=== PATIENT | female | born 1960 | race Caucasian/White ===

== ENCOUNTER 2017-11-22 17:49 | Inpatient (IN) ==
[~2017-11-22 17:49] MED LIST: *HR* Norepinephrine 4 MG/4 ML VIAL IVC ONE
--- NOTE | 2017-11-22 18:05 | Emergency Department Note ---
Disposition Clinical Impression: Acute respiratory failure Disposition: Still a Patient Condition: Critical Referrals: Ted Parada DO [Primary Care Provider] - Forms: ED Satisfaction Letter General Adult HPI - General Chief complaint: ED Shortness of Breath/Dyspnea Stated complaint: unreponsive/resp failure Time Seen by Provider: 11/22/17 17:53 Source: EMS Mode of arrival: EMS Limitations: altered mental status Nursing Notes Reviewed: Yes Vital Signs Reviewed: Yes - History of Present Illness HPI Narrative: Patient presenting as read story failure, intubated on scene. Apparently has a history of COPD and called the squad earlier today but refused transport. Has been seen at [facility] previously for her sepsis and COPD. Unclear of any surrounding circumstances as EMS states when they arrived, she was unresponsive and she was intubated. - Related Data Home Medications Medication Instructions Recorded Confirmed Citalopram [CeleXA] 20 mg PO DAILY 08/15/17 08/15/17 Cyanocobalamin (Vitamin B-12) 1,000 mcg PO DAILY 08/15/17 08/15/17 [Vitamin B12] Cyclobenzaprine [Flexeril] 10 mg PO TID PRN 08/15/17 08/15/17 Furosemide [Lasix] 40 mg PO DAILY 08/15/17 08/15/17 Gabapentin [Neurontin] 300 mg PO HS 08/15/17 08/15/17 Insulin Degludec [Tresiba 90 unit SQ BID 08/15/17 08/15/17 Flextouch U-200] Insulin LISPRO [Humalog Kwikpen 0 unit SQ TIDWM 08/15/17 08/15/17 U-100] Levothyroxine [Synthroid] 25 mcg PO 0630 08/15/17 08/15/17 Lisinopril [Zestril] 10 mg PO DAILY 08/15/17 08/15/17 Metoprolol XL (24 HR) Succ [Toprol 25 mg PO DAILY 08/15/17 08/15/17 XL] Tramadol HCl [Ultram] 50 mg PO Q6H PRN 08/15/17 08/15/17 Allergies Allergy/AdvReac Type Severity Reaction Status Date / Time carisoprodol [From Soma] Allergy Hives Verified 08/15/17 13:23 cephalexin [From Keflex] Allergy Hives Verified 08/15/17 13:23 Sulfa (Sulfonamide Allergy Hives Verified 08/15/17 13:23 Antibiotics) Limitations: ROS unobtainable due to patients medical condition Past Medical History - Past Medical History Attestation: Yes The following information was validated with the patient. Source: patient Medical history: Reports: atrial fibrillation, diabetes, hypertension Psychiatric history: Reports: depression - Social History Smoking Status: Never smoker Smokeless Tobacco Status: No Alcohol use: Reports: none Drug use: Reports: none Physical Exam - General Limitations: altered mental status General appearance: obtunded, obese, other (Intubated) - Head Head exam: atraumatic, normocephalic - Eye Eye exam: Present: other (Right pupil is 3 mm and minimally reactive, left iridotomy) - ENT ENT exam: other (Visualization of the cords showed pink frothy sputum. ET tube in correct position. After suctioning) - Chest Chest inspection: Present: normal inspection, symmetric chest wall rise - Respiratory Respiratory exam: Present: other (Course breath sounds and Rales bilaterally). Absent: normal lung sounds bilaterally - Cardiovascular Cardiovascular exam: Present: regular rate - Abdominal Exam Abdominal exam: Present: soft, other (Morbidly obese with a foul-smelling pannus ) - Female External Exam: Present: other (Foul-smelling, no obvious discharge) - Extremities Exam Extremities exam: Absent: normal capillary refill (Refill is 5 seconds) - Neurological Exam Neurological exam: Absent: alert, oriented X3 - Skin Skin exam: Present: warm, dry, intact, normal color Course Course Narrative: Patient presenting an acute respiratory failure, intubated. Called for respiratory distress. Her urine was taken and cloudy, so patient could be septic as well. The spectrum antibiotics were ordered. ET tube position was confirmed with video laryngoscopy. Upon arrival. Initial breath sounds were decreased on the left and we suspected a right mainstem intubation, so we retracted the ET tube 2 cm. After getting a stat chest x-ray. Patient was still right mainstem, so we retracted 3 cm and a repeat chest x-ray showed it in good position. An emergent right IJ CVC was placed, please see my procedure note for further details due to hypotension. Norepinephrine was started peripherally during the procedure and will be converted to the central line once chest x-ray is obtained. Patient will certainly need an ICU bed here and we are currently working on obtaining a bed. Otherwise, the patient has been seen at [facility] previously and will need to be transferred there. - Reevaluation(s) Reevaluation #1: Patient will be signed out to the oncoming nighttime team. Dr. Del Rio and Izzy Vital Signs Temperature 98.0 F 11/22/17 17:58 Pulse Rate 86 11/22/17 17:58 Respiratory Rate 16 11/22/17 17:58 Blood Pressure 76/42 11/22/17 17:58 O2 Sat by Pulse Oximetry 85 11/22/17 17:58 Temperature 98.0 F 11/22/17 17:58 Pulse Rate 90 11/22/17 18:14 Respiratory Rate 16 11/22/17 18:24 Blood Pressure 66/44 11/22/17 18:14 O2 Sat by Pulse Oximetry 90 11/22/17 18:24 Oxygen Delivery Oxygen Delivery Ventilator Procedures - Central Line Placement Right IJ Central Line Inserted*: Yes Central Line Insertion: emergent Procedural Pause: verify patient name and date of , timeout performed per policy, theron and assess the site, assemble equipment and verify supplies, perform hand hygiene Patient Placed on Monitor/Pulse Ox: Yes During the Procedure: clinician is wearing sterile gloves, cap, mask,& gown during insertion, sterile field and sterile technique are maintained, patient's face is covered with drape or mask and wearing a cap, everyone in room is wearing a mask Central Line Prep: Chlorhexidine scrub (x2) Prep the Procedure Site: apply chloraprep to the skin using a back and forth scrubbing motion, apply chloraprep for 30 seconds (upper body), 1-2 min ( femoral sites), allow prep to dry, drape the patient with a full body drape Ultrasound Used for Placement: Yes Central Line Lumen Inserted: triple Post Procedure: sutured in place, good blood return, all ports aspirated, flushed, capped, sterile dressing applied, guide wire removed and visualized Post Procedure X-Ray: tip of catheter in good position, no pneumothorax seen Patient Tolerated Procedure: well, no complications Complications: none Name of Clinician Inserting Central Line: Demetri Oswald D.O. Clinician Assisting/Completing Checklist: Dr. Hung Date: 11/22/17 Time: 18:46 Medical Decision Making - Lab Data Result diagrams: 11/22/17 17:55 11/22/17 17:55 Lab Results 11/22/17 11/22/17 11/22/17 Range/Units 17:55 17:55 17:55 WBC 43.9 H* (4.3-11.1) K/mcL RBC 4.29 (3.82-4.97) M/mcL Hgb 10.2 L (11.5-15.4) g/dL Hct 36.0 (35.3-44.9) % MCV 83.9 (83.0-100.0) fL MCH 23.8 L (28.0-33.3) pg MCHC 28.3 L (31.6-35.5) g/dL RDW 21.4 H (11.5-14.5) % Plt Count 325 (140-400) K/mcL MPV 10.9 (9.4-12.4) fL PT 14.9 H (9.4-12.1) Seconds INR 1.4 APTT 33.0 (26.0-36.0) Seconds Sodium 136 (136-145) mEq/L Potassium 5.0 (3.5-5.1) mEq/L Chloride 96 L (98-107) mEq/L Carbon Dioxide 30 H (23-29) mEq/L BUN 72 H (6-20) mg/dL Creatinine 3.14 H (0.60-1.20) mg/dL Est GFR ( Amer) 19 L (> 60) Est GFR (Non-Af Amer) 15 L (> 60) BUN/Creatinine Ratio 23 (6-26) Glucose 95 (70-105) mg/dL Calculated Osmolality 303 H (280-300) Lactic Acid (0.5-2.2) mmol/L Calcium 8.9 (8.6-10.3) mg/dL Phosphorus 8.1 H (2.7-4.5) mg/dL Magnesium 2.1 (1.6-2.6) mg/dL Total Bilirubin 1.1 H (0.3-1.0) mg/dL Direct Bilirubin 0.6 H (0.0-0.2) mg/dL Indirect Bilirubin 0.5 (0.0-1.2) mg/dL AST 10 L (13-39) Units/L ALT 5 L (7-52) Units/L Alkaline Phosphatase 235 H (34-104) Units/L Troponin I 0.13 H* (< 0.04) ng/mL Serum Total Protein 7.8 (6.4-8.9) g/dL Albumin 2.8 L (3.5-5.7) g/dL Globulin 5.0 H (2.4-3.5) g/dL Albumin/Globulin Ratio 0.6 L (1.1-2.2) 11/22/17 Range/Units 17:55 WBC (4.3-11.1) K/mcL RBC (3.82-4.97) M/mcL Hgb (11.5-15.4) g/dL Hct (35.3-44.9) % MCV (83.0-100.0) fL MCH (28.0-33.3) pg MCHC (31.6-35.5) g/dL RDW (11.5-14.5) % Plt Count (140-400) K/mcL MPV (9.4-12.4) fL PT (9.4-12.1) Seconds INR APTT (26.0-36.0) Seconds Sodium (136-145) mEq/L Potassium (3.5-5.1) mEq/L Chloride (98-107) mEq/L Carbon Dioxide (23-29) mEq/L BUN (6-20) mg/dL Creatinine (0.60-1.20) mg/dL Est GFR ( Amer) (> 60) Est GFR (Non-Af Amer) (> 60) BUN/Creatinine Ratio (6-26) Glucose (70-105) mg/dL Calculated Osmolality (280-300) Lactic Acid 2.6 H (0.5-2.2) mmol/L Calcium (8.6-10.3) mg/dL Phosphorus (2.7-4.5) mg/dL Magnesium (1.6-2.6) mg/dL Total Bilirubin (0.3-1.0) mg/dL Direct Bilirubin (0.0-0.2) mg/dL Indirect Bilirubin (0.0-1.2) mg/dL AST (13-39) Units/L ALT (7-52) Units/L Alkaline Phosphatase (34-104) Units/L Troponin I (< 0.04) ng/mL Serum Total Protein (6.4-8.9) g/dL Albumin (3.5-5.7) g/dL Globulin (2.4-3.5) g/dL Albumin/Globulin Ratio (1.1-2.2) Critical Care Time Critical Care Time: Yes Total Critical Care Time: 45 Attestation: I personally spent ___45___ minutes devoted to the care of this critically ill patient. This time excludes the time for billable procedures.
[2017-11-22 18:13] LABS: Hemoglobin 10.2 g/dL (11.5-15.4); Mean Corpuscular HGB Conc 28.3 g/dL (31.6-35.5); Mean Corpuscular Hemoglobin 23.8 pg (28.0-33.3); Mean Corpuscular Volume 83.9 fL (83.0-100.0); Mean Platelet Volume 10.9 fL (9.4-12.4); Platelet Count 325 K/mcL (140-400); Red Blood Count 4.29 M/mcL (3.82-4.97); Red Cell Distribution Width 21.4 % (11.5-14.5)
[2017-11-22 18:19] LABS: INR 1.4; Prothrombin Time 14.9 Seconds (9.4-12.1)
--- NOTE | 2017-11-22 18:21 | Emergency Department Note ---
Disposition Clinical Impression: Acute respiratory failure Disposition: Still a Patient Condition: Critical Referrals: Ted Parada DO [Primary Care Provider] - Forms: ED Satisfaction Letter General Adult HPI - General Chief complaint: ED Shortness of Breath/Dyspnea Stated complaint: unreponsive/resp failure Time Seen by Provider: 11/22/17 17:53 Source: EMS Mode of arrival: EMS Limitations: altered mental status Nursing Notes Reviewed: Yes Vital Signs Reviewed: Yes - History of Present Illness Pain Scale: 0 - Related Data Home Medications Medication Instructions Recorded Confirmed Citalopram [CeleXA] 20 mg PO DAILY 08/15/17 08/15/17 Cyanocobalamin (Vitamin B-12) 1,000 mcg PO DAILY 08/15/17 08/15/17 [Vitamin B12] Cyclobenzaprine [Flexeril] 10 mg PO TID PRN 08/15/17 08/15/17 Furosemide [Lasix] 40 mg PO DAILY 08/15/17 08/15/17 Gabapentin [Neurontin] 300 mg PO HS 08/15/17 08/15/17 Insulin Degludec [Tresiba 90 unit SQ BID 08/15/17 08/15/17 Flextouch U-200] Insulin LISPRO [Humalog Kwikpen 0 unit SQ TIDWM 08/15/17 08/15/17 U-100] Levothyroxine [Synthroid] 25 mcg PO 0630 08/15/17 08/15/17 Lisinopril [Zestril] 10 mg PO DAILY 08/15/17 08/15/17 Metoprolol XL (24 HR) Succ [Toprol 25 mg PO DAILY 08/15/17 08/15/17 XL] Tramadol HCl [Ultram] 50 mg PO Q6H PRN 08/15/17 08/15/17 Allergies Allergy/AdvReac Type Severity Reaction Status Date / Time carisoprodol [From Soma] Allergy Hives Verified 08/15/17 13:23 cephalexin [From Keflex] Allergy Hives Verified 08/15/17 13:23 Sulfa (Sulfonamide Allergy Hives Verified 08/15/17 13:23 Antibiotics) Past Medical History - Past Medical History Medical history: Reports: atrial fibrillation, diabetes, hypertension Psychiatric history: Reports: depression - Social History Smoking Status: Never smoker Smokeless Tobacco Status: No Alcohol use: Reports: none Drug use: Reports: none Physical Exam - General Limitations: altered mental status General appearance: alert, in no apparent distress Course Vital Signs Temperature 98.0 F 11/22/17 17:58 Pulse Rate 86 11/22/17 17:58 Respiratory Rate 16 11/22/17 17:58 Blood Pressure 76/42 11/22/17 17:58 O2 Sat by Pulse Oximetry 85 11/22/17 17:58 Temperature 98.0 F 11/22/17 17:58 Pulse Rate 88 11/22/17 18:57 Respiratory Rate 16 11/22/17 18:57 Blood Pressure 78/39 11/22/17 18:57 O2 Sat by Pulse Oximetry 87 11/22/17 18:57 Oxygen Delivery Oxygen Delivery Ventilator Medical Decision Making - MDM Narrative Medical decision making narrative: This documentation is done with the assistance of Dragon dictation. Despite efforts made to ensure accuracy, there may be inaccuracies in glass presser or spelling and typographical errors. Patient was seen by EMS early in the day with respiratory distress sats in the 80 she refused let them transport her she has had a history of CHF and possibly pneumonia in the past. They came again tonight she was altered with mental status and her sats were in the low 80s. They went ahead and intubated her and transported her here initially her blood pressure was normal and now she is hypotensive. Were in place a central line labs antibiotics and she will need admission. At the time we do not have any critical care beds she will probably need transfer. Looking at her old records she had pneumonia and CHF in the past and possibly COPD and was transferred to [facility] at that time. Chest X-Ray 11/22/17 18:07 IMPRESSION: 1. Endotracheal tube with the last image demonstrating the tip projecting approximately 1.7 cm above the min. 2. Patchy opacities throughout the lungs bilaterally. 3. There may be bilateral pleural effusions. D/ / Cuba Sawyer MD / Cuba Sawyer MD Interpreting Provider: Cuba Sawyer MD 1842 hrs. patient was hypotensive with a systolic in the 70s central line was placed under ultrasound guidance and sterile conditions by Dr. Oswald under my supervision. Patient's white count is back a 42,000 when she was here last time it was in the high 30,000. We will go and order peripheral smear last time she was transferred to [facility]. We may have to do today is a does appear we have ICU beds ICU team said they will check the sutures and when they can move out. Chest x-ray is done and waiting on labs we will start her on antibiotics and admit versus transfer. Due to her urinalysis we will go and start her on antibiotics for UTI sepsis. I will sign her out to the evening ER physician Dr. Del Rio for further management and disposition. Patient's critical care time x-ray separately billable procedures was 35 minutes. - Lab Data Result diagrams: 11/22/17 17:55 11/22/17 17:55 Lab Results 11/22/17 11/22/17 11/22/17 Range/Units 17:55 17:55 17:55 WBC 43.9 H* (4.3-11.1) K/mcL RBC 4.29 (3.82-4.97) M/mcL Hgb 10.2 L (11.5-15.4) g/dL Hct 36.0 (35.3-44.9) % MCV 83.9 (83.0-100.0) fL MCH 23.8 L (28.0-33.3) pg MCHC 28.3 L (31.6-35.5) g/dL RDW 21.4 H (11.5-14.5) % Plt Count 325 (140-400) K/mcL MPV 10.9 (9.4-12.4) fL PT 14.9 H (9.4-12.1) Seconds INR 1.4 APTT 33.0 (26.0-36.0) Seconds Sodium 136 (136-145) mEq/L Potassium 5.0 (3.5-5.1) mEq/L Chloride 96 L (98-107) mEq/L Carbon Dioxide 30 H (23-29) mEq/L BUN 72 H (6-20) mg/dL Creatinine 3.14 H (0.60-1.20) mg/dL Est GFR ( Amer) 19 L (> 60) Est GFR (Non-Af Amer) 15 L (> 60) BUN/Creatinine Ratio 23 (6-26) Glucose 95 (70-105) mg/dL Calculated Osmolality 303 H (280-300) Lactic Acid (0.5-2.2) mmol/L Calcium 8.9 (8.6-10.3) mg/dL Phosphorus 8.1 H (2.7-4.5) mg/dL Magnesium 2.1 (1.6-2.6) mg/dL Total Bilirubin 1.1 H (0.3-1.0) mg/dL Direct Bilirubin 0.6 H (0.0-0.2) mg/dL Indirect Bilirubin 0.5 (0.0-1.2) mg/dL AST 10 L (13-39) Units/L ALT 5 L (7-52) Units/L Alkaline Phosphatase 235 H (34-104) Units/L Troponin I 0.13 H* (< 0.04) ng/mL Serum Total Protein 7.8 (6.4-8.9) g/dL Albumin 2.8 L (3.5-5.7) g/dL Globulin 5.0 H (2.4-3.5) g/dL Albumin/Globulin Ratio 0.6 L (1.1-2.2) Ur Specimen Adequacy Urine Color (Yellow) Urine Clarity (Clear) Urine pH (5.0-8.0) pH Units Ur Specific [place] (1.010-1.025) Urine Protein (Neg-Trace) mg/dL Urine Glucose (UA) (Normal) mg/dL Urine Ketones (Negative) mg/dL Urine Blood (Negative) Urine Nitrite (Negative) Urine Bilirubin (Negative) Urine Urobilinogen (Normal) mg/dL Ur Leukocyte Esterase (Negative) Urine Microscopic WBC (0-3) per hpf Ur Squamous Epith Cells (None-Few) per lpf Ur Renal Epithelial Cell (None-Few) per hpf Urine Bacteria (None-Few) per hpf Urine Starch Ur Culture Indicated? (NO) 11/22/17 11/22/17 Range/Units 17:55 18:30 WBC (4.3-11.1) K/mcL RBC (3.82-4.97) M/mcL Hgb (11.5-15.4) g/dL Hct (35.3-44.9) % MCV (83.0-100.0) fL MCH (28.0-33.3) pg MCHC (31.6-35.5) g/dL RDW (11.5-14.5) % Plt Count (140-400) K/mcL MPV (9.4-12.4) fL PT (9.4-12.1) Seconds INR APTT (26.0-36.0) Seconds Sodium (136-145) mEq/L Potassium (3.5-5.1) mEq/L Chloride (98-107) mEq/L Carbon Dioxide (23-29) mEq/L BUN (6-20) mg/dL Creatinine (0.60-1.20) mg/dL Est GFR ( Amer) (> 60) Est GFR (Non-Af Amer) (> 60) BUN/Creatinine Ratio (6-26) Glucose (70-105) mg/dL Calculated Osmolality (280-300) Lactic Acid 2.6 H (0.5-2.2) mmol/L Calcium (8.6-10.3) mg/dL Phosphorus (2.7-4.5) mg/dL Magnesium (1.6-2.6) mg/dL Total Bilirubin (0.3-1.0) mg/dL Direct Bilirubin (0.0-0.2) mg/dL Indirect Bilirubin (0.0-1.2) mg/dL AST (13-39) Units/L ALT (7-52) Units/L Alkaline Phosphatase (34-104) Units/L Troponin I (< 0.04) ng/mL Serum Total Protein (6.4-8.9) g/dL Albumin (3.5-5.7) g/dL Globulin (2.4-3.5) g/dL Albumin/Globulin Ratio (1.1-2.2) Ur Specimen Adequacy See below A Urine Color Dark Yellow (Yellow) Urine Clarity Turbid A (Clear) Urine pH 5.0 (5.0-8.0) pH Units Ur Specific [place] 1.026 H (1.010-1.025) Urine Protein 100 H (Neg-Trace) mg/dL Urine Glucose (UA) Normal (Normal) mg/dL Urine Ketones Trace H (Negative) mg/dL Urine Blood Small H (Negative) Urine Nitrite Negative (Negative) Urine Bilirubin Small H (Negative) Urine Urobilinogen Normal (Normal) mg/dL Ur Leukocyte Esterase Large H (Negative) Urine Microscopic WBC Present (0-3) per hpf Ur Squamous Epith Cells Present (None-Few) per lpf Ur Renal Epithelial Cell Present (None-Few) per hpf Urine Bacteria Present (None-Few) per hpf Urine Starch Present Ur Culture Indicated? YES A (NO) Critical Care Time Critical Care Time: Yes Total Critical Care Time: 35 Attestation: Excluding any separately billable procedures Attestation Statement - Attestation Attestation: I examined this patient and my medical decision-making was reviewed with the Resident Physician. I agree with the documented findings, disposition and treatment plan as described except to the extent set forth below. Patient seen on arrival with EMS and Dr. Oswald, I agree with his evaluation and management plan, supervised the care the patient's stay.
[2017-11-22] MEDS ORDERED: 0.9 % Sodium Chloride 1,000 ML ONE (18:27)
[2017-11-22] MEDS: Norepinephrine 4 MG in D5% in Water 250 ML IVC SCH (18:28)
[2017-11-22 18:36] LABS: Albumin 2.8 g/dL (3.5-5.7); Albumin/Globulin Ratio 0.6 (1.1-2.2); Bilirubin,Direct 0.6 mg/dL (0.0-0.2); Bilirubin,Indirect 0.5 mg/dL (0.0-1.2); Bilirubin,Total 1.1 mg/dL (0.3-1.0); Calcium 8.9 mg/dL (8.6-10.3); Magnesium 2.1 mg/dL (1.6-2.6); Phosphorous 8.1 mg/dL (2.7-4.5); Total Protein 7.8 g/dL (6.4-8.9)
[2017-11-22 18:39] LABS: Troponin I 0.13 ng/mL (< 0.04)
[2017-11-22 18:47] LABS: Bilirubin,Urine Small (Negative); Blood,Urine Small (Negative); Clarity,Urine Turbid (Clear); Color,Urine Dark Yellow (Yellow); Glucose,Urine (UA) Normal (Normal); Ketones,Urine Trace mg/dL (Negative); Leukocyte Esterase,Urine Large (Negative); Nitrite,Urine Negative (Negative); Protein,Urine 100 mg/dL (Neg-Trace); Specific Gravity,Urine 1.026 (1.010-1.025); Urobilinogen,Urine Normal (Normal)
[2017-11-22 18:50] LABS: Bacteria,Urine Present per hpf (None-Few); Renal Epithelial Cells,Urine Present per hpf (None-Few); Squamous Epithelial Cell,Urine Present per lpf (None-Few); WBC,Urine Present per hpf (0-3)
[2017-11-22] MEDS ORDERED: 0.9 % Sodium Chloride 1,000 ML IVC ONE ×3 (18:50→22:56)
[2017-11-22] MEDS ORDERED: cefTRIAXone 1,000 MG in Water for inj. (sterile) 20 ML 10 ML IVP ONE (18:53)
[2017-11-22] MEDS ORDERED: Levofloxacin 750 MG/150 ML 750 MG/150 ML BAG IVPB ONE (18:53)
[2017-11-22 19:11] LABS: Lymphocytes # 1.3 K/mcL (0.6-4.6); Monocytes # 0.9 K/mcL (0.0-1.3); Neutrophils # 41.3 K/mcL (1.6-8.9)
[2017-11-22 19:12] LABS: Anisocytosis 2+ (Not Present); Hypochromasia Present (Not Present); Platelet Estimate Normal (Normal)
[2017-11-22] MEDS ORDERED: *HR* Midazolam HCl 2 MG/2 ML VIAL ONE ×2 (19:12→19:25)
[2017-11-22] MEDS ORDERED: *HR* Midazolam HCl 2 MG/2 ML VIAL IVP ONE ×3 (19:22→19:31)
[2017-11-22] MEDS ORDERED: Dexmedetomidine HCl 400 MCG/100 ML MLS IVC SCH (19:30)
[2017-11-22] MEDS ORDERED: methylPREDNISolone 125 MG/2 ML VIAL IVP ONE (19:31)
[2017-11-22] MEDS ORDERED: Ipratropium/Albuterol Neb 3 ML IH ONE (19:31)
[2017-11-22 19:54] LABS: ABG Base Excess 3 mEq/L (-2 to 3); ABG HCO3 31 mEq/L (21-27); ABG Oxygen Saturation 92 % (95-98); ABG PCO2 67 mmHg (35-45); ABG PH 7.28 pH Units (7.32-7.45); ABG PO2 76 mmHg (85-104); ABG TCO2 33 mEq/L (20-26); Blood Gas Modality VC; Blood Gas PEEP 7 cm H2O; Blood Gas Respiration Rate 16; Blood Gas VT 500 cc
[2017-11-22] MEDS ORDERED: Naloxone 0.4 MG/ML INJ IVP PRN (20:04)
[2017-11-22] MEDS: FentaNYL (PF) 1,000 MCG in 0.9 % Sodium Chloride 80 ML IVC SCH (20:05)
[2017-11-22] MEDS: Dexmedetomidine HCl 200 MCG/50 ML MLS IVC SCH (20:09)
[2017-11-22] MEDS ORDERED: *HR* Dextrose 50 % in Water (Syg) 50 ML SYRINGE IVP PRN (20:12)
[2017-11-22] MEDS ORDERED: D5% in Water 1,000 ML IVC PRN (20:12)
[2017-11-22] MEDS ORDERED: Dextrose Gel 15 GM/37.5 ML TUBE PO PRN ×2 (20:12)
--- NOTE | 2017-11-22 20:27 | Internal Med History&Physical ---
Addendum entered and electronically signed by Ted Bowling DO 11/22/17 21:58: Assessment and plan: Elevated troponin Initial troponin 0.13. EKG without ischemic changes. Suspect demand ischemia secondary to hypoxia as well as concomitant renal insufficiency. Continue serial troponin labs every 6 hours. Consider heparinization if continued up trend of levels. Original Note: <Ted Bowling - Last Filed: 11/22/17 21:29> Date of Encounter: 11/22/17 Time of Encounter: 20:27 Assessment and Plan (1) HCAP (healthcare-associated pneumonia) Current visit: Yes Status: Acute Presented to the emergency department on 11/22/17 with acute on chronic respiratory failure requiring intubation. Chest x-ray concerning for bilateral infiltrates. Admission in August 2017 for influenza and pneumonia requiring and NIPPV Just discharged 2 weeks ago from an extended care facility. Patient meets criteria for healthcare associated pneumonia. Continue broad-spectrum antibiotic coverage with vancomycin, cefepime and Levaquin. Legionella, strep and viral panel ordered and pending. Blood cultures obtained. De-escalate antibiotics as guided by culture sensitivities. (2) Septic shock Current visit: Yes Status: Acute Patient presented with 2 SIRS criteria (leukocytosis, heart rate) with pulmonary etiology. Chest x-ray with bilateral infiltrates. Hypotensive despite IV fluid resuscitation necessitating vasopressor support. Broad-spectrum antibiotics of vancomycin, cefepime and Levaquin. Initial lactic acid of 2.6, continued to trend and hydrate. Continue Levophed with goal map greater than 60. (3) Acute and chronic respiratory failure Current visit: Yes Status: Acute Intubated for acute on chronic hypercapnic respiratory failure with hypoxia. Multifactorial in the setting of suspected pneumonia as well as likely underlying obesity hypoventilation and chronic retention. ABG 7.28/67/76/31 demonstrates a primary respiratory acidosis with incomplete metabolic compensation. Continue mechanical ventilation. Repeat chest x-ray in a.m. Broad-spectrum antibiotic coverage for pneumonia with vancomycin, cefepime and Levaquin. Qualifiers: Respiratory failure complication: hypoxia and hypercapnia Qualified Code(s) : J96.21 - Acute and chronic respiratory failure with hypoxia; J96.22 - Acute and chronic respiratory failure with hypercapnia; J96.22 - Acute and chronic respiratory failure with hypercapnia; J96.22 - Acute and chronic respiratory failure with hypercapnia (4) Diabetes Current visit: Yes Status: Chronic Sliding-scale insulin coverage. Qualifiers: Diabetes mellitus type: type 2 Diabetes mellitus fci insulin use: unspecified fci insulin use status Diabetes mellitus complication status : with unspecified complications Qualified Code(s): E11.8 - Type 2 diabetes mellitus with unspecified complications (5) Hypertension Current visit: Yes Status: Chronic Hold antihypertensives in the setting of septic shock. Qualifiers: Hypertension type: essential hypertension Qualified Code(s): I10 - Essential (primary) hypertension (6) Anemia Current visit: Yes Status: Acute Hemoglobin 10.2, previously 9.5 at last visit. No obvious source of bleeding. Continue to trend daily. Qualifiers: Anemia type: unspecified type Qualified Code(s): D64.9 - Anemia, unspecified (7) Atrial fibrillation Current visit: Yes Status: Chronic Rate controlled at this time. Not on anticoagulants. Hold beta ana in the setting of septic shock. Qualifiers: Atrial fibrillation type: unspecified Qualified Code(s): I48.91 - Unspecified atrial fibrillation (8) Leukocytosis Current visit: Yes Status: Acute WBC 43.9, previously 39.8 at last visit. Bandemia present. In the setting of septic shock. Continue to trend daily. Qualifiers: Leukocytosis type: bandemia Qualified Code(s): D72.825 - Bandemia (9) Renal insufficiency Current visit: Yes Status: Acute Serum creatinine 3.14. Continue to trend daily. Avoid nephrotoxic agents. Renally dose vancomycin. (10) Morbid obesity Current visit: Yes Status: Chronic (11) DVT prophylaxis Current visit: Yes Status: Acute Heparin 5000 units every 12 hours Internal Medicine - H&P: HPI Chief complaint: Altered mental status, acute respiratory failure Admitted From: Emergency Dept Plans for Post Hospital Care: Transfer Nursing Home Facility History of present illness: Ms. Romero is a 57 year old female with a past medical history of diabetes, hypertension, hyperlipidemia, atrial fibrillation reportedly not on anticoagulation, congestive heart failure who presented to the emergency department on 11/22/17 via EMS due to altered mental status and respiratory failure. Report is obtained from documentation as well as the patient's son as she is intubated and sedated. He reports that she was in her usual state of health until this afternoon. She woke up today and she was fine conversing at her baseline. He reports that his father was home with her and around 3 PM he was unable to wake her up. He states when he got home she remained difficult to awake. He does go on to report that around 10 AM this morning she was hypoxic at home despite her usual 3 L nasal cannula and EMS arrived but the patient refused to be transferred. EMS was again called and the patient was brought in for evaluation. Patient was intubated by EMS prior to arrival. Patient seen and examined at bedside in the emergency department with the patient's son present. He goes on to report that in August she was admitted to [facility] with influenza and pneumonia. She had a prolonged stay with transferred to a rehabilitation center which she was just released from 2 weeks ago. He states that she has had a cough since . Otherwise she has been at her baseline requiring usual oxygen supplementation of 3 L nasal cannula continuous. She has no prior history requiring intubation. She was on BiPAP during her last hospitalization in August. Workup in the emergency department included a head CT without acute abnormality. EKG demonstrates sinus rhythm with isolated ST elevation in lead 3 without contiguous findings. Initial troponin of 0.13 in the setting of acute renal insufficiency. She is noted to have a leukocytosis of 43.9 with one prior comparison of 40. Lactic acid of 2.6. The patient was given 2 L of IV fluids as well as Rocephin and Levaquin initially. Her chest x-ray demonstrates bilateral opacifications. Her antibiotic regimen was escalated to vancomycin after shift change. She is admitted to the intensive care unit under the hospitalist service for further ventilatory management and sepsis resuscitation. Past Med Surg Social Fam HX - Past Medical History Source: obtained from family Medical history: atrial fibrillation, diabetes, hypertension Psychiatric history: depression - Social History Smoking Status: Never smoker Smokeless Tobacco Status: No Alcohol use: none Drug use: none Internal Medicine - H&P: Meds Citalopram [CeleXA] 20 mg PO DAILY 08/15/17 [History] Cyanocobalamin (Vitamin B-12) [Vitamin B12] 1,000 mcg PO DAILY 08/15/17 [History ] Cyclobenzaprine [Flexeril] 10 mg PO TID PRN 08/15/17 [History] Furosemide [Lasix] 40 mg PO DAILY 08/15/17 [History] Gabapentin [Neurontin] 300 mg PO HS 08/15/17 [History] Insulin Degludec [Tresiba Flextouch U-200] 90 unit SQ BID 08/15/17 [History] Insulin LISPRO [Humalog Kwikpen U-100] 0 unit SQ TIDWM 08/15/17 [History] Lisinopril [Zestril] 10 mg PO DAILY 08/15/17 [History] Metoprolol XL (24 HR) Succ [Toprol XL] 25 mg PO DAILY 08/15/17 [History] Tramadol HCl [Ultram] 50 mg PO Q6H PRN 08/15/17 [History] Ascorbic Acid [Vitamin C] 500 mg PO BID 11/22/17 [History] Docusate Sodium [Dok] 100 mg PO DAILY 11/22/17 [History] Ferrous Sulfate [Iron] 325 mg PO BID 11/22/17 [History] Levothyroxine [Synthroid] 50 mcg PO 0630 11/22/17 [History] Nystatin POWDER [Nystop] 1 appl TP BID 11/22/17 [History] Potassium Chloride [K-Tab ER] 20 meq PO DAILY 11/22/17 [History] 3 Allergy/AdvReac Type Severity Reaction Status Date / Time carisoprodol [From Soma] Allergy Hives Verified 08/15/17 13:23 cephalexin [From Keflex] Allergy Hives Verified 08/15/17 13:23 Sulfa (Sulfonamide Allergy Hives Verified 08/15/17 13:23 Antibiotics) ROS unobtainable: due to endotracheal tube All Systems PM: A 10-system review of systems was performed and is negative for pertinent findings except as documented above in the HPI. - Constitutional Vitals: Temp Pulse Resp BP Pulse Ox 98.0 F 87 15 136/61 100 11/22/17 17:58 11/22/17 19:42 11/22/17 19:42 11/22/17 19:42 11/22/17 19:42 Exam: Intubated and sedated. - Head Head exam: Present: atraumatic, normal inspection, normocephalic - Eye Eye exam: Present: normal appearance - Neck Neck exam general surgery: Present: normal inspection - Respiratory Additional comments: Mechanically ventilated. Coarse breath sounds bilaterally with bibasilar diminished breath sounds. - Cardiovascular Cardiovascular exam: Present: bradycardia, +S1, +S2 - GI/Abdominal GI/Abdominal exam: Present: soft, no peritoneal signs Additional comments: Discoloration of the lower abdomen with excoriations. - Extremities Exam Extremities exam: Present: pedal edema. Absent: cyanotic - Neurological Exam Additional comments: Intubated and sedated. - Skin Skin exam: Present: dry Internal Med - H&P Results - Labs CBC & Chem 7: 11/22/17 17:55 11/22/17 17:55 Labs: Short CBC 11/22/17 Range/Units 17:55 WBC 43.9 H* (4.3-11.1) K/mcL Hgb 10.2 L (11.5-15.4) g/dL Hct 36.0 (35.3-44.9) % Plt Count 325 (140-400) K/mcL Neutrophils # 41.3 H (1.6-8.9) K/mcL BMP 11/22/17 17:55 Sodium 136 Potassium 5.0 Chloride 96 L Carbon Dioxide 30 H BUN 72 H Creatinine 3.14 H Glucose 95 Calcium 8.9 Cardiac Enzymes 11/22/17 Range/Units 17:55 Troponin I 0.13 H* (< 0.04) ng/mL Liver Function 11/22/17 Range/Units 17:55 Total Bilirubin 1.1 H (0.3-1.0) mg/dL Direct Bilirubin 0.6 H (0.0-0.2) mg/dL AST 10 L (13-39) Units/L ALT 5 L (7-52) Units/L Alkaline Phosphatase 235 H (34-104) Units/L Albumin 2.8 L (3.5-5.7) g/dL Urine 11/22/17 Range/Units 18:30 Urine Color Dark Yellow (Yellow) Urine Clarity Turbid A (Clear) Urine pH 5.0 (5.0-8.0) pH Units Ur Specific [place] 1.026 H (1.010-1.025) Urine Protein 100 H (Neg-Trace) mg/dL Urine Glucose (UA) Normal (Normal) mg/dL - ABG Interpretation ABG results: 11/22/17 19:51 ABG pH 7.28 L ABG pCO2 67 H ABG pO2 76 L ABG HCO3 31 H ABG Total CO2 33 H ABG O2 Saturation 92 L ABG Base Excess 3 - Impressions ITS Impressions Chest X-Ray 11/22/17 18:04 IMPRESSION: 1. Endotracheal tube with the last image demonstrating the tip projecting approximately 1.7 cm above the min. 2. Patchy opacities throughout the lungs bilaterally. 3. There may be bilateral pleural effusions. D/ / Cuba Sawyer MD / Cuba Sawyer MD Interpreting Provider: Cuba Sawyer MD Chest X-Ray 11/22/17 18:07 IMPRESSION: 1. Endotracheal tube with the last image demonstrating the tip projecting approximately 1.7 cm above the min. 2. Patchy opacities throughout the lungs bilaterally. 3. There may be bilateral pleural effusions. D/ / Cuba Sawyer MD / Cuba Sawyer MD Interpreting Provider: Cuba Sawyer MD Chest X-Ray 11/22/17 19:14 IMPRESSION: Right IJ central venous catheter tip projects at the superior cavoatrial junction. No significant change in bilateral interstitial and airspace opacities, worse on the right than the left. D/ / 11/22/2017 19:26:13 Danny Pope MD / vinny Interpreting Provider: Danny Pope MD <Marcela Burk - Last Filed: 11/22/17 23:03> Date of Encounter: 11/22/17 Internal Medicine - H&P: HPI History of present illness: Ms. Romero is a 57 year old female All Systems PM: A 10-system review of systems was performed and is negative for pertinent findings except as documented above in the HPI. - Constitutional Vitals: Temp Pulse Resp BP Pulse Ox 98.1 F 75 19 123/37 100 11/22/17 22:00 11/22/17 22:00 11/22/17 22:00 11/22/17 22:00 11/22/17 22:00 Internal Med - H&P Results - Labs CBC & Chem 7: 11/22/17 17:55 11/22/17 17:55 - Attending Attestation I have seen and examined this patient independently. I have discussed with resident physician Dr Bowling regarding the management plan. Agree with the documentation. Pt present with nonresponsive. Pt has cough, hypoxia, and respiratory distress since this morning. Pt meets sepsis and septic shock criteria, infection source is most likely from HCAP considering CXR changes and respiratory failure and ABG change shows respiratory acidosis with CO2 retention. Pt also has Acute on chronic renal failure. Pt has mild elevated troponin, which is most likely demand ischemia due to severe sepsis and ARF. Will trend 3 sets of troponin. Will cont abx and IVF. Pt was intubated in ER already and will cont mechanical ventilation. Pt is on levophed for hypotension. Will consult neonatologist. Pt is in critical condition, prognosis is guarded. Critical care time 40 min including history, physical, data review, and medical decision making.
[2017-11-22 20:50] LABS: Toxic Granulation Present (Not Present)
--- NOTE | 2017-11-22 21:01 | Emergency Department Note ---
Disposition Clinical Impression: Acute respiratory failure Disposition: Still a Patient Condition: Critical General Adult HPI - General Chief complaint: ED Shortness of Breath/Dyspnea Stated complaint: unreponsive/resp failure Time Seen by Provider: 11/22/17 17:53 Source: EMS Mode of arrival: EMS Limitations: altered mental status Nursing Notes Reviewed: Yes Vital Signs Reviewed: Yes - History of Present Illness Pain Scale: 0 - Related Data Home Medications Medication Instructions Recorded Confirmed Citalopram [CeleXA] 20 mg PO DAILY 08/15/17 11/22/17 Cyanocobalamin (Vitamin B-12) 1,000 mcg PO DAILY 08/15/17 11/22/17 [Vitamin B12] Cyclobenzaprine [Flexeril] 10 mg PO TID PRN 08/15/17 11/22/17 Furosemide [Lasix] 40 mg PO DAILY 08/15/17 11/22/17 Gabapentin [Neurontin] 300 mg PO HS 08/15/17 11/22/17 Insulin Degludec [Tresiba 90 unit SQ BID 08/15/17 11/22/17 Flextouch U-200] Insulin LISPRO [Humalog Kwikpen 0 unit SQ TIDWM 08/15/17 11/22/17 U-100] Lisinopril [Zestril] 10 mg PO DAILY 08/15/17 11/22/17 Metoprolol XL (24 HR) Succ [Toprol 25 mg PO DAILY 08/15/17 11/22/17 XL] Tramadol HCl [Ultram] 50 mg PO Q6H PRN 08/15/17 11/22/17 Ascorbic Acid [Vitamin C] 500 mg PO BID 11/22/17 11/22/17 Docusate Sodium [Dok] 100 mg PO DAILY 11/22/17 11/22/17 Ferrous Sulfate [Iron] 325 mg PO BID 11/22/17 11/22/17 Levothyroxine [Synthroid] 50 mcg PO 0630 11/22/17 11/22/17 Nystatin POWDER [Nystop] 1 appl TP BID 11/22/17 11/22/17 Potassium Chloride [K-Tab ER] 20 meq PO DAILY 11/22/17 11/22/17 Allergies Allergy/AdvReac Type Severity Reaction Status Date / Time carisoprodol [From Soma] Allergy Hives Verified 08/15/17 13:23 cephalexin [From Keflex] Allergy Hives Verified 08/15/17 13:23 Sulfa (Sulfonamide Allergy Hives Verified 08/15/17 13:23 Antibiotics) Past Medical History - Past Medical History Medical history: Reports: atrial fibrillation, diabetes, hypertension Psychiatric history: Reports: depression - Social History Smoking Status: Never smoker Smokeless Tobacco Status: No Alcohol use: Reports: none Drug use: Reports: none Physical Exam - General Limitations: altered mental status General appearance: alert, in no apparent distress Course Vital Signs Temperature 98.0 F 11/22/17 17:58 Pulse Rate 86 11/22/17 17:58 Respiratory Rate 16 11/22/17 17:58 Blood Pressure 76/42 11/22/17 17:58 O2 Sat by Pulse Oximetry 85 11/22/17 17:58 Temperature 98.2 F 11/23/17 04:40 Pulse Rate 58 11/23/17 05:00 Respiratory Rate 16 11/23/17 05:08 Blood Pressure 105/42 11/23/17 05:08 O2 Sat by Pulse Oximetry 94 11/23/17 05:08 Oxygen Delivery Oxygen Delivery Ventilator Medical Decision Making - Lab Data Result diagrams: 11/23/17 03:30 11/23/17 03:09 Lab Results 11/22/17 11/22/17 11/22/17 Range/Units 17:55 17:55 17:55 WBC 43.9 H* (4.3-11.1) K/mcL RBC 4.29 (3.82-4.97) M/mcL Hgb 10.2 L (11.5-15.4) g/dL Hct 36.0 (35.3-44.9) % MCV 83.9 (83.0-100.0) fL MCH 23.8 L (28.0-33.3) pg MCHC 28.3 L (31.6-35.5) g/dL RDW 21.4 H (11.5-14.5) % Plt Count 325 (140-400) K/mcL MPV 10.9 (9.4-12.4) fL Seg Neutrophils % 77.0 % Band Neutrophils % 17.0 H (0-4) % Lymphocytes % 3.0 % Monocytes % 2.0 % Myelocytes % 1.0 H (0) % Neutrophils # 41.3 H (1.6-8.9) K/mcL Lymphocytes # 1.3 (0.6-4.6) K/mcL Monocytes # 0.9 (0.0-1.3) K/mcL Toxic Granulation Present A (Not Present) Platelet Estimate Normal (Normal) Hypochromasia Present A (Not Present) Anisocytosis 2+ A (Not Present) Smear Path Review PT 14.9 H (9.4-12.1) Seconds INR 1.4 APTT 33.0 (26.0-36.0) Seconds Sample Site ABG pH (7.32-7.45) pH Units ABG pCO2 (35-45) mmHg ABG pO2 (85-104) mmHg ABG HCO3 (21-27) mEq/L ABG Total CO2 (20-26) mEq/L ABG O2 Saturation (95-98) % ABG Base Excess (-2 to 3) mEq/L Respiration Rate O2 Delivery Device Blood Gas Modality Inspired O2 (1-15=lpm [id number]=%) Tidal Volume cc PEEP cm H2O Sodium 136 (136-145) mEq/L Potassium 5.0 (3.5-5.1) mEq/L Chloride 96 L (98-107) mEq/L Carbon Dioxide 30 H (23-29) mEq/L BUN 72 H (6-20) mg/dL Creatinine 3.14 H (0.60-1.20) mg/dL Est GFR ( Amer) 19 L (> 60) Est GFR (Non-Af Amer) 15 L (> 60) BUN/Creatinine Ratio 23 (6-26) Glucose 95 (70-105) mg/dL POC Glucose (70-99) mg/dL Calculated Osmolality 303 H (280-300) Lactic Acid (0.5-2.2) mmol/L Calcium 8.9 (8.6-10.3) mg/dL Phosphorus 8.1 H (2.7-4.5) mg/dL Magnesium 2.1 (1.6-2.6) mg/dL Total Bilirubin 1.1 H (0.3-1.0) mg/dL Direct Bilirubin 0.6 H (0.0-0.2) mg/dL Indirect Bilirubin 0.5 (0.0-1.2) mg/dL AST 10 L (13-39) Units/L ALT 5 L (7-52) Units/L Alkaline Phosphatase 235 H (34-104) Units/L Troponin I 0.13 H* (< 0.04) ng/mL B-Natriuretic Peptide (Less than 100) pg/mL Serum Total Protein 7.8 (6.4-8.9) g/dL Albumin 2.8 L (3.5-5.7) g/dL Globulin 5.0 H (2.4-3.5) g/dL Albumin/Globulin Ratio 0.6 L (1.1-2.2) Ur Specimen Adequacy Urine Color (Yellow) Urine Clarity (Clear) Urine pH (5.0-8.0) pH Units Ur Specific [place] (1.010-1.025) Urine Protein (Neg-Trace) mg/dL Urine Glucose (UA) (Normal) mg/dL Urine Ketones (Negative) mg/dL Urine Blood (Negative) Urine Nitrite (Negative) Urine Bilirubin (Negative) Urine Urobilinogen (Normal) mg/dL Ur Leukocyte Esterase (Negative) Urine Microscopic WBC (0-3) per hpf Ur Squamous Epith Cells (None-Few) per lpf Ur Renal Epithelial Cell (None-Few) per hpf Urine Bacteria (None-Few) per hpf Urine Starch Ur Culture Indicated? (NO) 11/22/17 11/22/17 11/22/17 Range/Units 17:55 17:55 18:05 WBC (4.3-11.1) K/mcL RBC (3.82-4.97) M/mcL Hgb (11.5-15.4) g/dL Hct (35.3-44.9) % MCV (83.0-100.0) fL MCH (28.0-33.3) pg MCHC (31.6-35.5) g/dL RDW (11.5-14.5) % Plt Count (140-400) K/mcL MPV (9.4-12.4) fL Seg Neutrophils % % Band Neutrophils % (0-4) % Lymphocytes % % Monocytes % % Myelocytes % (0) % Neutrophils # (1.6-8.9) K/mcL Lymphocytes # (0.6-4.6) K/mcL Monocytes # (0.0-1.3) K/mcL Toxic Granulation (Not Present) Platelet Estimate (Normal) Hypochromasia (Not Present) Anisocytosis (Not Present) Smear Path Review PT (9.4-12.1) Seconds INR APTT (26.0-36.0) Seconds Sample Site ABG pH (7.32-7.45) pH Units ABG pCO2 (35-45) mmHg ABG pO2 (85-104) mmHg ABG HCO3 (21-27) mEq/L ABG Total CO2 (20-26) mEq/L ABG O2 Saturation (95-98) % ABG Base Excess (-2 to 3) mEq/L Respiration Rate O2 Delivery Device Blood Gas Modality Inspired O2 (1-15=lpm [id number]=%) Tidal Volume cc PEEP cm H2O Sodium (136-145) mEq/L Potassium (3.5-5.1) mEq/L Chloride (98-107) mEq/L Carbon Dioxide (23-29) mEq/L BUN (6-20) mg/dL Creatinine (0.60-1.20) mg/dL Est GFR ( Amer) (> 60) Est GFR (Non-Af Amer) (> 60) BUN/Creatinine Ratio (6-26) Glucose (70-105) mg/dL POC Glucose 112 H (70-99) mg/dL Calculated Osmolality (280-300) Lactic Acid 2.6 H (0.5-2.2) mmol/L Calcium (8.6-10.3) mg/dL Phosphorus (2.7-4.5) mg/dL Magnesium (1.6-2.6) mg/dL Total Bilirubin (0.3-1.0) mg/dL Direct Bilirubin (0.0-0.2) mg/dL Indirect Bilirubin (0.0-1.2) mg/dL AST (13-39) Units/L ALT (7-52) Units/L Alkaline Phosphatase (34-104) Units/L Troponin I (< 0.04) ng/mL B-Natriuretic Peptide 379 H (Less than 100) pg/mL Serum Total Protein (6.4-8.9) g/dL Albumin (3.5-5.7) g/dL Globulin (2.4-3.5) g/dL Albumin/Globulin Ratio (1.1-2.2) Ur Specimen Adequacy Urine Color (Yellow) Urine Clarity (Clear) Urine pH (5.0-8.0) pH Units Ur Specific [place] (1.010-1.025) Urine Protein (Neg-Trace) mg/dL Urine Glucose (UA) (Normal) mg/dL Urine Ketones (Negative) mg/dL Urine Blood (Negative) Urine Nitrite (Negative) Urine Bilirubin (Negative) Urine Urobilinogen (Normal) mg/dL Ur Leukocyte Esterase (Negative) Urine Microscopic WBC (0-3) per hpf Ur Squamous Epith Cells (None-Few) per lpf Ur Renal Epithelial Cell (None-Few) per hpf Urine Bacteria (None-Few) per hpf Urine Starch Ur Culture Indicated? (NO) 11/22/17 11/22/17 11/22/17 Range/Units 18:30 18:57 19:51 WBC (4.3-11.1) K/mcL RBC (3.82-4.97) M/mcL Hgb (11.5-15.4) g/dL Hct (35.3-44.9) % MCV (83.0-100.0) fL MCH (28.0-33.3) pg MCHC (31.6-35.5) g/dL RDW (11.5-14.5) % Plt Count (140-400) K/mcL MPV (9.4-12.4) fL Seg Neutrophils % % Band Neutrophils % (0-4) % Lymphocytes % % Monocytes % % Myelocytes % (0) % Neutrophils # (1.6-8.9) K/mcL Lymphocytes # (0.6-4.6) K/mcL Monocytes # (0.0-1.3) K/mcL Toxic Granulation (Not Present) Platelet Estimate (Normal) Hypochromasia (Not Present) Anisocytosis (Not Present) Smear Path Review See Below PT (9.4-12.1) Seconds INR APTT (26.0-36.0) Seconds Sample Site R Radial ABG pH 7.28 L (7.32-7.45) pH Units ABG pCO2 67 H (35-45) mmHg ABG pO2 76 L (85-104) mmHg ABG HCO3 31 H (21-27) mEq/L ABG Total CO2 33 H (20-26) mEq/L ABG O2 Saturation 92 L (95-98) % ABG Base Excess 3 (-2 to 3) mEq/L Respiration Rate 16 O2 Delivery Device Adult Vent Blood Gas Modality VC Inspired O2 100.0 (1-15=lpm [id number]=%) Tidal Volume 500 cc PEEP 7 cm H2O Sodium (136-145) mEq/L Potassium (3.5-5.1) mEq/L Chloride (98-107) mEq/L Carbon Dioxide (23-29) mEq/L BUN (6-20) mg/dL Creatinine (0.60-1.20) mg/dL Est GFR ( Amer) (> 60) Est GFR (Non-Af Amer) (> 60) BUN/Creatinine Ratio (6-26) Glucose (70-105) mg/dL POC Glucose (70-99) mg/dL Calculated Osmolality (280-300) Lactic Acid (0.5-2.2) mmol/L Calcium (8.6-10.3) mg/dL Phosphorus (2.7-4.5) mg/dL Magnesium (1.6-2.6) mg/dL Total Bilirubin (0.3-1.0) mg/dL Direct Bilirubin (0.0-0.2) mg/dL Indirect Bilirubin (0.0-1.2) mg/dL AST (13-39) Units/L ALT (7-52) Units/L Alkaline Phosphatase (34-104) Units/L Troponin I (< 0.04) ng/mL B-Natriuretic Peptide (Less than 100) pg/mL Serum Total Protein (6.4-8.9) g/dL Albumin (3.5-5.7) g/dL Globulin (2.4-3.5) g/dL Albumin/Globulin Ratio (1.1-2.2) Ur Specimen Adequacy See below A Urine Color Dark Yellow (Yellow) Urine Clarity Turbid A (Clear) Urine pH 5.0 (5.0-8.0) pH Units Ur Specific [place] 1.026 H (1.010-1.025) Urine Protein 100 H (Neg-Trace) mg/dL Urine Glucose (UA) Normal (Normal) mg/dL Urine Ketones Trace H (Negative) mg/dL Urine Blood Small H (Negative) Urine Nitrite Negative (Negative) Urine Bilirubin Small H (Negative) Urine Urobilinogen Normal (Normal) mg/dL Ur Leukocyte Esterase Large H (Negative) Urine Microscopic WBC Present (0-3) per hpf Ur Squamous Epith Cells Present (None-Few) per lpf Ur Renal Epithelial Cell Present (None-Few) per hpf Urine Bacteria Present (None-Few) per hpf Urine Starch Present Ur Culture Indicated? YES A (NO) Attestation Statement - Attestation Attestation: I examined this patient and my medical decision-making was reviewed with the Resident Physician. I agree with the documented findings, disposition and treatment plan as described except to the extent set forth below. Findings consistent with respiratory failure requiring prehospital intubation. This patient was signed out to me. Broad-spectrum antibiotics and pancultures were initiated. Chest x-ray is concerning for pneumonia. Plan to admit for the intensive care unit for further management. Patient remains critical at time of admission. Central line was placed prior to my arrival. Patient is on norepinephrine maintaining mean arterial blood pressure above 65. I spent greater than 35 minutes of critical care time resuscitating this acutely ill patient suffering from a stray failure requiring intubation. This was excluding billable procedures.
[2017-11-22] MEDS ORDERED: Potassium Chloride 40 MEQ/200 ML BAG IVPB PRN (22:05)
[2017-11-22] MEDS ORDERED: Lacri-Lube 3.5 GM TUBE BOTH EYES PRN (22:05)
[2017-11-22] MEDS ORDERED: Vancomycin 500 MG in 0.9 % Sodium Chloride Mini Bag 100 ML IVPB ONE (23:00)
[2017-11-22] MEDS: Lacri-Lube 3.5 GM TUBE BOTH EYES SCH (23:01)
[2017-11-22 23:37] LABS: Adenovirus Not Detected (Not Detect); Bordetella Pertussis Not Detected (Not Detect); Chlamydophila pneumoniae Not Detected (Not Detect); Coronavirus 229E Not Detected (Not Detect); Coronavirus HKU1 Not Detected (Not Detect); Coronavirus NL63 Not Detected (Not Detect); Coronavirus OC43 Not Detected (Not Detect); Human Metapneumovirus Not Detected (Not Detect); Human Rhinovirus/Enterovirus Not Detected (Not Detect); Influenza A Subtype 2009 H1 Not Detected (Not Detect); Influenza A Untypeable Not Detected (Not Detect); Influenza B Not Detected (Not Detect); Mycoplasma pneumoniae Not Detected (Not Detect); Parainfluenza Virus 1 Not Detected (Not Detect); Parainfluenza Virus 2 Not Detected (Not Detect); Parainfluenza Virus 3 Not Detected (Not Detect); Parainfluenza Virus 4 Not Detected (Not Detect); Respiratory Syncytial Virus Not Detected (Not Detect)
[2017-11-22] MEDS: 0.9 % Sodium Chloride 1,000 ML IVC SCH (23:52)
[2017-11-22] MEDS: Insulin LISPRO 300 UNITS/3 ML VIAL SQ SCH (23:58)
[2017-11-23] MEDS ORDERED: Cefepime HCl 2,000 MG in Water for inj. (sterile) 20 ML 20 ML IVP SCH
--- NOTE | 2017-11-23 01:50 | Pulmonology History & Physical ---
Date of Encounter: 11/23/17 Assessment and Plan (1) HCAP (healthcare-associated pneumonia) Current visit: Yes Status: Acute Intubated on 11/21/17 secondary to acute on chronic respiratory failure with hypercapnia and hypoxia Chest x-ray with findings of bilateral infiltrates. Recently discharged 2 weeks prior from an extended care facility after admission in August 2017 for influenza and pneumonia. Criteria for healthcare associated pneumonia. Blood cultures obtained in the emergency department. Respiratory panel negative. MRSA surveillance negative. Legionella and strep pneumo urine antigens pending. Continue empiric antibiotics vancomycin, cefepime and Levaquin. (2) Septic shock Current visit: Yes Status: Acute Patient meets sepsis criteria with leukocytosis and heart rate of 90 on presentation with pneumonia Chest x-ray with evidence of bilateral infiltrates. Despite IV fluids, required vasopressor support in the emergency department. Lactic acid 2.6 upon arrival. Improved to 1.3. Continue vancomycin, cefepime and Levaquin. Continue vasopressor support with goal MAP>60. (3) Acute and chronic respiratory failure Current visit: Yes Status: Acute Intubated 11/21/17 for acute on chronic respiratory failure with hypercapnia and hypoxia. Multifactorial with pneumonia as well as obesity hypoventilation and chronic CO2 retention. Initial ABG with respiratory acidosis with incomplete metabolic compensation. Remains on mechanical ventilation. Continue broad-spectrum antibiotics. Qualifiers: Respiratory failure complication: hypoxia and hypercapnia Qualified Code(s) : J96.21 - Acute and chronic respiratory failure with hypoxia; J96.22 - Acute and chronic respiratory failure with hypercapnia; J96.22 - Acute and chronic respiratory failure with hypercapnia; J96.22 - Acute and chronic respiratory failure with hypercapnia (4) Elevated troponin Current visit: Yes Status: Acute Initial troponin 0.13, up to 0.22 on repeat EKG w/o ischemic findings Suspect multifactorial in setting of septic shock, OLIVA, hypoxia Continue Q6H check (5) Diabetes Current visit: Yes Status: Chronic Sliding-scale insulin coverage. Qualifiers: Diabetes mellitus type: type 2 Diabetes mellitus retirement insulin use: unspecified terminal superintendent insulin use status Diabetes mellitus complication status : with unspecified complications Qualified Code(s): E11.8 - Type 2 diabetes mellitus with unspecified complications (6) Hypertension Current visit: Yes Status: Chronic Hold antihypertensives in the setting of septic shock. Qualifiers: Hypertension type: essential hypertension Qualified Code(s): I10 - Essential (primary) hypertension (7) Anemia Current visit: Yes Status: Chronic Hemoglobin 10.2, previously 9.5 at last visit. No obvious source of bleeding. Daily CBCs Qualifiers: Anemia type: unspecified type Qualified Code(s): D64.9 - Anemia, unspecified (8) Atrial fibrillation Current visit: Yes Status: Chronic Rate controlled at this time. Not on anticoagulants. Hold beta ana in the setting of septic shock. Qualifiers: Atrial fibrillation type: unspecified Qualified Code(s): I48.91 - Unspecified atrial fibrillation (9) Leukocytosis Current visit: Yes Status: Acute Improving WBC 39.6, previously 43.9 Bandemia present. In the setting of septic shock. Daily CBCs Qualifiers: Leukocytosis type: bandemia Qualified Code(s): D72.825 - Bandemia (10) Renal insufficiency Current visit: Yes Status: Acute Serum creatinine 3.14. Daily BMP Avoid nephrotoxic agents. Renally dose vancomycin. (11) Morbid obesity Current visit: Yes Status: Chronic (12) DVT prophylaxis Current visit: Yes Status: Acute Heparin 5000 units every 12 hours History of Present Illness Chief complaint: Unresponsive, acute respiratory failure HPI: Ms. Romero is a 57 year old female ith a past medical history of hypertension, hyperlipidemia, diabetes, atrial fibrillation not on anticoagulation, chronic respiratory failure with 3 L nasal cannula continuous who presented to the emergency department on 11/21/17 via EMS due to unresponsiveness and respiratory failure. History is obtained from documentation and family as the patient is intubated and sedated. Per reports she was admitted to [facility], [place] in August of this year secondary to influenza and concomitant pneumonia. She was then discharged to an extended care facility where she was released 2 weeks ago and went home. Family states since she has had a cough at home. They report this morning around 10 AM she was noted to be hypoxic on her usual oxygen. EMS was called however she refused transport. Around 3 in the afternoon her attempted to wake her up and was unsuccessful. She continued to remain difficult to arouse so EMS was called again. Upon arrival the patient was apneic and unresponsive necessitating intubation EMS prior to arrival. In the emergency department the patient was noted to have a heart rate of 90 as well as hypotension. Her workup included a head CT without acute findings. Chest x-ray demonstrated bilateral infiltrates. Found to have a leukocytosis of 43.9 with a bandemia of 17. Anemia of 10.2 which appears chronic from her prior comparison. She was found to have renal insufficiency with a creatinine of 3.14. Initial troponin of 0.13 without ischemic features on her EKG. Initial lactic acid of 2.6. Urinalysis with large leukocyte esterase as well as bacteriuria. Interventions in the emergency department included 2 L of IV fluids with refractory shock. Levophed was initiated at that time. She received an initial dose of Rocephin and Levaquin. Vancomycin was added prior to the patient coming to the unit. She also received a dose of 125 mg Solu-Medrol. Blood cultures were obtained. I reviewed the prior documentation for the patient's hospitalization in August. It appears that she was positive for influenza a as well as strep pneumo. She was placed on Levaquin during that stay. She also had an echo with a reported ejection fraction of 60-65%. Documented that she was previously on anticoagulation however stopped due to epistaxis. Required BiPAP during that hospitalization. Past Med Surg Social Fam HX - Past Medical History Source: obtained from family Medical history: atrial fibrillation, diabetes, hypertension Psychiatric history: depression - Social History Smoking Status: Never smoker Smokeless Tobacco Status: No Alcohol use: none Drug use: none Medications and Allergies Citalopram [CeleXA] 20 mg PO DAILY 08/15/17 [History] Cyanocobalamin (Vitamin B-12) [Vitamin B12] 1,000 mcg PO DAILY 08/15/17 [History ] Cyclobenzaprine [Flexeril] 10 mg PO TID PRN 08/15/17 [History] Furosemide [Lasix] 40 mg PO DAILY 08/15/17 [History] Gabapentin [Neurontin] 300 mg PO HS 08/15/17 [History] Insulin Degludec [Tresiba Flextouch U-200] 90 unit SQ BID 08/15/17 [History] Insulin LISPRO [Humalog Kwikpen U-100] 0 unit SQ TIDWM 08/15/17 [History] Lisinopril [Zestril] 10 mg PO DAILY 08/15/17 [History] Metoprolol XL (24 HR) Succ [Toprol XL] 25 mg PO DAILY 08/15/17 [History] Tramadol HCl [Ultram] 50 mg PO Q6H PRN 08/15/17 [History] Ascorbic Acid [Vitamin C] 500 mg PO BID 11/22/17 [History] Docusate Sodium [Dok] 100 mg PO DAILY 11/22/17 [History] Ferrous Sulfate [Iron] 325 mg PO BID 11/22/17 [History] Levothyroxine [Synthroid] 50 mcg PO 0630 11/22/17 [History] Nystatin POWDER [Nystop] 1 appl TP BID 11/22/17 [History] Potassium Chloride [K-Tab ER] 20 meq PO DAILY 11/22/17 [History] 3 Allergy/AdvReac Type Severity Reaction Status Date / Time carisoprodol [From Soma] Allergy Hives Verified 08/15/17 13:23 cephalexin [From Keflex] Allergy Hives Verified 08/15/17 13:23 Sulfa (Sulfonamide Allergy Hives Verified 08/15/17 13:23 Antibiotics) ROS unobtainable: due to endotracheal tube All Systems: The remainder of the systems were reviewed and are negative Physical Examination Vital Signs: Vital Signs, Last 4 Hours Temp Pulse Resp BP Pulse Ox 11/23/17 01:06 16 94/69 95 11/23/17 01:00 61 16 94/69 96 11/23/17 00:00 67 16 126/49 100 11/22/17 23:19 16 133/56 100 11/22/17 23:00 70 16 128/49 100 11/22/17 22:00 98.1 F 75 19 123/37 100 General appearance: other (Intubated and sedated) Eyes: nonicteric ENT: other (ET tube in place) Effort: other (Mechanically ventilated) Inspection: normal Auscultation: bilateral: diminished breath sounds, rhonchi Cardiovascular: regular rate and rhythm Gastrointestinal: soft, non-distended, other (Excoriations of the lower abdomen as well as hyperpigmented areas.) Extremities: no cyanosis, no edema (1+ bilateral lower extremity edema) Musculoskeletal: no deformities other (Intubated and sedated) Results - Laboratory Findings CBC and BMP: 11/23/17 03:30 11/23/17 03:09 ABG ABG pH 7.28 pH Units (7.32-7.45) L 11/22/17 19:51 ABG pCO2 67 mmHg (35-45) H 11/22/17 19:51 ABG pO2 76 mmHg (85-104) L 11/22/17 19:51 ABG O2 Saturation 92 % (95-98) L 11/22/17 19:51 PT/INR, D-dimer PT 14.9 Seconds (9.4-12.1) H 11/22/17 17:55 Abnormal lab findings: Abnormal lab results WBC 43.9 K/mcL (4.3-11.1) H* 11/22/17 17:55 Hgb 10.2 g/dL (11.5-15.4) L 11/22/17 17:55 MCH 23.8 pg (28.0-33.3) L 11/22/17 17:55 MCHC 28.3 g/dL (31.6-35.5) L 11/22/17 17:55 RDW 21.4 % (11.5-14.5) H 11/22/17 17:55 Band Neutrophils % 17.0 % (0-4) H 11/22/17 17:55 Myelocytes % 1.0 % (0) H 11/22/17 17:55 Neutrophils # 41.3 K/mcL (1.6-8.9) H 11/22/17 17:55 Toxic Granulation Present (Not Present) A 11/22/17 17:55 Hypochromasia Present (Not Present) A 11/22/17 17:55 Anisocytosis 2+ (Not Present) A 11/22/17 17:55 PT 14.9 Seconds (9.4-12.1) H 11/22/17 17:55 ABG pH 7.28 pH Units (7.32-7.45) L 11/22/17 19:51 ABG pCO2 67 mmHg (35-45) H 11/22/17 19:51 ABG pO2 76 mmHg (85-104) L 11/22/17 19:51 ABG HCO3 31 mEq/L (21-27) H 11/22/17 19:51 ABG Total CO2 33 mEq/L (20-26) H 11/22/17 19:51 ABG O2 Saturation 92 % (95-98) L 11/22/17 19:51 Chloride 96 mEq/L (98-107) L 11/22/17 17:55 Carbon Dioxide 30 mEq/L (23-29) H 11/22/17 17:55 BUN 72 mg/dL (6-20) H 11/22/17 17:55 Creatinine 3.14 mg/dL (0.60-1.20) H 11/22/17 17:55 Est GFR ( Amer) 19 (> 60) L 11/22/17 17:55 Est GFR (Non-Af Amer) 15 (> 60) L 11/22/17 17:55 POC Glucose 139 mg/dL (70-99) H 11/22/17 23:54 Calculated Osmolality 303 (280-300) H 11/22/17 17:55 Phosphorus 8.1 mg/dL (2.7-4.5) H 11/22/17 17:55 Total Bilirubin 1.1 mg/dL (0.3-1.0) H 11/22/17 17:55 Direct Bilirubin 0.6 mg/dL (0.0-0.2) H 11/22/17 17:55 AST 10 Units/L (13-39) L 11/22/17 17:55 ALT 5 Units/L (7-52) L 11/22/17 17:55 Alkaline Phosphatase 235 Units/L (34-104) H 11/22/17 17:55 Troponin I 0.22 ng/mL (< 0.04) H* 11/23/17 00:00 B-Natriuretic Peptide 379 pg/mL (Less than 100) H 11/22/17 17:55 Albumin 2.8 g/dL (3.5-5.7) L 11/22/17 17:55 Globulin 5.0 g/dL (2.4-3.5) H 11/22/17 17:55 Albumin/Globulin Ratio 0.6 (1.1-2.2) L 11/22/17 17:55 Ur Specimen Adequacy See below A 11/22/17 18:30 Urine Clarity Turbid (Clear) A 11/22/17 18:30 Ur Specific [place] 1.026 (1.010-1.025) H 11/22/17 18:30 Urine Protein 100 mg/dL (Neg-Trace) H 11/22/17 18:30 Urine Ketones Trace mg/dL (Negative) H 11/22/17 18:30 Urine Blood Small (Negative) H 11/22/17 18:30 Urine Bilirubin Small (Negative) H 11/22/17 18:30 Ur Leukocyte Esterase Large (Negative) H 11/22/17 18:30 Ur Culture Indicated? YES (NO) A 11/22/17 18:30
[2017-11-23] MEDS: Lacri-Lube 3.5 GM TUBE BOTH EYES SCH ×5 (03:08→20:34)
[2017-11-23 03:43] LABS: Basophils % 0.2 %; Lymphocytes % 1.6 %; Mean Platelet Volume 10.8 fL (9.4-12.4); Segmented Neutrophils % 92.5 %
[2017-11-23 03:46] LABS: Basophils # 0.1 K/mcL (0.0-0.2); Hematocrit 32.9 % (35.3-44.9); Hemoglobin 9.5 g/dL (11.5-15.4); Immature Granulocytes % 4.7 % (0-4); Immature Platelets 3.9 % (1.1-6.1); Lymphocytes # 0.6 K/mcL (0.6-4.6); Mean Corpuscular HGB Conc 28.9 g/dL (31.6-35.5); Mean Corpuscular Hemoglobin 24.1 pg (28.0-33.3); Mean Corpuscular Volume 83.3 fL (83.0-100.0); Monocytes # 0.4 K/mcL (0.0-1.3); Platelet Count 259 K/mcL (140-400); Red Blood Count 3.95 M/mcL (3.82-4.97); Red Cell Distribution Width 20.9 % (11.5-14.5)
[2017-11-23 03:52] LABS: INR 1.4; Prothrombin Time 15.4 Seconds (9.4-12.1)
[2017-11-23 03:55] LABS: Neutrophils # 36.6 K/mcL (1.6-8.9)
[2017-11-23 04:13] LABS: Anisocytosis 2+ (Not Present); Hypochromasia Present (Not Present)
[2017-11-23 04:14] LABS: Platelet Estimate Normal (Normal)
[2017-11-23 04:18] LABS: ABG Base Excess 0 mEq/L (-2 to 3); ABG HCO3 27 mEq/L (21-27); ABG Oxygen Saturation 94 % (95-98); ABG PCO2 55 mmHg (35-45); ABG PH 7.31 pH Units (7.32-7.45); ABG PO2 80 mmHg (85-104); ABG TCO2 29 mEq/L (20-26); Blood Gas Modality VC; Blood Gas PEEP 7 cm H2O; Blood Gas Respiration Rate 16; Blood Gas VT 500 cc
[2017-11-23 04:49] LABS: Calcium 8.1 mg/dL (8.6-10.3); Phosphorous 6.6 mg/dL (2.7-4.5)
[2017-11-23] MEDS: Insulin LISPRO 300 UNITS/3 ML VIAL SQ SCH ×3 (05:18→18:20)
[2017-11-23] MEDS: *HR* Heparin 5,000 UNIT/ML VIAL SQ SCH ×3 (05:18→20:33)
[2017-11-23] MEDS ORDERED: Famotidine 20 MG/2 ML VIAL IVP SCH (06:00)
[2017-11-23] MEDS ORDERED: Vancomycin (wt based) 1,000 MG VIAL IVPB SCH (06:00)
--- NOTE | 2017-11-23 06:08 | Pulmonology Consult Note ---
<Ted Bowling - Last Filed: 11/23/17 07:17> Date of Encounter: 11/23/17 Time of Encounter: 06:06 Assessment and Plan (1) HCAP (healthcare-associated pneumonia) Current Visit: Yes Status: Acute Intubated on 11/21/17 secondary to acute on chronic respiratory failure with hypercapnia and hypoxia Chest x-ray with findings of bilateral infiltrates. Recently discharged 2 weeks prior from an extended care facility after admission in August 2017 for influenza and pneumonia. Criteria for healthcare associated pneumonia. Blood cultures obtained in the emergency department. Respiratory panel negative. MRSA surveillance negative. Legionella and strep pneumo urine antigens pending. Continue empiric antibiotics vancomycin, cefepime and Levaquin. (2) Septic shock Current Visit: Yes Status: Acute Patient meets sepsis criteria with leukocytosis and heart rate of 90 on presentation with pneumonia Chest x-ray with evidence of bilateral infiltrates. Despite IV fluids, required vasopressor support in the emergency department. Lactic acid 2.6 upon arrival. Improved to 1.3. Continue vancomycin, cefepime and Levaquin. Continue vasopressor support with goal MAP>60. (3) Acute and chronic respiratory failure Current Visit: Yes Status: Acute Intubated 11/21/17 for acute on chronic respiratory failure with hypercapnia and hypoxia. ARDS with A-a gradient >400. Goal Tv 6cc/kg with permissive hypercapnia Multifactorial with pneumonia as well as obesity hypoventilation and chronic CO2 retention. Initial ABG with respiratory acidosis with incomplete metabolic compensation. Remains on mechanical ventilation. Continue broad-spectrum antibiotics. Qualifiers: Respiratory failure complication: hypoxia and hypercapnia Qualified Code(s) : J96.21 - Acute and chronic respiratory failure with hypoxia; J96.22 - Acute and chronic respiratory failure with hypercapnia; J96.22 - Acute and chronic respiratory failure with hypercapnia; J96.22 - Acute and chronic respiratory failure with hypercapnia (4) Elevated troponin Current Visit: Yes Status: Acute Initial troponin 0.13, .22, .43 Obtain echo EKG w/o ischemic findings Suspect multifactorial in setting of septic shock, OLIVA, hypoxia Continue Q6H check (5) Diabetes Current Visit: Yes Status: Chronic Sliding-scale insulin coverage. Qualifiers: Diabetes mellitus type: type 2 Diabetes mellitus jail insulin use: unspecified ocean transportation intermediary insulin use status Diabetes mellitus complication status : with unspecified complications Qualified Code(s): E11.8 - Type 2 diabetes mellitus with unspecified complications (6) Hypertension Current Visit: Yes Status: Chronic Hold antihypertensives in the setting of shock. Qualifiers: Hypertension type: essential hypertension Qualified Code(s): I10 - Essential (primary) hypertension (7) Anemia Current Visit: Yes Status: Chronic Hemoglobin 9.5 (10.2) No obvious source of bleeding. Daily CBCs Qualifiers: Anemia type: unspecified type Qualified Code(s): D64.9 - Anemia, unspecified (8) Atrial fibrillation Current Visit: Yes Status: Chronic Rate controlled at this time. Not on anticoagulation as an outpatient with reported history of epistaxis. Hold beta ana in the setting of septic shock. Qualifiers: Atrial fibrillation type: unspecified Qualified Code(s): I48.91 - Unspecified atrial fibrillation (9) Leukocytosis Current Visit: Yes Status: Acute Improving WBC 39.6, previously 43.9 Bandemia present. In the setting of septic shock. Daily CBCs Qualifiers: Leukocytosis type: bandemia Qualified Code(s): D72.825 - Bandemia (10) Renal insufficiency Current Visit: Yes Status: Acute Improving, Serum creatinine 2.89 (3.14) Daily BMP Avoid nephrotoxic agents. Renally dose vancomycin. (11) Morbid obesity Current Visit: Yes Status: Chronic (12) DVT prophylaxis Current Visit: Yes Status: Acute Heparin 5000 units subcutaneous every 12 hours. History of Present Illness Consult date: 11/22/17 Requesting physician: Marcela Burk Reason for consult: other (Respiratory failure, ventilatory management) Chief complaint: Healthcare associated pneumonia, respiratory failure History of present illness: Ms. Romero is a 57 year old female ith a past medical history of hypertension, hyperlipidemia, diabetes, atrial fibrillation not on anticoagulation, chronic respiratory failure with 3 L nasal cannula continuous who presented to the emergency department on 11/21/17 via EMS due to unresponsiveness and respiratory failure. History is obtained from documentation and family as the patient is intubated and sedated. Per reports she was admitted to [facility] in August of this year secondary to influenza and concomitant pneumonia. She was then discharged to an extended care facility where she was released 2 weeks ago and went home. Family states since she has had a cough at home. They report this morning around 10 AM she was noted to be hypoxic on her usual oxygen. EMS was called however she refused transport. Around 3 in the afternoon her attempted to wake her up and was unsuccessful. She continued to remain difficult to arouse so EMS was called again. Upon arrival the patient was apneic and unresponsive necessitating intubation EMS prior to arrival. In the emergency department the patient was noted to have a heart rate of 90 as well as hypotension. Her workup included a head CT without acute findings. Chest x-ray demonstrated bilateral infiltrates. Found to have a leukocytosis of 43.9 with a bandemia of 17. Anemia of 10.2 which appears chronic from her prior comparison. She was found to have renal insufficiency with a creatinine of 3.14. Initial troponin of 0.13 without ischemic features on her EKG. Initial lactic acid of 2.6. Urinalysis with large leukocyte esterase as well as bacteriuria. Interventions in the emergency department included 2 L of IV fluids with refractory shock. Levophed was initiated at that time. She received an initial dose of Rocephin and Levaquin. Vancomycin was added prior to the patient coming to the unit. She also received a dose of 125 mg Solu-Medrol. Blood cultures were obtained. I reviewed the prior documentation for the patient's hospitalization in August. It appears that she was positive for influenza a as well as strep pneumo. She was placed on Levaquin during that stay. She also had an echo with a reported ejection fraction of 60-65%. Documented that she was previously on anticoagulation however stopped due to epistaxis. Required BiPAP during that hospitalization. Past Med Surg Social Fam HX - Past Medical History Source: obtained from family Medical history: atrial fibrillation, diabetes, hypertension Psychiatric history: depression - Social History Smoking Status: Never smoker Smokeless Tobacco Status: No Alcohol use: none Drug use: none Medications and Allergies Citalopram [CeleXA] 20 mg PO DAILY 08/15/17 [History] Cyanocobalamin (Vitamin B-12) [Vitamin B12] 1,000 mcg PO DAILY 08/15/17 [History ] Cyclobenzaprine [Flexeril] 10 mg PO TID PRN 08/15/17 [History] Furosemide [Lasix] 40 mg PO DAILY 08/15/17 [History] Gabapentin [Neurontin] 300 mg PO HS 08/15/17 [History] Insulin Degludec [Tresiba Flextouch U-200] 90 unit SQ BID 08/15/17 [History] Insulin LISPRO [Humalog Kwikpen U-100] 0 unit SQ TIDWM 08/15/17 [History] Lisinopril [Zestril] 10 mg PO DAILY 08/15/17 [History] Metoprolol XL (24 HR) Succ [Toprol XL] 25 mg PO DAILY 08/15/17 [History] Tramadol HCl [Ultram] 50 mg PO Q6H PRN 08/15/17 [History] Ascorbic Acid [Vitamin C] 500 mg PO BID 11/22/17 [History] Docusate Sodium [Dok] 100 mg PO DAILY 11/22/17 [History] Ferrous Sulfate [Iron] 325 mg PO BID 11/22/17 [History] Levothyroxine [Synthroid] 50 mcg PO 0630 11/22/17 [History] Nystatin POWDER [Nystop] 1 appl TP BID 11/22/17 [History] Potassium Chloride [K-Tab ER] 20 meq PO DAILY 11/22/17 [History] 3 Allergy/AdvReac Type Severity Reaction Status Date / Time carisoprodol [From Soma] Allergy Hives Verified 08/15/17 13:23 cephalexin [From Keflex] Allergy Hives Verified 08/15/17 13:23 Sulfa (Sulfonamide Allergy Hives Verified 08/15/17 13:23 Antibiotics) ROS unobtainable: due to endotracheal tube All Systems: The remainder of the systems were reviewed and are negative Physical Examination Vital Signs: Vital Signs, Last 4 Hours Temp Pulse Resp BP Pulse Ox 11/23/17 05:08 16 105/42 94 11/23/17 05:00 58 16 105/42 96 11/23/17 04:40 98.2 F 11/23/17 04:00 60 16 108/47 94 11/23/17 03:20 17 106/63 97 11/23/17 03:00 61 17 109/48 96 General appearance: other (Intubated and sedated) Eyes: nonicteric ENT: other (ET tube in place) Neck: supple Effort: other (Mechanically ventilated) Auscultation: bilateral: diminished breath sounds, rhonchi Cardiovascular: regular rate and rhythm Gastrointestinal: soft, non-distended, other (Hyperpigmented lower abdomen as well as excoriated areas.) Integumentary: normal Extremities: no cyanosis Musculoskeletal: no deformities other (Intubated and sedated) Ventilator Settings Ventilator Settings: Ventilator Settings, Last 8 Hours Ventilator Mode VC+ Ventilator Mode VC+ Ventilator Mode VC+ Ventilator Mode VC+ Ventilator Mode VC+ Ventilator Mode VC+ Ventilator Mode VC+ Ventilator Mode VC+ Ventilator Mode VC+ Ventilator Mode VC+ Ventilator Mode VC+ Ventilator Mode VC+ Ventilator Mode VC+ Ventilator Tidal Volume 500 Setting Ventilator Tidal Volume 500 Setting Ventilator Tidal Volume 500 Setting Ventilator Tidal Volume 500 Setting Ventilator Tidal Volume 500 Setting Ventilator Tidal Volume 500 Setting Ventilator Tidal Volume 500 Setting Ventilator Tidal Volume 500 Setting Ventilator Tidal Volume 500 Setting Ventilator Tidal Volume 500 Setting Ventilator Tidal Volume 500 Setting Ventilator Tidal Volume 500 Setting Ventilator Tidal Volume 500 Setting Ventilator Respiratory Rate 16 Setting Ventilator Respiratory Rate 16 Setting Ventilator Respiratory Rate 16 Setting Ventilator Respiratory Rate 16 Setting Ventilator Respiratory Rate 16 Setting Ventilator Respiratory Rate 16 Setting Ventilator Respiratory Rate 16 Setting Ventilator Respiratory Rate 16 Setting Ventilator Respiratory Rate 16 Setting Ventilator Respiratory Rate 16 Setting Ventilator Respiratory Rate 16 Setting Ventilator Respiratory Rate 16 Setting Ventilator Respiratory Rate 16 Setting Actual Respiratory Rate 16 Actual Respiratory Rate 16 Actual Respiratory Rate 16 Actual Respiratory Rate 17 Actual Respiratory Rate 17 Actual Respiratory Rate 16 Actual Respiratory Rate 16 Actual Respiratory Rate 16 Actual Respiratory Rate 16 Actual Respiratory Rate 16 Actual Respiratory Rate 16 Actual Respiratory Rate 16 Positive End Expiratory 7 Pressure Positive End Expiratory 7 Pressure Positive End Expiratory 7 Pressure Positive End Expiratory 7 Pressure Positive End Expiratory 7 Pressure Positive End Expiratory 7 Pressure Positive End Expiratory 7 Pressure Positive End Expiratory 7 Pressure Positive End Expiratory 7 Pressure Positive End Expiratory 7 Pressure Positive End Expiratory 7 Pressure Positive End Expiratory 7 Pressure Positive End Expiratory 7 Pressure Peak Inspiratory Airway 29 Pressure Peak Inspiratory Airway 31 Pressure Peak Inspiratory Airway 28 Pressure Peak Inspiratory Airway 26 Pressure Peak Inspiratory Airway 27 Pressure Peak Inspiratory Airway 27 Pressure Peak Inspiratory Airway 29 Pressure Peak Inspiratory Airway 29 Pressure Peak Inspiratory Airway 28 Pressure Peak Inspiratory Airway 28 Pressure Peak Inspiratory Airway 32 Pressure Peak Inspiratory Airway 30 Pressure Results - Laboratory Findings CBC and BMP: 11/23/17 03:30 11/23/17 03:09 ABG ABG pH 7.31 pH Units (7.32-7.45) L 11/23/17 04:15 ABG pCO2 55 mmHg (35-45) H 11/23/17 04:15 ABG pO2 80 mmHg (85-104) L 11/23/17 04:15 ABG O2 Saturation 94 % (95-98) L 11/23/17 04:15 PT/INR, D-dimer PT 15.4 Seconds (9.4-12.1) H 11/23/17 03:45 Abnormal lab findings: Abnormal lab results WBC 39.6 K/mcL (4.3-11.1) H* 11/23/17 03:30 Hgb 9.5 g/dL (11.5-15.4) L 11/23/17 03:30 Hct 32.9 % (35.3-44.9) L 11/23/17 03:30 MCH 24.1 pg (28.0-33.3) L 11/23/17 03:30 MCHC 28.9 g/dL (31.6-35.5) L 11/23/17 03:30 RDW 20.9 % (11.5-14.5) H 11/23/17 03:30 Immature Gran % 4.7 % (0-4) H 11/23/17 03:30 Band Neutrophils % 17.0 % (0-4) H 11/22/17 17:55 Myelocytes % 1.0 % (0) H 11/22/17 17:55 Neutrophils # 36.6 K/mcL (1.6-8.9) H 11/23/17 03:30 Toxic Granulation Present (Not Present) A 11/22/17 17:55 Hypochromasia Present (Not Present) A 11/23/17 03:30 Anisocytosis 2+ (Not Present) A 11/23/17 03:30 PT 15.4 Seconds (9.4-12.1) H 11/23/17 03:45 ABG pH 7.31 pH Units (7.32-7.45) L 11/23/17 04:15 ABG pCO2 55 mmHg (35-45) H 11/23/17 04:15 ABG pO2 80 mmHg (85-104) L 11/23/17 04:15 ABG Total CO2 29 mEq/L (20-26) H 11/23/17 04:15 ABG O2 Saturation 94 % (95-98) L 11/23/17 04:15 BUN 72 mg/dL (6-20) H 11/23/17 03:09 Creatinine 2.89 mg/dL (0.60-1.20) H 11/23/17 03:09 Est GFR ( Amer) 21 (> 60) L 11/23/17 03:09 Est GFR (Non-Af Amer) 17 (> 60) L 11/23/17 03:09 Glucose 149 mg/dL (70-105) H 11/23/17 03:09 POC Glucose 139 mg/dL (70-99) H 11/22/17 23:54 Calculated Osmolality 306 (280-300) H 11/23/17 03:09 Calcium 8.1 mg/dL (8.6-10.3) L 11/23/17 03:09 Phosphorus 6.6 mg/dL (2.7-4.5) H 11/23/17 03:09 Total Bilirubin 1.1 mg/dL (0.3-1.0) H 11/22/17 17:55 Direct Bilirubin 0.6 mg/dL (0.0-0.2) H 11/22/17 17:55 AST 10 Units/L (13-39) L 11/22/17 17:55 ALT 5 Units/L (7-52) L 11/22/17 17:55 Alkaline Phosphatase 235 Units/L (34-104) H 11/22/17 17:55 Troponin I 0.22 ng/mL (< 0.04) H* 11/23/17 00:00 B-Natriuretic Peptide 379 pg/mL (Less than 100) H 11/22/17 17:55 Albumin 2.8 g/dL (3.5-5.7) L 11/22/17 17:55 Globulin 5.0 g/dL (2.4-3.5) H 11/22/17 17:55 Albumin/Globulin Ratio 0.6 (1.1-2.2) L 11/22/17 17:55 Ur Specimen Adequacy See below A 11/22/17 18:30 Urine Clarity Turbid (Clear) A 11/22/17 18:30 Ur Specific [place] 1.026 (1.010-1.025) H 11/22/17 18:30 Urine Protein 100 mg/dL (Neg-Trace) H 11/22/17 18:30 Urine Ketones Trace mg/dL (Negative) H 11/22/17 18:30 Urine Blood Small (Negative) H 11/22/17 18:30 Urine Bilirubin Small (Negative) H 11/22/17 18:30 Ur Leukocyte Esterase Large (Negative) H 11/22/17 18:30 Ur Culture Indicated? YES (NO) A 11/22/17 18:30 - Microbiology Findings Microbiology Findings: Microbiology, Last 48 Hours 11/22/17 22:25 Legionella Antigen - Final Urine,Catheterized Streptococcus pneumoniae Antigen (M - Final - Clinical Findings Intake & Output: Intake & Output 11/22/17 11/22/17 11/23/17 15:59 23:59 07:59 Intake Total 1530 / 2552.9 176 / 176 Output Total 210 / 210 Balance 1530 / 2552.9 -34 / -34 Weight 175.6 kg Consult Discharge Plan - Plan Referrals: Ted Parada, [Primary Care Provider] - <Marianela Chappell M - Last Filed: 11/23/17 08:28> Date of Encounter: 11/23/17 All Systems: The remainder of the systems were reviewed and are negative Physical Examination Vital Signs: Vital Signs, Last 4 Hours Temp Pulse Resp BP Pulse Ox 11/23/17 08:17 98.1 F 11/23/17 08:00 98.1 F 64 20 125/56 93 11/23/17 07:40 21 112/53 93 11/23/17 07:00 98.1 F 64 20 125/56 93 11/23/17 06:00 57 16 120/50 95 11/23/17 05:08 16 105/42 94 11/23/17 05:00 58 16 105/42 96 11/23/17 04:40 98.2 F Ventilator Settings Ventilator Settings: Ventilator Settings, Last 8 Hours Ventilator Mode VC+ Ventilator Mode VC+ Ventilator Mode VC+ Ventilator Mode VC+ Ventilator Mode VC+ Ventilator Mode VC+ Ventilator Mode VC+ Ventilator Mode VC+ Ventilator Mode VC+ Ventilator Mode VC+ Ventilator Mode VC+ Ventilator Mode VC+ Ventilator Mode VC+ Ventilator Mode VC+ Ventilator Mode VC+ Ventilator Tidal Volume 400 Setting Ventilator Tidal Volume 400 Setting Ventilator Tidal Volume 400 Setting Ventilator Tidal Volume 400 Setting Ventilator Tidal Volume 500 Setting Ventilator Tidal Volume 500 Setting Ventilator Tidal Volume 500 Setting Ventilator Tidal Volume 500 Setting Ventilator Tidal Volume 500 Setting Ventilator Tidal Volume 500 Setting Ventilator Tidal Volume 500 Setting Ventilator Tidal Volume 500 Setting Ventilator Tidal Volume 500 Setting Ventilator Tidal Volume 500 Setting Ventilator Tidal Volume 500 Setting Ventilator Respiratory Rate 20 Setting Ventilator Respiratory Rate 20 Setting Ventilator Respiratory Rate 20 Setting Ventilator Respiratory Rate 20 Setting Ventilator Respiratory Rate 16 Setting Ventilator Respiratory Rate 16 Setting Ventilator Respiratory Rate 16 Setting Ventilator Respiratory Rate 16 Setting Ventilator Respiratory Rate 16 Setting Ventilator Respiratory Rate 16 Setting Ventilator Respiratory Rate 16 Setting Ventilator Respiratory Rate 16 Setting Ventilator Respiratory Rate 16 Setting Ventilator Respiratory Rate 16 Setting Ventilator Respiratory Rate 16 Setting Actual Respiratory Rate 20 Actual Respiratory Rate 20 Actual Respiratory Rate 20 Actual Respiratory Rate 16 Actual Respiratory Rate 16 Actual Respiratory Rate 16 Actual Respiratory Rate 16 Actual Respiratory Rate 17 Actual Respiratory Rate 17 Actual Respiratory Rate 16 Actual Respiratory Rate 16 Actual Respiratory Rate 16 Actual Respiratory Rate 16 Positive End Expiratory 10 Pressure Positive End Expiratory 10 Pressure Positive End Expiratory 10 Pressure Positive End Expiratory 10 Pressure Positive End Expiratory 7 Pressure Positive End Expiratory 7 Pressure Positive End Expiratory 7 Pressure Positive End Expiratory 7 Pressure Positive End Expiratory 7 Pressure Positive End Expiratory 7 Pressure Positive End Expiratory 7 Pressure Positive End Expiratory 7 Pressure Positive End Expiratory 7 Pressure Positive End Expiratory 7 Pressure Positive End Expiratory 7 Pressure Peak Inspiratory Airway 27 Pressure Peak Inspiratory Airway 27 Pressure Peak Inspiratory Airway 26 Pressure Peak Inspiratory Airway 23 Pressure Peak Inspiratory Airway 29 Pressure Peak Inspiratory Airway 31 Pressure Peak Inspiratory Airway 28 Pressure Peak Inspiratory Airway 26 Pressure Peak Inspiratory Airway 27 Pressure Peak Inspiratory Airway 27 Pressure Peak Inspiratory Airway 29 Pressure Peak Inspiratory Airway 29 Pressure Peak Inspiratory Airway 28 Pressure Results - Laboratory Findings CBC and BMP: 11/23/17 03:30 11/23/17 03:09 ABG ABG pH 7.30 pH Units (7.32-7.45) L 11/23/17 08:19 ABG pCO2 57 mmHg (35-45) H 11/23/17 08:19 ABG pO2 66 mmHg (85-104) L 11/23/17 08:19 ABG O2 Saturation 90 % (95-98) L 11/23/17 08:19 PT/INR, D-dimer PT 15.4 Seconds (9.4-12.1) H 11/23/17 03:45 Abnormal lab findings: Abnormal lab results WBC 39.6 K/mcL (4.3-11.1) H* 11/23/17 03:30 Hgb 9.5 g/dL (11.5-15.4) L 11/23/17 03:30 Hct 32.9 % (35.3-44.9) L 11/23/17 03:30 MCH 24.1 pg (28.0-33.3) L 11/23/17 03:30 MCHC 28.9 g/dL (31.6-35.5) L 11/23/17 03:30 RDW 20.9 % (11.5-14.5) H 11/23/17 03:30 Immature Gran % 4.7 % (0-4) H 11/23/17 03:30 Band Neutrophils % 17.0 % (0-4) H 11/22/17 17:55 Myelocytes % 1.0 % (0) H 11/22/17 17:55 Neutrophils # 36.6 K/mcL (1.6-8.9) H 11/23/17 03:30 Toxic Granulation Present (Not Present) A 11/22/17 17:55 Hypochromasia Present (Not Present) A 11/23/17 03:30 Anisocytosis 2+ (Not Present) A 11/23/17 03:30 PT 15.4 Seconds (9.4-12.1) H 11/23/17 03:45 ABG pH 7.30 pH Units (7.32-7.45) L 11/23/17 08:19 ABG pCO2 57 mmHg (35-45) H 11/23/17 08:19 ABG pO2 66 mmHg (85-104) L 11/23/17 08:19 ABG HCO3 28 mEq/L (21-27) H 11/23/17 08:19 ABG Total CO2 30 mEq/L (20-26) H 11/23/17 08:19 ABG O2 Saturation 90 % (95-98) L 11/23/17 08:19 BUN 72 mg/dL (6-20) H 11/23/17 03:09 Creatinine 2.89 mg/dL (0.60-1.20) H 11/23/17 03:09 Est GFR ( Amer) 21 (> 60) L 11/23/17 03:09 Est GFR (Non-Af Amer) 17 (> 60) L 11/23/17 03:09 Glucose 149 mg/dL (70-105) H 11/23/17 03:09 POC Glucose 139 mg/dL (70-99) H 11/22/17 23:54 Calculated Osmolality 306 (280-300) H 11/23/17 03:09 Calcium 8.1 mg/dL (8.6-10.3) L 11/23/17 03:09 Phosphorus 6.6 mg/dL (2.7-4.5) H 11/23/17 03:09 Total Bilirubin 1.1 mg/dL (0.3-1.0) H 11/22/17 17:55 Direct Bilirubin 0.6 mg/dL (0.0-0.2) H 11/22/17 17:55 AST 10 Units/L (13-39) L 11/22/17 17:55 ALT 5 Units/L (7-52) L 11/22/17 17:55 Alkaline Phosphatase 235 Units/L (34-104) H 11/22/17 17:55 Troponin I 0.43 ng/mL (< 0.04) H* 11/23/17 05:58 B-Natriuretic Peptide 379 pg/mL (Less than 100) H 11/22/17 17:55 Albumin 2.8 g/dL (3.5-5.7) L 11/22/17 17:55 Globulin 5.0 g/dL (2.4-3.5) H 11/22/17 17:55 Albumin/Globulin Ratio 0.6 (1.1-2.2) L 11/22/17 17:55 Ur Specimen Adequacy See below A 11/22/17 18:30 Urine Clarity Turbid (Clear) A 11/22/17 18:30 Ur Specific [place] 1.026 (1.010-1.025) H 11/22/17 18:30 Urine Protein 100 mg/dL (Neg-Trace) H 11/22/17 18:30 Urine Ketones Trace mg/dL (Negative) H 11/22/17 18:30 Urine Blood Small (Negative) H 11/22/17 18:30 Urine Bilirubin Small (Negative) H 11/22/17 18:30 Ur Leukocyte Esterase Large (Negative) H 11/22/17 18:30 Ur Culture Indicated? YES (NO) A 11/22/17 18:30 - Microbiology Findings Microbiology Findings: Microbiology, Last 48 Hours 11/22/17 22:25 Legionella Antigen - Final Urine,Catheterized Streptococcus pneumoniae Antigen (M - Final - Clinical Findings Intake & Output: Intake & Output 11/22/17 11/23/17 11/23/17 23:59 07:59 15:59 Intake Total 1530 / 2552.9 176 / 176 1065 / 1065 Output Total 210 / 210 100 / 100 Balance 1530 / 2552.9 -34 / -34 965 / 965 Weight 175.6 kg - Attending Attestation I examined this patient and my medical decision-making was reviewed with the Resident Physician. I agree with the documented findings, disposition and treatment plan as described except to the extent set forth below. Patient seen and examined. Labs, radiology, chart personally reviewed. Agree with resident's history and physical, assessment, plan with following comments: [employer]: Patient follows commands, Pulmonary: Patient has evidence of severe ARDS and she meets criteria and changed tidal volume to the low tidal volume for lung protective strategy and increased PEEP with lowering FiO2 and follow-up ABG. Keep plateau pressure less than 30. limit fluid as long as blood pressure tolerates it Cardiovascular: stable GI: Nutrition per dietary and GI prophylaxis per routine Heme: DVT prophylaxis per routine ID: Continue antibiotics and plan to de-escalation Renal; urine out put and renal funtion reviewed Endorcine: blood glucose is monitored Lines: all lines checked and no evidence of infections Skin: skin care to prevent pressure ulcers per nursing routine care I spent 40 min of Critical Care time with this patient. It involved decision making of high complexity to assess, manipulate, and support vital organ system failure and/or to prevent further life threatening deterioration of the patient' s condition. The time involved in the performance of separately reportable procedures was not counted toward critical care time.
[2017-11-23] MEDS: 0.9 % Sodium Chloride 1,000 ML IVC SCH (08:16)
[2017-11-23] MEDS: FentaNYL (PF) 1,000 MCG in 0.9 % Sodium Chloride 80 ML IVC SCH ×2 (08:17→19:30)
[2017-11-23] MEDS ORDERED: Aminoglycoside Consult 1 EACH MC ONE (08:18)
[2017-11-23] MEDS: Chlorhexidine Rinse 15 ML MOUTHWASH MM SCH ×2 (08:19→20:33)
[2017-11-23 08:22] LABS: ABG Base Excess 1 mEq/L (-2 to 3); ABG HCO3 28 mEq/L (21-27); ABG Oxygen Saturation 90 % (95-98); ABG PCO2 57 mmHg (35-45); ABG PO2 66 mmHg (85-104); ABG TCO2 30 mEq/L (20-26); Blood Gas Modality VC; Blood Gas PEEP 10 cm H2O; Blood Gas Respiration Rate 20; Blood Gas VT 400 cc
[2017-11-23] MEDS: Cefepime HCl 1,000 MG in Water for inj. (sterile) 10 ML IVP SCH (12:21)
[2017-11-23] MEDS ORDERED: Perflutren Lipid Microsphere 1.3 ML in 0.9 % Sodium Chloride 8.7 ML IVP ONE (13:19)
--- NOTE | 2017-11-23 13:21 | Palliative - Consult Note ---
Date of Encounter: 11/24/17 Time of Encounter: 13:00 - Assessment and Plan (1) Debility Current Visit: Yes Status: Acute Assessment and plan: Will eventually need PT/OT. She had been at [facility] recently, and is willing to return there if needed. Indicated she had good experience and care there. Monitor. Agreeable for OG to start nutrition. (2) Dyspnea Current Visit: Yes Status: Acute Assessment and plan: Continues with vent support - FIO2 60% with PEEP 10 currently. Antibiotic therapy/bronchodilators continue for treatment of infiltrates. Monitor Qualifiers: Dyspnea type: unspecified Qualified Code(s): R06.00 - Dyspnea, unspecified (3) Counseling regarding advanced care planning and goals of care Current Visit: Yes Status: Acute Assessment and plan: Patient is awake, alert, and can communicate well by writing while on vent. Son is at the bedside. She does not have any advanced directives in place. When asked who she would want to make medical decisions for her, she wrote "my and son". Discussed pt current condition and her goals of care. Patient could not remember what happened, why she was here, and asked how long had she been here. After discussion, pt does desire to continue present level of care, however, does not want resuscitation for cardiac arrest. Code status changed to DNRCC-Arrest. She is agreeable with short term intubation at this time. She is asking if she will need ECF, and wrote that she would want to go to [facility] if needed. She currently has [facility]. Her is also a pt in the hospital, and he did visit room during this time. UPdated Alberto on clinical status, and he is in agreement with patient wishes. Will continue to follow closely. (4) Acute respiratory failure Current Visit: Yes Status: Acute Qualifiers: Respiratory failure complication: unspecified whether with hypoxia or hypercapnia Qualified Code(s): J96.00 - Acute respiratory failure, unspecified whether with hypoxia or hypercapnia (5) Pneumonia Current Visit: Yes Status: Acute Qualifiers: Pneumonia type: due to unspecified organism Laterality: bilateral Lung location: unspecified part of lung Qualified Code(s): J18.9 - Pneumonia, unspecified organism (6) HCAP (healthcare-associated pneumonia) Current Visit: Yes Status: Acute Palliative-CN HPI - Data of Consult Consult date: 11/23/17 Requesting Physician: Iam Christie MD Primary Care Provider: Ted Paarda - Consult Narrative History of present illness: Ms. Romero is a 57 year old female who was admitted with decreased responsiveness. Patient is currently intubated and son at bedside providing information. States she was discharged from [facility] about 1 1/2 weeks ago and returned home with [facility]. She developed a cough last Wednesday, home health nurse said her lungs were clear, and thought she had sinus drainage. She progressively became more short of breath, and son states her pulse ox was down to 70, and her called the squad. EMS arrived and oxygenation was improved, and she refused to come to hospital. Later than afternoon, pt was unable to arouse her, and squad called again. She was brought to ER and was intubated, being treated for bilateral infiltrates. Remains on vent with IV antibiotic therapy/bronchodilators. Cultures pending. WBC has improved today, but still significantly elevated at 39.6. Renal function slightly improved from admission as well. Upon my visit, she is awake/alert, and son is at bedside. She is able to communicate some by writing. Her has also been admitted to the hospital for a respiratory illness. Son, Alberto is their only child. Denies pain, does indicate that ET tube is uncomfortable. Denies anxiousness. CC: Iam Christie MD Past Med Surg Social Fam HX - Past Medical History Medical history: atrial fibrillation, diabetes, hypertension Psychiatric history: depression - Social History Smoking Status: Never smoker Smokeless Tobacco Status: No Alcohol use: none Drug use: none Medications and Allergies Citalopram [CeleXA] 20 mg PO DAILY 08/15/17 [History] Cyanocobalamin (Vitamin B-12) [Vitamin B12] 1,000 mcg PO DAILY 08/15/17 [History ] Cyclobenzaprine [Flexeril] 10 mg PO TID PRN 08/15/17 [History] Furosemide [Lasix] 40 mg PO DAILY 08/15/17 [History] Gabapentin [Neurontin] 300 mg PO HS 08/15/17 [History] Insulin Degludec [Tresiba Flextouch U-200] 90 unit SQ BID 08/15/17 [History] Insulin LISPRO [Humalog Kwikpen U-100] 0 unit SQ TIDWM 08/15/17 [History] Lisinopril [Zestril] 10 mg PO DAILY 08/15/17 [History] Metoprolol XL (24 HR) Succ [Toprol XL] 25 mg PO DAILY 08/15/17 [History] Tramadol HCl [Ultram] 50 mg PO Q6H PRN 08/15/17 [History] Ascorbic Acid [Vitamin C] 500 mg PO BID 11/22/17 [History] Docusate Sodium [Dok] 100 mg PO DAILY 11/22/17 [History] Ferrous Sulfate [Iron] 325 mg PO BID 11/22/17 [History] Levothyroxine [Synthroid] 50 mcg PO 0630 11/22/17 [History] Nystatin POWDER [Nystop] 1 appl TP BID 11/22/17 [History] Potassium Chloride [K-Tab ER] 20 meq PO DAILY 11/22/17 [History] 3 Allergy/AdvReac Type Severity Reaction Status Date / Time carisoprodol [From Soma] Allergy Hives Verified 08/15/17 13:23 cephalexin [From Keflex] Allergy Hives Verified 08/15/17 13:23 Sulfa (Sulfonamide Allergy Hives Verified 08/15/17 13:23 Antibiotics) ROS unobtainable: due to endotracheal tube Palliative Care-Exam - Constitutional Vitals: Temp Pulse Resp BP Pulse Ox 97.1 F L 68 22 124/54 96 11/23/17 12:30 11/23/17 12:00 11/23/17 13:04 11/23/17 13:04 11/23/17 13:04 General appearance: Present: no acute distress, obese - Head Head Exam: Present: normal inspection, normocephalic - Eye Eye exam: Present: normal appearance, PERRL - Respiratory Additional comments: Breath sounds course throughout anterior chest. - Cardiovascular Cardiovascular exam: Present: +S1, +S2 - GI/Abdominal Exam GI/Abdominal exam: Present: normal bowel sounds, soft - Extremities Exam Extremities exam: Present: normal capillary refill, normal inspection - Neurological Exam Neurological exam: Present: alert Additional comments: Can answer questions appropriately by writing. Follows commands - Skin Skin exam: Present: dry, warm Internal Medicine - CN: Reslt - Labs CBC & Chem 7: 11/24/17 04:00 11/24/17 04:00 Labs: Short CBC 11/23/17 Range/Units 03:30 WBC 39.6 H* (4.3-11.1) K/mcL Hgb 9.5 L (11.5-15.4) g/dL Hct 32.9 L (35.3-44.9) % Plt Count 259 (140-400) K/mcL Neutrophils # 36.6 H (1.6-8.9) K/mcL BMP 11/23/17 03:09 Sodium 136 Potassium 5.0 Chloride 100 Carbon Dioxide 25 BUN 72 H Creatinine 2.89 H Glucose 149 H Calcium 8.1 L Cardiac Enzymes 11/23/17 11/23/17 Range/Units 00:00 05:58 Troponin I 0.22 H* 0.43 H* (< 0.04) ng/mL - ABG Interpretation ABG results: ABG ABG pH 7.30 pH Units (7.32-7.45) L 11/23/17 08:19 ABG pCO2 57 mmHg (35-45) H 11/23/17 08:19 ABG pO2 66 mmHg (85-104) L 11/23/17 08:19 ABG O2 Saturation 90 % (95-98) L 11/23/17 08:19 PT/INR, D-dimer PT 15.4 Seconds (9.4-12.1) H 11/23/17 03:45 - Impressions Impressions Chest X-Ray 11/23/17 04:00 IMPRESSION: Suboptimally visualized min however the endotracheal tube is in stable position compared the prior exam. Appropriate right IJ central venous catheter positioning. No pneumothorax. No substantial change in bilateral airspace opacities allowing for differences in patient positioning and inspiratory effort. D/ / Gideon Martínez / Gideon Martínez Interpreting Provider: Gideon Martínez Consult Discharge Plan - Plan Referrals: Ted Parada DO [Primary Care Provider] - Palliative Quality Palliative Quality: Screen for Code Status: Yes, Screen for Goals of Care: Yes, Screen for Pain: Yes, If Pain Regimen Started, Initiate Bowel Regimen: NA, Screen for Nausea/Vomitting: Yes Code Status: 11/23/17 12:29 DNR [Resuscitation Status: Active] [RES] Routine Comment: Resuscitation Status: DNR-Comfort Care-Arrest
[2017-11-23] MEDS ORDERED: Levofloxacin 750 MG/150 ML 750 MG/150 ML BAG IVPB SCH (18:00)
[2017-11-23] MEDS: Dexmedetomidine HCl 200 MCG/50 ML MLS IVC SCH (20:40)
[2017-11-23] MEDS: Norepinephrine 4 MG in D5% in Water 250 ML IVC SCH (20:40)
[2017-11-24] MEDS: Insulin LISPRO 300 UNITS/3 ML VIAL SQ SCH ×6 (00:17→23:37)
[2017-11-24] MEDS: Lacri-Lube 3.5 GM TUBE BOTH EYES SCH ×7 (00:18→23:37)
[2017-11-24] MEDS: Cefepime HCl 1,000 MG in Water for inj. (sterile) 20 ML 10 ML IVP SCH ×3 (00:21→23:32)
[2017-11-24] MEDS: Dexmedetomidine HCl 200 MCG/50 ML MLS IVC SCH ×4 (03:14→03:17)
[2017-11-24 04:49] LABS: Basophils % 0.1 %; Hematocrit 32.5 % (35.3-44.9); Hemoglobin 9.6 g/dL (11.5-15.4); Immature Granulocytes % 0.7 % (0-4); Lymphocytes # 0.6 K/mcL (0.6-4.6); Lymphocytes % 2.5 %; Mean Corpuscular HGB Conc 29.5 g/dL (31.6-35.5); Mean Corpuscular Hemoglobin 24.1 pg (28.0-33.3); Mean Corpuscular Volume 81.7 fL (83.0-100.0); Mean Platelet Volume 10.9 fL (9.4-12.4); Monocytes # 0.6 K/mcL (0.0-1.3); Monocytes % 2.5 %; Neutrophils # 23.6 K/mcL (1.6-8.9); Platelet Count 280 K/mcL (140-400); Red Blood Count 3.98 M/mcL (3.82-4.97); Segmented Neutrophils % 94.2 %
[2017-11-24] MEDS: FentaNYL (PF) 1,000 MCG in 0.9 % Sodium Chloride 80 ML IVC SCH ×3 (04:57→23:39)
[2017-11-24 05:07] LABS: Platelet Estimate Normal (Normal)
[2017-11-24 05:10] LABS: Calcium 8.2 mg/dL (8.6-10.3); Potassium 4.8 mEq/L (3.5-5.1)
[2017-11-24 05:10] LABS: ABG Base Excess 0 mEq/L (-2 to 3); ABG HCO3 27 mEq/L (21-27); ABG Oxygen Saturation 98 % (95-98); ABG PCO2 54 mmHg (35-45); ABG PH 7.31 pH Units (7.32-7.45); ABG PO2 115 mmHg (85-104); ABG TCO2 29 mEq/L (20-26); Blood Gas Modality VC; Blood Gas PEEP 10 cm H2O; Blood Gas Respiration Rate 20; Blood Gas VT 400 cc
[2017-11-24] MEDS: *HR* Heparin 5,000 UNIT/ML VIAL SQ SCH ×3 (05:30→20:09)
[2017-11-24] MEDS: Famotidine 20 MG/2 ML VIAL IVP SCH (07:53)
[2017-11-24] MEDS: Chlorhexidine Rinse 15 ML MOUTHWASH MM SCH ×2 (07:53→20:12)
[2017-11-24] MEDS ORDERED: D5% in Water 1,000 ML IVC PRN ×3 (08:06→11:09)
[2017-11-24] MEDS ORDERED: *HR* Dextrose 50 % in Water (Syg) 50 ML SYRINGE IVP PRN ×3 (08:06→11:09)
[2017-11-24] MEDS ORDERED: Dextrose Gel 15 GM/37.5 ML TUBE PO PRN ×5 (08:06→11:09)
[2017-11-24 09:13] LABS: Troponin I 0.36 ng/mL (< 0.04)
--- NOTE | 2017-11-24 10:48 | Pulmonology Progress Note ---
Date of Encounter: 11/24/17 Objective PUL Vital signs: Last Vital Signs Temp 96.8 F L 11/24/17 08:00 Pulse 116 11/24/17 10:00 Resp 28 11/24/17 10:00 BP 120/71 11/24/17 10:00 Pulse Ox 97 11/24/17 10:00 Ventilator Settings Ventilator Settings: Ventilator Settings, Last 8 Hours Ventilator Mode VC+ Ventilator Mode VC+ Ventilator Mode VC+ Ventilator Mode VC+ Ventilator Mode VC+ Ventilator Mode VC+ Ventilator Mode VC+ Ventilator Mode VC+ Ventilator Mode VC+ Ventilator Mode VC+ Ventilator Mode VC+ Ventilator Mode VC+ Ventilator Tidal Volume 400 Setting Ventilator Tidal Volume 400 Setting Ventilator Tidal Volume 400 Setting Ventilator Tidal Volume 400 Setting Ventilator Tidal Volume 400 Setting Ventilator Tidal Volume 400 Setting Ventilator Tidal Volume 400 Setting Ventilator Tidal Volume 400 Setting Ventilator Tidal Volume 400 Setting Ventilator Tidal Volume 400 Setting Ventilator Tidal Volume 400 Setting Ventilator Tidal Volume 400 Setting Ventilator Respiratory Rate 20 Setting Ventilator Respiratory Rate 20 Setting Ventilator Respiratory Rate 20 Setting Ventilator Respiratory Rate 20 Setting Ventilator Respiratory Rate 20 Setting Ventilator Respiratory Rate 20 Setting Ventilator Respiratory Rate 20 Setting Ventilator Respiratory Rate 20 Setting Ventilator Respiratory Rate 20 Setting Ventilator Respiratory Rate 20 Setting Ventilator Respiratory Rate 20 Setting Ventilator Respiratory Rate 20 Setting Actual Respiratory Rate 28 Actual Respiratory Rate 29 Actual Respiratory Rate 25 Actual Respiratory Rate 25 Actual Respiratory Rate 23 Actual Respiratory Rate 26 Actual Respiratory Rate 22 Positive End Expiratory 8 Pressure Positive End Expiratory 8 Pressure Positive End Expiratory 8 Pressure Positive End Expiratory 8 Pressure Positive End Expiratory 8 Pressure Positive End Expiratory 10 Pressure Positive End Expiratory 10 Pressure Positive End Expiratory 10 Pressure Positive End Expiratory 10 Pressure Positive End Expiratory 10 Pressure Positive End Expiratory 10 Pressure Positive End Expiratory 10 Pressure Peak Inspiratory Airway 15 Pressure Peak Inspiratory Airway 15 Pressure Peak Inspiratory Airway 15 Pressure Peak Inspiratory Airway 28 Pressure Peak Inspiratory Airway 15 Pressure Peak Inspiratory Airway 24 Pressure Peak Inspiratory Airway 30 Pressure Results - Laboratory Findings CBC and BMP: 11/24/17 04:00 11/24/17 04:00 ABG ABG pH 7.31 pH Units (7.32-7.45) L 11/24/17 05:07 ABG pCO2 54 mmHg (35-45) H 11/24/17 05:07 ABG pO2 115 mmHg (85-104) H 11/24/17 05:07 ABG O2 Saturation 98 % (95-98) 11/24/17 05:07 PT/INR, D-dimer PT 15.4 Seconds (9.4-12.1) H 11/23/17 03:45 Abnormal lab findings: Abnormal lab results WBC 25.1 K/mcL (4.3-11.1) H 11/24/17 04:00 Hgb 9.6 g/dL (11.5-15.4) L 11/24/17 04:00 Hct 32.5 % (35.3-44.9) L 11/24/17 04:00 MCV 81.7 fL (83.0-100.0) L 11/24/17 04:00 MCH 24.1 pg (28.0-33.3) L 11/24/17 04:00 MCHC 29.5 g/dL (31.6-35.5) L 11/24/17 04:00 RDW 21.0 % (11.5-14.5) H 11/24/17 04:00 Band Neutrophils % 17.0 % (0-4) H 11/22/17 17:55 Myelocytes % 1.0 % (0) H 11/22/17 17:55 Neutrophils # 23.6 K/mcL (1.6-8.9) H 11/24/17 04:00 Toxic Granulation Present (Not Present) A 11/22/17 17:55 Hypochromasia Present (Not Present) A 11/23/17 03:30 Anisocytosis 2+ (Not Present) A 11/23/17 03:30 PT 15.4 Seconds (9.4-12.1) H 11/23/17 03:45 ABG pH 7.31 pH Units (7.32-7.45) L 11/24/17 05:07 ABG pCO2 54 mmHg (35-45) H 11/24/17 05:07 ABG pO2 115 mmHg (85-104) H 11/24/17 05:07 ABG Total CO2 29 mEq/L (20-26) H 11/24/17 05:07 BUN 94 mg/dL (6-20) H 11/24/17 04:00 Creatinine 2.76 mg/dL (0.60-1.20) H 11/24/17 04:00 Est GFR ( Amer) 22 (> 60) L 11/24/17 04:00 Est GFR (Non-Af Amer) 18 (> 60) L 11/24/17 04:00 BUN/Creatinine Ratio 34 (6-26) H 11/24/17 04:00 Glucose 229 mg/dL (70-105) H 11/24/17 04:00 POC Glucose 266 mg/dL (70-99) H 11/24/17 08:12 Calculated Osmolality 318 (280-300) H 11/24/17 04:00 Calcium 8.2 mg/dL (8.6-10.3) L 11/24/17 04:00 Phosphorus 6.6 mg/dL (2.7-4.5) H 11/23/17 03:09 Total Bilirubin 1.1 mg/dL (0.3-1.0) H 11/22/17 17:55 Direct Bilirubin 0.6 mg/dL (0.0-0.2) H 11/22/17 17:55 AST 10 Units/L (13-39) L 11/22/17 17:55 ALT 5 Units/L (7-52) L 11/22/17 17:55 Alkaline Phosphatase 235 Units/L (34-104) H 11/22/17 17:55 Troponin I 0.36 ng/mL (< 0.04) H* 11/24/17 04:00 B-Natriuretic Peptide 379 pg/mL (Less than 100) H 11/22/17 17:55 Albumin 2.8 g/dL (3.5-5.7) L 11/22/17 17:55 Globulin 5.0 g/dL (2.4-3.5) H 11/22/17 17:55 Albumin/Globulin Ratio 0.6 (1.1-2.2) L 11/22/17 17:55 Ur Specimen Adequacy See below A 11/22/17 18:30 Urine Clarity Turbid (Clear) A 11/22/17 18:30 Ur Specific [place] 1.026 (1.010-1.025) H 11/22/17 18:30 Urine Protein 100 mg/dL (Neg-Trace) H 11/22/17 18:30 Urine Ketones Trace mg/dL (Negative) H 11/22/17 18:30 Urine Blood Small (Negative) H 11/22/17 18:30 Urine Bilirubin Small (Negative) H 11/22/17 18:30 Ur Leukocyte Esterase Large (Negative) H 11/22/17 18:30 Ur Culture Indicated? YES (NO) A 11/22/17 18:30 - Microbiology Findings Microbiology Findings: Microbiology, Last 48 Hours 11/22/17 22:25 Legionella Antigen - Final Urine,Catheterized Streptococcus pneumoniae Antigen (M - Final - Clinical Findings Intake & Output: Intake & Output 11/23/17 11/24/17 11/24/17 23:59 07:59 15:59 Intake Total 437 / 437 210 / 210 379 / 379 Output Total 275 / 275 575 / 575 Balance 162 / 162 -365 / -365 379 / 379 Weight 175.8 kg Consult Discharge Plan - Plan Referrals: Ted Parada DO [Primary Care Provider] -
--- NOTE | 2017-11-24 11:06 | Pulmonology Progress Note ---
<Emeka Elizalde - Last Filed: 11/24/17 16:00> Date of Encounter: 11/24/17 Time of Encounter: 11:04 Assessment and Plan (1) HCAP (healthcare-associated pneumonia) Current Visit: Yes Status: Acute Intubated on 11/21/17 secondary to acute on chronic respiratory failure with hypercapnia and hypoxia CXR performed on 11/22/16 demonstrated the following: - Endotracheal tube w/ the last image demonstrating the tip projecting approx. 1.7 cm above the min - Patchy opacities throughout the lungs b/l - There may be b/l pleural effusions Recently discharged 2 weeks prior from an ECF after admission in August 2017 for influenza and PNA. Criteria for HCAP. - Blood CX are negative x2 - Respiratory panel negative - MRSA surveillance negative Plan: - Levaquin and vancomycin will be discontinued today; continue cefepime - Duo nebs 3 mL inhaled every 4 scheduled - Currently on Precedex, Fentanyl (2) Septic shock Current Visit: Yes Status: Acute Patient met sepsis criteria on admission with leukocytosis and heart rate of 90 on presentation with PNA - CXR with evidence of bilateral infiltrates. - Despite IV fluids, required vasopressor support in the ED - Continue vasopressor support with goal MAP>60 - Patients white count has decreased to 25.1 from 39.6 - Patient is tachycardic this morning at 116 bpm Plan: - Continue cefepime - Continue to monitor patients vital signs and clinical status (3) Acute and chronic respiratory failure Current Visit: Yes Status: Acute - Intubated 11/21/17 for acute on chronic respiratory failure with hypercapnia and hypoxia. - ARDS with A-a gradient >400. Goal Tv 6cc/kg with permissive hypercapnia - Multifactorial with pneumonia as well as obesity hypoventilation and chronic CO2 retention. - Initial ABG with respiratory acidosis with incomplete metabolic compensation. - Remains on mechanical ventilation; inspired O2 60, tidal volume 400, PEEP of 10 Qualifiers: Respiratory failure complication: hypoxia and hypercapnia Qualified Code(s) : J96.21 - Acute and chronic respiratory failure with hypoxia; J96.22 - Acute and chronic respiratory failure with hypercapnia; J96.22 - Acute and chronic respiratory failure with hypercapnia; J96.22 - Acute and chronic respiratory failure with hypercapnia (4) Elevated troponin Current Visit: Yes Status: Acute - Initial troponin 0.13, .22, .43 - Suspect multifactorial in setting of septic shock, OLIVA, hypoxia - EKG w/o ischemic findings (5) Diabetes Current Visit: Yes Status: Chronic - Sliding-scale insulin coverage Qualifiers: Diabetes mellitus type: type 2 Diabetes mellitus longterm insulin use: unspecified longterm insulin use status Diabetes mellitus complication status : with unspecified complications Qualified Code(s): E11.8 - Type 2 diabetes mellitus with unspecified complications (6) Anemia Current Visit: Yes Status: Chronic - Hemoglobin is stable at this time at 9.6 - No obvious source of bleeding - Daily CBCs Qualifiers: Anemia type: unspecified type Qualified Code(s): D64.9 - Anemia, unspecified (7) Atrial fibrillation Current Visit: Yes Status: Chronic - Patient was tachycardic this morning at 116 bpm - Not on anticoagulation as an outpatient with reported history of epistaxis. - Hold beta ana in the setting of septic shock. Qualifiers: Atrial fibrillation type: unspecified Qualified Code(s): I48.91 - Unspecified atrial fibrillation (8) Leukocytosis Current Visit: Yes Status: Acute - Improving; initial white count was 43.9. Has since decreased to 25.1. - Daily CBCs Qualifiers: Leukocytosis type: bandemia Qualified Code(s): D72.825 - Bandemia (9) Renal insufficiency Current Visit: Yes Status: Acute - Improving, Serum creatinine 2.76 (2.89) - Daily BMP - Avoid nephrotoxic agents (10) DVT prophylaxis Current Visit: Yes Status: Acute - Heparin 5000 units subcutaneous every 8 hours Subjective Principal diagnosis: Healthcare associated pneumonia Interval history: Patient was seen and examined at bedside this morning. Patient is currently intubated and sedated. White count continues to improve. Antibiotics de- escalated today; vancomycin and Zosyn will be discontinued. We will continue the course of cefepime. Patient is tolerating feeds well at this time. We will modify insulin too high a dose corrective schedule. Objective PUL Vital signs: Last Vital Signs Temp 96.8 F L 11/24/17 08:00 Pulse 116 11/24/17 10:00 Resp 28 11/24/17 10:00 BP 120/71 11/24/17 10:00 Pulse Ox 97 11/24/17 10:00 General appearance: no acute distress, asleep Neck: supple Effort: normal Auscultation: bilateral: diminished breath sounds, rales Cardiovascular: regular rate and rhythm Gastrointestinal: normoactive bowel sounds, non-distended Integumentary: normal Extremities: no cyanosis Musculoskeletal: no deformities, ROM normal Ventilator Settings Ventilator Settings: Ventilator Settings, Last 8 Hours Ventilator Mode VC+ Ventilator Mode VC+ Ventilator Mode VC+ Ventilator Mode VC+ Ventilator Mode VC+ Ventilator Mode VC+ Ventilator Mode VC+ Ventilator Mode VC+ Ventilator Mode VC+ Ventilator Mode VC+ Ventilator Mode VC+ Ventilator Tidal Volume 400 Setting Ventilator Tidal Volume 400 Setting Ventilator Tidal Volume 400 Setting Ventilator Tidal Volume 400 Setting Ventilator Tidal Volume 400 Setting Ventilator Tidal Volume 400 Setting Ventilator Tidal Volume 400 Setting Ventilator Tidal Volume 400 Setting Ventilator Tidal Volume 400 Setting Ventilator Tidal Volume 400 Setting Ventilator Tidal Volume 400 Setting Ventilator Respiratory Rate 20 Setting Ventilator Respiratory Rate 20 Setting Ventilator Respiratory Rate 20 Setting Ventilator Respiratory Rate 20 Setting Ventilator Respiratory Rate 20 Setting Ventilator Respiratory Rate 20 Setting Ventilator Respiratory Rate 20 Setting Ventilator Respiratory Rate 20 Setting Ventilator Respiratory Rate 20 Setting Ventilator Respiratory Rate 20 Setting Ventilator Respiratory Rate 20 Setting Actual Respiratory Rate 28 Actual Respiratory Rate 29 Actual Respiratory Rate 25 Actual Respiratory Rate 25 Actual Respiratory Rate 23 Actual Respiratory Rate 26 Actual Respiratory Rate 22 Positive End Expiratory 8 Pressure Positive End Expiratory 8 Pressure Positive End Expiratory 8 Pressure Positive End Expiratory 8 Pressure Positive End Expiratory 8 Pressure Positive End Expiratory 10 Pressure Positive End Expiratory 10 Pressure Positive End Expiratory 10 Pressure Positive End Expiratory 10 Pressure Positive End Expiratory 10 Pressure Positive End Expiratory 10 Pressure Peak Inspiratory Airway 15 Pressure Peak Inspiratory Airway 15 Pressure Peak Inspiratory Airway 15 Pressure Peak Inspiratory Airway 28 Pressure Peak Inspiratory Airway 15 Pressure Peak Inspiratory Airway 24 Pressure Peak Inspiratory Airway 30 Pressure Results - Laboratory Findings CBC and BMP: 11/24/17 04:00 11/24/17 04:00 ABG ABG pH 7.31 pH Units (7.32-7.45) L 11/24/17 05:07 ABG pCO2 54 mmHg (35-45) H 11/24/17 05:07 ABG pO2 115 mmHg (85-104) H 11/24/17 05:07 ABG O2 Saturation 98 % (95-98) 11/24/17 05:07 PT/INR, D-dimer PT 15.4 Seconds (9.4-12.1) H 11/23/17 03:45 Abnormal lab findings: Abnormal lab results WBC 25.1 K/mcL (4.3-11.1) H 11/24/17 04:00 Hgb 9.6 g/dL (11.5-15.4) L 11/24/17 04:00 Hct 32.5 % (35.3-44.9) L 11/24/17 04:00 MCV 81.7 fL (83.0-100.0) L 11/24/17 04:00 MCH 24.1 pg (28.0-33.3) L 11/24/17 04:00 MCHC 29.5 g/dL (31.6-35.5) L 11/24/17 04:00 RDW 21.0 % (11.5-14.5) H 11/24/17 04:00 Band Neutrophils % 17.0 % (0-4) H 11/22/17 17:55 Myelocytes % 1.0 % (0) H 11/22/17 17:55 Neutrophils # 23.6 K/mcL (1.6-8.9) H 11/24/17 04:00 Toxic Granulation Present (Not Present) A 11/22/17 17:55 Hypochromasia Present (Not Present) A 11/23/17 03:30 Anisocytosis 2+ (Not Present) A 11/23/17 03:30 PT 15.4 Seconds (9.4-12.1) H 11/23/17 03:45 ABG pH 7.31 pH Units (7.32-7.45) L 11/24/17 05:07 ABG pCO2 54 mmHg (35-45) H 11/24/17 05:07 ABG pO2 115 mmHg (85-104) H 11/24/17 05:07 ABG Total CO2 29 mEq/L (20-26) H 11/24/17 05:07 BUN 94 mg/dL (6-20) H 11/24/17 04:00 Creatinine 2.76 mg/dL (0.60-1.20) H 11/24/17 04:00 Est GFR ( Amer) 22 (> 60) L 11/24/17 04:00 Est GFR (Non-Af Amer) 18 (> 60) L 11/24/17 04:00 BUN/Creatinine Ratio 34 (6-26) H 11/24/17 04:00 Glucose 229 mg/dL (70-105) H 11/24/17 04:00 POC Glucose 266 mg/dL (70-99) H 11/24/17 08:12 Calculated Osmolality 318 (280-300) H 11/24/17 04:00 Calcium 8.2 mg/dL (8.6-10.3) L 11/24/17 04:00 Phosphorus 6.6 mg/dL (2.7-4.5) H 11/23/17 03:09 Total Bilirubin 1.1 mg/dL (0.3-1.0) H 11/22/17 17:55 Direct Bilirubin 0.6 mg/dL (0.0-0.2) H 11/22/17 17:55 AST 10 Units/L (13-39) L 11/22/17 17:55 ALT 5 Units/L (7-52) L 11/22/17 17:55 Alkaline Phosphatase 235 Units/L (34-104) H 11/22/17 17:55 Troponin I 0.36 ng/mL (< 0.04) H* 11/24/17 04:00 B-Natriuretic Peptide 379 pg/mL (Less than 100) H 11/22/17 17:55 Albumin 2.8 g/dL (3.5-5.7) L 11/22/17 17:55 Globulin 5.0 g/dL (2.4-3.5) H 11/22/17 17:55 Albumin/Globulin Ratio 0.6 (1.1-2.2) L 11/22/17 17:55 Ur Specimen Adequacy See below A 11/22/17 18:30 Urine Clarity Turbid (Clear) A 11/22/17 18:30 Ur Specific [place] 1.026 (1.010-1.025) H 11/22/17 18:30 Urine Protein 100 mg/dL (Neg-Trace) H 11/22/17 18:30 Urine Ketones Trace mg/dL (Negative) H 11/22/17 18:30 Urine Blood Small (Negative) H 11/22/17 18:30 Urine Bilirubin Small (Negative) H 11/22/17 18:30 Ur Leukocyte Esterase Large (Negative) H 11/22/17 18:30 Ur Culture Indicated? YES (NO) A 11/22/17 18:30 - Microbiology Findings Microbiology Findings: Microbiology, Last 48 Hours 11/22/17 22:25 Legionella Antigen - Final Urine,Catheterized Streptococcus pneumoniae Antigen (M - Final - Clinical Findings Intake & Output: Intake & Output 11/23/17 11/24/17 11/24/17 23:59 07:59 15:59 Intake Total 437 / 437 210 / 210 379 / 379 Output Total 275 / 275 575 / 575 Balance 162 / 162 -365 / -365 379 / 379 Weight 175.8 kg Consult Discharge Plan - Plan Referrals: Ted Parada, [Primary Care Provider] - <Marianela Chappell - Last Filed: 11/25/17 07:57> Date of Encounter: 11/25/17 Objective PUL Vital signs: Last Vital Signs Temp 96.4 F L 11/25/17 04:05 Pulse 70 11/25/17 06:00 Resp 17 11/25/17 07:42 BP 105/50 11/25/17 07:42 Pulse Ox 99 11/25/17 07:42 Ventilator Settings Ventilator Settings: Ventilator Settings, Last 8 Hours Ventilator Mode A/C Ventilator Mode VC+ Ventilator Mode VC+ Ventilator Mode VC+ Ventilator Mode VC+ Ventilator Mode VC+ Ventilator Mode VC+ Ventilator Mode VC+ Ventilator Mode VC+ Ventilator Mode VC+ Ventilator Mode VC+ Ventilator Mode VC+ Ventilator Mode VC+ Ventilator Tidal Volume 400 Setting Ventilator Tidal Volume 400 Setting Ventilator Tidal Volume 400 Setting Ventilator Tidal Volume 400 Setting Ventilator Tidal Volume 400 Setting Ventilator Tidal Volume 400 Setting Ventilator Tidal Volume 400 Setting Ventilator Tidal Volume 400 Setting Ventilator Tidal Volume 400 Setting Ventilator Tidal Volume 400 Setting Ventilator Tidal Volume 400 Setting Ventilator Tidal Volume 400 Setting Ventilator Respiratory Rate 20 Setting Ventilator Respiratory Rate 20 Setting Ventilator Respiratory Rate 20 Setting Ventilator Respiratory Rate 20 Setting Ventilator Respiratory Rate 20 Setting Ventilator Respiratory Rate 20 Setting Ventilator Respiratory Rate 20 Setting Ventilator Respiratory Rate 20 Setting Ventilator Respiratory Rate 20 Setting Ventilator Respiratory Rate 20 Setting Ventilator Respiratory Rate 20 Setting Ventilator Respiratory Rate 20 Setting Actual Respiratory Rate 17 Actual Respiratory Rate 23 Actual Respiratory Rate 22 Actual Respiratory Rate 21 Actual Respiratory Rate 20 Actual Respiratory Rate 20 Actual Respiratory Rate 20 Actual Respiratory Rate 22 Actual Respiratory Rate 22 Actual Respiratory Rate 23 Actual Respiratory Rate 22 Actual Respiratory Rate 22 Positive End Expiratory 5 Pressure Positive End Expiratory 8 Pressure Positive End Expiratory 8 Pressure Positive End Expiratory 8 Pressure Positive End Expiratory 8 Pressure Positive End Expiratory 8 Pressure Positive End Expiratory 8 Pressure Positive End Expiratory 8 Pressure Positive End Expiratory 8 Pressure Positive End Expiratory 8 Pressure Positive End Expiratory 8 Pressure Positive End Expiratory 8 Pressure Positive End Expiratory 8 Pressure Peak Inspiratory Airway 11 Pressure Peak Inspiratory Airway 30 Pressure Peak Inspiratory Airway 27 Pressure Peak Inspiratory Airway 28 Pressure Peak Inspiratory Airway 28 Pressure Peak Inspiratory Airway 24 Pressure Peak Inspiratory Airway 27 Pressure Peak Inspiratory Airway 27 Pressure Peak Inspiratory Airway 27 Pressure Peak Inspiratory Airway 26 Pressure Peak Inspiratory Airway 26 Pressure Peak Inspiratory Airway 26 Pressure Results - Laboratory Findings CBC and BMP: 11/25/17 03:40 11/25/17 03:40 ABG ABG pH 7.30 pH Units (7.32-7.45) L 11/25/17 04:39 ABG pCO2 58 mmHg (35-45) H 11/25/17 04:39 ABG pO2 94 mmHg (85-104) 11/25/17 04:39 ABG O2 Saturation 96 % (95-98) 11/25/17 04:39 PT/INR, D-dimer PT 15.4 Seconds (9.4-12.1) H 11/23/17 03:45 Abnormal lab findings: Abnormal lab results WBC 22.2 K/mcL (4.3-11.1) H 11/25/17 03:40 RBC 3.70 M/mcL (3.82-4.97) L 11/25/17 03:40 Hgb 8.9 g/dL (11.5-15.4) L 11/25/17 03:40 Hct 30.4 % (35.3-44.9) L 11/25/17 03:40 MCV 82.2 fL (83.0-100.0) L 11/25/17 03:40 MCH 24.1 pg (28.0-33.3) L 11/25/17 03:40 MCHC 29.3 g/dL (31.6-35.5) L 11/25/17 03:40 RDW 21.0 % (11.5-14.5) H 11/25/17 03:40 Band Neutrophils % 17.0 % (0-4) H 11/22/17 17:55 Myelocytes % 1.0 % (0) H 11/22/17 17:55 Neutrophils # 20.2 K/mcL (1.6-8.9) H 11/25/17 03:40 Toxic Granulation Present (Not Present) A 11/22/17 17:55 Hypochromasia Present (Not Present) A 11/23/17 03:30 Anisocytosis 2+ (Not Present) A 11/23/17 03:30 PT 15.4 Seconds (9.4-12.1) H 11/23/17 03:45 ABG pH 7.30 pH Units (7.32-7.45) L 11/25/17 04:39 ABG pCO2 58 mmHg (35-45) H 11/25/17 04:39 ABG HCO3 28 mEq/L (21-27) H 11/25/17 04:39 ABG Total CO2 30 mEq/L (20-26) H 11/25/17 04:39 BUN 109 mg/dL (6-20) H 11/25/17 03:40 Creatinine 2.84 mg/dL (0.60-1.20) H 11/25/17 03:40 Est GFR ( Amer) 21 (> 60) L 11/25/17 03:40 Est GFR (Non-Af Amer) 17 (> 60) L 11/25/17 03:40 BUN/Creatinine Ratio 38 (6-26) H 11/25/17 03:40 Glucose 324 mg/dL (70-105) H 11/25/17 03:40 POC Glucose 299 mg/dL (70-99) H 11/25/17 04:06 Calculated Osmolality 329 (280-300) H 11/25/17 03:40 Calcium 8.2 mg/dL (8.6-10.3) L 11/25/17 03:40 Phosphorus 6.6 mg/dL (2.7-4.5) H 11/23/17 03:09 Total Bilirubin 1.1 mg/dL (0.3-1.0) H 11/22/17 17:55 Direct Bilirubin 0.6 mg/dL (0.0-0.2) H 11/22/17 17:55 AST 10 Units/L (13-39) L 11/22/17 17:55 ALT 5 Units/L (7-52) L 11/22/17 17:55 Alkaline Phosphatase 235 Units/L (34-104) H 11/22/17 17:55 Troponin I 0.36 ng/mL (< 0.04) H* 11/24/17 04:00 B-Natriuretic Peptide 379 pg/mL (Less than 100) H 11/22/17 17:55 Albumin 2.8 g/dL (3.5-5.7) L 11/22/17 17:55 Globulin 5.0 g/dL (2.4-3.5) H 11/22/17 17:55 Albumin/Globulin Ratio 0.6 (1.1-2.2) L 11/22/17 17:55 Ur Specimen Adequacy See below A 11/22/17 18:30 Urine Clarity Turbid (Clear) A 11/22/17 18:30 Ur Specific [place] 1.026 (1.010-1.025) H 11/22/17 18:30 Urine Protein 100 mg/dL (Neg-Trace) H 11/22/17 18:30 Urine Ketones Trace mg/dL (Negative) H 11/22/17 18:30 Urine Blood Small (Negative) H 11/22/17 18:30 Urine Bilirubin Small (Negative) H 11/22/17 18:30 Ur Leukocyte Esterase Large (Negative) H 11/22/17 18:30 Ur Culture Indicated? YES (NO) A 11/22/17 18:30 - Clinical Findings Intake & Output: Intake & Output 11/24/17 11/24/17 11/25/17 15:59 23:59 07:59 Intake Total 689 / 689 421 / 421 160 / 160 Output Total 300 / 300 625 / 625 245 / 245 Balance 389 / 389 -204 / -204 -85 / -85 - Attending Attestation This documentation was done on 11/25/2077, however the case was seen and examined on 11/24/2017 and plan of care was discussed with resident and nurses in 11/24/2017 I examined this patient and my medical decision-making was reviewed with the Resident Physician. I agree with the documented findings, disposition and treatment plan as described except to the extent set forth below. Patient seen and examined. Labs, radiology, chart personally reviewed. Agree with resident's history and physical, assessment, plan with following comments: MANAGER HIV: Patient follows commands, Pulmonary: Acceptable oxygenation and ventilation, however patient has significant secretion and continue pulmonary toilet. I expect if she continue to improve hopefully can be extubated in next 1-2 days. Cardiovascular: stable GI: Nutrition per dietary and GI prophylaxis per routine Heme: DVT prophylaxis per routine ID: Continue antibiotics and plan to de-escalation Renal; urine out put and renal funtion reviewed Endorcine: blood glucose is monitored Lines: all lines checked and no evidence of infections Skin: skin care to prevent pressure ulcers per nursing routine care
--- NOTE | 2017-11-24 11:13 | Palliative Progress Note ---
Date of Encounter: 11/24/17 Time of Encounter: 11:10 - Assessment and plan (1) Debility Current Visit: Yes Status: Acute (2) Dyspnea Current Visit: Yes Status: Acute Assessment and plan: Remains on vent - FIO2 has been decreased to 40% from 60% yesterday, PEEP down to 8 from 10. MOnitor Continues with IV atb/bronchodilators Qualifiers: Dyspnea type: unspecified Qualified Code(s): R06.00 - Dyspnea, unspecified (3) Counseling regarding advanced care planning and goals of care Current Visit: Yes Status: Acute Assessment and plan: remains a pt here in hospital. I did visit him and updated on pt condition. She remains DNRCCA. Discussed briefly re-intubation if she does poorly after extubation - thinks that she would not want re-intubated, but states he will be going down to visit her and will discuss. Cont to follow (4) Acute respiratory failure Current Visit: Yes Status: Acute Qualifiers: Respiratory failure complication: unspecified whether with hypoxia or hypercapnia Qualified Code(s): J96.00 - Acute respiratory failure, unspecified whether with hypoxia or hypercapnia (5) Pneumonia Current Visit: Yes Status: Acute Qualifiers: Pneumonia type: due to unspecified organism Laterality: bilateral Lung location: unspecified part of lung Qualified Code(s): J18.9 - Pneumonia, unspecified organism (6) HCAP (healthcare-associated pneumonia) Current Visit: Yes Status: Acute - Time Spent With Patient Total time spent is greater than 50% in coordination of care (as documented) at patient's floor/unit and/or counseling patient: - Subjective Interval history: Patient remains awake and alert. STable. Per primary nurse - atrial fib with rate increase this am when they were turning pt, however, decreased on own after pain medication given. WBC continues to trend down. She denies any pain or discomfort. Follows commands. Tolerating tube feeds well. - Constitutional Vitals: Abnormal lab results WBC 25.1 K/mcL (4.3-11.1) H 11/24/17 04:00 Hgb 9.6 g/dL (11.5-15.4) L 11/24/17 04:00 Hct 32.5 % (35.3-44.9) L 11/24/17 04:00 MCV 81.7 fL (83.0-100.0) L 11/24/17 04:00 MCH 24.1 pg (28.0-33.3) L 11/24/17 04:00 MCHC 29.5 g/dL (31.6-35.5) L 11/24/17 04:00 RDW 21.0 % (11.5-14.5) H 11/24/17 04:00 Band Neutrophils % 17.0 % (0-4) H 11/22/17 17:55 Myelocytes % 1.0 % (0) H 11/22/17 17:55 Neutrophils # 23.6 K/mcL (1.6-8.9) H 11/24/17 04:00 Toxic Granulation Present (Not Present) A 11/22/17 17:55 Hypochromasia Present (Not Present) A 11/23/17 03:30 Anisocytosis 2+ (Not Present) A 11/23/17 03:30 PT 15.4 Seconds (9.4-12.1) H 11/23/17 03:45 ABG pH 7.31 pH Units (7.32-7.45) L 11/24/17 05:07 ABG pCO2 54 mmHg (35-45) H 11/24/17 05:07 ABG pO2 115 mmHg (85-104) H 11/24/17 05:07 ABG Total CO2 29 mEq/L (20-26) H 11/24/17 05:07 BUN 94 mg/dL (6-20) H 11/24/17 04:00 Creatinine 2.76 mg/dL (0.60-1.20) H 11/24/17 04:00 Est GFR ( Amer) 22 (> 60) L 11/24/17 04:00 Est GFR (Non-Af Amer) 18 (> 60) L 11/24/17 04:00 BUN/Creatinine Ratio 34 (6-26) H 11/24/17 04:00 Glucose 229 mg/dL (70-105) H 11/24/17 04:00 POC Glucose 266 mg/dL (70-99) H 11/24/17 08:12 Calculated Osmolality 318 (280-300) H 11/24/17 04:00 Calcium 8.2 mg/dL (8.6-10.3) L 11/24/17 04:00 Phosphorus 6.6 mg/dL (2.7-4.5) H 11/23/17 03:09 Total Bilirubin 1.1 mg/dL (0.3-1.0) H 11/22/17 17:55 Direct Bilirubin 0.6 mg/dL (0.0-0.2) H 11/22/17 17:55 AST 10 Units/L (13-39) L 11/22/17 17:55 ALT 5 Units/L (7-52) L 11/22/17 17:55 Alkaline Phosphatase 235 Units/L (34-104) H 11/22/17 17:55 Troponin I 0.36 ng/mL (< 0.04) H* 11/24/17 04:00 B-Natriuretic Peptide 379 pg/mL (Less than 100) H 11/22/17 17:55 Albumin 2.8 g/dL (3.5-5.7) L 11/22/17 17:55 Globulin 5.0 g/dL (2.4-3.5) H 11/22/17 17:55 Albumin/Globulin Ratio 0.6 (1.1-2.2) L 11/22/17 17:55 Ur Specimen Adequacy See below A 11/22/17 18:30 Urine Clarity Turbid (Clear) A 11/22/17 18:30 Ur Specific [place] 1.026 (1.010-1.025) H 11/22/17 18:30 Urine Protein 100 mg/dL (Neg-Trace) H 11/22/17 18:30 Urine Ketones Trace mg/dL (Negative) H 11/22/17 18:30 Urine Blood Small (Negative) H 11/22/17 18:30 Urine Bilirubin Small (Negative) H 11/22/17 18:30 Ur Leukocyte Esterase Large (Negative) H 11/22/17 18:30 Ur Culture Indicated? YES (NO) A 11/22/17 18:30 General appearance: Present: no acute distress - Respiratory Respiratory exam: Present: CTAB Additional comments: Breath sounds coarse throughout - Cardiovascular Cardiovascular exam: Present: +S1, +S2 - GI/Abdominal GI/Abdominal exam: Present: normal bowel sounds, soft - Extremities Exam Extremities exam: Present: normal capillary refill, normal inspection - Neurological Exam Neurological exam: Present: alert, oriented X3, strengths equal and symetr throughout - Skin Skin exam: Present: dry, pallor, warm Palliative Quality Palliative Quality: Screen for Code Status: Yes, Screen for Goals of Care: Yes, Screen for Pain: Yes, If Pain Regimen Started, Initiate Bowel Regimen: NA, Screen for Nausea/Vomitting: Yes Code Status: 11/23/17 12:29 DNR [Resuscitation Status: Active] [RES] Routine Comment: Resuscitation Status: DNR-Comfort Care-Arrest - Labs CBC & Chem 7: 11/24/17 04:00 11/24/17 04:00 Labs: Laboratory Results - last 24 hr 11/23/17 11/23/17 11/24/17 12:10 18:19 00:17 WBC RBC Hgb Hct MCV MCH MCHC RDW Plt Count MPV Immature Gran % Seg Neutrophils % Lymphocytes % Monocytes % Eosinophils % Basophils % Neutrophils # Lymphocytes # Monocytes # Eosinophils # Basophils # Platelet Estimate Sample Site ABG pH ABG pCO2 ABG pO2 ABG HCO3 ABG Total CO2 ABG O2 Saturation ABG Base Excess Ubaldo Test Respiration Rate O2 Delivery Device Blood Gas Modality Inspired O2 Tidal Volume PEEP Sodium Potassium Chloride Carbon Dioxide BUN Creatinine Est GFR ( Amer) Est GFR (Non-Af Amer) BUN/Creatinine Ratio Glucose POC Glucose 180 H 168 H 188 H Calculated Osmolality Calcium Troponin I 11/24/17 11/24/17 11/24/17 04:00 04:00 05:07 WBC 25.1 H RBC 3.98 Hgb 9.6 L Hct 32.5 L MCV 81.7 L MCH 24.1 L MCHC 29.5 L RDW 21.0 H Plt Count 280 MPV 10.9 Immature Gran % 0.7 Seg Neutrophils % 94.2 Lymphocytes % 2.5 Monocytes % 2.5 Eosinophils % 0.0 Basophils % 0.1 Neutrophils # 23.6 H Lymphocytes # 0.6 Monocytes # 0.6 Eosinophils # 0.0 Basophils # 0.0 Platelet Estimate Normal Sample Site R Radial ABG pH 7.31 L ABG pCO2 54 H ABG pO2 115 H ABG HCO3 27 ABG Total CO2 29 H ABG O2 Saturation 98 ABG Base Excess 0 Ubaldo Test N/A Respiration Rate 20 O2 Delivery Device Adult Vent Blood Gas Modality VC Inspired O2 60.0 Tidal Volume 400 PEEP 10 Sodium 136 Potassium 4.8 Chloride 101 Carbon Dioxide 25 BUN 94 H Creatinine 2.76 H Est GFR ( Amer) 22 L Est GFR (Non-Af Amer) 18 L BUN/Creatinine Ratio 34 H Glucose 229 H POC Glucose Calculated Osmolality 318 H Calcium 8.2 L Troponin I 0.36 H* 11/24/17 11/24/17 05:32 08:12 WBC RBC Hgb Hct MCV MCH MCHC RDW Plt Count MPV Immature Gran % Seg Neutrophils % Lymphocytes % Monocytes % Eosinophils % Basophils % Neutrophils # Lymphocytes # Monocytes # Eosinophils # Basophils # Platelet Estimate Sample Site ABG pH ABG pCO2 ABG pO2 ABG HCO3 ABG Total CO2 ABG O2 Saturation ABG Base Excess Ubaldo Test Respiration Rate O2 Delivery Device Blood Gas Modality Inspired O2 Tidal Volume PEEP Sodium Potassium Chloride Carbon Dioxide BUN Creatinine Est GFR ( Amer) Est GFR (Non-Af Amer) BUN/Creatinine Ratio Glucose POC Glucose 228 H 266 H Calculated Osmolality Calcium Troponin I - Impressions Impressions KUB X-Ray 11/23/17 15:16 IMPRESSION: Tip and side port of the enteric tube in the gastric body. D/ / Elias Zurita MD / Elias Zurita MD Interpreting Provider: Elias Zurita MD Chest X-Ray 11/24/17 05:00 IMPRESSION: Mildly improved bilateral airspace disease. Appropriate life support device positioning. D/ / Gideon Martínez / Gideon Martínez Interpreting Provider: Gideon Martínez - ABG Interpretation ABG results: ABG ABG pH 7.31 pH Units (7.32-7.45) L 11/24/17 05:07 ABG pCO2 54 mmHg (35-45) H 11/24/17 05:07 ABG pO2 115 mmHg (85-104) H 11/24/17 05:07 ABG O2 Saturation 98 % (95-98) 11/24/17 05:07 PT/INR, D-dimer PT 15.4 Seconds (9.4-12.1) H 11/23/17 03:45 Consult Discharge Plan - Plan Referrals: Ted Parada DO [Primary Care Provider] -
[2017-11-24] MEDS ORDERED: Insulin LISPRO 300 UNITS/3 ML VIAL SQ SCH ×2 (11:30→12:00)
[2017-11-24] MEDS: Ipratropium/Albuterol Neb 3 ML IH SCH ×4 (11:56→23:52)
[2017-11-24] MEDS ORDERED: Levofloxacin 750 MG/150 ML 750 MG/150 ML BAG IVPB SCH (18:00)
[2017-11-25] MEDS: Norepinephrine 4 MG in D5% in Water 250 ML IVC SCH (03:17)
[2017-11-25] MEDS: Dexmedetomidine HCl 200 MCG/50 ML MLS IVC SCH ×3 (03:18→05:01)
[2017-11-25 03:50] LABS: Basophils % 0.1 %; Hematocrit 30.4 % (35.3-44.9); Hemoglobin 8.9 g/dL (11.5-15.4); Immature Granulocytes % 0.9 % (0-4); Lymphocytes # 0.8 K/mcL (0.6-4.6); Lymphocytes % 3.7 %; Mean Corpuscular HGB Conc 29.3 g/dL (31.6-35.5); Mean Corpuscular Hemoglobin 24.1 pg (28.0-33.3); Mean Corpuscular Volume 82.2 fL (83.0-100.0); Mean Platelet Volume 10.7 fL (9.4-12.4); Monocytes % 4.4 %; Neutrophils # 20.2 K/mcL (1.6-8.9); Platelet Count 279 K/mcL (140-400); Segmented Neutrophils % 90.9 %
[2017-11-25] MEDS: Ipratropium/Albuterol Neb 3 ML IH SCH ×6 (04:00→23:41)
[2017-11-25 04:13] LABS: Calcium 8.2 mg/dL (8.6-10.3); Potassium 4.8 mEq/L (3.5-5.1)
[2017-11-25] MEDS: Insulin LISPRO 300 UNITS/3 ML VIAL SQ SCH ×5 (04:45→20:32)
[2017-11-25] MEDS: Lacri-Lube 3.5 GM TUBE BOTH EYES SCH ×3 (04:45→11:53)
[2017-11-25 04:46] LABS: ABG Base Excess 1 mEq/L (-2 to 3); ABG HCO3 28 mEq/L (21-27); ABG Oxygen Saturation 96 % (95-98); ABG PCO2 58 mmHg (35-45); ABG PO2 94 mmHg (85-104); ABG TCO2 30 mEq/L (20-26); Blood Gas Modality ASSIST CONTROL; Blood Gas PEEP 8 cm H2O; Blood Gas Respiration Rate 20; Blood Gas VT 400 cc
[2017-11-25] MEDS: *HR* Heparin 5,000 UNIT/ML VIAL SQ SCH ×3 (06:03→20:32)
[2017-11-25] MEDS: Chlorhexidine Rinse 15 ML MOUTHWASH MM SCH (08:17)
[2017-11-25] MEDS: Famotidine 20 MG/2 ML VIAL IVP SCH (08:17)
--- NOTE | 2017-11-25 09:40 | Pulmonology Progress Note ---
<Marianela Chappell M - Last Filed: 11/25/17 16:16> Date of Encounter: 11/25/17 Objective PUL Vital signs: Last Vital Signs Temp 97.6 F 11/25/17 08:00 Pulse 80 11/25/17 11:00 Resp 16 11/25/17 11:00 BP 101/50 11/25/17 11:00 Pulse Ox 97 11/25/17 11:00 Ventilator Settings Ventilator Settings: Ventilator Settings, Last 8 Hours Ventilator Mode CPAP Ventilator Mode CPAP Ventilator Mode CPAP Ventilator Mode CPAP Ventilator Mode CPAP Ventilator Mode A/C Ventilator Mode CPAP Ventilator Mode VC+ Ventilator Mode VC+ Ventilator Mode VC+ Ventilator Mode VC+ Ventilator Mode VC+ Ventilator Mode VC+ Ventilator Tidal Volume 400 Setting Ventilator Tidal Volume 400 Setting Ventilator Tidal Volume 400 Setting Ventilator Tidal Volume 400 Setting Ventilator Tidal Volume 400 Setting Ventilator Tidal Volume 400 Setting Ventilator Respiratory Rate 20 Setting Ventilator Respiratory Rate 20 Setting Ventilator Respiratory Rate 20 Setting Ventilator Respiratory Rate 20 Setting Ventilator Respiratory Rate 20 Setting Ventilator Respiratory Rate 20 Setting Actual Respiratory Rate 16 Actual Respiratory Rate 14 Actual Respiratory Rate 18 Actual Respiratory Rate 18 Actual Respiratory Rate 15 Actual Respiratory Rate 17 Actual Respiratory Rate 18 Actual Respiratory Rate 23 Actual Respiratory Rate 22 Actual Respiratory Rate 21 Actual Respiratory Rate 20 Actual Respiratory Rate 20 Positive End Expiratory 5 Pressure Positive End Expiratory 5 Pressure Positive End Expiratory 5 Pressure Positive End Expiratory 5 Pressure Positive End Expiratory 5 Pressure Positive End Expiratory 5 Pressure Positive End Expiratory 5 Pressure Positive End Expiratory 8 Pressure Positive End Expiratory 8 Pressure Positive End Expiratory 8 Pressure Positive End Expiratory 8 Pressure Positive End Expiratory 8 Pressure Positive End Expiratory 8 Pressure Peak Inspiratory Airway 10 Pressure Peak Inspiratory Airway 12 Pressure Peak Inspiratory Airway 11 Pressure Peak Inspiratory Airway 11 Pressure Peak Inspiratory Airway 12 Pressure Peak Inspiratory Airway 11 Pressure Peak Inspiratory Airway 12 Pressure Peak Inspiratory Airway 30 Pressure Peak Inspiratory Airway 27 Pressure Peak Inspiratory Airway 28 Pressure Peak Inspiratory Airway 28 Pressure Peak Inspiratory Airway 24 Pressure Results - Laboratory Findings CBC and BMP: 11/25/17 03:40 11/25/17 03:40 ABG ABG pH 7.30 pH Units (7.32-7.45) L 11/25/17 04:39 ABG pCO2 58 mmHg (35-45) H 11/25/17 04:39 ABG pO2 94 mmHg (85-104) 11/25/17 04:39 ABG O2 Saturation 96 % (95-98) 11/25/17 04:39 PT/INR, D-dimer PT 15.4 Seconds (9.4-12.1) H 11/23/17 03:45 Abnormal lab findings: Abnormal lab results WBC 22.2 K/mcL (4.3-11.1) H 11/25/17 03:40 RBC 3.70 M/mcL (3.82-4.97) L 11/25/17 03:40 Hgb 8.9 g/dL (11.5-15.4) L 11/25/17 03:40 Hct 30.4 % (35.3-44.9) L 11/25/17 03:40 MCV 82.2 fL (83.0-100.0) L 11/25/17 03:40 MCH 24.1 pg (28.0-33.3) L 11/25/17 03:40 MCHC 29.3 g/dL (31.6-35.5) L 11/25/17 03:40 RDW 21.0 % (11.5-14.5) H 11/25/17 03:40 Band Neutrophils % 17.0 % (0-4) H 11/22/17 17:55 Myelocytes % 1.0 % (0) H 11/22/17 17:55 Neutrophils # 20.2 K/mcL (1.6-8.9) H 11/25/17 03:40 Toxic Granulation Present (Not Present) A 11/22/17 17:55 Hypochromasia Present (Not Present) A 11/23/17 03:30 Anisocytosis 2+ (Not Present) A 11/23/17 03:30 PT 15.4 Seconds (9.4-12.1) H 11/23/17 03:45 ABG pH 7.30 pH Units (7.32-7.45) L 11/25/17 04:39 ABG pCO2 58 mmHg (35-45) H 11/25/17 04:39 ABG HCO3 28 mEq/L (21-27) H 11/25/17 04:39 ABG Total CO2 30 mEq/L (20-26) H 11/25/17 04:39 BUN 109 mg/dL (6-20) H 11/25/17 03:40 Creatinine 2.84 mg/dL (0.60-1.20) H 11/25/17 03:40 Est GFR ( Amer) 21 (> 60) L 11/25/17 03:40 Est GFR (Non-Af Amer) 17 (> 60) L 11/25/17 03:40 BUN/Creatinine Ratio 38 (6-26) H 11/25/17 03:40 Glucose 324 mg/dL (70-105) H 11/25/17 03:40 POC Glucose 302 mg/dL (70-99) H 11/25/17 07:56 Calculated Osmolality 329 (280-300) H 11/25/17 03:40 Calcium 8.2 mg/dL (8.6-10.3) L 11/25/17 03:40 Phosphorus 6.6 mg/dL (2.7-4.5) H 11/23/17 03:09 Total Bilirubin 1.1 mg/dL (0.3-1.0) H 11/22/17 17:55 Direct Bilirubin 0.6 mg/dL (0.0-0.2) H 11/22/17 17:55 AST 10 Units/L (13-39) L 11/22/17 17:55 ALT 5 Units/L (7-52) L 11/22/17 17:55 Alkaline Phosphatase 235 Units/L (34-104) H 11/22/17 17:55 Troponin I 0.36 ng/mL (< 0.04) H* 11/24/17 04:00 B-Natriuretic Peptide 379 pg/mL (Less than 100) H 11/22/17 17:55 Albumin 2.8 g/dL (3.5-5.7) L 11/22/17 17:55 Globulin 5.0 g/dL (2.4-3.5) H 11/22/17 17:55 Albumin/Globulin Ratio 0.6 (1.1-2.2) L 11/22/17 17:55 Ur Specimen Adequacy See below A 11/22/17 18:30 Urine Clarity Turbid (Clear) A 11/22/17 18:30 Ur Specific [place] 1.026 (1.010-1.025) H 11/22/17 18:30 Urine Protein 100 mg/dL (Neg-Trace) H 11/22/17 18:30 Urine Ketones Trace mg/dL (Negative) H 11/22/17 18:30 Urine Blood Small (Negative) H 11/22/17 18:30 Urine Bilirubin Small (Negative) H 11/22/17 18:30 Ur Leukocyte Esterase Large (Negative) H 11/22/17 18:30 Ur Culture Indicated? YES (NO) A 11/22/17 18:30 - Clinical Findings Intake & Output: Intake & Output 11/24/17 11/25/17 11/25/17 23:59 07:59 15:59 Intake Total 421 / 421 843 / 843 Output Total 625 / 625 320 / 320 Balance -204 / -204 523 / 523 Consult Discharge Plan - Plan Referrals: Ted Parada DO [Primary Care Provider] - - Attending Attestation I examined this patient and my medical decision-making was reviewed with the Resident Physician. I agree with the documented findings, disposition and treatment plan as described except to the extent set forth below. Patient seen and examined. Labs, radiology, chart personally reviewed. Agree with resident's history and physical, assessment, plan with following comments: PEACH GROWER: Patient follows commands, Pulmonary: Acceptable oxygenation and ventilation and the problem she still having secretion, however she has good cough and tolerating spontaneous breathing trial plan to extubate. Palliative care follow-up and reintubation is acceptable if she needs it. Patient was in the hospital before and this is HCAP and organism is not specified. Cardiovascular: stable GI: Nutrition per dietary and GI prophylaxis per routine Heme: DVT prophylaxis per routine ID: Continue antibiotics and plan to de-escalation Renal; urine out put and renal funtion reviewed Endorcine: blood glucose is monitored Lines: all lines checked and no evidence of infections Skin: skin care to prevent pressure ulcers per nursing routine care <Emeka Elizalde - Last Filed: 11/25/17 18:44> Date of Encounter: 11/25/17 Time of Encounter: 09:33 Assessment and Plan (1) HCAP (healthcare-associated pneumonia) Current Visit: Yes Status: Acute Intubated on 11/21/17 secondary to acute on chronic respiratory failure with hypercapnia and hypoxia CXR performed on 11/22/16 demonstrated the following: - Endotracheal tube w/ the last image demonstrating the tip projecting approx. 1.7 cm above the min - Patchy opacities throughout the lungs b/l - There may be b/l pleural effusions Recently discharged 2 weeks prior from an ECF after admission in August 2017 for influenza and PNA. Criteria for HCAP. - Blood CX are negative x2 - Respiratory panel negative - MRSA surveillance negative Plan: - Levaquin and vancomycin will be discontinued today; continue cefepime - Duo nebs 3 mL inhaled every 4 scheduled - Currently on Precedex, Fentanyl (2) Septic shock Current Visit: Yes Status: Acute Patient met sepsis criteria on admission with leukocytosis and heart rate of 90 on presentation with PNA - CXR with evidence of bilateral infiltrates. - Despite IV fluids, required vasopressor support in the ED - Continue vasopressor support with goal MAP>60 - Patients white count has decreased to 25.1 from 39.6 - Patient is tachycardic this morning at 116 bpm Plan:c - Continue cefepime - Continue to monitor patients vital signs and clinical status (3) Acute and chronic respiratory failure Current Visit: Yes Status: Acute - Intubated 11/21/17 for acute on chronic respiratory failure with hypercapnia and hypoxia. - ARDS with A-a gradient >400. Goal Tv 6cc/kg with permissive hypercapnia - Multifactorial with pneumonia as well as obesity hypoventilation and chronic CO2 retention. - Initial ABG with respiratory acidosis with incomplete metabolic compensation. - Remains on mechanical ventilation; inspired O2 50, tidal volume 400, PEEP of 8 ABGs: - 7.28/67/76/31/33/92 - 7.30/57/66/28// - 7.31/54/115/// - 7.30/58/94// Qualifiers: Respiratory failure complication: hypoxia and hypercapnia Qualified Code(s) : J96.21 - Acute and chronic respiratory failure with hypoxia; J96.22 - Acute and chronic respiratory failure with hypercapnia; J96.22 - Acute and chronic respiratory failure with hypercapnia; J96.22 - Acute and chronic respiratory failure with hypercapnia (4) Diabetes Current Visit: Yes Status: Chronic - Sliding-scale insulin coverage Qualifiers: Diabetes mellitus type: type 2 Diabetes mellitus 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 - Hold beta ana in the setting of septic shock. Qualifiers: Atrial fibrillation type: unspecified Qualified Code(s): I48.91 - Unspecified atrial fibrillation (7) Leukocytosis Current Visit: Yes Status: Acute - Improving; initial white count was 43.9. Has since decreased to 22.2. - Daily CBCs Qualifiers: Leukocytosis type: bandemia Qualified Code(s): D72.825 - Bandemia (8) Renal insufficiency Current Visit: Yes Status: Acute - Daily BMP - Avoid nephrotoxic agents (9) DVT prophylaxis Current Visit: Yes Status: Acute - Heparin 5000 units subcutaneous every 8 hours Subjective Principal diagnosis: Healthcare associated pneumonia Interval history: Patient was seen and examined at bedside this morning. Patient is currently intubated and sedated. Objective PUL Vital signs: Last Vital Signs Temp 97.6 F 11/25/17 08:00 Pulse 79 11/25/17 09:00 Resp 18 11/25/17 09:09 BP 100/47 11/25/17 09:09 Pulse Ox 95 11/25/17 09:09 General appearance: no acute distress Eyes: nonicteric ENT: oropharynx moist Neck: supple Effort: normal Auscultation: bilateral: clear Percussion: bilateral: not dull Tactile fremitus: bilateral: normal Cardiovascular: regular rate and rhythm Gastrointestinal: normoactive bowel sounds, non-distended Integumentary: normal Extremities: no cyanosis, no edema, no clubbing Musculoskeletal: no deformities, ROM normal normal mental status, non-focal exam mood appropriate, affect normal Ventilator Settings Ventilator Settings: Ventilator Settings, Last 8 Hours Ventilator Mode CPAP Ventilator Mode CPAP Ventilator Mode CPAP Ventilator Mode A/C Ventilator Mode CPAP Ventilator Mode VC+ Ventilator Mode VC+ Ventilator Mode VC+ Ventilator Mode VC+ Ventilator Mode VC+ Ventilator Mode VC+ Ventilator Mode VC+ Ventilator Mode VC+ Ventilator Tidal Volume 400 Setting Ventilator Tidal Volume 400 Setting Ventilator Tidal Volume 400 Setting Ventilator Tidal Volume 400 Setting Ventilator Tidal Volume 400 Setting Ventilator Tidal Volume 400 Setting Ventilator Tidal Volume 400 Setting Ventilator Tidal Volume 400 Setting Ventilator Respiratory Rate 20 Setting Ventilator Respiratory Rate 20 Setting Ventilator Respiratory Rate 20 Setting Ventilator Respiratory Rate 20 Setting Ventilator Respiratory Rate 20 Setting Ventilator Respiratory Rate 20 Setting Ventilator Respiratory Rate 20 Setting Ventilator Respiratory Rate 20 Setting Actual Respiratory Rate 18 Actual Respiratory Rate 18 Actual Respiratory Rate 15 Actual Respiratory Rate 17 Actual Respiratory Rate 18 Actual Respiratory Rate 23 Actual Respiratory Rate 22 Actual Respiratory Rate 21 Actual Respiratory Rate 20 Actual Respiratory Rate 20 Actual Respiratory Rate 20 Actual Respiratory Rate 22 Positive End Expiratory 5 Pressure Positive End Expiratory 5 Pressure Positive End Expiratory 5 Pressure Positive End Expiratory 5 Pressure Positive End Expiratory 5 Pressure Positive End Expiratory 8 Pressure Positive End Expiratory 8 Pressure Positive End Expiratory 8 Pressure Positive End Expiratory 8 Pressure Positive End Expiratory 8 Pressure Positive End Expiratory 8 Pressure Positive End Expiratory 8 Pressure Positive End Expiratory 8 Pressure Peak Inspiratory Airway 11 Pressure Peak Inspiratory Airway 11 Pressure Peak Inspiratory Airway 12 Pressure Peak Inspiratory Airway 11 Pressure Peak Inspiratory Airway 12 Pressure Peak Inspiratory Airway 30 Pressure Peak Inspiratory Airway 27 Pressure Peak Inspiratory Airway 28 Pressure Peak Inspiratory Airway 28 Pressure Peak Inspiratory Airway 24 Pressure Peak Inspiratory Airway 27 Pressure Peak Inspiratory Airway 27 Pressure Results - Laboratory Findings CBC and BMP: 11/25/17 03:40 11/25/17 03:40 ABG ABG pH 7.30 pH Units (7.32-7.45) L 11/25/17 04:39 ABG pCO2 58 mmHg (35-45) H 11/25/17 04:39 ABG pO2 94 mmHg (85-104) 11/25/17 04:39 ABG O2 Saturation 96 % (95-98) 11/25/17 04:39 PT/INR, D-dimer PT 15.4 Seconds (9.4-12.1) H 11/23/17 03:45 Abnormal lab findings: Abnormal lab results WBC 22.2 K/mcL (4.3-11.1) H 11/25/17 03:40 RBC 3.70 M/mcL (3.82-4.97) L 11/25/17 03:40 Hgb 8.9 g/dL (11.5-15.4) L 11/25/17 03:40 Hct 30.4 % (35.3-44.9) L 11/25/17 03:40 MCV 82.2 fL (83.0-100.0) L 11/25/17 03:40 MCH 24.1 pg (28.0-33.3) L 11/25/17 03:40 MCHC 29.3 g/dL (31.6-35.5) L 11/25/17 03:40 RDW 21.0 % (11.5-14.5) H 11/25/17 03:40 Band Neutrophils % 17.0 % (0-4) H 11/22/17 17:55 Myelocytes % 1.0 % (0) H 11/22/17 17:55 Neutrophils # 20.2 K/mcL (1.6-8.9) H 11/25/17 03:40 Toxic Granulation Present (Not Present) A 11/22/17 17:55 Hypochromasia Present (Not Present) A 11/23/17 03:30 Anisocytosis 2+ (Not Present) A 11/23/17 03:30 PT 15.4 Seconds (9.4-12.1) H 11/23/17 03:45 ABG pH 7.30 pH Units (7.32-7.45) L 11/25/17 04:39 ABG pCO2 58 mmHg (35-45) H 11/25/17 04:39 ABG HCO3 28 mEq/L (21-27) H 11/25/17 04:39 ABG Total CO2 30 mEq/L (20-26) H 11/25/17 04:39 BUN 109 mg/dL (6-20) H 11/25/17 03:40 Creatinine 2.84 mg/dL (0.60-1.20) H 11/25/17 03:40 Est GFR ( Amer) 21 (> 60) L 11/25/17 03:40 Est GFR (Non-Af Amer) 17 (> 60) L 11/25/17 03:40 BUN/Creatinine Ratio 38 (6-26) H 11/25/17 03:40 Glucose 324 mg/dL (70-105) H 11/25/17 03:40 POC Glucose 302 mg/dL (70-99) H 11/25/17 07:56 Calculated Osmolality 329 (280-300) H 11/25/17 03:40 Calcium 8.2 mg/dL (8.6-10.3) L 11/25/17 03:40 Phosphorus 6.6 mg/dL (2.7-4.5) H 11/23/17 03:09 Total Bilirubin 1.1 mg/dL (0.3-1.0) H 11/22/17 17:55 Direct Bilirubin 0.6 mg/dL (0.0-0.2) H 11/22/17 17:55 AST 10 Units/L (13-39) L 11/22/17 17:55 ALT 5 Units/L (7-52) L 11/22/17 17:55 Alkaline Phosphatase 235 Units/L (34-104) H 11/22/17 17:55 Troponin I 0.36 ng/mL (< 0.04) H* 11/24/17 04:00 B-Natriuretic Peptide 379 pg/mL (Less than 100) H 11/22/17 17:55 Albumin 2.8 g/dL (3.5-5.7) L 11/22/17 17:55 Globulin 5.0 g/dL (2.4-3.5) H 11/22/17 17:55 Albumin/Globulin Ratio 0.6 (1.1-2.2) L 11/22/17 17:55 Ur Specimen Adequacy See below A 11/22/17 18:30 Urine Clarity Turbid (Clear) A 11/22/17 18:30 Ur Specific [place] 1.026 (1.010-1.025) H 11/22/17 18:30 Urine Protein 100 mg/dL (Neg-Trace) H 11/22/17 18:30 Urine Ketones Trace mg/dL (Negative) H 11/22/17 18:30 Urine Blood Small (Negative) H 11/22/17 18:30 Urine Bilirubin Small (Negative) H 11/22/17 18:30 Ur Leukocyte Esterase Large (Negative) H 11/22/17 18:30 Ur Culture Indicated? YES (NO) A 11/22/17 18:30 - Clinical Findings Intake & Output: Intake & Output 11/24/17 11/25/17 11/25/17 23:59 07:59 15:59 Intake Total 421 / 421 843 / 843 Output Total 625 / 625 320 / 320 Balance -204 / -204 523 / 523
[2017-11-25] MEDS ORDERED: *HR* LORazepam 2 MG/ML VIAL IVP PRN (09:56)
[2017-11-25] MEDS ORDERED: Insulin DETEMIR 100 UNIT/ML X5UNITS SQ SCH (11:00)
[2017-11-25] MEDS ORDERED: Insulin DETEMIR 100 UNIT/ML per UNIT SQ SCH (11:00)
[2017-11-25] MEDS: Insulin DETEMIR 100 UNIT/ML X5UNITS SQ SCH ×2 (11:01→20:32)
--- NOTE | 2017-11-25 11:31 | Palliative Progress Note ---
Date of Encounter: 11/25/17 Time of Encounter: 10:35 - Assessment and plan (1) Debility Current Visit: Yes Status: Acute Assessment and plan: Will need PT/OT eval soon. Patient's desiring placement at [facility] when pt ready to leave. (2) Dyspnea Current Visit: Yes Status: Acute Qualifiers: Dyspnea type: unspecified Qualified Code(s): R06.00 - Dyspnea, unspecified (3) Counseling regarding advanced care planning and goals of care Current Visit: Yes Status: Acute Assessment and plan: Patient most likely will be extubated today. Discussed with her at length regarding reintubation, and she DOES want reintubated if necessary for respiratory distress. However, she does not want [facility] life support. Primary nurse Gurvinder, Dr. Elizalde, and Dr. Chappell informed. I visited her here in the hospital and updated him on her condition, and her decision to desire re-intubation if necessary. He acknowledged understanding. Will continue to follow. Most likely will need placement at rehab, and desires placement at [facility]. (4) Acute respiratory failure Current Visit: Yes Status: Acute Qualifiers: Respiratory failure complication: unspecified whether with hypoxia or hypercapnia Qualified Code(s): J96.00 - Acute respiratory failure, unspecified whether with hypoxia or hypercapnia (5) Pneumonia Current Visit: Yes Status: Acute Qualifiers: Pneumonia type: due to unspecified organism Laterality: bilateral Lung location: unspecified part of lung Qualified Code(s): J18.9 - Pneumonia, unspecified organism (6) HCAP (healthcare-associated pneumonia) Current Visit: Yes Status: Acute - Time Spent With Patient Total time spent is greater than 50% in coordination of care (as documented) at patient's floor/unit and/or counseling patient: 25 - 35 minutes - Subjective Interval history: Patient remains awake and alert, tolerating CPAP trial well and most likely be extubated today. Vitals stable. WBC continues to trend downward. She communicates well on vent. Denies any pain or discomfort. Still with copious thick mcclendon secretions. No family at bedside. - Constitutional Vitals: Abnormal lab results WBC 22.2 K/mcL (4.3-11.1) H 11/25/17 03:40 RBC 3.70 M/mcL (3.82-4.97) L 11/25/17 03:40 Hgb 8.9 g/dL (11.5-15.4) L 11/25/17 03:40 Hct 30.4 % (35.3-44.9) L 11/25/17 03:40 MCV 82.2 fL (83.0-100.0) L 11/25/17 03:40 MCH 24.1 pg (28.0-33.3) L 11/25/17 03:40 MCHC 29.3 g/dL (31.6-35.5) L 11/25/17 03:40 RDW 21.0 % (11.5-14.5) H 11/25/17 03:40 Band Neutrophils % 17.0 % (0-4) H 11/22/17 17:55 Myelocytes % 1.0 % (0) H 11/22/17 17:55 Neutrophils # 20.2 K/mcL (1.6-8.9) H 11/25/17 03:40 Toxic Granulation Present (Not Present) A 11/22/17 17:55 Hypochromasia Present (Not Present) A 11/23/17 03:30 Anisocytosis 2+ (Not Present) A 11/23/17 03:30 PT 15.4 Seconds (9.4-12.1) H 11/23/17 03:45 ABG pH 7.30 pH Units (7.32-7.45) L 11/25/17 04:39 ABG pCO2 58 mmHg (35-45) H 11/25/17 04:39 ABG HCO3 28 mEq/L (21-27) H 11/25/17 04:39 ABG Total CO2 30 mEq/L (20-26) H 11/25/17 04:39 BUN 109 mg/dL (6-20) H 11/25/17 03:40 Creatinine 2.84 mg/dL (0.60-1.20) H 11/25/17 03:40 Est GFR ( Amer) 21 (> 60) L 11/25/17 03:40 Est GFR (Non-Af Amer) 17 (> 60) L 11/25/17 03:40 BUN/Creatinine Ratio 38 (6-26) H 11/25/17 03:40 Glucose 324 mg/dL (70-105) H 11/25/17 03:40 POC Glucose 302 mg/dL (70-99) H 11/25/17 07:56 Calculated Osmolality 329 (280-300) H 11/25/17 03:40 Calcium 8.2 mg/dL (8.6-10.3) L 11/25/17 03:40 Phosphorus 6.6 mg/dL (2.7-4.5) H 11/23/17 03:09 Total Bilirubin 1.1 mg/dL (0.3-1.0) H 11/22/17 17:55 Direct Bilirubin 0.6 mg/dL (0.0-0.2) H 11/22/17 17:55 AST 10 Units/L (13-39) L 11/22/17 17:55 ALT 5 Units/L (7-52) L 11/22/17 17:55 Alkaline Phosphatase 235 Units/L (34-104) H 11/22/17 17:55 Troponin I 0.36 ng/mL (< 0.04) H* 11/24/17 04:00 B-Natriuretic Peptide 379 pg/mL (Less than 100) H 11/22/17 17:55 Albumin 2.8 g/dL (3.5-5.7) L 11/22/17 17:55 Globulin 5.0 g/dL (2.4-3.5) H 11/22/17 17:55 Albumin/Globulin Ratio 0.6 (1.1-2.2) L 11/22/17 17:55 Ur Specimen Adequacy See below A 11/22/17 18:30 Urine Clarity Turbid (Clear) A 11/22/17 18:30 Ur Specific [place] 1.026 (1.010-1.025) H 11/22/17 18:30 Urine Protein 100 mg/dL (Neg-Trace) H 11/22/17 18:30 Urine Ketones Trace mg/dL (Negative) H 11/22/17 18:30 Urine Blood Small (Negative) H 11/22/17 18:30 Urine Bilirubin Small (Negative) H 11/22/17 18:30 Ur Leukocyte Esterase Large (Negative) H 11/22/17 18:30 Ur Culture Indicated? YES (NO) A 11/22/17 18:30 General appearance: Present: no acute distress - Respiratory Additional comments: Breath sounds course - remains on vent, tolerating CPAP. Thick mcclendon secretions noted - pt being suctioned by primary nurse at my visit. - Cardiovascular Cardiovascular exam: Present: +S1, +S2 - GI/Abdominal GI/Abdominal exam: Present: distended, soft - Extremities Exam Extremities exam: Present: normal capillary refill, normal inspection - Neurological Exam Neurological exam: Present: alert, strengths equal and symetr throughout Additional comments: Awake and alert - follows commands. Communicates by nodding head - and can write on clipboard - Skin Skin exam: Present: dry, warm Palliative Quality Palliative Quality: Screen for Code Status: Yes, Screen for Goals of Care: Yes, Screen for Pain: Yes, If Pain Regimen Started, Initiate Bowel Regimen: NA, Screen for Nausea/Vomitting: Yes Code Status: 11/23/17 12:29 DNR [Resuscitation Status: Active] [RES] Routine Comment: Resuscitation Status: DNR-Comfort Care-Arrest - Labs CBC & Chem 7: 11/25/17 03:40 11/25/17 03:40 Labs: Laboratory Results - last 24 hr 11/24/17 11/24/17 11/24/17 11:41 16:40 19:05 WBC RBC Hgb Hct MCV MCH MCHC RDW Plt Count MPV Immature Gran % Seg Neutrophils % Lymphocytes % Monocytes % Eosinophils % Basophils % Neutrophils # Lymphocytes # Monocytes # Eosinophils # Basophils # Sample Site ABG pH ABG pCO2 ABG pO2 ABG HCO3 ABG Total CO2 ABG O2 Saturation ABG Base Excess Ubaldo Test Respiration Rate O2 Delivery Device Blood Gas Modality Inspired O2 Tidal Volume PEEP Sodium Potassium Chloride Carbon Dioxide BUN Creatinine Est GFR ( Amer) Est GFR (Non-Af Amer) BUN/Creatinine Ratio Glucose POC Glucose 263 H 253 H 272 H Calculated Osmolality Calcium 11/24/17 11/25/17 11/25/17 23:35 03:40 03:40 WBC 22.2 H RBC 3.70 L Hgb 8.9 L Hct 30.4 L MCV 82.2 L MCH 24.1 L MCHC 29.3 L RDW 21.0 H Plt Count 279 MPV 10.7 Immature Gran % 0.9 Seg Neutrophils % 90.9 Lymphocytes % 3.7 Monocytes % 4.4 Eosinophils % 0.0 Basophils % 0.1 Neutrophils # 20.2 H Lymphocytes # 0.8 Monocytes # 1.0 Eosinophils # 0.0 Basophils # 0.0 Sample Site ABG pH ABG pCO2 ABG pO2 ABG HCO3 ABG Total CO2 ABG O2 Saturation ABG Base Excess Ubaldo Test Respiration Rate O2 Delivery Device Blood Gas Modality Inspired O2 Tidal Volume PEEP Sodium 136 Potassium 4.8 Chloride 101 Carbon Dioxide 27 BUN 109 H Creatinine 2.84 H Est GFR ( Amer) 21 L Est GFR (Non-Af Amer) 17 L BUN/Creatinine Ratio 38 H Glucose 324 H POC Glucose 273 H Calculated Osmolality 329 H Calcium 8.2 L 11/25/17 11/25/17 11/25/17 04:06 04:39 07:56 WBC RBC Hgb Hct MCV MCH MCHC RDW Plt Count MPV Immature Gran % Seg Neutrophils % Lymphocytes % Monocytes % Eosinophils % Basophils % Neutrophils # Lymphocytes # Monocytes # Eosinophils # Basophils # Sample Site R Radial ABG pH 7.30 L ABG pCO2 58 H ABG pO2 94 ABG HCO3 28 H ABG Total CO2 30 H ABG O2 Saturation 96 ABG Base Excess 1 Ubaldo Test Positive Respiration Rate 20 O2 Delivery Device Adult Vent Blood Gas Modality ASSIST CONTROL Inspired O2 50.0 Tidal Volume 400 PEEP 8 Sodium Potassium Chloride Carbon Dioxide BUN Creatinine Est GFR ( Amer) Est GFR (Non-Af Amer) BUN/Creatinine Ratio Glucose POC Glucose 299 H 302 H Calculated Osmolality Calcium - Impressions Impressions Echocardiogram 11/23/17 07:18 Impressions: LVEF 55%. Normal LV chamber size, wall thickness and function. Indeterminate diastolic function. Grossly, right ventricle is dilated. Functional was not well visualized. No evidence of pulmonary hypertension identified. RVSP not well obtaine due to poor TR jet. No significant valvular dysfunction. Left Ventricular Wall Motion: Rest Echo Findings All wall segments showed normal motion. Findings: Study Quality * Technically sub-optimal due to body habitus. ECG Findings * Normal sinus rhythm. Left Ventricle * LVEF 55%. * Normal LV chamber size, wall thickness and function. * Indeterminate diastolic function. Right Ventricle * Grossly, right ventricle is dilated. Functional was not well visualized. Left Atrium * Severely dilated left atrium. Right Atrium * Moderately dilated right atrium. Aortic Valve * Aortic valve not well visualized. * No aortic regurgitation. * No aortic stenosis. Mitral Valve * Mild mitral annular calcification * No mitral stenosis. * No mitral regurgitation. Tricuspid Valve * Normal tricuspid valve structure and function. * Trace tricuspid regurgitation. * No evidence of pulmonary hypertension identified. RVSP not well obtaine due to poor TR jet. Pulmonic Valve * Normal pulmonic valve structure and function. * No pulmonic regurgitation. Aorta * Normally sized aortic root. Pericardium * The pericardium appears normal. * Appearance is consistent with a {type} mitral valve replacement. Function appears {function{. IVC * Normal IVC dimensions and inspiratory collapse. Pulmonary Artery * Normal visualized portions of the main pulmonary artery. - ABG Interpretation ABG results: ABG ABG pH 7.30 pH Units (7.32-7.45) L 11/25/17 04:39 ABG pCO2 58 mmHg (35-45) H 11/25/17 04:39 ABG pO2 94 mmHg (85-104) 11/25/17 04:39 ABG O2 Saturation 96 % (95-98) 11/25/17 04:39 PT/INR, D-dimer PT 15.4 Seconds (9.4-12.1) H 11/23/17 03:45 Consult Discharge Plan - Plan Referrals: Ted Parada DO [Primary Care Provider] -
[2017-11-25] MEDS: Cefepime HCl 1,000 MG in Water for inj. (sterile) 20 ML 10 ML IVP SCH (11:52)
[2017-11-26] MEDS: Cefepime HCl 1,000 MG in Water for inj. (sterile) 20 ML 10 ML IVP SCH ×2 (00:19→14:00)
[2017-11-26] MEDS: Insulin LISPRO 300 UNITS/3 ML VIAL SQ SCH ×6 (00:21→20:22)
--- NOTE | 2017-11-26 03:34 | Pulmonology Progress Note ---
<Sesar Hamlin - Last Filed: 11/26/17 03:29> Date of Encounter: 11/26/17 Time of Encounter: 03:34 Assessment and Plan (1) HCAP (healthcare-associated pneumonia) Current Visit: Yes Status: Acute CXR performed on 11/22/16 demonstrated the following: - Patchy opacities throughout the lungs b/l - There may be b/l pleural effusions Recently discharged 2 weeks prior from an ECF after admission in August 2017 for influenza and PNA. Criteria for HCAP. - Blood CX are negative x2 - Respiratory panel negative - MRSA surveillance negative Plan: -s/p extubation without complication -Cefepime day 5 -Duonebs PRN for wheezing (2) Acute and chronic respiratory failure Current Visit: Yes Status: Acute Acute on chronic respiratory failure, s/p extubation Initial presentation with ARDS, required mechanical ventilation Likely secondary to chronic respiratory failure with new Hospital acquired pneumonia Has continued to oxygenate appropriately on 6L NC ABG 11/25 -7.30/58/// prior to extubation Plan: Continue treatment for HCAP Duonebs q4h scheduled Qualifiers: Respiratory failure complication: hypoxia and hypercapnia Qualified Code(s) : J96.21 - Acute and chronic respiratory failure with hypoxia; J96.22 - Acute and chronic respiratory failure with hypercapnia; J96.22 - Acute and chronic respiratory failure with hypercapnia; J96.22 - Acute and chronic respiratory failure with hypercapnia (3) Septic shock Current Visit: Yes Status: Acute Patient met sepsis criteria on admission with leukocytosis and heart rate of 90 on presentation with PNA - CXR with evidence of bilateral infiltrates. - Despite IV fluids, required vasopressor support in the ED - Continues to present with leukocytosis, improved WBC 22.2 - Patient remains afebrile Plan: - Continue cefepime day 5 - Continue to monitor patients vital signs and clinical status - No pressors required at this time (4) Atrial fibrillation Current Visit: Yes Status: Chronic - Rate controlled at this time - Not on anticoagulation as an outpatient with reported history of epistaxis. - Hold beta ana in the setting of septic shock. Qualifiers: Atrial fibrillation type: unspecified Qualified Code(s): I48.91 - Unspecified atrial fibrillation (5) Renal insufficiency Current Visit: Yes Status: Acute Renal function appears to be at baseline We will monitor with daily BMPs Avoid nephrotoxic agents (6) Diabetes Current Visit: Yes Status: Chronic Continue ACHS + SSI Qualifiers: Diabetes mellitus type: type 2 Diabetes mellitus prison insulin use: unspecified prison insulin use status Diabetes mellitus complication status : with unspecified complications Qualified Code(s): E11.8 - Type 2 diabetes mellitus with unspecified complications (7) DVT prophylaxis Current Visit: Yes Status: Acute Subjective Principal diagnosis: Healthcare associated pneumonia Objective PUL Vital signs: Last Vital Signs Temp 96.8 F L 11/26/17 00:27 Pulse 78 11/26/17 00:27 Resp 14 11/26/17 00:27 BP 133/51 11/26/17 00:27 Pulse Ox 94 11/26/17 00:27 General appearance: no acute distress, asleep (But awakens easily to voice), appears uncomfortable Eyes: nonicteric ENT: oropharynx moist Neck: supple, no lymphadenopathy, no JVD, other (Right IJ CVC in place) Effort: normal Auscultation: bilateral: rhonchi (Worse than left) Cardiovascular: irregular rhythm Gastrointestinal: soft, non-tender, non-distended Integumentary: normal, erythema (Present on the lower extremities consistent with chronic stasis) Extremities: no cyanosis, pink and warm, edema (Trace edema b/l), other ( Appearance of chronic venous stasis) Musculoskeletal: no deformities normal mental status (Patient is somnolent but responds appropriately), non- focal exam other (Flat affect) Results - Laboratory Findings CBC and BMP: 11/25/17 03:40 11/25/17 03:40 ABG ABG pH 7.30 pH Units (7.32-7.45) L 11/25/17 04:39 ABG pCO2 58 mmHg (35-45) H 11/25/17 04:39 ABG pO2 94 mmHg (85-104) 11/25/17 04:39 ABG O2 Saturation 96 % (95-98) 11/25/17 04:39 PT/INR, D-dimer PT 15.4 Seconds (9.4-12.1) H 11/23/17 03:45 Abnormal lab findings: Abnormal lab results WBC 22.2 K/mcL (4.3-11.1) H 11/25/17 03:40 RBC 3.70 M/mcL (3.82-4.97) L 11/25/17 03:40 Hgb 8.9 g/dL (11.5-15.4) L 11/25/17 03:40 Hct 30.4 % (35.3-44.9) L 11/25/17 03:40 MCV 82.2 fL (83.0-100.0) L 11/25/17 03:40 MCH 24.1 pg (28.0-33.3) L 11/25/17 03:40 MCHC 29.3 g/dL (31.6-35.5) L 11/25/17 03:40 RDW 21.0 % (11.5-14.5) H 11/25/17 03:40 Band Neutrophils % 17.0 % (0-4) H 11/22/17 17:55 Myelocytes % 1.0 % (0) H 11/22/17 17:55 Neutrophils # 20.2 K/mcL (1.6-8.9) H 11/25/17 03:40 Toxic Granulation Present (Not Present) A 11/22/17 17:55 Hypochromasia Present (Not Present) A 11/23/17 03:30 Anisocytosis 2+ (Not Present) A 11/23/17 03:30 PT 15.4 Seconds (9.4-12.1) H 11/23/17 03:45 ABG pH 7.30 pH Units (7.32-7.45) L 11/25/17 04:39 ABG pCO2 58 mmHg (35-45) H 11/25/17 04:39 ABG HCO3 28 mEq/L (21-27) H 11/25/17 04:39 ABG Total CO2 30 mEq/L (20-26) H 11/25/17 04:39 BUN 109 mg/dL (6-20) H 11/25/17 03:40 Creatinine 2.84 mg/dL (0.60-1.20) H 11/25/17 03:40 Est GFR ( Amer) 21 (> 60) L 11/25/17 03:40 Est GFR (Non-Af Amer) 17 (> 60) L 11/25/17 03:40 BUN/Creatinine Ratio 38 (6-26) H 11/25/17 03:40 Glucose 324 mg/dL (70-105) H 11/25/17 03:40 POC Glucose 109 mg/dL (70-99) H 11/26/17 00:21 Calculated Osmolality 329 (280-300) H 11/25/17 03:40 Calcium 8.2 mg/dL (8.6-10.3) L 11/25/17 03:40 Phosphorus 6.6 mg/dL (2.7-4.5) H 11/23/17 03:09 Total Bilirubin 1.1 mg/dL (0.3-1.0) H 11/22/17 17:55 Direct Bilirubin 0.6 mg/dL (0.0-0.2) H 11/22/17 17:55 AST 10 Units/L (13-39) L 11/22/17 17:55 ALT 5 Units/L (7-52) L 11/22/17 17:55 Alkaline Phosphatase 235 Units/L (34-104) H 11/22/17 17:55 Troponin I 0.36 ng/mL (< 0.04) H* 11/24/17 04:00 B-Natriuretic Peptide 379 pg/mL (Less than 100) H 11/22/17 17:55 Albumin 2.8 g/dL (3.5-5.7) L 11/22/17 17:55 Globulin 5.0 g/dL (2.4-3.5) H 11/22/17 17:55 Albumin/Globulin Ratio 0.6 (1.1-2.2) L 11/22/17 17:55 Ur Specimen Adequacy See below A 11/22/17 18:30 Urine Clarity Turbid (Clear) A 11/22/17 18:30 Ur Specific [place] 1.026 (1.010-1.025) H 11/22/17 18:30 Urine Protein 100 mg/dL (Neg-Trace) H 11/22/17 18:30 Urine Ketones Trace mg/dL (Negative) H 11/22/17 18:30 Urine Blood Small (Negative) H 11/22/17 18:30 Urine Bilirubin Small (Negative) H 11/22/17 18:30 Ur Leukocyte Esterase Large (Negative) H 11/22/17 18:30 Ur Culture Indicated? YES (NO) A 11/22/17 18:30 - Clinical Findings Intake & Output: Intake & Output 11/25/17 11/25/1711/26/18 15:59 23:59 07:59 Intake Total 0 / 0 Output Total 75 / 75 325 / 325 150 / 150 Balance -65 / -65 -325 / -325 -150 / -150 Consult Discharge Plan - Plan Referrals: Ted Parada DO [Primary Care Provider] - <Marianela Chappell - Last Filed: 11/26/17 08:24> Date of Encounter: 11/26/17 Objective PUL Vital signs: Last Vital Signs Temp 96.5 F L 11/26/17 07:43 Pulse 80 11/26/17 06:03 Resp 28 11/26/17 06:03 BP 129/52 11/26/17 06:03 Pulse Ox 95 11/26/17 06:03 Results - Laboratory Findings CBC and BMP: 11/26/17 04:00 11/26/17 04:00 ABG ABG pH 7.30 pH Units (7.32-7.45) L 11/25/17 04:39 ABG pCO2 58 mmHg (35-45) H 11/25/17 04:39 ABG pO2 94 mmHg (85-104) 11/25/17 04:39 ABG O2 Saturation 96 % (95-98) 11/25/17 04:39 PT/INR, D-dimer PT 15.4 Seconds (9.4-12.1) H 11/23/17 03:45 Abnormal lab findings: Abnormal lab results WBC 20.6 K/mcL (4.3-11.1) H 11/26/17 04:00 Hgb 9.1 g/dL (11.5-15.4) L 11/26/17 04:00 Hct 31.7 % (35.3-44.9) L 11/26/17 04:00 MCV 82.6 fL (83.0-100.0) L 11/26/17 04:00 MCH 23.7 pg (28.0-33.3) L 11/26/17 04:00 MCHC 28.7 g/dL (31.6-35.5) L 11/26/17 04:00 RDW 21.3 % (11.5-14.5) H 11/26/17 04:00 Band Neutrophils % 17.0 % (0-4) H 11/22/17 17:55 Myelocytes % 1.0 % (0) H 11/22/17 17:55 Neutrophils # 17.1 K/mcL (1.6-8.9) H 11/26/17 04:00 Monocytes # 1.5 K/mcL (0.0-1.3) H 11/26/17 04:00 Reactive Lymphocytes Present (Not Present) A 11/26/17 04:00 Toxic Granulation Present (Not Present) A 11/26/17 04:00 Hypochromasia Present (Not Present) A 11/26/17 04:00 Anisocytosis 1+ (Not Present) A 11/26/17 04:00 Microcytosis Present (Not Present) A 11/26/17 04:00 PT 15.4 Seconds (9.4-12.1) H 11/23/17 03:45 ABG pH 7.30 pH Units (7.32-7.45) L 11/25/17 04:39 ABG pCO2 58 mmHg (35-45) H 11/25/17 04:39 ABG HCO3 28 mEq/L (21-27) H 11/25/17 04:39 ABG Total CO2 30 mEq/L (20-26) H 11/25/17 04:39 BUN 124 mg/dL (6-20) H 11/26/17 04:00 Creatinine 2.90 mg/dL (0.60-1.20) H 11/26/17 04:00 Est GFR ( Amer) 20 (> 60) L 11/26/17 04:00 Est GFR (Non-Af Amer) 17 (> 60) L 11/26/17 04:00 BUN/Creatinine Ratio 43 (6-26) H 11/26/17 04:00 Glucose 107 mg/dL (70-105) H 11/26/17 04:00 Calculated Osmolality 332 (280-300) H 11/26/17 04:00 Phosphorus 6.6 mg/dL (2.7-4.5) H 11/23/17 03:09 Total Bilirubin 1.1 mg/dL (0.3-1.0) H 11/22/17 17:55 Direct Bilirubin 0.6 mg/dL (0.0-0.2) H 11/22/17 17:55 AST 10 Units/L (13-39) L 11/22/17 17:55 ALT 5 Units/L (7-52) L 11/22/17 17:55 Alkaline Phosphatase 235 Units/L (34-104) H 11/22/17 17:55 Troponin I 0.36 ng/mL (< 0.04) H* 11/24/17 04:00 B-Natriuretic Peptide 379 pg/mL (Less than 100) H 11/22/17 17:55 Albumin 2.8 g/dL (3.5-5.7) L 11/22/17 17:55 Globulin 5.0 g/dL (2.4-3.5) H 11/22/17 17:55 Albumin/Globulin Ratio 0.6 (1.1-2.2) L 11/22/17 17:55 Ur Specimen Adequacy See below A 11/22/17 18:30 Urine Clarity Turbid (Clear) A 11/22/17 18:30 Ur Specific [place] 1.026 (1.010-1.025) H 11/22/17 18:30 Urine Protein 100 mg/dL (Neg-Trace) H 11/22/17 18:30 Urine Ketones Trace mg/dL (Negative) H 11/22/17 18:30 Urine Blood Small (Negative) H 11/22/17 18:30 Urine Bilirubin Small (Negative) H 11/22/17 18:30 Ur Leukocyte Esterase Large (Negative) H 11/22/17 18:30 Ur Culture Indicated? YES (NO) A 11/22/17 18:30 - Clinical Findings Intake & Output: Intake & Output 11/25/17 11/26/17 11/26/17 23:59 07:59 15:59 Intake Total 0 / 0 10 / 10 Output Total 325 / 325 500 / 500 Balance -325 / -325 -490 / -490 - Attending Attestation I examined this patient and my medical decision-making was reviewed with the Resident Physician. I agree with the documented findings, disposition and treatment plan as described except to the extent set forth below. Patient seen and examined. Labs, radiology, chart personally reviewed. 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 Continue pulmonary toilet and add Mucomyst to the bronchodilators and continue antibiotics. Will keep patient in ICU for next 24 hours. Cardiovascular: stable GI: Nutrition per dietary and GI prophylaxis per routine Heme: DVT prophylaxis per routine ID: Continue antibiotics and plan to de-escalation Renal; urine out put and renal funtion reviewed Endorcine: blood glucose is monitored Lines: all lines checked and no evidence of infections Skin: skin care to prevent pressure ulcers per nursing routine care
[2017-11-26] MEDS: Ipratropium/Albuterol Neb 3 ML IH SCH ×4 (03:37→21:43)
[2017-11-26 04:25] LABS: Mean Corpuscular Hemoglobin 23.7 pg (28.0-33.3)
[2017-11-26 04:27] LABS: Basophils % 0.2 %; Eosinophils # 0.2 K/mcL (0.0-0.6); Eosinophils % 1.1 %; Hematocrit 31.7 % (35.3-44.9); Hemoglobin 9.1 g/dL (11.5-15.4); Lymphocytes % 7.5 %; Mean Corpuscular HGB Conc 28.7 g/dL (31.6-35.5); Mean Corpuscular Volume 82.6 fL (83.0-100.0); Mean Platelet Volume 10.9 fL (9.4-12.4); Monocytes # 1.5 K/mcL (0.0-1.3); Monocytes % 7.4 %; Neutrophils # 17.1 K/mcL (1.6-8.9); Platelet Count 311 K/mcL (140-400); Red Blood Count 3.84 M/mcL (3.82-4.97); Red Cell Distribution Width 21.3 % (11.5-14.5); Segmented Neutrophils % 82.8 %
[2017-11-26 04:31] LABS: Lymphocytes # 1.6 K/mcL (0.6-4.6)
[2017-11-26 04:42] LABS: Anisocytosis 1+ (Not Present); Hypochromasia Present (Not Present); Microcytosis Present (Not Present); Platelet Estimate Normal (Normal); Reactive Lymphocytes Present (Not Present); Toxic Granulation Present (Not Present)
[2017-11-26 04:46] LABS: Calcium 8.7 mg/dL (8.6-10.3); Potassium 4.5 mEq/L (3.5-5.1)
[2017-11-26] MEDS: *HR* Heparin 5,000 UNIT/ML VIAL SQ SCH ×3 (06:06→22:25)
[2017-11-26 09:04] LABS: ABG Base Excess 2 mEq/L (-2 to 3); ABG HCO3 29 mEq/L (21-27); ABG Oxygen Saturation 94 % (95-98); ABG PCO2 59 mmHg (35-45); ABG PO2 81 mmHg (85-104); ABG TCO2 31 mEq/L (20-26)
[2017-11-26] MEDS: Famotidine 20 MG/2 ML VIAL IVP SCH (09:46)
[2017-11-26] MEDS: Insulin DETEMIR 100 UNIT/ML X5UNITS SQ SCH (09:46)
[2017-11-26] MEDS: Acetylcysteine 10% 2 ML INHSOL IH SCH ×3 (10:01→21:44)
--- NOTE | 2017-11-26 16:53 | Electrocardiograph Report ---
[place] [id number] Test Date: 2017-11-22 Pat Name: Jeannie Romero Department: 103 Room: 11 Gender: F Acting Instructor: : 1960 Requested By: Demario Hung Order Number: [id number] Reading MD: Miriam Culp Measurements Intervals [place] Rate: 92 P: 55 OK: 139 QRS: 26 QRSD: 106 T: 69 QT: 363 QTc: 413 Interpretive Statements SINUS RHYTHM LOW QRS VOLTAGE IN PRECORDIAL LEADS [QRS DEFLECTION < 1.0 mV IN CHEST LEADS] INCOMPLETE RIGHT BUNDLE BRANCH BLOCK [90+ ms QRS DURATION, TERMINAL R IN V1/V2, 40+ ms S IN I/aVL/V4/V5/V6] Electronically Signed On 11-26-2017 16:51:24 EDT by Miriam Culp
[2017-11-27] MEDS: Cefepime HCl 1,000 MG in Water for inj. (sterile) 20 ML 10 ML IVP SCH ×2 (00:19→11:01)
[2017-11-27] MEDS: Insulin LISPRO 300 UNITS/3 ML VIAL SQ SCH ×6 (00:20→19:37)
[2017-11-27] MEDS: Acetylcysteine 10% 2 ML INHSOL IH SCH ×4 (03:19→22:52)
[2017-11-27] MEDS: Ipratropium/Albuterol Neb 3 ML IH SCH ×4 (03:19→22:52)
--- NOTE | 2017-11-27 04:01 | Pulmonology Progress Note ---
<Sesar Hamlin - Last Filed: 11/27/17 03:59> Date of Encounter: 11/27/17 Time of Encounter: 03:59 Assessment and Plan (1) HCAP (healthcare-associated pneumonia) Current Visit: Yes Status: Acute CXR performed on 11/22/16 demonstrated the following: - Patchy opacities throughout the lungs b/l - There may be b/l pleural effusions Recently discharged 2 weeks prior from an ECF after admission in August 2017 for influenza and PNA. Criteria for HCAP. - Blood CX are negative x2 - Respiratory panel negative - MRSA surveillance negative Plan: -s/p extubation without complication -Cefepime day 6 -Duonebs PRN for wheezing -Added mucomyst (2) Acute and chronic respiratory failure Current Visit: Yes Status: Acute Acute on chronic respiratory failure, s/p extubation Initial presentation with ARDS, required mechanical ventilation Likely secondary to chronic respiratory failure with new Hospital acquired pneumonia Has continued to oxygenate appropriately on 6L NC ABG 11/25 -7.30/58// prior to extubation Plan: Continue treatment for HCAP Duonebs q4h scheduled Added mucomyst as above Qualifiers: Respiratory failure complication: hypoxia and hypercapnia Qualified Code(s) : J96.21 - Acute and chronic respiratory failure with hypoxia; J96.22 - Acute and chronic respiratory failure with hypercapnia; J96.22 - Acute and chronic respiratory failure with hypercapnia; J96.22 - Acute and chronic respiratory failure with hypercapnia (3) Septic shock Current Visit: Yes Status: Acute Patient met sepsis criteria on admission with leukocytosis and heart rate of 90 on presentation with PNA - CXR with evidence of bilateral infiltrates. - Despite IV fluids, required vasopressor support in the ED - Continues to present with leukocytosis, improved WBC 22.2 - Patient remains afebrile Plan: - Continue cefepime day 6 - Continue to monitor patients vital signs and clinical status - No pressors required at this time (4) Atrial fibrillation Current Visit: Yes Status: Chronic - Rate controlled at this time - Not on anticoagulation as an outpatient with reported history of epistaxis. - Hold beta ana in the setting of septic shock. Qualifiers: Atrial fibrillation type: unspecified Qualified Code(s): I48.91 - Unspecified atrial fibrillation (5) Renal insufficiency Current Visit: Yes Status: Acute Renal function appears to be at baseline We will monitor with daily BMPs Avoid nephrotoxic agents (6) Diabetes Current Visit: Yes Status: Chronic Continue ACHS + SSI Qualifiers: Diabetes mellitus type: type 2 Diabetes mellitus oil heaterman insulin use: unspecified oil heaterman insulin use status Diabetes mellitus complication status : with unspecified complications Qualified Code(s): E11.8 - Type 2 diabetes mellitus with unspecified complications (7) DVT prophylaxis Current Visit: Yes Status: Acute Subjective Principal diagnosis: Healthcare associated pneumonia Objective PUL Vital signs: Last Vital Signs Temp 97.8 F 11/27/17 00:47 Pulse 77 11/27/17 02:00 Resp 24 11/27/17 03:19 BP 126/54 11/27/17 03:19 Pulse Ox 93 11/27/17 03:19 General appearance: no acute distress, asleep (But awakens easily to voice), appears uncomfortable Eyes: nonicteric ENT: oropharynx moist Neck: supple, no lymphadenopathy, no JVD, other (Right IJ CVC in place) Effort: normal Auscultation: bilateral: clear to auscultation Cardiovascular: irregular rhythm Gastrointestinal: soft, non-tender, non-distended Integumentary: normal, erythema (Present on the lower extremities consistent with chronic stasis) Extremities: no cyanosis, pink and warm, edema (Trace edema b/l), other ( Appearance of chronic venous stasis) Musculoskeletal: no deformities normal mental status (Patient is somnolent but responds appropriately), non- focal exam other (Flat affect) Results - Laboratory Findings CBC and BMP: 11/26/17 04:00 11/26/17 04:00 ABG ABG pH 7.30 pH Units (7.32-7.45) L 11/26/17 08:59 ABG pCO2 59 mmHg (35-45) H 11/26/17 08:59 ABG pO2 81 mmHg (85-104) L 11/26/17 08:59 ABG O2 Saturation 94 % (95-98) L 11/26/17 08:59 PT/INR, D-dimer PT 15.4 Seconds (9.4-12.1) H 11/23/17 03:45 Abnormal lab findings: Abnormal lab results WBC 20.6 K/mcL (4.3-11.1) H 11/26/17 04:00 Hgb 9.1 g/dL (11.5-15.4) L 11/26/17 04:00 Hct 31.7 % (35.3-44.9) L 11/26/17 04:00 MCV 82.6 fL (83.0-100.0) L 11/26/17 04:00 MCH 23.7 pg (28.0-33.3) L 11/26/17 04:00 MCHC 28.7 g/dL (31.6-35.5) L 11/26/17 04:00 RDW 21.3 % (11.5-14.5) H 11/26/17 04:00 Band Neutrophils % 17.0 % (0-4) H 11/22/17 17:55 Myelocytes % 1.0 % (0) H 11/22/17 17:55 Neutrophils # 17.1 K/mcL (1.6-8.9) H 11/26/17 04:00 Monocytes # 1.5 K/mcL (0.0-1.3) H 11/26/17 04:00 Reactive Lymphocytes Present (Not Present) A 11/26/17 04:00 Toxic Granulation Present (Not Present) A 11/26/17 04:00 Hypochromasia Present (Not Present) A 11/26/17 04:00 Anisocytosis 1+ (Not Present) A 11/26/17 04:00 Microcytosis Present (Not Present) A 11/26/17 04:00 PT 15.4 Seconds (9.4-12.1) H 11/23/17 03:45 ABG pH 7.30 pH Units (7.32-7.45) L 11/26/17 08:59 ABG pCO2 59 mmHg (35-45) H 11/26/17 08:59 ABG pO2 81 mmHg (85-104) L 11/26/17 08:59 ABG HCO3 29 mEq/L (21-27) H 11/26/17 08:59 ABG Total CO2 31 mEq/L (20-26) H 11/26/17 08:59 ABG O2 Saturation 94 % (95-98) L 11/26/17 08:59 BUN 124 mg/dL (6-20) H 11/26/17 04:00 Creatinine 2.90 mg/dL (0.60-1.20) H 11/26/17 04:00 Est GFR ( Amer) 20 (> 60) L 11/26/17 04:00 Est GFR (Non-Af Amer) 17 (> 60) L 11/26/17 04:00 BUN/Creatinine Ratio 43 (6-26) H 11/26/17 04:00 Glucose 107 mg/dL (70-105) H 11/26/17 04:00 POC Glucose 141 mg/dL (70-99) H 11/27/17 00:10 Calculated Osmolality 332 (280-300) H 11/26/17 04:00 Phosphorus 6.6 mg/dL (2.7-4.5) H 11/23/17 03:09 Total Bilirubin 1.1 mg/dL (0.3-1.0) H 11/22/17 17:55 Direct Bilirubin 0.6 mg/dL (0.0-0.2) H 11/22/17 17:55 AST 10 Units/L (13-39) L 11/22/17 17:55 ALT 5 Units/L (7-52) L 11/22/17 17:55 Alkaline Phosphatase 235 Units/L (34-104) H 11/22/17 17:55 Troponin I 0.36 ng/mL (< 0.04) H* 11/24/17 04:00 B-Natriuretic Peptide 379 pg/mL (Less than 100) H 11/22/17 17:55 Albumin 2.8 g/dL (3.5-5.7) L 11/22/17 17:55 Globulin 5.0 g/dL (2.4-3.5) H 11/22/17 17:55 Albumin/Globulin Ratio 0.6 (1.1-2.2) L 11/22/17 17:55 Ur Specimen Adequacy See below A 11/22/17 18:30 Urine Clarity Turbid (Clear) A 11/22/17 18:30 Ur Specific [place] 1.026 (1.010-1.025) H 11/22/17 18:30 Urine Protein 100 mg/dL (Neg-Trace) H 11/22/17 18:30 Urine Ketones Trace mg/dL (Negative) H 11/22/17 18:30 Urine Blood Small (Negative) H 11/22/17 18:30 Urine Bilirubin Small (Negative) H 11/22/17 18:30 Ur Leukocyte Esterase Large (Negative) H 11/22/17 18:30 Ur Culture Indicated? YES (NO) A 11/22/17 18:30 - Clinical Findings Intake & Output: Intake & Output 11/26/17 11/26/17 11/27/17 15:59 23:59 07:59 Intake Total 10 10 Output Total 375 / 375 1550 / 1550 850 / 850 Balance -365 / -365 -1550 / -1550 -850 / -850 Consult Discharge Plan - Plan Referrals: Ted Parada, [Primary Care Provider] - <Marianela Chappell - Last Filed: 11/27/17 08:38> Date of Encounter: 11/27/17 Objective PUL Vital signs: Last Vital Signs Temp 97.9 F 11/27/17 07:35 Pulse 82 11/27/17 08:00 Resp 18 11/27/17 08:00 BP 158/66 11/27/17 08:00 Pulse Ox 97 11/27/17 08:00 Results - Laboratory Findings CBC and BMP: 11/27/17 03:45 11/27/17 03:45 ABG ABG pH 7.30 pH Units (7.32-7.45) L 11/26/17 08:59 ABG pCO2 59 mmHg (35-45) H 11/26/17 08:59 ABG pO2 81 mmHg (85-104) L 11/26/17 08:59 ABG O2 Saturation 94 % (95-98) L 11/26/17 08:59 PT/INR, D-dimer PT 15.4 Seconds (9.4-12.1) H 11/23/17 03:45 Abnormal lab findings: Abnormal lab results WBC 12.3 K/mcL (4.3-11.1) H 11/27/17 03:45 RBC 3.73 M/mcL (3.82-4.97) L 11/27/17 03:45 Hgb 8.9 g/dL (11.5-15.4) L 11/27/17 03:45 Hct 30.4 % (35.3-44.9) L 11/27/17 03:45 MCV 81.5 fL (83.0-100.0) L 11/27/17 03:45 MCH 23.9 pg (28.0-33.3) L 11/27/17 03:45 MCHC 29.3 g/dL (31.6-35.5) L 11/27/17 03:45 RDW 21.0 % (11.5-14.5) H 11/27/17 03:45 Band Neutrophils % 17.0 % (0-4) H 11/22/17 17:55 Myelocytes % 1.0 % (0) H 11/22/17 17:55 Neutrophils # 9.1 K/mcL (1.6-8.9) H 11/27/17 03:45 Reactive Lymphocytes Present (Not Present) A 11/26/17 04:00 Toxic Granulation Present (Not Present) A 11/26/17 04:00 Hypochromasia Present (Not Present) A 11/26/17 04:00 Anisocytosis 1+ (Not Present) A 11/26/17 04:00 Microcytosis Present (Not Present) A 11/26/17 04:00 PT 15.4 Seconds (9.4-12.1) H 11/23/17 03:45 ABG pH 7.30 pH Units (7.32-7.45) L 11/26/17 08:59 ABG pCO2 59 mmHg (35-45) H 11/26/17 08:59 ABG pO2 81 mmHg (85-104) L 11/26/17 08:59 ABG HCO3 29 mEq/L (21-27) H 11/26/17 08:59 ABG Total CO2 31 mEq/L (20-26) H 11/26/17 08:59 ABG O2 Saturation 94 % (95-98) L 11/26/17 08:59 Chloride 108 mEq/L (98-107) H 11/27/17 03:45 BUN 110 mg/dL (6-20) H 11/27/17 03:45 Creatinine 2.43 mg/dL (0.60-1.20) H 11/27/17 03:45 Est GFR ( Amer) 25 (> 60) L 11/27/17 03:45 Est GFR (Non-Af Amer) 21 (> 60) L 11/27/17 03:45 BUN/Creatinine Ratio 45 (6-26) H 11/27/17 03:45 Glucose 111 mg/dL (70-105) H 11/27/17 03:45 POC Glucose 114 mg/dL (70-99) H 11/27/17 07:02 Calculated Osmolality 333 (280-300) H 11/27/17 03:45 Phosphorus 6.6 mg/dL (2.7-4.5) H 11/23/17 03:09 Total Bilirubin 1.1 mg/dL (0.3-1.0) H 11/22/17 17:55 Direct Bilirubin 0.6 mg/dL (0.0-0.2) H 11/22/17 17:55 AST 10 Units/L (13-39) L 11/22/17 17:55 ALT 5 Units/L (7-52) L 11/22/17 17:55 Alkaline Phosphatase 235 Units/L (34-104) H 11/22/17 17:55 Troponin I 0.36 ng/mL (< 0.04) H* 11/24/17 04:00 B-Natriuretic Peptide 379 pg/mL (Less than 100) H 11/22/17 17:55 Albumin 2.8 g/dL (3.5-5.7) L 11/22/17 17:55 Globulin 5.0 g/dL (2.4-3.5) H 11/22/17 17:55 Albumin/Globulin Ratio 0.6 (1.1-2.2) L 11/22/17 17:55 Ur Specimen Adequacy See below A 11/22/17 18:30 Urine Clarity Turbid (Clear) A 11/22/17 18:30 Ur Specific [place] 1.026 (1.010-1.025) H 11/22/17 18:30 Urine Protein 100 mg/dL (Neg-Trace) H 11/22/17 18:30 Urine Ketones Trace mg/dL (Negative) H 11/22/17 18:30 Urine Blood Small (Negative) H 11/22/17 18:30 Urine Bilirubin Small (Negative) H 11/22/17 18:30 Ur Leukocyte Esterase Large (Negative) H 11/22/17 18:30 Ur Culture Indicated? YES (NO) A 11/22/17 18:30 - Clinical Findings Intake & Output: Intake & Output 11/26/17 11/27/17 11/27/17 23:59 07:59 15:59 Output Total 1550 / 1550 2400 / 2400 Balance -1550 / -1550 -2400 / -2400 - Attending Attestation I examined this patient and my medical decision-making was reviewed with the Resident Physician. I agree with the documented findings, disposition and treatment plan as described except to the extent set forth below. Patient seen and examined. Labs, radiology, chart personally reviewed. Agree with resident's history and physical, assessment, plan with following comments: EDUCATIONAL TECHNOLOGY COORDINATOR: Patient follows commands, Pulmonary: Acceptable oxygenation and ventilation and able to protect airway. I suspect patient has obesity hypoventilation syndrome and need noninvasive ventilation support. Continue monitoring can ICU for next 1-2 days. Encourage incentive spirometry Cardiovascular: stable GI: Nutrition per dietary and GI prophylaxis per routine Heme: DVT prophylaxis per routine ID: Continue antibiotics and plan to de-escalation Renal; urine out put and renal funtion reviewed Endorcine: blood glucose is monitored Lines: all lines checked and no evidence of infections Skin: skin care to prevent pressure ulcers per nursing routine care. Patient has skin breakdown on the pannus area and local care. Physical therapy
[2017-11-27 04:04] LABS: Basophils % 0.3 %; Eosinophils # 0.6 K/mcL (0.0-0.6); Eosinophils % 4.6 %; Hematocrit 30.4 % (35.3-44.9); Hemoglobin 8.9 g/dL (11.5-15.4); Immature Granulocytes % 1.9 % (0-4); Lymphocytes # 1.2 K/mcL (0.6-4.6); Lymphocytes % 9.8 %; Mean Corpuscular HGB Conc 29.3 g/dL (31.6-35.5); Mean Corpuscular Hemoglobin 23.9 pg (28.0-33.3); Mean Corpuscular Volume 81.5 fL (83.0-100.0); Mean Platelet Volume 10.5 fL (9.4-12.4); Monocytes # 1.2 K/mcL (0.0-1.3); Monocytes % 9.5 %; Neutrophils # 9.1 K/mcL (1.6-8.9); Platelet Count 279 K/mcL (140-400); Red Blood Count 3.73 M/mcL (3.82-4.97); Segmented Neutrophils % 73.9 %
[2017-11-27 04:23] LABS: Calcium 9.1 mg/dL (8.6-10.3); Magnesium 2.5 mg/dL (1.6-2.6); Potassium 4.5 mEq/L (3.5-5.1)
[2017-11-27] MEDS: *HR* Heparin 5,000 UNIT/ML VIAL SQ SCH ×3 (05:41→22:20)
[2017-11-27 06:13] LABS: Thyroid Stimulating Hormone 3.749 mcIU/mL (0.340-5.600)
[2017-11-27] MEDS: Cefepime HCl 1,000 MG in Water for inj. (sterile) 10 ML IVP SCH (07:09)
[2017-11-27] MEDS: Dexmedetomidine HCl 200 MCG/50 ML MLS IVC SCH (07:12)
[2017-11-27] MEDS: Famotidine 20 MG/2 ML VIAL IVP SCH (08:11)
[2017-11-27] MEDS ORDERED: Metoprolol XL (24 HR) Succ 25 MG TAB.ER.24H PO SCH (09:30)
[2017-11-27] MEDS ORDERED: *HR* Metoprolol 5 MG/5 ML VIAL IVP ONE (10:39)
[2017-11-27] MEDS ORDERED: OXYCODONE Oral CONC 10 MG/0.5 ML ORAL.SYG SL PRN (10:58)
[2017-11-27] MEDS: *HR* Metoprolol 5 MG/5 ML VIAL IVP PRN (11:00)
[2017-11-28] MEDS: Insulin LISPRO 300 UNITS/3 ML VIAL SQ SCH ×7 (00:05→23:46)
[2017-11-28] MEDS: Cefepime HCl 1,000 MG in Water for inj. (sterile) 20 ML 10 ML IVP SCH ×3 (00:06→23:36)
[2017-11-28] MEDS: Ipratropium/Albuterol Neb 3 ML IH SCH ×4 (03:35→22:30)
[2017-11-28] MEDS: Acetylcysteine 10% 2 ML INHSOL IH SCH ×4 (03:35→22:30)
[2017-11-28] MEDS: *HR* Metoprolol 5 MG/5 ML VIAL IVP PRN ×2 (04:09→10:42)
[2017-11-28 04:31] LABS: Basophils # 0.1 K/mcL (0.0-0.2); Basophils % 0.5 %; Eosinophils % 7.3 %; Hematocrit 34.8 % (35.3-44.9); Hemoglobin 10.1 g/dL (11.5-15.4); Immature Granulocytes % 4.3 % (0-4); Lymphocytes # 1.4 K/mcL (0.6-4.6); Lymphocytes % 10.5 %; Mean Corpuscular Hemoglobin 23.9 pg (28.0-33.3); Mean Corpuscular Volume 82.5 fL (83.0-100.0); Mean Platelet Volume 10.6 fL (9.4-12.4); Monocytes % 7.3 %; Neutrophils # 9.1 K/mcL (1.6-8.9); Nucleated Red Blood Cells 0.2 /100 WBC (0); Platelet Count 346 K/mcL (140-400); Red Blood Count 4.22 M/mcL (3.82-4.97); Red Cell Distribution Width 21.1 % (11.5-14.5); Segmented Neutrophils % 70.1 %
[2017-11-28 04:54] LABS: Calcium 9.7 mg/dL (8.6-10.3); Potassium 4.4 mEq/L (3.5-5.1)
[2017-11-28] MEDS ORDERED: *HR* Metoprolol 5 MG/5 ML VIAL IVP ONE ×2 (05:24→07:49)
[2017-11-28] MEDS: *HR* Heparin 5,000 UNIT/ML VIAL SQ SCH ×3 (05:28→21:38)
[2017-11-28] MEDS: Famotidine 20 MG/2 ML VIAL IVP SCH (08:00)
--- NOTE | 2017-11-28 08:47 | Pulmonology Progress Note ---
<TyreseSagar W - Last Filed: 11/28/17 14:48> Date of Encounter: 11/28/17 Objective PUL Vital signs: Last Vital Signs Temp 98.5 F 11/28/17 08:14 Pulse 80 11/28/17 14:00 Resp 18 11/28/17 14:00 BP 147/62 11/28/17 14:00 Pulse Ox 99 11/28/17 14:00 Results - Laboratory Findings CBC and BMP: 11/28/17 04:15 11/28/17 04:15 ABG ABG pH 7.45 pH Units (7.32-7.45) 11/28/17 10:47 ABG pCO2 47 mmHg (35-45) H 11/28/17 10:47 ABG pO2 56 mmHg (85-104) L 11/28/17 10:47 ABG O2 Saturation 89 % (95-98) L 11/28/17 10:47 PT/INR, D-dimer PT 15.4 Seconds (9.4-12.1) H 11/23/17 03:45 Abnormal lab findings: Abnormal lab results WBC 13.0 K/mcL (4.3-11.1) H 11/28/17 04:15 Hgb 10.1 g/dL (11.5-15.4) L 11/28/17 04:15 Hct 34.8 % (35.3-44.9) L 11/28/17 04:15 MCV 82.5 fL (83.0-100.0) L 11/28/17 04:15 MCH 23.9 pg (28.0-33.3) L 11/28/17 04:15 MCHC 29.0 g/dL (31.6-35.5) L 11/28/17 04:15 RDW 21.1 % (11.5-14.5) H 11/28/17 04:15 Immature Gran % 4.3 % (0-4) H 11/28/17 04:15 Band Neutrophils % 17.0 % (0-4) H 11/22/17 17:55 Myelocytes % 1.0 % (0) H 11/22/17 17:55 Neutrophils # 9.1 K/mcL (1.6-8.9) H 11/28/17 04:15 Eosinophils # 1.0 K/mcL (0.0-0.6) H 11/28/17 04:15 Nucleated RBCs/100 WBC 0.2 /100 WBC (0) H 11/28/17 04:15 Reactive Lymphocytes Present (Not Present) A 11/26/17 04:00 Toxic Granulation Present (Not Present) A 11/26/17 04:00 Hypochromasia Present (Not Present) A 11/26/17 04:00 Anisocytosis 1+ (Not Present) A 11/26/17 04:00 Microcytosis Present (Not Present) A 11/26/17 04:00 PT 15.4 Seconds (9.4-12.1) H 11/23/17 03:45 ABG pCO2 47 mmHg (35-45) H 11/28/17 10:47 ABG pO2 56 mmHg (85-104) L 11/28/17 10:47 ABG HCO3 32 mEq/L (21-27) H 11/28/17 10:47 ABG Total CO2 34 mEq/L (20-26) H 11/28/17 10:47 ABG O2 Saturation 89 % (95-98) L 11/28/17 10:47 ABG Base Excess 7 mEq/L (-2 to 3) H 11/28/17 10:47 Sodium 148 mEq/L (136-145) H 11/28/17 04:15 Chloride 110 mEq/L (98-107) H 11/28/17 04:15 BUN 91 mg/dL (6-20) H 11/28/17 04:15 Creatinine 1.97 mg/dL (0.60-1.20) H 11/28/17 04:15 Est GFR ( Amer) 32 (> 60) L 11/28/17 04:15 Est GFR (Non-Af Amer) 26 (> 60) L 11/28/17 04:15 BUN/Creatinine Ratio 46 (6-26) H 11/28/17 04:15 Glucose 155 mg/dL (70-105) H 11/28/17 04:15 POC Glucose 146 mg/dL (70-99) H 11/28/17 11:45 Calculated Osmolality 337 (280-300) H 11/28/17 04:15 Phosphorus 6.6 mg/dL (2.7-4.5) H 11/23/17 03:09 Total Bilirubin 1.1 mg/dL (0.3-1.0) H 11/22/17 17:55 Direct Bilirubin 0.6 mg/dL (0.0-0.2) H 11/22/17 17:55 AST 10 Units/L (13-39) L 11/22/17 17:55 ALT 5 Units/L (7-52) L 11/22/17 17:55 Alkaline Phosphatase 235 Units/L (34-104) H 11/22/17 17:55 Troponin I 0.36 ng/mL (< 0.04) H* 11/24/17 04:00 B-Natriuretic Peptide 379 pg/mL (Less than 100) H 11/22/17 17:55 Albumin 2.8 g/dL (3.5-5.7) L 11/22/17 17:55 Globulin 5.0 g/dL (2.4-3.5) H 11/22/17 17:55 Albumin/Globulin Ratio 0.6 (1.1-2.2) L 11/22/17 17:55 Ur Specimen Adequacy See below A 11/22/17 18:30 Urine Clarity Turbid (Clear) A 11/22/17 18:30 Ur Specific [place] 1.026 (1.010-1.025) H 11/22/17 18:30 Urine Protein 100 mg/dL (Neg-Trace) H 11/22/17 18:30 Urine Ketones Trace mg/dL (Negative) H 11/22/17 18:30 Urine Blood Small (Negative) H 11/22/17 18:30 Urine Bilirubin Small (Negative) H 11/22/17 18:30 Ur Leukocyte Esterase Large (Negative) H 11/22/17 18:30 Ur Culture Indicated? YES (NO) A 11/22/17 18:30 - Clinical Findings Intake & Output: Intake & Output 11/27/17 11/28/17 11/28/17 23:59 07:59 15:59 Intake Total Output Total 800 / 800 1800 / 1800 825 / 825 Balance -800 / -800 -1790 / -1790 -805 / -805 Weight 161.7 kg Consult Discharge Plan - Plan Referrals: Ted Parada, DO [Primary Care Provider] - - Attending Attestation I examined this patient and my medical decision-making was reviewed with the Resident Physician. I agree with the documented findings, disposition and treatment plan as described except to the extent set forth below. We independently had [id number] contact with the patient Patient seen and examined at bedside Labs, radiology, chart personally reviewed. Management was reviewed during multidisciplinary critical care rounds. GRADES 9 THROUGH 12 TEACHER: The patient is awake and alert and able to follow commands although she seems a bit delirious today Pulm: Acute hypoxic hypercapnic respiratory failure acceptable oxygenation today and gas exchange. I suspect a large component of pulmonary edema and atelectasis and would recommend use of positive airway pressure during the times that she naps and overnight tonight otherwise she is stable on nasal cannula. We will also encourage incentive spirometry and his clinical course improves get out of bed to chair Cards: Atrial fibrillation with RVR she will be started on notable blocking agent infusion (Cardizem) we will also start diuresing for suspected hydrostatic pulmonary edema FEN-GI: She is a high risk for aspiration will hold off on nothing by mouth for now pending formal speech and swallow evaluation his clinical course improved Renal: Urine output monitored continue daily monitoring of serum electrolytes and creatinine ID: She is receiving treatment for pneumonia with planned to continue to de- escalate antimicrobials Heme/Onc: DVT prophylaxis given Endo: Glucose Monitored Integ/MSK: Skin Care per routine ICU Nursing Protocol to prevent ulcers. Lines: All lines examined without evidence of infection : Dispo: Remain in ICU today CODE: Full I updated her at bedside <Emeka Elizalde - Last Filed: 11/28/17 17:21> Date of Encounter: 11/28/17 Time of Encounter: 08:45 Assessment and Plan (1) HCAP (healthcare-associated pneumonia) Current Visit: Yes Status: Acute CXR performed on 11/22/16 demonstrated the following: - Patchy opacities throughout the lungs b/l - There may be b/l pleural effusions Recently discharged 2 weeks prior from an ECF after admission in August 2017 for influenza and PNA. Criteria for HCAP - Blood CX are negative x2 - Respiratory panel negative - MRSA surveillance negative Plan: - s/p extubation without complication - Cefepime 1000 mg IV every 12 (DAY 7) - Acetylcysteine 10% 2 mL inhaled every 6 - DuoNeb 3 mL inhaled every 6 (2) Acute and chronic respiratory failure Current Visit: Yes Status: Acute Acute on chronic respiratory failure, s/p extubation - Initial presentation with ARDS, required mechanical ventilation - Likely secondary to chronic respiratory failure with new Hospital acquired pneumonia - ABG 11/25: 7.30/58/94// prior to extubation Plan: Continue treatment for HCAP - Duonebs - Mucomyst Qualifiers: Respiratory failure complication: hypoxia and hypercapnia Qualified Code(s) : J96.21 - Acute and chronic respiratory failure with hypoxia; J96.22 - Acute and chronic respiratory failure with hypercapnia; J96.22 - Acute and chronic respiratory failure with hypercapnia; J96.22 - Acute and chronic respiratory failure with hypercapnia (3) Septic shock Current Visit: Yes Status: Acute Patient met sepsis criteria on admission with leukocytosis and heart rate of 90 on presentation with PNA - CXR with evidence of bilateral infiltrates. - Despite IV fluids, required vasopressor support in the ED - Patient remains afebrile - White count increased to 13 (12.3) Plan: - Continue cefepime day 6 - Continue to monitor patients vital signs and clinical status - No pressors required at this time (4) Atrial fibrillation Current Visit: Yes Status: Chronic Patients heart rate is elevated this morning at 126 - Not on anticoagulation as an outpatient with reported history of epistaxis. - Lopressor 5 mg IV every 6 when necessary Qualifiers: Atrial fibrillation type: unspecified Qualified Code(s): I48.91 - Unspecified atrial fibrillation (5) Renal insufficiency Current Visit: Yes Status: Acute Renal function appears to be at baseline - We will monitor with daily BMPs - Avoid nephrotoxic agents - Creatinine today is 1.97 (2.43) (6) DVT prophylaxis Current Visit: Yes Status: Acute - Heparin 5000 subcutaneous every 8 Subjective Principal diagnosis: Healthcare associated pneumonia Interval history: Patient was seen and examined at bedside this morning. Heart rate continues to remain elevated. Currently has Lopressor 5 mg every 6 when necessary ordered. No distress at this time. Objective PUL Vital signs: Last Vital Signs Temp 98.5 F 11/28/17 08:14 Pulse 126 11/28/17 07:00 Resp 23 11/28/17 07:00 BP 136/78 11/28/17 07:00 Pulse Ox 94 11/28/17 07:00 General appearance: no acute distress Eyes: nonicteric Neck: supple Effort: normal Auscultation: bilateral: diminished breath sounds Cardiovascular: irregular rhythm (Tachycardia) Gastrointestinal: normoactive bowel sounds, non-distended Integumentary: normal Musculoskeletal: no deformities Results - Laboratory Findings CBC and BMP: 11/28/17 04:15 11/28/17 04:15 ABG ABG pH 7.30 pH Units (7.32-7.45) L 11/26/17 08:59 ABG pCO2 59 mmHg (35-45) H 11/26/17 08:59 ABG pO2 81 mmHg (85-104) L 11/26/17 08:59 ABG O2 Saturation 94 % (95-98) L 11/26/17 08:59 PT/INR, D-dimer PT 15.4 Seconds (9.4-12.1) H 11/23/17 03:45 Abnormal lab findings: Abnormal lab results WBC 13.0 K/mcL (4.3-11.1) H 11/28/17 04:15 Hgb 10.1 g/dL (11.5-15.4) L 11/28/17 04:15 Hct 34.8 % (35.3-44.9) L 11/28/17 04:15 MCV 82.5 fL (83.0-100.0) L 11/28/17 04:15 MCH 23.9 pg (28.0-33.3) L 11/28/17 04:15 MCHC 29.0 g/dL (31.6-35.5) L 11/28/17 04:15 RDW 21.1 % (11.5-14.5) H 11/28/17 04:15 Immature Gran % 4.3 % (0-4) H 11/28/17 04:15 Band Neutrophils % 17.0 % (0-4) H 11/22/17 17:55 Myelocytes % 1.0 % (0) H 11/22/17 17:55 Neutrophils # 9.1 K/mcL (1.6-8.9) H 11/28/17 04:15 Eosinophils # 1.0 K/mcL (0.0-0.6) H 11/28/17 04:15 Nucleated RBCs/100 WBC 0.2 /100 WBC (0) H 11/28/17 04:15 Reactive Lymphocytes Present (Not Present) A 11/26/17 04:00 Toxic Granulation Present (Not Present) A 11/26/17 04:00 Hypochromasia Present (Not Present) A 11/26/17 04:00 Anisocytosis 1+ (Not Present) A 11/26/17 04:00 Microcytosis Present (Not Present) A 11/26/17 04:00 PT 15.4 Seconds (9.4-12.1) H 11/23/17 03:45 ABG pH 7.30 pH Units (7.32-7.45) L 11/26/17 08:59 ABG pCO2 59 mmHg (35-45) H 11/26/17 08:59 ABG pO2 81 mmHg (85-104) L 11/26/17 08:59 ABG HCO3 29 mEq/L (21-27) H 11/26/17 08:59 ABG Total CO2 31 mEq/L (20-26) H 11/26/17 08:59 ABG O2 Saturation 94 % (95-98) L 11/26/17 08:59 Sodium 148 mEq/L (136-145) H 11/28/17 04:15 Chloride 110 mEq/L (98-107) H 11/28/17 04:15 BUN 91 mg/dL (6-20) H 11/28/17 04:15 Creatinine 1.97 mg/dL (0.60-1.20) H 11/28/17 04:15 Est GFR ( Amer) 32 (> 60) L 11/28/17 04:15 Est GFR (Non-Af Amer) 26 (> 60) L 11/28/17 04:15 BUN/Creatinine Ratio 46 (6-26) H 11/28/17 04:15 Glucose 155 mg/dL (70-105) H 11/28/17 04:15 POC Glucose 153 mg/dL (70-99) H 11/28/17 07:19 Calculated Osmolality 337 (280-300) H 11/28/17 04:15 Phosphorus 6.6 mg/dL (2.7-4.5) H 11/23/17 03:09 Total Bilirubin 1.1 mg/dL (0.3-1.0) H 11/22/17 17:55 Direct Bilirubin 0.6 mg/dL (0.0-0.2) H 11/22/17 17:55 AST 10 Units/L (13-39) L 11/22/17 17:55 ALT 5 Units/L (7-52) L 11/22/17 17:55 Alkaline Phosphatase 235 Units/L (34-104) H 11/22/17 17:55 Troponin I 0.36 ng/mL (< 0.04) H* 11/24/17 04:00 B-Natriuretic Peptide 379 pg/mL (Less than 100) H 11/22/17 17:55 Albumin 2.8 g/dL (3.5-5.7) L 11/22/17 17:55 Globulin 5.0 g/dL (2.4-3.5) H 11/22/17 17:55 Albumin/Globulin Ratio 0.6 (1.1-2.2) L 11/22/17 17:55 Ur Specimen Adequacy See below A 11/22/17 18:30 Urine Clarity Turbid (Clear) A 11/22/17 18:30 Ur Specific [place] 1.026 (1.010-1.025) H 11/22/17 18:30 Urine Protein 100 mg/dL (Neg-Trace) H 11/22/17 18:30 Urine Ketones Trace mg/dL (Negative) H 11/22/17 18:30 Urine Blood Small (Negative) H 11/22/17 18:30 Urine Bilirubin Small (Negative) H 11/22/17 18:30 Ur Leukocyte Esterase Large (Negative) H 11/22/17 18:30 Ur Culture Indicated? YES (NO) A 11/22/17 18:30 - Clinical Findings Intake & Output: Intake & Output 11/27/17 11/28/17 11/28/17 23:59 07:59 15:59 Output Total 800 / 800 1800 / 1800 825 / 825 Balance -800 / -800 -1800 / -1800 -825 / -825 Weight 161.7 kg
--- NOTE | 2017-11-28 09:16 | Palliative Progress Note ---
Date of Encounter: 11/28/17 Time of Encounter: 08:45 - Assessment and plan (1) Debility Current Visit: Yes Status: Acute Assessment and plan: Patient will require PT/OT rehab. Recently DC'd from ECF to home. Patient with weakness and overall poor ability to eat. (2) Dyspnea Current Visit: No Status: Acute Assessment and plan: Patient tolerating extubation with NC 4L O2. Occasional bipap usage. Decreased bilateral lung sounds. Cont. plan: - Duonebs - Supplemental O2 - Bipap PRN - Position with HOB Up - Oxycodone PRN Qualifiers: Dyspnea type: unspecified Qualified Code(s): R06.00 - Dyspnea, unspecified (3) Atrial fibrillation Current Visit: Yes Status: Chronic Assessment and plan: Lopressor given this AM. Unable to receive anticoagulation d/t hx epistaxis Qualifiers: Atrial fibrillation type: unspecified Qualified Code(s): I48.91 - Unspecified atrial fibrillation (4) HCAP (healthcare-associated pneumonia) Current Visit: Yes Status: Acute - Time Spent With Patient Total time spent is greater than 50% in coordination of care (as documented) at patient's floor/unit and/or counseling patient: 25 - 35 minutes - Subjective Interval history: Lying in bed. Eyes open, calm. Follows commands. - Constitutional Vitals: Abnormal lab results WBC 13.0 K/mcL (4.3-11.1) H 11/28/17 04:15 Hgb 10.1 g/dL (11.5-15.4) L 11/28/17 04:15 Hct 34.8 % (35.3-44.9) L 11/28/17 04:15 MCV 82.5 fL (83.0-100.0) L 11/28/17 04:15 MCH 23.9 pg (28.0-33.3) L 11/28/17 04:15 MCHC 29.0 g/dL (31.6-35.5) L 11/28/17 04:15 RDW 21.1 % (11.5-14.5) H 11/28/17 04:15 Immature Gran % 4.3 % (0-4) H 11/28/17 04:15 Band Neutrophils % 17.0 % (0-4) H 11/22/17 17:55 Myelocytes % 1.0 % (0) H 11/22/17 17:55 Neutrophils # 9.1 K/mcL (1.6-8.9) H 11/28/17 04:15 Eosinophils # 1.0 K/mcL (0.0-0.6) H 11/28/17 04:15 Nucleated RBCs/100 WBC 0.2 /100 WBC (0) H 11/28/17 04:15 Reactive Lymphocytes Present (Not Present) A 11/26/17 04:00 Toxic Granulation Present (Not Present) A 11/26/17 04:00 Hypochromasia Present (Not Present) A 11/26/17 04:00 Anisocytosis 1+ (Not Present) A 11/26/17 04:00 Microcytosis Present (Not Present) A 11/26/17 04:00 PT 15.4 Seconds (9.4-12.1) H 11/23/17 03:45 ABG pH 7.30 pH Units (7.32-7.45) L 11/26/17 08:59 ABG pCO2 59 mmHg (35-45) H 11/26/17 08:59 ABG pO2 81 mmHg (85-104) L 11/26/17 08:59 ABG HCO3 29 mEq/L (21-27) H 11/26/17 08:59 ABG Total CO2 31 mEq/L (20-26) H 11/26/17 08:59 ABG O2 Saturation 94 % (95-98) L 11/26/17 08:59 Sodium 148 mEq/L (136-145) H 11/28/17 04:15 Chloride 110 mEq/L (98-107) H 11/28/17 04:15 BUN 91 mg/dL (6-20) H 11/28/17 04:15 Creatinine 1.97 mg/dL (0.60-1.20) H 11/28/17 04:15 Est GFR ( Amer) 32 (> 60) L 11/28/17 04:15 Est GFR (Non-Af Amer) 26 (> 60) L 11/28/17 04:15 BUN/Creatinine Ratio 46 (6-26) H 11/28/17 04:15 Glucose 155 mg/dL (70-105) H 11/28/17 04:15 POC Glucose 153 mg/dL (70-99) H 11/28/17 07:19 Calculated Osmolality 337 (280-300) H 11/28/17 04:15 Phosphorus 6.6 mg/dL (2.7-4.5) H 11/23/17 03:09 Total Bilirubin 1.1 mg/dL (0.3-1.0) H 11/22/17 17:55 Direct Bilirubin 0.6 mg/dL (0.0-0.2) H 11/22/17 17:55 AST 10 Units/L (13-39) L 11/22/17 17:55 ALT 5 Units/L (7-52) L 11/22/17 17:55 Alkaline Phosphatase 235 Units/L (34-104) H 11/22/17 17:55 Troponin I 0.36 ng/mL (< 0.04) H* 11/24/17 04:00 B-Natriuretic Peptide 379 pg/mL (Less than 100) H 11/22/17 17:55 Albumin 2.8 g/dL (3.5-5.7) L 11/22/17 17:55 Globulin 5.0 g/dL (2.4-3.5) H 11/22/17 17:55 Albumin/Globulin Ratio 0.6 (1.1-2.2) L 11/22/17 17:55 Ur Specimen Adequacy See below A 11/22/17 18:30 Urine Clarity Turbid (Clear) A 11/22/17 18:30 Ur Specific [place] 1.026 (1.010-1.025) H 11/22/17 18:30 Urine Protein 100 mg/dL (Neg-Trace) H 11/22/17 18:30 Urine Ketones Trace mg/dL (Negative) H 11/22/17 18:30 Urine Blood Small (Negative) H 11/22/17 18:30 Urine Bilirubin Small (Negative) H 11/22/17 18:30 Ur Leukocyte Esterase Large (Negative) H 11/22/17 18:30 Ur Culture Indicated? YES (NO) A 11/22/17 18:30 - Head Head exam: Present: atraumatic, normal inspection - Eye Eye exam: Present: PERRL - ENT ENT exam: Present: mucous membranes moist - Neck Neck exam: Present: full ROM - Respiratory Respiratory exam: Present: decreased breath sounds - Expanded Respiratory Exam Location: decreased breath sounds: Left, Right, Lower - Cardiovascular Cardiovascular exam: Present: irregular rhythm, +S1, +S2 - Expanded Cardiovascular Exam Peripheral pulses: 1+: Femoral (L) PM, Femoral (R) PM, Posterior Tibialis (L), Posterior Tibialis (R), 2+: Carotid (L) PM, Carotid (R) PM, Radial (L), Radial ( R), Dorsalis Pedis (L) PM, Dorsalis Pedis (R) PM - GI/Abdominal GI/Abdominal exam: Present: normal bowel sounds, soft - Extremities Exam Extremities exam: Present: normal inspection - Neurological Exam Neurological exam: Present: alert (follows commands, doesn't talk or verbally resond to questions. ) - Psychiatric Psychiatric exam: Present: flat affect Palliative Quality Palliative Quality: Screen for Code Status: Yes, Screen for Goals of Care: Yes, Screen for Pain: Yes, If Pain Regimen Started, Initiate Bowel Regimen: NA, Screen for Nausea/Vomitting: Yes Code Status: 11/23/17 12:29 DNR [Resuscitation Status: Active] [RES] Routine Comment: Resuscitation Status: DNR-Comfort Care-Arrest - Labs CBC & Chem 7: 11/28/17 04:15 11/28/17 04:15 Labs: Laboratory Results - last 24 hr 11/27/17 11/27/17 11/27/17 11:39 15:18 19:25 WBC RBC Hgb Hct MCV MCH MCHC RDW Plt Count MPV Immature Gran % Seg Neutrophils % Lymphocytes % Monocytes % Eosinophils % Basophils % Neutrophils # Lymphocytes # Monocytes # Eosinophils # Basophils # Nucleated RBCs/100 WBC Sodium Potassium Chloride Carbon Dioxide BUN Creatinine Est GFR ( Amer) Est GFR (Non-Af Amer) BUN/Creatinine Ratio Glucose POC Glucose 153 H 131 H 150 H Calculated Osmolality Calcium 11/27/17 11/28/17 11/28/17 23:58 04:11 04:15 WBC 13.0 H RBC 4.22 Hgb 10.1 L Hct 34.8 L MCV 82.5 L MCH 23.9 L MCHC 29.0 L RDW 21.1 H Plt Count 346 MPV 10.6 Immature Gran % 4.3 H Seg Neutrophils % 70.1 Lymphocytes % 10.5 Monocytes % 7.3 Eosinophils % 7.3 Basophils % 0.5 Neutrophils # 9.1 H Lymphocytes # 1.4 Monocytes # 1.0 Eosinophils # 1.0 H Basophils # 0.1 Nucleated RBCs/100 WBC 0.2 H Sodium Potassium Chloride Carbon Dioxide BUN Creatinine Est GFR ( Amer) Est GFR (Non-Af Amer) BUN/Creatinine Ratio Glucose POC Glucose 133 H 150 H Calculated Osmolality Calcium 11/28/17 11/28/17 04:15 07:19 WBC RBC Hgb Hct MCV MCH MCHC RDW Plt Count MPV Immature Gran % Seg Neutrophils % Lymphocytes % Monocytes % Eosinophils % Basophils % Neutrophils # Lymphocytes # Monocytes # Eosinophils # Basophils # Nucleated RBCs/100 WBC Sodium 148 H Potassium 4.4 Chloride 110 H Carbon Dioxide 29 BUN 91 H Creatinine 1.97 H Est GFR ( Amer) 32 L Est GFR (Non-Af Amer) 26 L BUN/Creatinine Ratio 46 H Glucose 155 H POC Glucose 153 H Calculated Osmolality 337 H Calcium 9.7 - ABG Interpretation ABG results: ABG ABG pH 7.30 pH Units (7.32-7.45) L 11/26/17 08:59 ABG pCO2 59 mmHg (35-45) H 11/26/17 08:59 ABG pO2 81 mmHg (85-104) L 11/26/17 08:59 ABG O2 Saturation 94 % (95-98) L 11/26/17 08:59 PT/INR, D-dimer PT 15.4 Seconds (9.4-12.1) H 11/23/17 03:45 Consult Discharge Plan - Plan Referrals: Ted Parada DO [Primary Care Provider] -
[2017-11-28] MEDS ORDERED: Furosemide 20 MG/2 ML VIAL IVP ONE (10:46)
[2017-11-28 11:04] LABS: ABG Base Excess 7 mEq/L (-2 to 3); ABG HCO3 32 mEq/L (21-27); ABG Oxygen Saturation 89 % (95-98); ABG PCO2 47 mmHg (35-45); ABG PH 7.45 pH Units (7.32-7.45); ABG PO2 56 mmHg (85-104); ABG TCO2 34 mEq/L (20-26)
[2017-11-28 18:30] LABS: Magnesium 2.2 mg/dL (1.6-2.6); Potassium 4.4 mEq/L (3.5-5.1)
[2017-11-29] MEDS: Ipratropium/Albuterol Neb 3 ML IH SCH ×4 (03:48→22:00)
[2017-11-29] MEDS: Acetylcysteine 10% 2 ML INHSOL IH SCH ×4 (03:48→22:00)
[2017-11-29] MEDS: Insulin LISPRO 300 UNITS/3 ML VIAL SQ SCH ×5 (04:06→20:16)
[2017-11-29] MEDS: *HR* Heparin 5,000 UNIT/ML VIAL SQ SCH ×3 (05:20→22:58)
[2017-11-29] MEDS: *HR* Metoprolol 5 MG/5 ML VIAL IVP PRN (05:21)
--- NOTE | 2017-11-29 06:26 | Pulmonology Progress Note ---
<Sesar Hamlin - Last Filed: 11/29/17 06:22> Date of Encounter: 11/29/17 Time of Encounter: 06:22 Assessment and Plan (1) HCAP (healthcare-associated pneumonia) Current Visit: Yes Status: Acute CXR performed on 11/22/16 demonstrated the following: - Patchy opacities throughout the lungs b/l - There may be b/l pleural effusions Recently discharged 2 weeks prior from an ECF after admission in August 2017 for influenza and PNA. Criteria for HCAP. - Blood CX are negative x2 - Respiratory panel negative - MRSA surveillance negative Plan: -s/p extubation without complication -Cefepime day 8 -Duonebs PRN for wheezing -Added mucomyst (2) Acute and chronic respiratory failure Current Visit: Yes Status: Acute Acute on chronic respiratory failure, s/p extubation Initial presentation with ARDS, required mechanical ventilation Likely secondary to chronic respiratory failure with new Hospital acquired pneumonia Has continued to oxygenate appropriately on 6L NC ABG 11/28 -7.45/47/56/32/89 on 36% Plan: Continue treatment for HCAP Duonebs q4h scheduled Added mucomyst as above Qualifiers: Respiratory failure complication: hypoxia and hypercapnia Qualified Code(s) : J96.21 - Acute and chronic respiratory failure with hypoxia; J96.22 - Acute and chronic respiratory failure with hypercapnia; J96.22 - Acute and chronic respiratory failure with hypercapnia; J96.22 - Acute and chronic respiratory failure with hypercapnia (3) Septic shock Current Visit: Yes Status: Acute Patient met sepsis criteria on admission with leukocytosis and heart rate of 90 on presentation with PNA - CXR with evidence of bilateral infiltrates. - Despite IV fluids, required vasopressor support in the ED - Continues to present with leukocytosis, improved WBC 22.2 - Patient remains afebrile Plan: - Continue cefepime day 8 - Continue to monitor patients vital signs and clinical status - No pressors required at this time (4) Atrial fibrillation Current Visit: Yes Status: Chronic - Rate controlled at this time - Not on anticoagulation as an outpatient with reported history of epistaxis. - Hold beta ana in the setting of septic shock - Currently on diltiazem drip Qualifiers: Atrial fibrillation type: unspecified Qualified Code(s): I48.91 - Unspecified atrial fibrillation (5) Renal insufficiency Current Visit: Yes Status: Acute Renal function continues to improve We will monitor with daily BMPs Avoid nephrotoxic agents (6) Diabetes Current Visit: Yes Status: Chronic Continue ACHS + SSI Qualifiers: Diabetes mellitus type: type 2 Diabetes mellitus exterminator helper insulin use: unspecified group home insulin use status Diabetes mellitus complication status : with unspecified complications Qualified Code(s): E11.8 - Type 2 diabetes mellitus with unspecified complications (7) DVT prophylaxis Current Visit: Yes Status: Acute Subjective Principal diagnosis: Healthcare associated pneumonia Interval history: The patient is resting comfortably in bed at time of examination. She has no acute complaints. Objective PUL Vital signs: Last Vital Signs Temp 98.1 F 11/29/17 04:00 Pulse 65 11/29/17 06:00 Resp 15 11/29/17 06:00 BP 174/68 11/29/17 06:00 Pulse Ox 92 11/29/17 06:00 General appearance: no acute distress, asleep (But awakens easily to voice), appears comfortable Eyes: nonicteric ENT: oropharynx moist Neck: supple, no lymphadenopathy, no JVD, other (Right IJ CVC in place) Effort: normal Auscultation: bilateral: wheezing heard on exam Cardiovascular: irregular rhythm Gastrointestinal: soft, non-tender, non-distended Integumentary: normal, erythema (Present on the lower extremities consistent with chronic stasis) Extremities: no cyanosis, pink and warm, edema (Trace edema b/l), other ( Appearance of chronic venous stasis) Musculoskeletal: no deformities normal mental status (Patient is somnolent but responds appropriately), non- focal exam other (Flat affect) Results - Laboratory Findings CBC and BMP: 11/28/17 04:15 11/28/17 17:55 ABG ABG pH 7.45 pH Units (7.32-7.45) 11/28/17 10:47 ABG pCO2 47 mmHg (35-45) H 11/28/17 10:47 ABG pO2 56 mmHg (85-104) L 11/28/17 10:47 ABG O2 Saturation 89 % (95-98) L 11/28/17 10:47 PT/INR, D-dimer PT 15.4 Seconds (9.4-12.1) H 11/23/17 03:45 Abnormal lab findings: Abnormal lab results WBC 13.0 K/mcL (4.3-11.1) H 11/28/17 04:15 Hgb 10.1 g/dL (11.5-15.4) L 11/28/17 04:15 Hct 34.8 % (35.3-44.9) L 11/28/17 04:15 MCV 82.5 fL (83.0-100.0) L 11/28/17 04:15 MCH 23.9 pg (28.0-33.3) L 11/28/17 04:15 MCHC 29.0 g/dL (31.6-35.5) L 11/28/17 04:15 RDW 21.1 % (11.5-14.5) H 11/28/17 04:15 Immature Gran % 4.3 % (0-4) H 11/28/17 04:15 Band Neutrophils % 17.0 % (0-4) H 11/22/17 17:55 Myelocytes % 1.0 % (0) H 11/22/17 17:55 Neutrophils # 9.1 K/mcL (1.6-8.9) H 11/28/17 04:15 Eosinophils # 1.0 K/mcL (0.0-0.6) H 11/28/17 04:15 Nucleated RBCs/100 WBC 0.2 /100 WBC (0) H 11/28/17 04:15 Reactive Lymphocytes Present (Not Present) A 11/26/17 04:00 Toxic Granulation Present (Not Present) A 11/26/17 04:00 Hypochromasia Present (Not Present) A 11/26/17 04:00 Anisocytosis 1+ (Not Present) A 11/26/17 04:00 Microcytosis Present (Not Present) A 11/26/17 04:00 PT 15.4 Seconds (9.4-12.1) H 11/23/17 03:45 ABG pCO2 47 mmHg (35-45) H 11/28/17 10:47 ABG pO2 56 mmHg (85-104) L 11/28/17 10:47 ABG HCO3 32 mEq/L (21-27) H 11/28/17 10:47 ABG Total CO2 34 mEq/L (20-26) H 11/28/17 10:47 ABG O2 Saturation 89 % (95-98) L 11/28/17 10:47 ABG Base Excess 7 mEq/L (-2 to 3) H 11/28/17 10:47 Sodium 148 mEq/L (136-145) H 11/28/17 04:15 Chloride 110 mEq/L (98-107) H 11/28/17 04:15 BUN 91 mg/dL (6-20) H 11/28/17 04:15 Creatinine 1.97 mg/dL (0.60-1.20) H 11/28/17 04:15 Est GFR ( Amer) 32 (> 60) L 11/28/17 04:15 Est GFR (Non-Af Amer) 26 (> 60) L 11/28/17 04:15 BUN/Creatinine Ratio 46 (6-26) H 11/28/17 04:15 Glucose 155 mg/dL (70-105) H 11/28/17 04:15 POC Glucose 170 mg/dL (70-99) H 11/29/17 04:03 Calculated Osmolality 337 (280-300) H 11/28/17 04:15 Phosphorus 6.6 mg/dL (2.7-4.5) H 11/23/17 03:09 Total Bilirubin 1.1 mg/dL (0.3-1.0) H 11/22/17 17:55 Direct Bilirubin 0.6 mg/dL (0.0-0.2) H 11/22/17 17:55 AST 10 Units/L (13-39) L 11/22/17 17:55 ALT 5 Units/L (7-52) L 11/22/17 17:55 Alkaline Phosphatase 235 Units/L (34-104) H 11/22/17 17:55 Troponin I 0.36 ng/mL (< 0.04) H* 11/24/17 04:00 B-Natriuretic Peptide 379 pg/mL (Less than 100) H 11/22/17 17:55 Albumin 2.8 g/dL (3.5-5.7) L 11/22/17 17:55 Globulin 5.0 g/dL (2.4-3.5) H 11/22/17 17:55 Albumin/Globulin Ratio 0.6 (1.1-2.2) L 11/22/17 17:55 Ur Specimen Adequacy See below A 11/22/17 18:30 Urine Clarity Turbid (Clear) A 11/22/17 18:30 Ur Specific [place] 1.026 (1.010-1.025) H 11/22/17 18:30 Urine Protein 100 mg/dL (Neg-Trace) H 11/22/17 18:30 Urine Ketones Trace mg/dL (Negative) H 11/22/17 18:30 Urine Blood Small (Negative) H 11/22/17 18:30 Urine Bilirubin Small (Negative) H 11/22/17 18:30 Ur Leukocyte Esterase Large (Negative) H 11/22/17 18:30 Ur Culture Indicated? YES (NO) A 11/22/17 18:30 - Clinical Findings Intake & Output: Intake & Output 11/28/17 11/28/17 11/29/17 15:59 23:59 07:59 Intake Total 20 / 20 250 / 250 150 / 150 Output Total 825 / 825 1300 / 1300 650 / 650 Balance -805 / -805 -1050 / -1050 -500 / -500 Weight 158.4 kg Consult Discharge Plan - Plan Referrals: Ted Parada DO [Primary Care Provider] - <Jamia Quinones - Last Filed: 11/29/17 09:09> Date of Encounter: 11/29/17 Objective PUL Vital signs: Last Vital Signs Temp 97.7 F 11/29/17 07:42 Pulse 65 11/29/17 06:00 Resp 15 11/29/17 06:00 BP 174/68 11/29/17 06:00 Pulse Ox 92 11/29/17 06:00 Results - Laboratory Findings CBC and BMP: 11/28/17 04:15 11/28/17 17:55 ABG ABG pH 7.45 pH Units (7.32-7.45) 11/28/17 10:47 ABG pCO2 47 mmHg (35-45) H 11/28/17 10:47 ABG pO2 56 mmHg (85-104) L 11/28/17 10:47 ABG O2 Saturation 89 % (95-98) L 11/28/17 10:47 PT/INR, D-dimer PT 15.4 Seconds (9.4-12.1) H 11/23/17 03:45 Abnormal lab findings: Abnormal lab results WBC 13.0 K/mcL (4.3-11.1) H 11/28/17 04:15 Hgb 10.1 g/dL (11.5-15.4) L 11/28/17 04:15 Hct 34.8 % (35.3-44.9) L 11/28/17 04:15 MCV 82.5 fL (83.0-100.0) L 11/28/17 04:15 MCH 23.9 pg (28.0-33.3) L 11/28/17 04:15 MCHC 29.0 g/dL (31.6-35.5) L 11/28/17 04:15 RDW 21.1 % (11.5-14.5) H 11/28/17 04:15 Immature Gran % 4.3 % (0-4) H 11/28/17 04:15 Band Neutrophils % 17.0 % (0-4) H 11/22/17 17:55 Myelocytes % 1.0 % (0) H 11/22/17 17:55 Neutrophils # 9.1 K/mcL (1.6-8.9) H 11/28/17 04:15 Eosinophils # 1.0 K/mcL (0.0-0.6) H 11/28/17 04:15 Nucleated RBCs/100 WBC 0.2 /100 WBC (0) H 11/28/17 04:15 Reactive Lymphocytes Present (Not Present) A 11/26/17 04:00 Toxic Granulation Present (Not Present) A 11/26/17 04:00 Hypochromasia Present (Not Present) A 11/26/17 04:00 Anisocytosis 1+ (Not Present) A 11/26/17 04:00 Microcytosis Present (Not Present) A 11/26/17 04:00 PT 15.4 Seconds (9.4-12.1) H 11/23/17 03:45 ABG pCO2 47 mmHg (35-45) H 11/28/17 10:47 ABG pO2 56 mmHg (85-104) L 11/28/17 10:47 ABG HCO3 32 mEq/L (21-27) H 11/28/17 10:47 ABG Total CO2 34 mEq/L (20-26) H 11/28/17 10:47 ABG O2 Saturation 89 % (95-98) L 11/28/17 10:47 ABG Base Excess 7 mEq/L (-2 to 3) H 11/28/17 10:47 Sodium 148 mEq/L (136-145) H 11/28/17 04:15 Chloride 110 mEq/L (98-107) H 11/28/17 04:15 BUN 91 mg/dL (6-20) H 11/28/17 04:15 Creatinine 1.97 mg/dL (0.60-1.20) H 11/28/17 04:15 Est GFR ( Amer) 32 (> 60) L 11/28/17 04:15 Est GFR (Non-Af Amer) 26 (> 60) L 11/28/17 04:15 BUN/Creatinine Ratio 46 (6-26) H 11/28/17 04:15 Glucose 155 mg/dL (70-105) H 11/28/17 04:15 POC Glucose 177 mg/dL (70-99) H 11/29/17 07:24 Calculated Osmolality 337 (280-300) H 11/28/17 04:15 Phosphorus 6.6 mg/dL (2.7-4.5) H 11/23/17 03:09 Total Bilirubin 1.1 mg/dL (0.3-1.0) H 11/22/17 17:55 Direct Bilirubin 0.6 mg/dL (0.0-0.2) H 11/22/17 17:55 AST 10 Units/L (13-39) L 11/22/17 17:55 ALT 5 Units/L (7-52) L 11/22/17 17:55 Alkaline Phosphatase 235 Units/L (34-104) H 11/22/17 17:55 Troponin I 0.36 ng/mL (< 0.04) H* 11/24/17 04:00 B-Natriuretic Peptide 379 pg/mL (Less than 100) H 11/22/17 17:55 Albumin 2.8 g/dL (3.5-5.7) L 11/22/17 17:55 Globulin 5.0 g/dL (2.4-3.5) H 11/22/17 17:55 Albumin/Globulin Ratio 0.6 (1.1-2.2) L 11/22/17 17:55 Ur Specimen Adequacy See below A 11/22/17 18:30 Urine Clarity Turbid (Clear) A 11/22/17 18:30 Ur Specific [place] 1.026 (1.010-1.025) H 11/22/17 18:30 Urine Protein 100 mg/dL (Neg-Trace) H 11/22/17 18:30 Urine Ketones Trace mg/dL (Negative) H 11/22/17 18:30 Urine Blood Small (Negative) H 11/22/17 18:30 Urine Bilirubin Small (Negative) H 11/22/17 18:30 Ur Leukocyte Esterase Large (Negative) H 11/22/17 18:30 Ur Culture Indicated? YES (NO) A 11/22/17 18:30 - Clinical Findings Intake & Output: Intake & Output 11/28/17 11/29/17 11/29/17 23:59 07:59 15:59 Intake Total 250 / 250 150 / 150 Output Total 1300 / 1300 975 / 975 Balance -1050 / -1050 -825 / -825 Weight 158.4 kg - Attending Attestation I saw and evaluated this patient and my medical decision-making was reviewed with the Resident Physician. I agree with the documented findings, disposition and treatment plan as described except to the extent set forth below. We independently had [id number] contact with the patient I spent of Critical Care time with this patient. It involved decision making of high complexity to assess, manipulate, and support vital organ system failure and/or to prevent further life threatening deterioration of the patient's condition. The time involved in the performance of separately reportable procedures was not counted toward critical care time. Patient seen and examined at bedside Labs, radiology, chart personally reviewed. Management was reviewed during multidisciplinary critical care rounds. @ TYPE PHOTOGRAPHY SUPERVISOR: Pulm: Cards: FEN-GI: Renal: ID: [id number]/Onc: Endo: Glucose Monitored Integ/MSK: Skin Care per routine ICU Nursing Protocol to prevent ulcers. Lines: All lines examined without evidence of infection : Dispo: @ CODE:
[2017-11-29] MEDS: Famotidine 20 MG/2 ML VIAL IVP SCH (08:56)
[2017-11-29] MEDS ORDERED: Furosemide 40 MG/4 ML VIAL IVP ONE (09:06)
[2017-11-29 09:37] LABS: Basophils % 0.3 %
[2017-11-29 09:38] LABS: Basophils # 0.1 K/mcL (0.0-0.2); Eosinophils # 1.1 K/mcL (0.0-0.6); Eosinophils % 7.3 %; Hematocrit 43.5 % (35.3-44.9); Hemoglobin 12.3 g/dL (11.5-15.4); Immature Granulocytes % 7.3 % (0-4); Lymphocytes # 1.6 K/mcL (0.6-4.6); Lymphocytes % 10.9 %; Mean Corpuscular HGB Conc 28.3 g/dL (31.6-35.5); Mean Corpuscular Hemoglobin 23.6 pg (28.0-33.3); Mean Corpuscular Volume 83.5 fL (83.0-100.0); Mean Platelet Volume 10.9 fL (9.4-12.4); Monocytes # 0.9 K/mcL (0.0-1.3); Monocytes % 6.2 %; Neutrophils # 10.2 K/mcL (1.6-8.9); Platelet Count 442 K/mcL (140-400); Red Blood Count 5.21 M/mcL (3.82-4.97); Red Cell Distribution Width 21.5 % (11.5-14.5)
--- NOTE | 2017-11-29 09:40 | Palliative Progress Note ---
Date of Encounter: 11/29/17 Time of Encounter: 09:00 - Assessment and plan (1) Debility Current Visit: Yes Status: Acute Assessment and plan: Physical therapy consult has been ordered. She will likely need ECF for rehab upon discharge. (2) Dyspnea Current Visit: No Status: Acute Assessment and plan: Continues to utilized bipap intermittently. Supportive oxygen. Remains on bronchodilators, atb, mucomyst in aerosols. Monitor Qualifiers: Dyspnea type: unspecified Qualified Code(s): R06.00 - Dyspnea, unspecified (3) Counseling regarding advanced care planning and goals of care Current Visit: Yes Status: Acute Assessment and plan: No family present. Awaiting speech eval and she is currently still NPO. She is very slow to follow commands. Monitor closely. (4) Acute respiratory failure Current Visit: Yes Status: Acute Qualifiers: Respiratory failure complication: unspecified whether with hypoxia or hypercapnia Qualified Code(s): J96.00 - Acute respiratory failure, unspecified whether with hypoxia or hypercapnia (5) Pneumonia Current Visit: Yes Status: Acute Qualifiers: Pneumonia type: due to unspecified organism Laterality: bilateral Lung location: unspecified part of lung Qualified Code(s): J18.9 - Pneumonia, unspecified organism (6) HCAP (healthcare-associated pneumonia) Current Visit: Yes Status: Acute - Time Spent With Patient Total time spent is greater than 50% in coordination of care (as documented) at patient's floor/unit and/or counseling patient: 25 - 35 minutes - Subjective Interval history: Patient resting with eyes closed - awakens easily when name called. She is alert and oriented to person and place, and follows commands, but slow to respond. Utilized bipap last night. Awaiting speech eval. - Constitutional Vitals: Abnormal lab results WBC 13.0 K/mcL (4.3-11.1) H 11/28/17 04:15 Hgb 10.1 g/dL (11.5-15.4) L 11/28/17 04:15 Hct 34.8 % (35.3-44.9) L 11/28/17 04:15 MCV 82.5 fL (83.0-100.0) L 11/28/17 04:15 MCH 23.9 pg (28.0-33.3) L 11/28/17 04:15 MCHC 29.0 g/dL (31.6-35.5) L 11/28/17 04:15 RDW 21.1 % (11.5-14.5) H 11/28/17 04:15 Immature Gran % 4.3 % (0-4) H 11/28/17 04:15 Band Neutrophils % 17.0 % (0-4) H 11/22/17 17:55 Myelocytes % 1.0 % (0) H 11/22/17 17:55 Neutrophils # 9.1 K/mcL (1.6-8.9) H 11/28/17 04:15 Eosinophils # 1.0 K/mcL (0.0-0.6) H 11/28/17 04:15 Nucleated RBCs/100 WBC 0.2 /100 WBC (0) H 11/28/17 04:15 Reactive Lymphocytes Present (Not Present) A 11/26/17 04:00 Toxic Granulation Present (Not Present) A 11/26/17 04:00 Hypochromasia Present (Not Present) A 11/26/17 04:00 Anisocytosis 1+ (Not Present) A 11/26/17 04:00 Microcytosis Present (Not Present) A 11/26/17 04:00 PT 15.4 Seconds (9.4-12.1) H 11/23/17 03:45 ABG pCO2 47 mmHg (35-45) H 11/28/17 10:47 ABG pO2 56 mmHg (85-104) L 11/28/17 10:47 ABG HCO3 32 mEq/L (21-27) H 11/28/17 10:47 ABG Total CO2 34 mEq/L (20-26) H 11/28/17 10:47 ABG O2 Saturation 89 % (95-98) L 11/28/17 10:47 ABG Base Excess 7 mEq/L (-2 to 3) H 11/28/17 10:47 Sodium 148 mEq/L (136-145) H 11/28/17 04:15 Chloride 110 mEq/L (98-107) H 11/28/17 04:15 BUN 91 mg/dL (6-20) H 11/28/17 04:15 Creatinine 1.97 mg/dL (0.60-1.20) H 11/28/17 04:15 Est GFR ( Amer) 32 (> 60) L 11/28/17 04:15 Est GFR (Non-Af Amer) 26 (> 60) L 11/28/17 04:15 BUN/Creatinine Ratio 46 (6-26) H 11/28/17 04:15 Glucose 155 mg/dL (70-105) H 11/28/17 04:15 POC Glucose 177 mg/dL (70-99) H 11/29/17 07:24 Calculated Osmolality 337 (280-300) H 11/28/17 04:15 Phosphorus 6.6 mg/dL (2.7-4.5) H 11/23/17 03:09 Total Bilirubin 1.1 mg/dL (0.3-1.0) H 11/22/17 17:55 Direct Bilirubin 0.6 mg/dL (0.0-0.2) H 11/22/17 17:55 AST 10 Units/L (13-39) L 11/22/17 17:55 ALT 5 Units/L (7-52) L 11/22/17 17:55 Alkaline Phosphatase 235 Units/L (34-104) H 11/22/17 17:55 Troponin I 0.36 ng/mL (< 0.04) H* 11/24/17 04:00 B-Natriuretic Peptide 379 pg/mL (Less than 100) H 11/22/17 17:55 Albumin 2.8 g/dL (3.5-5.7) L 11/22/17 17:55 Globulin 5.0 g/dL (2.4-3.5) H 11/22/17 17:55 Albumin/Globulin Ratio 0.6 (1.1-2.2) L 11/22/17 17:55 Ur Specimen Adequacy See below A 11/22/17 18:30 Urine Clarity Turbid (Clear) A 11/22/17 18:30 Ur Specific [place] 1.026 (1.010-1.025) H 11/22/17 18:30 Urine Protein 100 mg/dL (Neg-Trace) H 11/22/17 18:30 Urine Ketones Trace mg/dL (Negative) H 11/22/17 18:30 Urine Blood Small (Negative) H 11/22/17 18:30 Urine Bilirubin Small (Negative) H 11/22/17 18:30 Ur Leukocyte Esterase Large (Negative) H 11/22/17 18:30 Ur Culture Indicated? YES (NO) A 11/22/17 18:30 General appearance: Present: no acute distress - Respiratory Respiratory exam: Present: decreased breath sounds, CTAB - Cardiovascular Cardiovascular exam: Present: irregular rhythm - GI/Abdominal GI/Abdominal exam: Present: normal bowel sounds, soft - Extremities Exam Extremities exam: Present: normal capillary refill, normal inspection - Neurological Exam Neurological exam: Present: alert Additional comments: Oriented to name and place. Follows simple commands. - Skin Skin exam: Present: dry, warm Palliative Quality Palliative Quality: Screen for Code Status: Yes, Screen for Goals of Care: Yes, Screen for Pain: Yes, If Pain Regimen Started, Initiate Bowel Regimen: NA, Screen for Nausea/Vomitting: Yes Code Status: 11/23/17 12:29 DNR [Resuscitation Status: Active] [RES] Routine Comment: Resuscitation Status: DNR-Comfort Care-Arrest - Labs CBC & Chem 7: 11/28/17 04:15 11/28/17 17:55 Labs: Laboratory Results - last 24 hr 11/28/17 11/28/17 11/28/17 10:47 11:45 15:56 ABG pH 7.45 ABG pCO2 47 H ABG pO2 56 L ABG HCO3 32 H ABG Total CO2 34 H ABG O2 Saturation 89 L ABG Base Excess 7 H O2 Delivery Device Cannula Inspired O2 36.0 Potassium POC Glucose 146 H 170 H Magnesium 11/28/17 11/28/17 11/28/17 17:55 19:44 23:45 ABG pH ABG pCO2 ABG pO2 ABG HCO3 ABG Total CO2 ABG O2 Saturation ABG Base Excess O2 Delivery Device Inspired O2 Potassium 4.4 POC Glucose 159 H 156 H Magnesium 2.2 11/29/17 11/29/17 04:03 07:24 ABG pH ABG pCO2 ABG pO2 ABG HCO3 ABG Total CO2 ABG O2 Saturation ABG Base Excess O2 Delivery Device Inspired O2 Potassium POC Glucose 170 H 177 H Magnesium - ABG Interpretation ABG results: ABG ABG pH 7.45 pH Units (7.32-7.45) 11/28/17 10:47 ABG pCO2 47 mmHg (35-45) H 11/28/17 10:47 ABG pO2 56 mmHg (85-104) L 11/28/17 10:47 ABG O2 Saturation 89 % (95-98) L 11/28/17 10:47 PT/INR, D-dimer PT 15.4 Seconds (9.4-12.1) H 11/23/17 03:45 Consult Discharge Plan - Plan Referrals: Ted Parada DO [Primary Care Provider] -
[2017-11-29 10:10] LABS: Calcium 8.2 mg/dL (8.6-10.3); Potassium 5.2 mEq/L (3.5-5.1)
[2017-11-29 10:35] LABS: Hypochromasia Present (Not Present); Platelet Estimate Normal (Normal)
[2017-11-29] MEDS: Cefepime HCl 1,000 MG in Water for inj. (sterile) 20 ML 10 ML IVP SCH ×2 (11:38→22:59)
--- NOTE | 2017-11-29 14:59 | EEG/EMG/Oth Biometrics Report ---
EEG Procedure Report Date of procedure: 11/29/17 EEG Procedure: Routine EEG Procedure Note: Report: This EEG was acquired with standard international 10-20 electrode placement system with EKG recording. The background activity during this EEG was replaced by a mixture of theta and alpha activity with best frequency up to 6-7 Hz. The background activity was reactive to eye openings and movements. Sleep stages were characterized by the presence of K-complexes, Vertex wave and persistent delta slowing. There are no electrographic seizures identified during this tracing. There are intermittent synchronous sharp and slow wave activities noted during the recording, not rhythmic occurring, intermixed with the diffuse slowing. The sharp/slow wave activities at times are with triphasic morphology. Photic stimulation produced no abnormalities. HV not performed during this study. EKG tracing showed no significant cardiac dysarrhythmia. Impression: This is an abnormal EEG due to presence of mild to moderate diffuse background slowing as well as intermittent bilateral synchronous sharp/slow wave activity. No rhythmic in occurrence. No electrographic seizures identified. Clinical Correlation: This EEG is consistent with mild to moderate diffuse cerebral/neuronal dysfunction that can be seen in patients with mild to moderate encephalopathy, metabolic/toxic, inflammatory, electrolyte derangement or anoxic/ischemic. No electrographic seizures seen. Clinical correlation suggested.
--- NOTE | 2017-11-29 16:36 | Electrocardiograph Report ---
[address] [place] [address] Test Date: 2017-11-28 Pat Name: Jeannie Romero Department: 109 Room: 11 Gender: F Correctional Program Officer: : 1960 Requested By: Sagar Xiong Order Number: [id number] Reading MD: Lorena Vela Measurements Intervals [place] Rate: 79 P: 38 LA: 139 QRS: -18 QRSD: 94 T: 73 QT: 393 QTc: 428 Interpretive Statements SINUS RHYTHM BORDERLINE LEFT AXIS DEVIATION Electronically Signed On 11-29-2017 16:34:54 EDT by Lorena Vela
--- NOTE | 2017-11-29 16:42 | Electrocardiograph Report ---
[place] [address] Test Date: 2017-11-28 Pat Name: Jeannie Romero Department: 109 Room: 11 Gender: F Apartment Leasing Consultant: JUDITH : 1960 Requested By: Sagar Xiong Order Number: [id number] Reading MD: Lorena Vela Measurements Intervals [place] Rate: 123 P: NH: 0 QRS: -25 QRSD: 91 T: 85 QT: 311 QTc: 384 Interpretive Statements ATRIAL FIBRILLATION WITH RAPID VENTRICULAR RESPONSE BORDERLINE LEFT AXIS DEVIATION NONSPECIFIC T-WAVE ABNORMALITY ABNORMAL RHYTHM ECG Electronically Signed On 11-29-2017 16:41:07 EDT by Lorena Vela
[2017-11-30] MEDS: Insulin LISPRO 300 UNITS/3 ML VIAL SQ SCH ×5 (01:19→17:16)
[2017-11-30 03:37] LABS: Hematocrit 40.4 % (35.3-44.9); Hemoglobin 11.7 g/dL (11.5-15.4); Mean Corpuscular Hemoglobin 24.2 pg (28.0-33.3); Mean Corpuscular Volume 83.6 fL (83.0-100.0); Mean Platelet Volume 10.9 fL (9.4-12.4); Platelet Count 398 K/mcL (140-400); Red Blood Count 4.83 M/mcL (3.82-4.97); Red Cell Distribution Width 20.7 % (11.5-14.5)
[2017-11-30] MEDS: Ipratropium/Albuterol Neb 3 ML IH SCH ×4 (03:50→21:47)
[2017-11-30] MEDS: Acetylcysteine 10% 2 ML INHSOL IH SCH ×4 (03:50→21:47)
[2017-11-30 04:24] LABS: Calcium 10.1 mg/dL (8.6-10.3); Potassium 4.9 mEq/L (3.5-5.1)
--- NOTE | 2017-11-30 04:33 | Pulmonology Progress Note ---
<Sesar Hamlin - Last Filed: 11/30/17 04:27> Date of Encounter: 11/30/17 Time of Encounter: 04:27 Assessment and Plan (1) HCAP (healthcare-associated pneumonia) Current Visit: Yes Status: Acute CXR performed on 11/22/16 demonstrated the following: - Patchy opacities throughout the lungs b/l - There may be b/l pleural effusions Recently discharged 2 weeks prior from an ECF after admission in August 2017 for influenza and PNA. Criteria for HCAP. - Blood CX are negative x2 - Respiratory panel negative - MRSA surveillance negative Plan: -s/p extubation without complication -Cefepime day 9 -Duonebs PRN for wheezing -Added mucomyst Patient can step down today (2) Acute and chronic respiratory failure Current Visit: Yes Status: Acute Acute on chronic respiratory failure, s/p extubation Initial presentation with ARDS, required mechanical ventilation Likely secondary to chronic respiratory failure with new Hospital acquired pneumonia Has continued to oxygenate appropriately on 6L NC ABG 11/28 -7.45/47/56/32/89 on 36% Plan: Continue treatment for HCAP Duonebs q4h scheduled Added mucomyst as above Qualifiers: Respiratory failure complication: hypoxia and hypercapnia Qualified Code(s) : J96.21 - Acute and chronic respiratory failure with hypoxia; J96.22 - Acute and chronic respiratory failure with hypercapnia; J96.22 - Acute and chronic respiratory failure with hypercapnia; J96.22 - Acute and chronic respiratory failure with hypercapnia (3) Septic shock Current Visit: Yes Status: Resolved Patient met sepsis criteria on admission with leukocytosis and heart rate of 90 on presentation with PNA - CXR with evidence of bilateral infiltrates. - Despite IV fluids, required vasopressor support in the ED - Continues to present with leukocytosis, improved WBC 12.9 - Patient remains afebrile Plan: - Continue cefepime day 9 - Continue to monitor patients vital signs and clinical status - No pressors required at this time - Organ function continues to improve (4) Atrial fibrillation Current Visit: Yes Status: Chronic - Rate controlled at this time, and currently in sinus rhythm - Not on anticoagulation as an outpatient with reported history of epistaxis. - Hold beta ana in the setting of septic shock - Currently on diltiazem drip at 10 Qualifiers: Atrial fibrillation type: unspecified Qualified Code(s): I48.91 - Unspecified atrial fibrillation (5) Renal insufficiency Current Visit: Yes Status: Acute Renal function continues to improve We will monitor with daily BMPs Avoid nephrotoxic agents (6) Diabetes Current Visit: Yes Status: Chronic Continue ACHS + SSI Qualifiers: Diabetes mellitus type: type 2 Diabetes mellitus longterm insulin use: unspecified longterm insulin use status Diabetes mellitus complication status : with unspecified complications Qualified Code(s): E11.8 - Type 2 diabetes mellitus with unspecified complications (7) DVT prophylaxis Current Visit: Yes Status: Acute Subjective Principal diagnosis: Healthcare associated pneumonia Interval history: The patient is resting comfortably in bed at time of examination. She has no acute complaints. She has been talking significantly more today. She is likely ready for step down today. Objective PUL Vital signs: Last Vital Signs Temp 97.8 F 11/30/17 00:23 Pulse 74 11/30/17 01:00 Resp 20 11/30/17 03:50 BP 154/64 11/30/17 01:00 Pulse Ox 90 11/30/17 03:50 General appearance: no acute distress, asleep (But awakens easily to voice), appears comfortable Eyes: nonicteric ENT: oropharynx moist Neck: supple, no lymphadenopathy, no JVD Effort: normal Auscultation: bilateral: CTAB Cardiovascular: RRR, no murmurs rubs or gallops Gastrointestinal: soft, non-tender, non-distended Integumentary: normal, erythema (Present on the lower extremities consistent with chronic stasis) Extremities: no cyanosis, pink and warm, edema (Trace edema b/l), other ( Appearance of chronic venous stasis) Musculoskeletal: no deformities normal mental status (Patient is somnolent but responds appropriately), non- focal exam Results - Laboratory Findings CBC and BMP: 11/30/17 03:01 11/30/17 03:01 ABG ABG pH 7.45 pH Units (7.32-7.45) 11/28/17 10:47 ABG pCO2 47 mmHg (35-45) H 11/28/17 10:47 ABG pO2 56 mmHg (85-104) L 11/28/17 10:47 ABG O2 Saturation 89 % (95-98) L 11/28/17 10:47 PT/INR, D-dimer PT 15.4 Seconds (9.4-12.1) H 11/23/17 03:45 Abnormal lab findings: Abnormal lab results WBC 12.9 K/mcL (4.3-11.1) H 11/30/17 03:01 MCH 24.2 pg (28.0-33.3) L 11/30/17 03:01 MCHC 29.0 g/dL (31.6-35.5) L 11/30/17 03:01 RDW 20.7 % (11.5-14.5) H 11/30/17 03:01 Immature Gran % 7.3 % (0-4) H 11/29/17 09:05 Band Neutrophils % 17.0 % (0-4) H 11/22/17 17:55 Myelocytes % 1.0 % (0) H 11/22/17 17:55 Neutrophils # 10.2 K/mcL (1.6-8.9) H 11/29/17 09:05 Eosinophils # 1.1 K/mcL (0.0-0.6) H 11/29/17 09:05 Nucleated RBCs/100 WBC 0.2 /100 WBC (0) H 11/28/17 04:15 Reactive Lymphocytes Present (Not Present) A 11/26/17 04:00 Toxic Granulation Present (Not Present) A 11/26/17 04:00 Hypochromasia Present (Not Present) A 11/29/17 09:05 Anisocytosis 1+ (Not Present) A 11/26/17 04:00 Microcytosis Present (Not Present) A 11/26/17 04:00 PT 15.4 Seconds (9.4-12.1) H 11/23/17 03:45 ABG pCO2 47 mmHg (35-45) H 11/28/17 10:47 ABG pO2 56 mmHg (85-104) L 11/28/17 10:47 ABG HCO3 32 mEq/L (21-27) H 11/28/17 10:47 ABG Total CO2 34 mEq/L (20-26) H 11/28/17 10:47 ABG O2 Saturation 89 % (95-98) L 11/28/17 10:47 ABG Base Excess 7 mEq/L (-2 to 3) H 11/28/17 10:47 Sodium 147 mEq/L (136-145) H D 11/30/17 03:01 Chloride 108 mEq/L (98-107) H 11/30/17 03:01 Carbon Dioxide 33 mEq/L (23-29) H 11/30/17 03:01 BUN 77 mg/dL (6-20) H 11/30/17 03:01 Creatinine 1.83 mg/dL (0.60-1.20) H 11/30/17 03:01 Est GFR ( Amer) 35 (> 60) L 11/30/17 03:01 Est GFR (Non-Af Amer) 29 (> 60) L 11/30/17 03:01 BUN/Creatinine Ratio 42 (6-26) H 11/30/17 03:01 Glucose 262 mg/dL (70-105) H 11/30/17 03:01 POC Glucose 268 mg/dL (70-99) H 11/29/17 23:50 Calculated Osmolality 336 (280-300) H 11/30/17 03:01 Phosphorus 6.6 mg/dL (2.7-4.5) H 11/23/17 03:09 Total Bilirubin 1.1 mg/dL (0.3-1.0) H 11/22/17 17:55 Direct Bilirubin 0.6 mg/dL (0.0-0.2) H 11/22/17 17:55 AST 10 Units/L (13-39) L 11/22/17 17:55 ALT 5 Units/L (7-52) L 11/22/17 17:55 Alkaline Phosphatase 235 Units/L (34-104) H 11/22/17 17:55 Troponin I 0.36 ng/mL (< 0.04) H* 11/24/17 04:00 B-Natriuretic Peptide 379 pg/mL (Less than 100) H 11/22/17 17:55 Albumin 2.8 g/dL (3.5-5.7) L 11/22/17 17:55 Globulin 5.0 g/dL (2.4-3.5) H 11/22/17 17:55 Albumin/Globulin Ratio 0.6 (1.1-2.2) L 11/22/17 17:55 Ur Specimen Adequacy See below A 11/22/17 18:30 Urine Clarity Turbid (Clear) A 11/22/17 18:30 Ur Specific [place] 1.026 (1.010-1.025) H 11/22/17 18:30 Urine Protein 100 mg/dL (Neg-Trace) H 11/22/17 18:30 Urine Ketones Trace mg/dL (Negative) H 11/22/17 18:30 Urine Blood Small (Negative) H 11/22/17 18:30 Urine Bilirubin Small (Negative) H 11/22/17 18:30 Ur Leukocyte Esterase Large (Negative) H 11/22/17 18:30 Ur Culture Indicated? YES (NO) A 11/22/17 18:30 - Clinical Findings Intake & Output: Intake & Output 11/29/17 11/29/17 11/30/17 15:59 23:59 07:59 Intake Total 150 / 150 45 / 45 Output Total 750 / 750 350 / 350 450 / 450 Balance -600 / -600 -305 / -305 -450 / -450 Weight 160.9 kg Consult Discharge Plan - Plan Referrals: Ted Parada, [Primary Care Provider] - <Jamia Quinones - Last Filed: 12/01/17 00:40> Date of Encounter: 12/01/17 Objective PUL Vital signs: Last Vital Signs Temp 97.7 F 11/30/17 23:51 Pulse 87 11/30/17 23:51 Resp 20 11/30/17 23:51 BP 130/80 11/30/17 23:51 Pulse Ox 95 11/30/17 23:51 Results - Laboratory Findings CBC and BMP: 11/30/17 03:01 11/30/17 03:01 ABG ABG pH 7.45 pH Units (7.32-7.45) 11/28/17 10:47 ABG pCO2 47 mmHg (35-45) H 11/28/17 10:47 ABG pO2 56 mmHg (85-104) L 11/28/17 10:47 ABG O2 Saturation 89 % (95-98) L 11/28/17 10:47 PT/INR, D-dimer PT 15.4 Seconds (9.4-12.1) H 11/23/17 03:45 Abnormal lab findings: Abnormal lab results WBC 12.9 K/mcL (4.3-11.1) H 11/30/17 03:01 MCH 24.2 pg (28.0-33.3) L 11/30/17 03:01 MCHC 29.0 g/dL (31.6-35.5) L 11/30/17 03:01 RDW 20.7 % (11.5-14.5) H 11/30/17 03:01 Immature Gran % 7.3 % (0-4) H 11/29/17 09:05 Myelocytes % 1.0 % (0) H 11/22/17 17:55 Neutrophils # 9.0 K/mcL (1.6-8.9) H 11/30/17 03:01 Eosinophils # 1.3 K/mcL (0.0-0.6) H 11/30/17 03:01 Nucleated RBCs/100 WBC 0.2 /100 WBC (0) H 11/28/17 04:15 Reactive Lymphocytes Present (Not Present) A 11/30/17 03:01 Toxic Granulation Present (Not Present) A 11/26/17 04:00 Hypochromasia Present (Not Present) A 11/29/17 09:05 Anisocytosis 2+ (Not Present) A 11/30/17 03:01 Microcytosis Present (Not Present) A 11/26/17 04:00 PT 15.4 Seconds (9.4-12.1) H 11/23/17 03:45 ABG pCO2 47 mmHg (35-45) H 11/28/17 10:47 ABG pO2 56 mmHg (85-104) L 11/28/17 10:47 ABG HCO3 32 mEq/L (21-27) H 11/28/17 10:47 ABG Total CO2 34 mEq/L (20-26) H 11/28/17 10:47 ABG O2 Saturation 89 % (95-98) L 11/28/17 10:47 ABG Base Excess 7 mEq/L (-2 to 3) H 11/28/17 10:47 Sodium 147 mEq/L (136-145) H D 11/30/17 03:01 Chloride 108 mEq/L (98-107) H 11/30/17 03:01 Carbon Dioxide 33 mEq/L (23-29) H 11/30/17 03:01 BUN 77 mg/dL (6-20) H 11/30/17 03:01 Creatinine 1.83 mg/dL (0.60-1.20) H 11/30/17 03:01 Est GFR ( Amer) 35 (> 60) L 11/30/17 03:01 Est GFR (Non-Af Amer) 29 (> 60) L 11/30/17 03:01 BUN/Creatinine Ratio 42 (6-26) H 11/30/17 03:01 Glucose 262 mg/dL (70-105) H 11/30/17 03:01 POC Glucose 196 mg/dL (70-99) H 11/30/17 16:17 Calculated Osmolality 336 (280-300) H 11/30/17 03:01 Phosphorus 6.6 mg/dL (2.7-4.5) H 11/23/17 03:09 Total Bilirubin 1.1 mg/dL (0.3-1.0) H 11/22/17 17:55 Direct Bilirubin 0.6 mg/dL (0.0-0.2) H 11/22/17 17:55 AST 10 Units/L (13-39) L 11/22/17 17:55 ALT 5 Units/L (7-52) L 11/22/17 17:55 Alkaline Phosphatase 235 Units/L (34-104) H 11/22/17 17:55 Troponin I 0.36 ng/mL (< 0.04) H* 11/24/17 04:00 B-Natriuretic Peptide 379 pg/mL (Less than 100) H 11/22/17 17:55 Albumin 2.8 g/dL (3.5-5.7) L 11/22/17 17:55 Globulin 5.0 g/dL (2.4-3.5) H 11/22/17 17:55 Albumin/Globulin Ratio 0.6 (1.1-2.2) L 11/22/17 17:55 Ur Specimen Adequacy See below A 11/22/17 18:30 Urine Clarity Turbid (Clear) A 11/22/17 18:30 Ur Specific [place] 1.026 (1.010-1.025) H 11/22/17 18:30 Urine Protein 100 mg/dL (Neg-Trace) H 11/22/17 18:30 Urine Ketones Trace mg/dL (Negative) H 11/22/17 18:30 Urine Blood Small (Negative) H 11/22/17 18:30 Urine Bilirubin Small (Negative) H 11/22/17 18:30 Ur Leukocyte Esterase Large (Negative) H 11/22/17 18:30 Ur Culture Indicated? YES (NO) A 11/22/17 18:30 - Clinical Findings Intake & Output: Intake & Output 11/30/17 11/30/17 12/01/17 15:59 23:59 07:59 Intake Total 84 / 84 360.0 / 360.0 Balance 360.0 / 360.0 - Attending Attestation I saw and evaluated this patient and my medical decision-making was reviewed with the Resident Physician. I agree with the documented findings, disposition and treatment plan as described except to the extent set forth below. We independently had [id number] contact with the patient Patient seen and examined at bedside Labs, radiology, chart personally reviewed. Management was reviewed during multidisciplinary critical care rounds. LADLE LINER HELPER:Patient has episodic states where she doesnt communicate got CT and EEG which was unremarkable except EEG showed some encephalopathy changes which can be seen in toxic /metabolic encephalopathy 11/30 Today she is awake following commands A X3 Pulm: Patient presented with acute respiratory failure secondary to pneumonia initially now with hydrostatic pulmonary edema . Patient will need BIPAP during Nap time and during night time Cards: Patient is currently hemodynamically stable has fluid overlaod due to CHF will need gentle diuresis Atrial fibrillation with RVR on Cardizem drip will transition to PO FEN-GI: To follow nutrition and speech recs Renal: labs reviewed ID:To stop antibiotics Heme/Onc:Labs reviewed Endo: Glucose Monitored Integ/MSK: Skin Care per routine ICU Nursing Protocol to prevent ulcers. Lines: All lines examined without evidence of infection : Dispo: Will transfer to step down 2N CODE:[id number] -I
[2017-11-30 04:43] LABS: Eosinophils # 1.3 K/mcL (0.0-0.6); Lymphocytes # 1.6 K/mcL (0.6-4.6)
[2017-11-30 04:44] LABS: Anisocytosis 2+ (Not Present); Platelet Estimate Normal (Normal); Reactive Lymphocytes Present (Not Present)
[2017-11-30] MEDS: *HR* Heparin 5,000 UNIT/ML VIAL SQ SCH ×3 (05:39→21:21)
[2017-11-30] MEDS: Famotidine 20 MG/2 ML VIAL IVP SCH (07:43)
[2017-11-30] MEDS ORDERED: Furosemide 40 MG TABLET PO SCH (11:30)
[2017-11-30] MEDS: Cefepime HCl 1,000 MG in Water for inj. (sterile) 20 ML 10 ML IVP SCH ×2 (12:47→21:20)
--- NOTE | 2017-11-30 14:10 | Event Note ---
Date of Encounter: 11/30/17 Time of Encounter: 14:00 Patient continues to slowly improve. Awake alert in bed speaking with family. Completed healthcare POA appointing son Alberto as primary agent. She appears in no distress and denies any pain or discomfort. Tolerating diet well. Wanting to go to [facility] soon. Palliative will follow at a distance.
[2017-11-30] MEDS ORDERED: *HR* Metoprolol 5 MG/5 ML VIAL IVP PRN (16:02)
[2017-11-30] MEDS ORDERED: Dextrose Gel 15 GM/37.5 ML TUBE PO PRN ×2 (16:02)
[2017-11-30] MEDS ORDERED: *HR* Dextrose 50 % in Water (Syg) 50 ML SYRINGE IVP PRN (16:02)
[2017-11-30] MEDS ORDERED: D5% in Water 1,000 ML IVC PRN (16:02)
[2017-11-30] MEDS ORDERED: OXYCODONE Oral CONC 10 MG/0.5 ML ORAL.SYG SL PRN (16:02)
[2017-11-30] MEDS ORDERED: Potassium Chloride 40 MEQ/200 ML BAG IVPB PRN (16:02)
[2017-11-30] MEDS ORDERED: Naloxone 0.4 MG/ML INJ IVP PRN (16:02)
[2017-11-30] MEDS ORDERED: Insulin LISPRO 300 UNITS/3 ML VIAL SQ SCH (18:00)
[2017-11-30] MEDS ORDERED: 0.9 % Sodium Chloride 500 ML ONE (23:36)
[2017-12-01] MEDS: Insulin LISPRO 300 UNITS/3 ML VIAL SQ SCH ×4 (02:12→17:18)
[2017-12-01] MEDS: Metoprolol XL (24 HR) Succ 25 MG TAB.ER.24H PO SCH ×2 (02:21→08:59)
[2017-12-01] MEDS: Acetylcysteine 10% 2 ML INHSOL IH SCH ×4 (04:26→21:36)
[2017-12-01] MEDS: Ipratropium/Albuterol Neb 3 ML IH SCH ×4 (04:26→21:36)
[2017-12-01 04:34] LABS: Basophils # 0.1 K/mcL (0.0-0.2); Basophils % 0.5 %; Eosinophils # 1.6 K/mcL (0.0-0.6); Eosinophils % 12.4 %; Hematocrit 38.9 % (35.3-44.9); Hemoglobin 11.3 g/dL (11.5-15.4); Immature Granulocytes % 5.3 % (0-4); Lymphocytes # 2.1 K/mcL (0.6-4.6); Lymphocytes % 16.3 %; Mean Corpuscular Hemoglobin 23.5 pg (28.0-33.3); Mean Platelet Volume 10.6 fL (9.4-12.4); Monocytes % 7.9 %; Neutrophils # 7.6 K/mcL (1.6-8.9); Platelet Count 350 K/mcL (140-400); Red Cell Distribution Width 20.8 % (11.5-14.5); Segmented Neutrophils % 57.6 %
[2017-12-01 04:57] LABS: Calcium 9.4 mg/dL (8.6-10.3); Potassium 3.6 mEq/L (3.5-5.1)
[2017-12-01 05:19] LABS: Anisocytosis 2+ (Not Present); Hypochromasia Present (Not Present); Microcytosis Present (Not Present); Platelet Clumps Few (Not Present)
[2017-12-01 05:20] LABS: Reactive Lymphocytes Present (Not Present)
[2017-12-01] MEDS: *HR* Heparin 5,000 UNIT/ML VIAL SQ SCH ×3 (06:29→20:42)
[2017-12-01] MEDS: Cefepime HCl 1,000 MG in Water for inj. (sterile) 20 ML 10 ML IVP SCH (08:58)
[2017-12-01] MEDS: Famotidine 20 MG/2 ML VIAL IVP SCH (08:59)
[2017-12-01] MEDS ORDERED: Furosemide 40 MG TABLET PO SCH (09:00)
--- NOTE | 2017-12-01 09:20 | Event Note ---
Date of Encounter: 12/01/17
[2017-12-01 09:31] LABS: ABG Base Excess 9 mEq/L (-2 to 3); ABG HCO3 34 mEq/L (21-27); ABG Oxygen Saturation 92 % (95-98); ABG PCO2 45 mmHg (35-45); ABG PH 7.48 pH Units (7.32-7.45); ABG PO2 60 mmHg (85-104); ABG TCO2 35 mEq/L (20-26)
[2017-12-01] MEDS ORDERED: Haloperidol Lactate 5 MG/ML VIAL ONE (09:37)
[2017-12-01] MEDS ORDERED: Haloperidol Lactate 5 MG/ML VIAL IVP ONE (10:20)
--- NOTE | 2017-12-01 13:38 | Internal Med Progress Note ---
Date of Encounter: 12/01/17 Time of Encounter: 10:40 - Assessment and plan (1) Acute and chronic respiratory failure Current Visit: Yes Status: Acute Assessment and plan: Patient is currently on 3 L nasal cannula. Saturating well. ABG shows hypoxia. Continue O2 supplementation. Monitor vital signs closely. Qualifiers: Respiratory failure complication: hypoxia and hypercapnia Qualified Code(s) : J96.21 - Acute and chronic respiratory failure with hypoxia; J96.22 - Acute and chronic respiratory failure with hypercapnia; J96.22 - Acute and chronic respiratory failure with hypercapnia; J96.22 - Acute and chronic respiratory failure with hypercapnia (2) Acute delirium Current Visit: Yes Status: Acute Assessment and plan: Patient having symptoms of acute delirium currently. Likely ICU delirium/ sundowning. We will treat symptomatically with antipsychotic agents. Monitor closely and prevent harm to self or others. Minimize environmental stimuli. (3) HCAP (healthcare-associated pneumonia) Current Visit: Yes Status: Acute Assessment and plan: On Day 10 of cefepime. Will stop after today's course. WBC count 13.1 today. No bands. (4) Renal insufficiency Current Visit: Yes Status: Acute Assessment and plan: Creatinine 1.92 today. Patient does have chronic kidney disease stage III. Creatinine at baseline is around 2. (5) Atrial fibrillation Current Visit: Yes Status: Chronic Assessment and plan: In regular rhythm. Not on anticoagulation due to reported history of epistaxis. Qualifiers: Atrial fibrillation type: unspecified Qualified Code(s): I48.91 - Unspecified atrial fibrillation (6) Diabetes Current Visit: Yes Status: Chronic Assessment and plan: Blood sugars blood sugars are uncontrolled. Will increase insulin regimen. Continue to monitor blood sugars. Diabetic diet. Qualifiers: Diabetes mellitus type: type 2 Diabetes mellitus termite technician insulin use: unspecified jail insulin use status Diabetes mellitus complication status : with unspecified complications Qualified Code(s): E11.8 - Type 2 diabetes mellitus with unspecified complications (7) Hypertension Current Visit: Yes Status: Chronic Assessment and plan: Was elevated this morning likely due to agitation. Has now improved. Qualifiers: Hypertension type: essential hypertension Qualified Code(s): I10 - Essential (primary) hypertension (8) Septic shock Current Visit: Yes Status: Resolved (9) DVT prophylaxis Current Visit: Yes Status: Acute Assessment and plan: On subcutaneous heparin - Time Spent With Patient Total time spent is greater than 50% in coordination of care (as documented) at patient's floor/unit and/or counseling patient: - Subjective Interval history: Patient is having episodes of delirium this morning. Family at bedside. They report that she has episodes of altered mental status intermittently before when she had been extubated. However she has never had symptoms with severe. Patient appears to know that she is in the hospital and in the stepdown unit and recognizes that she met with foster care social worker and is supposed to be [facility] but appears to be having flights of thoughts and ideas and visual hallucinations. She is unable to participate appropriately in any conversation. - Constitutional Vitals: Temp Pulse Resp BP Pulse Ox 97.7 F 74 18 139/54 99 12/01/17 11:27 12/01/17 11:27 12/01/17 11:27 12/01/17 11:12/01/17 11:27 General appearance: Present: cooperative, A&O X 3, answers questions appropriately - Neck Neck exam general surgery: Present: supple, trachea midline. Absent: lymphadenopathy - Respiratory Respiratory exam: Present: decreased breath sounds (diminished at bases). Absent: accessory muscle use, rales, rhonchi, wheezes - Cardiovascular Cardiovascular exam: Present: RRR, +S1, +S2. Absent: diastolic murmur, gallop, rubs, systolic murmur - GI/Abdominal GI/Abdominal exam: Present: normal bowel sounds, soft, no peritoneal signs. Absent: distended, tenderness - Extremities Exam Extremities exam: Present: warm, radial pulses palpable and symmetrical. Absent : calf tenderness, cyanotic, pedal edema - Neurological Exam Neurological exam: Present: altered, no focal deficits. Absent: facial droop, speech deficit - Psychiatric Psychiatric exam: Present: agitated - Skin Skin exam: Present: dry, intact Internal Medicine: Result - Labs CBC & Chem 7: 12/01/17 04:04 12/01/17 04:04 Labs: Short CBC 12/01/17 Range/Units 04:04 WBC 13.1 H (4.3-11.1) K/mcL Hgb 11.3 L (11.5-15.4) g/dL Hct 38.9 (35.3-44.9) % Plt Count 350 (140-400) K/mcL Neutrophils # 7.6 (1.6-8.9) K/mcL BMP 12/01/17 04:04 Sodium 147 H Potassium 3.6 Chloride 107 Carbon Dioxide 29 BUN 70 H Creatinine 1.92 H Glucose 223 H Calcium 9.4 - ABG Interpretation ABG results: ABG ABG pH 7.48 pH Units (7.32-7.45) H 12/01/17 09:27 ABG pCO2 45 mmHg (35-45) 12/01/17 09:27 ABG pO2 60 mmHg (85-104) L 12/01/17 09:27 ABG O2 Saturation 92 % (95-98) L 12/01/17 09:27 PT/INR, D-dimer PT 15.4 Seconds (9.4-12.1) H 11/23/17 03:45 Consult Discharge Plan - Plan Referrals: Ted Parada DO [Primary Care Provider] - (patient is going to [facility] no PCP appointment needed)
[2017-12-01] MEDS ORDERED: Insulin DETEMIR 100 UNIT/ML X5UNITS SQ SCH (21:00)
[2017-12-01] MEDS ORDERED: Insulin LISPRO 300 UNITS/3 ML VIAL SQ SCH (21:00)
[2017-12-02] MEDS: Acetylcysteine 10% 2 ML INHSOL IH SCH ×2 (03:27→10:43)
[2017-12-02] MEDS: Ipratropium/Albuterol Neb 3 ML IH SCH ×2 (03:27→10:43)
[2017-12-02 05:01] LABS: Basophils # 0.1 K/mcL (0.0-0.2); Basophils % 0.9 %; Eosinophils # 1.3 K/mcL (0.0-0.6); Eosinophils % 9.5 %; Hematocrit 38.7 % (35.3-44.9); Hemoglobin 11.5 g/dL (11.5-15.4); Immature Granulocytes % 2.6 % (0-4); Lymphocytes % 14.7 %; Mean Corpuscular HGB Conc 29.7 g/dL (31.6-35.5); Mean Corpuscular Hemoglobin 23.9 pg (28.0-33.3); Mean Corpuscular Volume 80.5 fL (83.0-100.0); Monocytes # 1.1 K/mcL (0.0-1.3); Monocytes % 7.7 %; Neutrophils # 8.9 K/mcL (1.6-8.9); Platelet Count 268 K/mcL (140-400); Red Blood Count 4.81 M/mcL (3.82-4.97); Red Cell Distribution Width 19.9 % (11.5-14.5); Segmented Neutrophils % 64.6 %
[2017-12-02 05:26] LABS: Potassium 3.6 mEq/L (3.5-5.1)
[2017-12-02] MEDS ORDERED: Metoprolol XL (24 HR) Succ 25 MG TAB.ER.24H PO SCH (05:45)
[2017-12-02] MEDS: *HR* Heparin 5,000 UNIT/ML VIAL SQ SCH (05:50)
[2017-12-02] MEDS: Famotidine 20 MG/2 ML VIAL IVP SCH (08:27)
[2017-12-02] MEDS: Insulin LISPRO 300 UNITS/3 ML VIAL SQ SCH (08:28)
[2017-12-02] MEDS ORDERED: Cyanocobalamin (B-12) 1,000 MCG TABLET PO SCH (09:00)
[2017-12-02] MEDS ORDERED: Furosemide 20 MG TABLET PO SCH (09:00)
[2017-12-02 11:22] VITALS: BP 117/69
--- NOTE | 2017-12-02 11:38 | Discharge Summary ---
- NOTES TO OUTPATIENT PROVIDER Notes to Outpatient Provider: Patient admitted with septic shock and healthcare associated pneumonia requiring intubation and mechanical ventilation. She was treated with IV antibiotics and ventilator management and was eventually extubated. She is currently DNR comfort care arrest. She is doing better overall and is on the antibiotic course and will be discharged today to skilled rehabilitation. Orders not resulted at time of discharge: Pending orders 12/03/17 04:00 BMP [Basic Metabolic Panel] AM 0400 Complete Blood Count [HEME] AM 0400 Date of Encounter: 12/02/17 Time of Encounter: 11:29 - Discharge Diagnosis (1) Acute and chronic respiratory failure Priority: Primary Status: Acute Qualifiers: Respiratory failure complication: hypoxia and hypercapnia Qualified Code(s) : J96.21 - Acute and chronic respiratory failure with hypoxia; J96.22 - Acute and chronic respiratory failure with hypercapnia; J96.22 - Acute and chronic respiratory failure with hypercapnia; J96.22 - Acute and chronic respiratory failure with hypercapnia (2) Acute delirium Priority: Secondary Status: Acute (3) HCAP (healthcare-associated pneumonia) Priority: Secondary Status: Acute (4) Renal insufficiency Priority: Secondary Status: Acute (5) Atrial fibrillation Priority: Secondary Status: Chronic Qualifiers: Atrial fibrillation type: unspecified Qualified Code(s): I48.91 - Unspecified atrial fibrillation (6) Diabetes Priority: Secondary Status: Chronic Qualifiers: Diabetes mellitus type: type 2 Diabetes mellitus retirement insulin use: unspecified intermediate designer insulin use status Diabetes mellitus complication status : with unspecified complications Qualified Code(s): E11.8 - Type 2 diabetes mellitus with unspecified complications (7) Hypertension Priority: Secondary Status: Chronic Qualifiers: Hypertension type: essential hypertension Qualified Code(s): I10 - Essential (primary) hypertension (8) Septic shock Priority: Secondary Status: Resolved (9) DVT prophylaxis Priority: Secondary Status: Acute Hospital course: Ms. Romero is a 57 year old female patient with history of atrial fibrillation, hypertension, diabetes, hyperlipidemia who was hospitalized here with acute respiratory failure related to healthcare associated pneumonia. She was initially intubated and admitted to ICU. She was treated with IV antibiotics and IV fluids. She was also in septic shock initially requiring vasopressor support. She was treated with vancomycin and cefepime and Levaquin initially. She slowly improved with this aggressive treatment plan and was then extubated and transferred to the floor. Palliative care was also involved in her care and given her multiple comorbidities, patient and family decided to change her CODE STATUS to DNR comfort care arrest. She has been evaluated by physical therapy and recommended placement to skilled rehabilitation. Presently she is saturating well on 3 L nasal cannula. She has completed antibiotic course for her healthcare associated pneumonia. She did have an episode of acute delirium yesterday which responded to a single dose of Haldol. She has since been doing well. She is clinically stable to be discharged to skilled rehabilitation facility today. Discharge discussed with: patient, family, nurse, case management - Time Spent with Patient Total time spent providing and/or coordinating discharge services: Greater than 30 minutes (40 min) - Discharge Medications Home Medications: Citalopram [CeleXA] 20 mg PO DAILY 08/15/17 [History] Cyanocobalamin (Vitamin B-12) [Vitamin B12] 1,000 mcg PO DAILY 08/15/17 [History ] Cyclobenzaprine [Flexeril] 10 mg PO TID PRN 08/15/17 [History] Furosemide [Lasix] 40 mg PO DAILY 08/15/17 [History] Gabapentin [Neurontin] 300 mg PO HS 08/15/17 [History] Insulin LISPRO [Humalog Kwikpen U-100] 0 unit SQ TIDWM 08/15/17 [History] Lisinopril [Zestril] 10 mg PO DAILY 08/15/17 [History] Metoprolol XL (24 HR) Succ [Toprol Xl] 25 mg PO DAILY 08/15/17 [History] Ascorbic Acid [Vitamin C] 500 mg PO BID 11/22/17 [History] Docusate Sodium [Dok] 100 mg PO DAILY 11/22/17 [History] Ferrous Sulfate [Iron] 325 mg PO BID 11/22/17 [History] Levothyroxine [Synthroid] 50 mcg PO 0630 11/22/17 [History] Nystatin POWDER [Nystop] 1 appl TP BID 11/22/17 [History] Potassium Chloride [K-Tab ER] 20 meq PO DAILY 11/22/17 [History] Insulin Degludec [Tresiba Flextouch U-200] 20 unit SQ BID #0 12/02/17 [Rx] Ipratropium/Albuterol Neb [Duoneb] 3 ml IH Q4HR PRN #30 inhsol 12/02/17 [Rx] Allergies/Adverse Reactions: 3 Allergy/AdvReac Type Severity Reaction Status Date / Time carisoprodol [From Soma] Allergy Hives Verified 08/15/17 13:23 cephalexin [From Keflex] Allergy Hives Verified 08/15/17 13:23 Sulfa (Sulfonamide Allergy Hives Verified 08/15/17 13:23 Antibiotics) Date of admission: 11/22/17 20:32 Primary care physician: Ted Parada Consults: 11/22/17 21:52 Consult to Critical Care [CONS] Routine Consulting Provider: [facility] Reason for Consult: ventilatory management, septic shock Call Completed: No 11/23/17 09:49 Consult to Palliative Care [CONS] Routine Comment: Consulting Provider: [facility] [place] Reason for Consult: code status needs review Call Completed: No 11/26/17 07:28 Consult to Physical Therapy [CONS] Routine Comment: Evaluate, develop and implement POC Reason for Consult: patient weak need assistance Does patient have active BEDREST order?: No Is patient medically & hemodynamically stable?: Yes Patient assessed for mobility or mobilized this visit?: Yes 11/29/17 15:06 Consult to Interpret Exam [CONS] Routine Consulting Provider: Oral Massey Consult to Interpret Exam: Interpret EEG 11/30/17 08:16 Consult to Occupational Therapy [CONS] Routine Comment: Evaluate, develop and implement POC Reason for Consult: skilled placement Does patient have active BEDREST order?: No Is patient medically & hemodynamically stable?: Yes Discharging clinician: Yamile Graham Anticipated date of discharge: 12/02/17 - Constitutional Vitals: Temp Pulse Resp BP Pulse Ox 97.5 F L 88 18 117/69 100 12/02/17 11:18 12/02/17 11:18 12/02/17 11:18 12/02/17 11:18 12/02/17 11:18 General appearance: Present: cooperative, A&O X 3, answers questions appropriately - Neck Neck exam general surgery: Present: supple, trachea midline. Absent: lymphadenopathy - Respiratory Respiratory exam: Present: decreased breath sounds (at both bases), prolonged expiratory phase. Absent: accessory muscle use, rales, rhonchi, wheezes - GI/Abdominal GI/Abdominal exam: Present: normal bowel sounds, soft, no peritoneal signs. Absent: distended, tenderness - Extremities Exam Extremities exam: Present: warm, radial pulses palpable and symmetrical. Absent : calf tenderness, cyanotic, pedal edema - Neurological Exam Neurological exam: Present: alert, oriented X3, no focal deficits. Absent: facial droop, speech deficit - Patient Status Disposition: Transfer SNF Condition: Fair Functional capacity at discharge: bed bound Overall status at discharge: patient is progressing back to baseline - Discharge Instructions Instructions: Atrial Fibrillation (DC), Acute Respiratory Distress Syndrome (DC ), Pneumonia (DC) Follow Up With: Ted Parada DO [Primary Care Provider] - (patient is going to [facility] no PCP appointment needed) - Diet and Activity Activity: as per physical therapy Diet: diabetic diet, low fat, low cholesterol, low salt diet
--- NOTE | 2017-12-02 11:41 | Physician Discharge Referral ---
ExtendedCare Referral Info Provider in Charge after Transfer: PCP Institutional Level of Care: Skilled - Diagnosis (1) Acute and chronic respiratory failure Priority: Primary Status: Acute (2) Acute delirium Priority: Secondary Status: Acute (3) HCAP (healthcare-associated pneumonia) Priority: Secondary Status: Acute (4) Renal insufficiency Priority: Secondary Status: Acute (5) Atrial fibrillation Priority: Secondary Status: Chronic (6) Diabetes Priority: Secondary Status: Chronic (7) Hypertension Priority: Secondary Status: Chronic (8) Septic shock Priority: Secondary Status: Resolved (9) DVT prophylaxis Priority: Secondary Status: Acute Prognosis: Fair Aware of Diagnosis: Patient, Family Aware of Prognosis: Patient, Family - Transfer Medications Home Medications: Citalopram [CeleXA] 20 mg PO DAILY 08/15/17 [History] Cyanocobalamin (Vitamin B-12) [Vitamin B12] 1,000 mcg PO DAILY 08/15/17 [History ] Cyclobenzaprine [Flexeril] 10 mg PO TID PRN 08/15/17 [History] Furosemide [Lasix] 40 mg PO DAILY 08/15/17 [History] Gabapentin [Neurontin] 300 mg PO HS 08/15/17 [History] Insulin LISPRO [Humalog Kwikpen U-100] 0 unit SQ TIDWM 08/15/17 [History] Lisinopril [Zestril] 10 mg PO DAILY 08/15/17 [History] Metoprolol XL (24 HR) Succ [Toprol Xl] 25 mg PO DAILY 08/15/17 [History] Ascorbic Acid [Vitamin C] 500 mg PO BID 11/22/17 [History] Docusate Sodium [Dok] 100 mg PO DAILY 11/22/17 [History] Ferrous Sulfate [Iron] 325 mg PO BID 11/22/17 [History] Levothyroxine [Synthroid] 50 mcg PO 0630 11/22/17 [History] Nystatin POWDER [Nystop] 1 appl TP BID 11/22/17 [History] Potassium Chloride [K-Tab ER] 20 meq PO DAILY 11/22/17 [History] Insulin Degludec [Tresiba Flextouch U-200] 20 unit SQ BID #0 12/02/17 [Rx] Ipratropium/Albuterol Neb [Duoneb] 3 ml IH Q4HR PRN #30 inhsol 12/02/17 [Rx] Allergies/Adverse Reactions: 3 Allergy/AdvReac Type Severity Reaction Status Date / Time carisoprodol [From Soma] Allergy Hives Verified 08/15/17 13:23 cephalexin [From Keflex] Allergy Hives Verified 08/15/17 13:23 Sulfa (Sulfonamide Allergy Hives Verified 08/15/17 13:23 Antibiotics) - Respiratory Orders Oxygen / L per min (3) Smoking Cessation: Smoking cessation has been advised. For more information, call the [place] [email or web address] Quit Line at 4-065-UODR-NOW. - Advance Directives Code Status: DNR-Arrest - Mobility Orders Ambulate (per PT) - Rehabiliation Orders Rehab Potential: Fair Rehab Orders: Evaluation for Physical Therapy, Evaluation for Occupational Therapy - Diet Orders No Concentrated Sweets (Diabetic), Cardiac CERTIFICATION: I certify that the transfer of the above named patient to an Extended Care Facility is necessary for the continuing treatment of the diagnosis listed. The above information is true and accurate reflection of patient's current condition. Confidential - Redisclosure prohibited without a patient's written consent.
== END 2017-12-02 14:51 | DRG 720 ==
LOC: EMEROO 17:49 → SUATTDRO 20:32 → ICNU 20:32 → 2NNU 11-30 15:58
PROVIDERS: ADMIT Emergency Medicine; ATTEND Internal Medicine

== ENCOUNTER 2018-07-30 21:50 | Inpatient (IN) ==
[2018-07-31] MEDS ORDERED: Naloxone 0.4 MG/ML INJ IVP PRN (03:54)
[2018-07-31] MEDS ORDERED: D5% in Water 1,000 ML IVC PRN ×2 (03:59→10:41)
[2018-07-31] MEDS ORDERED: *HR* Dextrose 50 % in Water (Syg) 50 ML SYRINGE IVP PRN ×2 (03:59→10:41)
[2018-07-31] MEDS ORDERED: Dextrose Gel 15 GM/37.5 ML TUBE PO PRN ×2 (03:59)
[2018-07-31] MEDS ORDERED: 0.9 % Sodium Chloride 1,000 ML IVC SCH (04:15)
--- NOTE | 2018-07-31 04:21 | Internal Med History&Physical ---
Date of Encounter: 07/31/18 Time of Encounter: 02:30 Internal Medicine - H&P: HPI Chief complaint: Fall Admitted From: Hospital to Hospital Transfer Plans for Post Hospital Care: Home History of present illness: Ms. Romero is a 58 year old female with past medical history significant for CHF, hypertension, hyperlipidemia, paroxysmal A fib, AR, COPD, thyroid disease, diabetes, venous stasis, chronic wounds, obesity, and depression who presents as transfer from [facility] following mechanical fall with walker on wheelchair ramp. Following fall patient complained of only left leg pain. Sending facility obtained an x-ray of left femur, left hip, and left knee. Reported results only show acute comminuted distal left femoral fracture. Patient denies any other injury other than to her left leg, no striking of head, no loss of consciousness. Patient states she is unable to bear weight after the fall on her left leg. Pain is exacerbated by movement and improved with pain medications. EKG obtained by sending facility reported sinus rhythm. Patient had echo completed in October 2017 which showed an ejection fraction of 55%. Patient has history of paroxysmal A. fib and was previously on anticoagulation but was discontinued due to recurrent nosebleeds. Patient is diabetic and states that her blood sugars have been averaging in the 200s. Patient follows up regularly with PCP monthly. Has history of chronic wounds for which she followed with wound care who recently signed off on her following care of left heel wound. Patient states she is a DNRCCA and I confirmed that the document on file is up-to-date. Past Med Surg Social Fam HX - Past Medical History Medical history: atrial fibrillation, CHF, COPD, diabetes, hyperlipidemia, hypertension, renal disease, thyroid disease, venous stasis Psychiatric history: depression - Past Surgical History Surgical History: appendectomy, cholecystectomy, hysterectomy Additional surgical history: Left knee scope - Social History Smoking Status: Former smoker Smokeless Tobacco Status: No Alcohol use: none Drug use: none - Family History Mother Adopted: No Family Member Ethnicity: Non- Living Status: Still Living Hx Family Cardiac Disorders: No Hx Family Respiratory Disorders: Yes Hx Family Cancer: No Hx Family GI Disorders: No Hx Family Endocrine Disorder: Yes Hx Family Neuromuscular Disorders: No Hx Family Neurologic Disorders: No Hx Family HEENT Disorders: No Hx Family Autoimmune Disorders: No Father Adopted: No Family Member Ethnicity: Non- Living Status: Hx Family Cardiac Disorders: No Hx Family Respiratory Disorders: No Hx Family Cancer: No Hx Family GI Disorders: No Hx Family Endocrine Disorder: Yes (DM) Hx Family Neuromuscular Disorders: No Hx Family Neurologic Disorders: No Hx Family HEENT Disorders: No Hx Family Autoimmune Disorders: No Internal Medicine - H&P: Meds Citalopram [CeleXA] 20 mg PO DAILY 08/15/17 [History] Cyanocobalamin (Vitamin B-12) [Vitamin B12] 1,000 mcg PO DAILY 08/15/17 [History] Cyclobenzaprine [Flexeril] 10 mg PO TID PRN 08/15/17 [History] Furosemide [Lasix] 40 mg PO DAILY 08/15/17 [History] Gabapentin [Neurontin] 300 mg PO HS 08/15/17 [History] Insulin LISPRO [Humalog Kwikpen U-100] 0 unit SQ TIDWM 08/15/17 [History] Lisinopril [Zestril] 10 mg PO DAILY 08/15/17 [History] Metoprolol XL (24 HR) Succ [Toprol Xl] 25 mg PO DAILY 08/15/17 [History] Ascorbic Acid [Vitamin C] 500 mg PO BID 11/22/17 [History] Ferrous Sulfate [Iron] 325 mg PO BID 11/22/17 [History] Levothyroxine [Synthroid] 50 mcg PO 0630 11/22/17 [History] Nystatin POWDER [Nystop] 1 appl TP BID 11/22/17 [History] Potassium Chloride [K-Tab ER] 20 meq PO DAILY 11/22/17 [History] Ipratropium/Albuterol Neb [Duoneb] 3 ml IH Q4HR PRN #30 inhsol 12/02/17 [Rx] Insulin Degludec [Tresiba Flextouch U-200] 30 unit SQ BID 07/31/18 [History] Allergy/AdvReac Type Severity Reaction Status Date / Time carisoprodol [From Soma] Allergy Hives Verified 08/15/17 13:23 cephalexin [From Keflex] Allergy Hives Verified 08/15/17 13:23 Sulfa (Sulfonamide Allergy Hives Verified 08/15/17 13:23 Antibiotics) All Systems PM: A 10-system review of systems was performed and is negative for pertinent findin gs except as documented above in the HPI. - Constitutional Vitals: Temp Pulse Resp BP Pulse Ox 97.9 F 63 18 147/67 100 07/31/18 02:40 07/31/18 02:40 07/31/18 02:40 07/31/18 02:40 07/31/18 02:40 Exam: General: Alert and oriented. Skin:Normal color, no rash. Multiple dry and intact wounds noted to panniculus with one open draining serous fluid. Dry and intact wound to left heel. Chronic venous stasis to bilateral lower extremities. HEENT:Pupils equal, round and reactive. Cardiovascular:Heart sounds distant, no rubs, murmurs or gallops. No JVD. Pulse regular. Lungs:Breath sounds distant, no wheezes or crackles noted. Abdomen:Soft, non-tender, no rigidity. Extremities:No deformity, no joint swelling or clubbing. Tenderness to left lower extremity with movement. 2+ pitting edema noted to bilateral lower extremities. Unable to straighten left lower extremity. Neurological:Normal cognition and motor skills. Pulses:Carotid and radial pulses normal +2. Rest of the physical exam is non contributory. - Assessment and plan (1) Closed left femoral fracture Current Visit: Yes Status: Acute Assessment and plan: Ortho consulted by sending facility, will see in a.m. NPO. Low rate MIVF. Pain control PRN. Qualifiers: Encounter type: initial encounter Femur location: distal Qualified Code(s): S72.402A - Unspecified fracture of lower end of left femur, initial encounter for closed fracture (2) Wounds, multiple Current Visit: Yes Status: Chronic Assessment and plan: Wound team consulted. (3) Increased white blood cell count Current Visit: Yes Status: Acute Assessment and plan: Minimally elevated on sending facility records. Will repeat in a.m. Qualifiers: Leukocytosis type: unspecified Qualified Code(s): D72.829 - Elevated white blood cell count, unspecified (4) Chronic kidney disease Current Visit: Yes Status: Chronic Assessment and plan: Currently appears at baseline from chart review. Follow kidney function closely. Avoid nephrotoxins. Qualifiers: Chronic kidney disease stage: unspecified stage Qualified Code(s): N18.9 - Chronic kidney disease, unspecified (5) Diabetes mellitus Current Visit: Yes Status: Acute Assessment and plan: Accucheck q6. Sliding scale insulin. Qualifiers: Diabetes mellitus type: type 2 Diabetes mellitus ferry terminal agent insulin use: with ferry terminal agent use Diabetes mellitus complication status: with unspecified complications Qualified Code(s): E11.8 - Type 2 diabetes mellitus with unspecified complications; Z79.4 - residential (current) use of insulin - Time Spent With Patient Total time spent is greater than 50% in coordination of care (as documented) at patient's floor/unit and/or counseling patient:
[2018-07-31] MEDS: OXYCODONE Oral CONC 10 MG/0.5 ML ORAL.SYG SL PRN ×3 (05:59→21:16)
[2018-07-31] MEDS ORDERED: Insulin LISPRO 300 UNITS/3 ML VIAL SQ SCH (06:00)
[2018-07-31 08:02] LABS: Basophils % 0.4 %; Red Cell Distribution Width 17.7 % (11.5-14.5)
[2018-07-31 08:04] LABS: Basophils # 0.1 K/mcL (0.0-0.2); Eosinophils # 0.3 K/mcL (0.0-0.6); Eosinophils % 2.4 %; Hematocrit 33.4 % (35.3-44.9); Hemoglobin 10.6 g/dL (11.5-15.4); Immature Granulocytes % 1.1 % (0-4); Immature Platelets 9.4 % (1.1-6.1); Lymphocytes # 1.2 K/mcL (0.6-4.6); Lymphocytes % 9.4 %; Mean Corpuscular HGB Conc 31.7 g/dL (31.6-35.5); Mean Corpuscular Hemoglobin 25.7 pg (28.0-33.3); Mean Corpuscular Volume 81.1 fL (83.0-100.0); Mean Platelet Volume 12.3 fL (9.4-12.4); Monocytes # 0.7 K/mcL (0.0-1.3); Monocytes % 5.5 %; Neutrophils # 10.3 K/mcL (1.6-8.9); Platelet Count 179 K/mcL (140-400); Red Blood Count 4.12 M/mcL (3.82-4.97); Segmented Neutrophils % 81.2 %
[2018-07-31 08:22] LABS: Calcium 8.8 mg/dL (8.6-10.3); Potassium 3.8 mEq/L (3.5-5.1)
[2018-07-31 08:23] LABS: Platelet Estimate Normal (Normal)
--- NOTE | 2018-07-31 10:49 | Orthopedic Consult Note ---
Date of Encounter: 07/31/18 Time of Encounter: 10:46 History of Present Illness Chief complaint: Left knee pain HPI: Ms. Romero is a 58 year old female who is a walker ambulator who sustained an injury to her left knee yesterday when she had a mechanical fall. She was wa lking down a ramp at her uncle's house when she had the mechanical fall. Denies vertigo dizziness block out etc. She had immediate pain and inability to ambulate. She was seen initially had another healthcare facility and was transferred to [facility] for definitive care. Reviewed the patient's completed history and physical examination as well as reviewed the medical record. Patient has a significant past medical history and risk factors for surgical intervention. Pertinent orthopedic examination reveals a morbidly obese white female in minimal distress while lying in the hospital bed. Left lower extremity shows pitting edema with external rotation of the knee and lower leg. There are chronic venous stasis wounds. There is a healed ulceration on the posterola teral aspect of the left heel. There is a massive pannus with a secondary panniculitis and markedly indurated tissue. Exam is extremely limited due to the patient's size as well as the pain elicited with attempts at evaluation. I reviewed x-rays of the left hip, left femur as well as the left knee. Hip shows no evidence of fractures nor dislocations. Left knee shows severe medial and patellofemoral arthritis. The knee and femur x-rays revealed the acute, displaced, comminuted fracture of the distal femoral metadiaphyseal region without intercondylar extension. Impression: Acute, displaced, comminuted distal left femur fracture Recommendation: This is a surgical fracture and adult and would be best treated with either retrograde femoral nailing. The other surgical option would be open reduction internal fixation with a lateral plate and screw type construct. This would be much more surgical dissection and exposure. Either of these options would not address the advanced arthritis in the knee. I do not feel that the patient is a candidate for a distal femoral replacing total knee arthroplasty type surgery. The patient has multiple underlying medical conditions including the morbid obesity, uncontrolled diabetes with a blood sugar of 300, chronic kidney disease, chronic heart disease with a history of atrial fibrillation and a reported MRI in the past as well as a history of chronic wounds of the lower extremities as well as her panniculitis. I would certainly recommend that the patient be maximized medically prior to any surgical intervention. Cardiac evaluation for risk stratification is critical. I discussed with the patient that she is a very high risk for any surgery. We will tentatively schedule her for surgery tomorrow if appropriate. A Q very much for allowing me to seen care for Ms. Romero. Sincerely, Jaret Marrero,DO Past Med Surg Social Fam HX - Past Medical History Medical history: atrial fibrillation, CHF, COPD, diabetes, hyperlipidemia, hypertension, renal disease, thyroid disease, venous stasis Psychiatric history: depression - Past Surgical History Surgical History: appendectomy, cholecystectomy, hysterectomy Additional surgical history: Left knee scope - Social History Smoking Status: Former smoker Smokeless Tobacco Status: No Alcohol use: none Drug use: none - Family History Mother Adopted: No Family Member Ethnicity: Non- Living Status: Still Living Hx Family Cardiac Disorders: No Hx Family Respiratory Disorders: Yes Hx Family Cancer: No Hx Family GI Disorders: No Hx Family Endocrine Disorder: Yes Hx Family Neuromuscular Disorders: No Hx Family Neurologic Disorders: No Hx Family HEENT Disorders: No Hx Family Autoimmune Disorders: No Father Adopted: No Family Member Ethnicity: Non- Living Status: Hx Family Cardiac Disorders: No Hx Family Respiratory Disorders: No Hx Family Cancer: No Hx Family GI Disorders: No Hx Family Endocrine Disorder: Yes (DM) Hx Family Neuromuscular Disorders: No Hx Family Neurologic Disorders: No Hx Family HEENT Disorders: No Hx Family Autoimmune Disorders: No Medications and Allergies Citalopram [CeleXA] 20 mg PO DAILY 08/15/17 [History] Cyanocobalamin (Vitamin B-12) [Vitamin B12] 1,000 mcg PO DAILY 08/15/17 [Histo ry] Cyclobenzaprine [Flexeril] 10 mg PO TID PRN 08/15/17 [History] Furosemide [Lasix] 40 mg PO DAILY 08/15/17 [History] Gabapentin [Neurontin] 300 mg PO HS 08/15/17 [History] Insulin LISPRO [Humalog Kwikpen U-100] 0 unit SQ TIDWM 08/15/17 [History] Lisinopril [Zestril] 10 mg PO DAILY 08/15/17 [History] Metoprolol XL (24 HR) Succ [Toprol Xl] 25 mg PO DAILY 08/15/17 [History] Ascorbic Acid [Vitamin C] 500 mg PO BID 11/22/17 [History] Ferrous Sulfate [Iron] 325 mg PO BID 11/22/17 [History] Levothyroxine [Synthroid] 50 mcg PO 0630 11/22/17 [History] Nystatin POWDER [Nystop] 1 appl TP BID 11/22/17 [History] Potassium Chloride [K-Tab ER] 20 meq PO DAILY 11/22/17 [History] Ipratropium/Albuterol Neb [Duoneb] 3 ml IH Q4HR PRN #30 inhsol 12/02/17 [Rx] Insulin Degludec [Tresiba Flextouch U-200] 30 unit SQ BID 07/31/18 [History] Allergy/AdvReac Type Severity Reaction Status Date / Time carisoprodol [From Soma] Allergy Hives Verified 08/15/17 13:23 cephalexin [From Keflex] Allergy Hives Verified 08/15/17 13:23 Sulfa (Sulfonamide Allergy Hives Verified 08/15/17 13:23 Antibiotics) All Systems Reviewed: The remainder of the systems were reviewed and are negative Physical Exam - Constitutional Vitals: Temp Pulse Resp BP Pulse Ox 97.4 F L 60 18 145/73 99 07/31/18 07:15 07/31/18 07:15 07/31/18 07:15 07/31/18 07:15 07/31/18 07:15 Results - Labs Result Diagrams: 07/31/18 07:14 07/31/18 07:14 Labs: Abnormal lab results WBC 12.7 K/mcL (4.3-11.1) H 07/31/18 07:14 Hgb 10.6 g/dL (11.5-15.4) L 07/31/18 07:14 Hct 33.4 % (35.3-44.9) L 07/31/18 07:14 MCV 81.1 fL (83.0-100.0) L 07/31/18 07:14 MCH 25.7 pg (28.0-33.3) L 07/31/18 07:14 RDW 17.7 % (11.5-14.5) H 07/31/18 07:14 Neutrophils # 10.3 K/mcL (1.6-8.9) H 07/31/18 07:14 Immature Plt Fraction 9.4 % (1.1-6.1) H 07/31/18 07:14 Chloride 112 mEq/L (98-107) H 07/31/18 07:14 Carbon Dioxide 20 mEq/L (23-29) L 07/31/18 07:14 BUN 31 mg/dL (6-20) H 07/31/18 07:14 Creatinine 1.68 mg/dL (0.60-1.20) H 07/31/18 07:14 Est GFR ( Amer) 38 (> 60) L 07/31/18 07:14 Est GFR (Non-Af Amer) 32 (> 60) L 07/31/18 07:14 Glucose 302 mg/dL (70-105) H 07/31/18 07:14 POC Glucose 319 mg/dL (70-99) H 07/31/18 05:51 Calculated Osmolality 310 (280-300) H 07/31/18 07:14 H & H 07/31/18 Range/Units 07:14 Hgb 10.6 L (11.5-15.4) g/dL Hct 33.4 L (35.3-44.9) % All other labs normal. - Diagnostic results Hip x-ray: image reviewed Knee x-ray: image reviewed Consult Discharge Plan - Plan Referrals: Ted Parada DO [Primary Care Provider] -
[2018-07-31] MEDS ORDERED: Clindamycin 900 MG/50 ML 900 MG/50 ML IV.SOLN IVPB ONE (11:22)
[2018-07-31 11:29] LABS: Estimated Average Glucose 183 mg/dl
[2018-07-31] MEDS: Insulin LISPRO 300 UNITS/3 ML VIAL SQ SCH ×3 (12:42→21:17)
[2018-07-31] MEDS: *HR* Heparin 5,000 UNIT/ML VIAL SQ SCH ×2 (14:09→21:15)
[2018-07-31 14:20] LABS: Bilirubin,Urine Negative (Negative); Blood,Urine Moderate (Negative); Color,Urine Yellow (Yellow); Glucose,Urine (UA) 250 mg/dL (Normal); Ketones,Urine Trace mg/dL (Negative); Leukocyte Esterase,Urine Large (Negative); Nitrite,Urine Positive (Negative); Protein,Urine 100 mg/dL (Neg-Trace); Urobilinogen,Urine Normal (Normal)
[2018-07-31 14:22] LABS: Bacteria,Urine Many per hpf (None-Few); Clarity,Urine Cloudy (Clear); RBC,Urine 15-30 per hpf (0-3); Squamous Epithelial Cell,Urine Many per lpf (None-Few); WBC,Urine TNTC per hpf (0-3)
[2018-07-31 14:33] LABS: Hyaline Casts,Urine Few per lpf (None-Few)
--- NOTE | 2018-07-31 15:56 | Event Note ---
Date of Encounter: 07/31/18 Time of Encounter: 15:48 Patient was seen earlier this by Dr. Brain butts. Also seen and examined by myself. In summary 38-year-old female with multiple comorbidities presented to outside hospital with complaints of left leg pain after a fall. She was found to have an acute displaced comminuted distal left femur fracture was transferred for orthopedic evaluation. Left femur fracture: Secondary to mechanical fall prior to arrival. Evaluated by Ortho [facility] surgery who noted that this is a surgical fracture however patient high risk for complications with multiple comorbidities. Keep NPO at midnight in light of possible surgical repair once risk stratified by cardiology. Orthopedics following Preop cardiac risk stratification: Patient with multiple comorbidities including CKD, uncontrolled diabetes, PAF and morbid obesity. No known CAD. No previous ischemic evaluation. Denied chest pain. No shortness of breath. Unable to complete more than 4 METs at home without experiencing dyspnea. Cardiology consult is for risk stratification CKD: per hx. Renal function appears to be at baseline. PAF: per hx. Rate controlled. No anticoagulation per patient secondary to epistaxis. UTI: UA turning for UTI. Start Cipro. Follow urine culture Chronic wounds: Bilateral lower extremities and pannus. Wound care consult
--- NOTE | 2018-07-31 16:42 | Cardiology Consult Note ---
<Connie Vergara - Last Filed: 07/31/18 17:00> Date of Encounter: 07/31/18 Time of Encounter: 15:00 Assessment and Plan (1) Preop cardiovascular exam Current Visit: Yes Status: Acute Per cardiology: -Preop exam for orthopedic procedure. -Poor historian, no previous cardiology records [facility]. -Reports CAD however denies previous LHC. -Reports CHF, again denies previous LHC, suspect diastolic. -Reports a.fib, not on anticoagulation due to bleeding. Patient is unsure about bleeding from where. -Poor functional status. Unable to achieve 4 METs. -Appears volume overloaded on exam, unsure baseline. Unclear whether lower extremity edema is related to CHF or chronic venous insufficiency. Patient refused respiratory assessment. -Will check TTE, ECG. -With poor functional status, co-morbid conditions, anticipate patient would be high risk for cardiovascular complications in the karen-operative time frame. Discussion w patient/family: The assessment and plan as outlined above was discussed with the patient who expressed understanding and agreement. All questions were answered. Thank you for involving us in the care of your patient. Please call with any questions. Discussed and reviewed with History of Present Illness Consult date: 07/31/18 Requesting physician: Eloisa Rordiguez Consult reason: preop Chief complaint: leg pain History of present illness: Ms. Romero is a 58 year old female who reports medical history of a.fib, bleeding, HTN, HLD, reports CAD, however states has never had LHC, reports CHF, CKD, obesity, DM, chronic leg wounds who was admitted to [facility] due to femur fracture. Plan for orthopedic procedure. Patient is a poor historian and no previous cardiology records to review at [facility]. Patient reports shortness of breath. Denies chest pain. Reports lower extremity edema. Reports fatigue. Patient states very inactive at home. Past Med Surg Social Fam HX - Past Medical History Attestation: Yes The following information was validated with the patient. Source: patient Medical history: atrial fibrillation, CHF, COPD, diabetes, hyperlipidemia, hypertension, renal disease, thyroid disease, venous stasis Psychiatric history: depression - Past Surgical History Surgical History: appendectomy, cholecystectomy, hysterectomy Additional surgical history: Left knee scope - Social History Smoking Status: Former smoker Smokeless Tobacco Status: No Alcohol use: none Drug use: none - Family History Mother Adopted: No Family Member Ethnicity: Non- Living Status: Still Living Hx Family Cardiac Disorders: No Hx Family Respiratory Disorders: Yes Hx Family Cancer: No Hx Family GI Disorders: No Hx Family Endocrine Disorder: Yes Hx Family Neuromuscular Disorders: No Hx Family Neurologic Disorders: No Hx Family HEENT Disorders: No Hx Family Autoimmune Disorders: No Father Adopted: No Family Member Ethnicity: Non- Living Status: Hx Family Cardiac Disorders: No Hx Family Respiratory Disorders: No Hx Family Cancer: No Hx Family GI Disorders: No Hx Family Endocrine Disorder: Yes (DM) Hx Family Neuromuscular Disorders: No Hx Family Neurologic Disorders: No Hx Family HEENT Disorders: No Hx Family Autoimmune Disorders: No Medications and Allergies Citalopram [CeleXA] 20 mg PO DAILY 08/15/17 [History] Cyanocobalamin (Vitamin B-12) [Vitamin B12] 1,000 mcg PO DAILY 08/15/17 [History] Cyclobenzaprine [Flexeril] 10 mg PO TID PRN 08/15/17 [History] Furosemide [Lasix] 40 mg PO DAILY 08/15/17 [History] Gabapentin [Neurontin] 300 mg PO HS 08/15/17 [History] Insulin LISPRO [Humalog Kwikpen U-100] 0 unit SQ TIDWM 08/15/17 [History] Lisinopril [Zestril] 10 mg PO DAILY 08/15/17 [History] Metoprolol XL (24 HR) Succ [Toprol Xl] 25 mg PO DAILY 08/15/17 [History] Ascorbic Acid [Vitamin C] 500 mg PO BID 11/22/17 [History] Ferrous Sulfate [Iron] 325 mg PO BID 11/22/17 [History] Levothyroxine [Synthroid] 50 mcg PO 0630 11/22/17 [History] Nystatin POWDER [Nystop] 1 appl TP BID 11/22/17 [History] Potassium Chloride [K-Tab ER] 20 meq PO DAILY 11/22/17 [History] Ipratropium/Albuterol Neb [Duoneb] 3 ml IH Q4HR PRN #30 inhsol 12/02/17 [Rx] Insulin Degludec [Tresiba Flextouch U-200] 30 unit SQ BID 07/31/18 [History] Allergy/AdvReac Type Severity Reaction Status Date / Time carisoprodol [From Soma] Allergy Hives Verified 08/15/17 13:23 cephalexin [From Keflex] Allergy Hives Verified 08/15/17 13:23 Sulfa (Sulfonamide Allergy Hives Verified 08/15/17 13:23 Antibiotics) All Systems Review: The remainder of the systems were reviewed and are negative - Cardiovascular Cardiovascular: as per HPI, dyspnea at rest, dyspnea on exertion, leg edema Physical Examination Vital Signs, Last 4 Hours Temp Pulse Resp BP Pulse Ox 07/31/18 15:30 97.5 F L 66 21 155/73 99 General: Other (Lethargic, difficult to arouse. ) HEENT: Atraumatic, Normocephaly, Mucus Membranes Moist Neck: No JVD, Normal carotid pulses Cardiac: Reg Rate and Rhythm, Normal S1 and S2, No Murmur Lungs: Other (Refused respiratory assessment. ) Abdomen: Other (Large panus noted with multiple scabbed areas. ) Skin: Other (Multiple scabs noted on panus and lower extremities. Lower extremities red. ) Musculoskeletal: No Chest Wall Tenderness Extremities: No Clubbing, No Cyanosis, Normal Pulses, Other (Bilateral lower extremity edema noted. ) Results 07/31/18 07:14 07/31/18 07:14 Lab Results Active Medications Citalopram Hydrobromide (Celexa) 20 mg PO DAILY VICKIE Stop: 01/31/19 09:01 Cyclobenzaprine HCl (Flexeril) 10 mg PO TID PRN PRN Reason: Muscle Spasm Stop: 01/30/19 09:19 Last Admin: 07/31/18 11:10 Dose: 10 mg Dextrose/Water (Dextrose 50% (Syg)) 25 ml IVP AD PRN PRN Reason: Hypoglycemia Stop: 01/30/19 04:00 Ferrous Sulfate (Ferrous Sulfate) 325 mg PO BIDWM VICKIE Stop: 01/30/19 17:01 Furosemide (Lasix) 40 mg PO DAILY VICKIE Stop: 01/31/19 09:01 Gabapentin (Neurontin) 300 mg PO HS VICKIE Stop: 01/30/19 21:01 Glucagon (Glucagen) 1 mg IM ONCE PRN PRN Reason: Hypoglycemia Stop: 01/30/19 04:00 Glucose (Gluctose) 15 gm PO ONCE PRN PRN Reason: Hypoglycemia Stop: 01/30/19 04:00 Glucose (Gluctose) 30 gm PO ONCE PRN PRN Reason: Hypoglycemia Stop: 01/30/19 04:00 Heparin Sodium (Porcine) (Heparin) 5,000 unit SQ Q8HCO [facility] Stop: 01/30/19 14:01 Last Admin: 07/31/18 14:09 Dose: 5,000 unit Sodium Chloride (0.9 % Sodium Chloride) 1,000 mls @ 50 mls/hr IVC .Q20H VICKIE Stop: 08/01/18 00:14 Last Admin: 07/31/18 05:59 Dose: 50 mls/hr Dextrose (Dextrose 5%) 1,000 mls @ 100 mls/hr IVC .Q10H PRN PRN Reason: HYPOGLYCEMIA Stop: 01/30/19 04:00 Ciprofloxacin Lactate (Cipro Premix 400 Mg/200 Ml) 400 mg in 200 mls @ 200 mls/hr IVPB Q12HR [facility] Stop: 01/30/19 18:01 Insulin Human Lispro (Humalog) 0 units SQ TIDAC [facility]; Protocol Stop: 01/30/19 11:31 Last Admin: 07/31/18 12:42 Dose: 6 units Insulin Human Lispro (Humalog) 0 units SQ HS [facility]; Protocol Stop: 01/30/19 21:01 Levothyroxine Sodium (Synthroid) 50 mcg PO 0630 [facility] Stop: 01/31/19 06:31 Lisinopril (Zestril) 10 mg PO DAILY [facility]; Protocol Stop: 01/31/19 09:01 Metoprolol Succinate (Toprol Xl) 25 mg PO DAILY [facility] Stop: 01/31/19 09:01 Naloxone HCl (Narcan) 0.4 mg IVP Q2MIN PRN PRN Reason: SEE COMMENTS Stop: 01/30/19 03:55 Oxycodone HCl (Oxycodone Oral Conc) 5 mg SL Q6HR PRN; Protocol PRN Reason: Pain Stop: 01/30/19 04:17 Last Admin: 07/31/18 14:31 Dose: 5 mg Consult Discharge Plan - Plan Referrals: eTd Parada, DO [Primary Care Provider] - <Marshall Gillespie - Last Filed: 07/31/18 19:07> Date of Encounter: 07/31/18 - Attending Attestation Patient was seen and evaluated independently by me. Findings, assessment and plan were discussed at length with patient, questions answered. Agree with nurse practitioner's/resident's documentation. Addition as follows, 58yoCF ho Afib refusing A/C due to unclear bleeding, CHF, HTN, HLD, reported CAD, CKD, IDDM, hypothyroidism. P/w L-knee pain. Found distal-femoral fracture. Plan possible ORIF. Consulted for pre-op CV risk stratification. A: METs<4, high cardiac risk for surgery No active angina Ho CHF, likely HFpEF, seems mild fluid overload PAF CKD IDDM P: - ECG - TTE - no stress test plan - hold lisinopril pre-op, resume post-op if no OLIVA - periop lopressor and lasix iv Marshall Gillespie MD, PhD Assessment and Plan Discussion w patient/family: The assessment and plan as outlined above was discussed with the patient and/or family members who expressed understanding and agreement. All questions were answered. Thank you for involving us in the care of your patient. Please call with any questions. History of Present Illness History of present illness: Ms. Romero is a 58 year old female All Systems Review: The remainder of the systems were reviewed and are negative Physical Examination Vital Signs, Last 4 Hours Temp Pulse Resp BP Pulse Ox 07/31/18 18:23 98.1 F 66 16 155/74 100 07/31/18 15:30 97.5 F L 66 21 155/73 99 Results 07/31/18 07:14 07/31/18 07:14 Lab Results 07/31/18 07/31/18 07:14 07:14 WBC 12.7 H Hgb 10.6 L Hct 33.4 L Plt Count 179 Sodium 141 Potassium 3.8 Chloride 112 H Carbon Dioxide 20 L BUN 31 H Creatinine 1.68 H Glucose 302 H Calcium 8.8
[2018-07-31] MEDS: Gabapentin 300 MG CAPSULE PO SCH (21:16)
[2018-08-01] MEDS: OXYCODONE Oral CONC 10 MG/0.5 ML ORAL.SYG SL PRN ×2 (05:23→12:30)
[2018-08-01] MEDS: *HR* Heparin 5,000 UNIT/ML VIAL SQ SCH (05:33)
[2018-08-01] MEDS ORDERED: Perflutren Lipid Microsphere 1.3 ML in 0.9 % Sodium Chloride 8.7 ML IVP ONE ×2 (07:36→21:38)
[2018-08-01] MEDS: Insulin LISPRO 300 UNITS/3 ML VIAL SQ SCH ×2 (08:35→11:44)
[2018-08-01 08:59] LABS: Hematocrit 34.7 % (35.3-44.9); Hemoglobin 10.6 g/dL (11.5-15.4); Mean Corpuscular HGB Conc 30.5 g/dL (31.6-35.5); Mean Corpuscular Hemoglobin 25.7 pg (28.0-33.3); Mean Platelet Volume 11.9 fL (9.4-12.4); Platelet Count 207 K/mcL (140-400); Red Blood Count 4.13 M/mcL (3.82-4.97); Red Cell Distribution Width 17.9 % (11.5-14.5)
[2018-08-01] MEDS ORDERED: Furosemide 40 MG TABLET PO SCH (09:00)
[2018-08-01] MEDS ORDERED: Metoprolol XL (24 HR) Succ 25 MG TAB.ER.24H PO SCH (09:00)
[2018-08-01 09:09] LABS: Calcium 8.6 mg/dL (8.6-10.3); Potassium 3.6 mEq/L (3.5-5.1)
--- NOTE | 2018-08-01 09:22 | Internal Med Progress Note ---
<Timmy Harris - Last Filed: 08/01/18 14:06> Hospitalist Progress Note - Encounter Date of Encounter: 08/01/18 - Exam Vitals: Temp Pulse Resp BP Pulse Ox 97.5 F L 66 16 128/68 95 08/01/18 10:42 08/01/18 10:42 08/01/18 10:42 08/01/18 10:42 08/01/18 10:42 - Assessment and Plan (1) Atrial fibrillation Current Visit: No Status: Suspected (2) Wounds, multiple Current Visit: Yes Status: Chronic (3) Chronic kidney disease Current Visit: Yes Status: Chronic (4) Diabetes mellitus Current Visit: Yes Status: Chronic (5) Closed left femoral fracture Current Visit: Yes Status: Acute (6) UTI (urinary tract infection) Current Visit: Yes Status: Acute (7) CAD (coronary artery disease) Current Visit: No Status: Chronic (8) Hypertension Current Visit: No Status: Chronic (9) Morbid obesity Current Visit: No Status: Chronic (10) CHF (congestive heart failure) Current Visit: Yes Status: Suspected (11) TYLER (obstructive sleep apnea) Current Visit: Yes Status: Suspected - Time Spent with Patient Total time spent is greater than 50% in coordination of care (as documented) at patient's floor/unit and/or counseling patient: Internal Medicine: Result - Labs CBC & Chem 7: 08/01/18 08:33 08/01/18 08:33 Labs: Short CBC 08/01/18 Range/Units 08:33 WBC 12.2 H (4.3-11.1) K/mcL Hgb 10.6 L (11.5-15.4) g/dL Hct 34.7 L (35.3-44.9) % Plt Count 207 (140-400) K/mcL BMP 08/01/18 08:33 Sodium 138 Potassium 3.6 Chloride 111 H Carbon Dioxide 23 BUN 28 H Creatinine 1.49 H Glucose 231 H Calcium 8.6 Urine 07/31/18 Range/Units 14:10 Urine Color Yellow (Yellow) Urine Clarity Cloudy A (Clear) Urine pH 6.0 (5.0-8.0) pH Units Ur Specific [place] 1.010 (1.010-1.025) Urine Protein 100 H (Neg-Trace) mg/dL Urine Glucose (UA) 250 H (Normal) mg/dL - Impressions Impressions Echocardiogram 08/01/18 13:27 Impressions: LVEF 70-75%, hyperdynamic LV. Normal LV chamber size and function. Mild concentric left ventricular hypertrophy. Normal right ventricular structure and function. No significant valvular dysfunction. No evidence of pulmonary hypertension. Low estimated RA pressure. Left Ventricular Wall Motion: Rest Echo Findings The apex, apical inferior, mid inferior, basal inferior, apical anterior, mid anterior, basal anterior, apical septal, mid inferior septal, basal inferior septal, apical lateral, mid anterior lateral, basal anterior lateral, mid anterior septal, mid inferior lateral, basal anterior septal and basal inferior lateral angeles were hyperkinetic. Findings: Study Quality * Technically adequate exam. ECG Findings * Normal sinus rhythm. Left Ventricle * LVEF 70-75%, hyperdynamic LV. * Normal LV chamber size and function. * Mild concentric left ventricular hypertrophy. * Normal left ventricular diastolic function. Right Ventricle * Normal right ventricular structure and function. Left Atrium * Normal left atrial size. Right Atrium * Normal right atrial size. Interatrial Septum * Interatrial septum not well evaluated. Aortic Valve * Aortic valve not well visualized. * No aortic stenosis. * No aortic regurgitation. Mitral Valve * Moderate mitral annular calcification. * Normal mitral valve structure and function. * No mitral regurgitation. * No mitral stenosis. Tricuspid Valve * Normal tricuspid valve structure and function. * No tricuspid stenosis. * Trace tricuspid regurgitation. * Unable to estimate RVSP due to lack of TR jet. * No evidence of pulmonary hypertension. * Estimated RA pressure is 3 mmHg. Pulmonic Valve * Pulmonic valve is not well visualized. * No pulmonic stenosis. * Trace pulmonic regurgitation. Aorta * Normally sized aortic root. Pericardium * The pericardium appears normal. IVC * Normal IVC dimensions and inspiratory collapse. Consult Discharge Plan - Plan Referrals: Ted Parada DO [Primary Care Provider] - - Attending Attestation I examined this patient and my medical decision-making was reviewed with the Resident Physician on 08/01/18. I agree with the documented findings, disposition and treatment plan as described except to the extent set forth below. Ms Romero is currently admitted with acute left Femur fracture. She remains moderate to high risk due to potential for worsening clinical status. Ms Romero is resting at this time. She is to go to OR today. No fever or chills. No current chest pain. While sleeping she was noted to have some apnea and saturation about 80%. Exam Alert Comfortable Mucus membranes dry Heart distant. Not tachy at this time Lungs clear currently Abd soft and nontender No edema I/P 1. Acute L femur fracture - pt high risk for perioperative complications. Also appears to have some sleep apnea. Plan is for OR today and close medical follow up. 2. CKD3 3. Probable chronic diastolic heart failure 4. Morbid obesity 5. Probable TYLER 6. HTN - controlled at this time Further diagnoses and plan as above. <Ben Kowalski - Last Filed: 08/01/18 14:57> Hospitalist Progress Note - Encounter Date of Encounter: 08/01/18 Time of Encounter: 09:22 - Subjective Interval History: Patient stated her pain is well controlled, aware of plan for orthopedic surgery once medically cleared. No events reported by nursing. - Exam Vitals: Temp Pulse Resp BP Pulse Ox 98.2 F 72 20 138/73 97 08/01/18 06:26 08/01/18 06:26 08/01/18 06:26 08/01/18 06:26 08/01/18 08:42 Exam: General: Sedated from pain medications, easily arousable, oriented x 3 Skin:Normal color, no rash. Chronic venous stasis to bilateral lower extremities. HEENT:Pupils equal, round and reactive. Cardiovascular:Heart sounds distant, no rubs, murmurs or gallops. No JVD. Pulse regular. Lungs:Breath sounds distant, no wheezes or crackles noted. Abdomen:Obese, Soft, non-tender, no rigidity. Extremities:No deformity, no joint swelling or clubbing. Tenderness to left lower extremity with movement. 2+ pitting edema noted to bilateral lower extremities. Unable to straighten left lower extremity. Neurological:Normal cognition and motor skills. Pulses:Carotid and radial pulses normal +2. Rest of the physical exam is non contributory. - Assessment and Plan (1) Closed left femoral fracture Current Visit: Yes Status: Acute Assessment and Plan: Patient transferred for left distal femoral fracture Orthopedics consulted, recommended surgical fixation Orthopedics requested medical maximization and cardiology consultation Cardiology evaluated patient as high risk Echocardiogram demonstrated EF70-75%, no diastolic dysfunction Physical exam and clinical observation suggests sleep apnea Medical evaluation also stages this patient as high risk Plan NPO. MIVF 50ml/hr x 1L Pain control PRN. Await further Orthopedic recommendations (2) Wounds, multiple Current Visit: Yes Status: Chronic Assessment and Plan: Wound team consulted. (3) UTI (urinary tract infection) Current Visit: Yes Status: Acute Assessment and Plan: Presented with white count 12, no urinary symptoms reported UA suspicious for UTI, urine culture demonstrated gram negative rods Patient started on ciprofloxacin, day 2 Repeat white count 12 this AM Plan Continue antibiotics Continue to monitor clinical response (4) Chronic kidney disease Current Visit: Yes Status: Chronic Assessment and Plan: Creatinine elevated 1.6 on admission Based on previous admissions this appears to be baseline Continue home meds lisinopril, furosemide, metolazone, potsassium Gentle MIVF NS 50ml/hr x1L Continue to monitor renal function and avoid nephrotoxins (5) Diabetes mellitus Current Visit: Yes Status: Chronic Assessment and Plan: Chronic diabetic on 30 units BID basal insulin and sliding scale Started on sliding scale here, q6 glucose checks Will resume basal insulin once patient is not NPO (6) CAD (coronary artery disease) Current Visit: No Status: Chronic Assessment and Plan: Patient reports history of CAD, denies history of [facility] Patient also reports history of CHF Cardiology consulted No EKG changes identified Echo demonstrated EF 70-75%, no diastolic dysfunction Continue home metoprolol (7) Atrial fibrillation Current Visit: No Status: Suspected Assessment and Plan: Patient reports history of AFib Not on anticoagulation because of bleeding she cant recall No arrhythmia identified here continue to monitor DVT Prophylaxis: subcutaneous heparin - Time Spent with Patient Total time spent is greater than 50% in coordination of care (as documented) at patient's floor/unit and/or counseling patient: Internal Medicine: Result - Labs CBC & Chem 7: 08/01/18 08:33 08/01/18 08:33 Labs: Short CBC 08/01/18 Range/Units 08:33 WBC 12.2 H (4.3-11.1) K/mcL Hgb 10.6 L (11.5-15.4) g/dL Hct 34.7 L (35.3-44.9) % Plt Count 207 (140-400) K/mcL BMP 08/01/18 08:33 Sodium 138 Potassium 3.6 Chloride 111 H Carbon Dioxide 23 BUN 28 H Creatinine 1.49 H Glucose 231 H Calcium 8.6 Urine 12/30/18 Range/Units 14:10 Urine Color Yellow (Yellow) Urine Clarity Cloudy A (Clear) Urine pH 6.0 (5.0-8.0) pH Units Ur Specific [place] 1.010 (1.010-1.025) Urine Protein 100 H (Neg-Trace) mg/dL Urine Glucose (UA) 250 H (Normal) mg/dL - Impressions Impressions Echocardiogram 08/01/18 13:27 Impressions: LVEF 70-75%, hyperdynamic LV. Normal LV chamber size and function. Mild concentric left ventricular hypertrophy. Normal right ventricular structure and function. No significant valvular dysfunction. No evidence of pulmonary hypertension. Low estimated RA pressure. Left Ventricular Wall Motion: Rest Echo Findings The apex, apical inferior, mid inferior, basal inferior, apical anterior, mid anterior, basal anterior, apical septal, mid inferior septal, basal inferior septal, apical lateral, mid anterior lateral, basal anterior lateral, mid anterior septal, mid inferior lateral, basal anterior septal and basal inferior lateral angeles were hyperkinetic. Findings: Study Quality * Technically adequate exam. ECG Findings * Normal sinus rhythm. Left Ventricle * LVEF 70-75%, hyperdynamic LV. * Normal LV chamber size and function. * Mild concentric left ventricular hypertrophy. * Normal left ventricular diastolic function. Right Ventricle * Normal right ventricular structure and function. Left Atrium * Normal left atrial size. Right Atrium * Normal right atrial size. Interatrial Septum * Interatrial septum not well evaluated. Aortic Valve * Aortic valve not well visualized. * No aortic stenosis. * No aortic regurgitation. Mitral Valve * Moderate mitral annular calcification. * Normal mitral valve structure and function. * No mitral regurgitation. * No mitral stenosis. Tricuspid Valve * Normal tricuspid valve structure and function. * No tricuspid stenosis. * Trace tricuspid regurgitation. * Unable to estimate RVSP due to lack of TR jet. * No evidence of pulmonary hypertension. * Estimated RA pressure is 3 mmHg. Pulmonic Valve * Pulmonic valve is not well visualized. * No pulmonic stenosis. * Trace pulmonic regurgitation. Aorta * Normally sized aortic root. Pericardium * The pericardium appears normal. IVC * Normal IVC dimensions and inspiratory collapse. <Bentley Harrismeli Christianson - Last Filed: 08/01/18 14:06> (1) Atrial fibrillation Qualifiers: Atrial fibrillation type: chronic Qualified Code(s): I48.2 - Chronic atrial fibrillation (3) Chronic kidney disease Qualifiers: Chronic kidney disease stage: stage 3 (moderate) Qualified Code(s): N18.3 - Chronic kidney disease, stage 3 (moderate) (4) Diabetes mellitus Qualifiers: Diabetes mellitus type: type 2 Diabetes mellitus long term care pharmacist insulin use: with long-term use Diabetes mellitus complication status: with hyperglycemia Qualified Code(s): E11.65 - Type 2 diabetes mellitus with hyperglycemia; Z79.4 - FPC (current) use of insulin (5) Closed left femoral fracture Qualifiers: Encounter type: subsequent encounter Femur location: distal Fracture morphology: other fracture Fracture healing: with routine healing Qualified Code(s): S72.492D - Other fracture of lower end of left femur, subsequent encounter for closed fracture with routine healing (6) UTI (urinary tract infection) Qualifiers: Urinary tract infection type: acute cystitis Hematuria presence: without hematuria Qualified Code(s): N30.00 - Acute cystitis without hematuria (7) CAD (coronary artery disease) Qualifiers: Coronary Disease-Associated Artery/Lesion type: [place] artery [place] vs. transplanted heart: [place] heart Associated angina: without angina Qualified Code(s): I25.10 - Atherosclerotic heart disease of [place] coronary artery without angina pectoris (8) Hypertension Qualifiers: Hypertension type: essential hypertension Qualified Code(s): I10 - Essential (primary) hypertension (10) CHF (congestive heart failure) Qualifiers: Heart failure type: diastolic Heart failure chronicity: chronic Qualified Code(s): I50.32 - Chronic diastolic (congestive) heart failure <Ben Kowalski - Last Filed: 08/01/18 14:57> (1) Closed left femoral fracture Qualifiers: Encounter type: subsequent encounter Femur location: distal Fracture morpho logy: other fracture Fracture healing: with routine healing (3) UTI (urinary tract infection) Qualifiers: Urinary tract infection type: acute cystitis Hematuria presence: without hematuria Qualified Code(s): N30.00 - Acute cystitis without hematuria (4) Chronic kidney disease Qualifiers: Chronic kidney disease stage: stage 3 (moderate) Qualified Code(s): N18.3 - Chronic kidney disease, stage 3 (moderate) (5) Diabetes mellitus Qualifiers: Diabetes mellitus type: type 2 Diabetes mellitus long term care pharmacist insulin use: with long-term use Diabetes mellitus complication status: with hyperglycemia Qualified Code(s): E11.65 - Type 2 diabetes mellitus with hyperglycemia; Z79.4 - tank terminal gauger (current) use of insulin (6) CAD (coronary artery disease) Qualifiers: Coronary Disease-Associated Artery/Lesion type: [place] artery [place] vs. transplanted heart: [place] heart Associated angina: without angina Qualified Code(s): I25.10 - Atherosclerotic heart disease of [place] coronary artery without angina pectoris (7) Atrial fibrillation Qualifiers: Atrial fibrillation type: chronic Qualified Code(s): I48.2 - Chronic atrial fibrillation
--- NOTE | 2018-08-01 09:42 | Event Note ---
Date of Encounter: 08/01/18 Time of Encounter: 09:40 - Cardiology Event Note TTE with LVEF 70%, hyperdynamic wall motion. ECG with SR, non-specific T wave abnormalities noted, similar to baseline. With poor functional status, multiple co-morbidites, patient would be high risk for cardiovascular complications in the karen-operative time period. Cardiology will sign off.
[2018-08-01] MEDS ORDERED: 0.9 % Sodium Chloride 1,000 ML IVC SCH ×2 (14:00→21:38)
--- NOTE | 2018-08-01 14:07 | Anesthesia Evaluation PreOp ---
Date of Encounter: 08/01/18 Time of Encounter: 14:05 - Past History Planned Operation: Left Femur IM nail Cardiac History: Arrhythmia (paroxysmal afib) Pulmonary History: Denies Any Significant HX SOA ENGINEER History: Other (depression, Left lower extremity numbness and tingling) Other Medical History: Renal (CKD), Thyroid (hypo), Other (morbid obesity BMI 48) Anesthesia History: No Prior Anesthetic Complications, Past Anesthesia (appy, gaurang, hysterectomy, L knee scope) Alcohol Use: none Drug use: none Medications and Allergies Citalopram [CeleXA] 20 mg PO DAILY 08/15/17 [History] Cyanocobalamin (Vitamin B-12) [Vitamin B12] 1,000 mcg PO DAILY 08/15/17 [History] Cyclobenzaprine [Flexeril] 10 mg PO TID PRN 08/15/17 [History] Furosemide [Lasix] 40 mg PO DAILY 08/15/17 [History] Gabapentin [Neurontin] 300 mg PO HS 08/15/17 [History] Insulin LISPRO [Humalog Kwikpen U-100] 0 unit SQ TIDWM 08/15/17 [History] Lisinopril [Zestril] 10 mg PO DAILY 08/15/17 [History] Metoprolol XL (24 HR) Succ [Toprol Xl] 25 mg PO DAILY 08/15/17 [History] Ascorbic Acid [Vitamin C] 500 mg PO BID 11/22/17 [History] Ferrous Sulfate [Iron] 325 mg PO BID 11/22/17 [History] Levothyroxine [Synthroid] 50 mcg PO 0630 11/22/17 [History] Nystatin POWDER [Nystop] 1 appl TP BID 11/22/17 [History] Potassium Chloride [K-Tab ER] 20 meq PO DAILY 11/22/17 [History] Ipratropium/Albuterol Neb [Duoneb] 3 ml IH Q4HR PRN #30 inhsol 12/02/17 [Rx] Insulin Degludec [Tresiba Flextouch U-200] 30 unit SQ BID 07/31/18 [History] Loratadine [Claritin] 10 mg PO DAILY 08/01/18 [History] metOLazone [Zaroxolyn] 2.5 mg PO DAILY 08/01/18 [History] Allergy/AdvReac Type Severity Reaction Status Date / Time carisoprodol [From Soma] Allergy Hives Verified 08/01/18 12:20 cephalexin [From Keflex] Allergy Hives Verified 08/01/18 12:20 Sulfa (Sulfonamide Allergy Hives Verified 08/01/18 12:20 Antibiotics) - Meds/Allergy Pre-op Review Medications Reviewed: Yes Allergies Reviewed: Yes Beta Blockers on Current Med List: No Anesthesia Results - Labs 08/01/18 08:33 08/01/18 08:33 - Imaging EKG: report reviewed (NSR) Additional studies: Echocardiogram 08/01/18 13:27 Impressions: LVEF 70-75%, hyperdynamic LV. Normal LV chamber size and function. Mild concentric left ventricular hypertrophy. Normal right ventricular structure and function. No significant valvular dysfunction. No evidence of pulmonary hypertension. Low estimated RA pressure. Anesthesia Exam Vital Signs/O2 Sat, Most Current Temp Pulse Resp BP Pulse Ox 97.5 F L 66 16 128/68 95 08/01/18 10:42 08/01/18 10:42 08/01/18 10:42 08/01/18 10:42 08/01/18 10:42 Weight: 150kg NPO (# of Hours): >8 - HEENT Pupil (Motor): Pupils equal, EOMI Mallampati: III Teeth: Edentulous Oral Opening: Greater than 3 - SOA ENGINEER LOC: Oriented SOA ENGINEER Motor: Normal RUE, Normal LUE, Normal RLE, Normal Face, Deficit LLE (femur frature) SOA ENGINEER Sensory: Normal: RUE, LUE, RLE, Face, Deficit: LLE (LLE numbness and tingling) - Cardiac Rhythm: Regular - Pulmonary Breath Sounds: bilateral Clear Respiratory Effort: Symmetrical Anesthesia Assess/Plan ASA Score: 3 Level of consciousness: Cooperative Anesthetic Plan: General Monitoring Plan: Standard Monitors Recovery Plan: PACU
[2018-08-01] MEDS ORDERED: metOLazone 2.5 MG TABLET PO SCH (14:15)
[2018-08-01] MEDS ORDERED: Lidocaine -MPF 4% 5 ML AMPUL ONE (16:28)
[2018-08-01] MEDS ORDERED: Lidocaine -MPF 2% 2 ML VIAL ONE (16:28)
[2018-08-01] MEDS ORDERED: *HR* FentaNYL (PF) 100 MCG/2 ML VIAL ONE ×2 (16:28→18:20)
[2018-08-01] MEDS ORDERED: *HR* Midazolam HCl 2 MG/2 ML VIAL ONE (16:29)
[2018-08-01] MEDS ORDERED: *HR* Propofol 200 MG/20 ML VIAL IVP ONE (16:29)
[2018-08-01] MEDS ORDERED: Ondansetron 4 MG/2 ML VIAL ONE (16:47)
[2018-08-01] MEDS ORDERED: Dexamethasone 4 MG/ML VIAL ONE (16:47)
[2018-08-01] MEDS ORDERED: Clindamycin 900 MG/50 ML 900 MG/50 ML IV.SOLN IVPB ONE (16:53)
[2018-08-01] MEDS ORDERED: *HR* Meperidine 25 MG/ML SYRINGE IVP PRN ×2 (16:58→21:38)
[2018-08-01] MEDS ORDERED: *HR* HYDROmorphone (PF) 1 MG/ML SYRINGE IVP PRN ×2 (16:58→21:38)
[2018-08-01] MEDS ORDERED: *HR* OxyCODONE Immed Rel 5 MG TABLET PO PRN ×2 (16:58→21:38)
[2018-08-01] MEDS ORDERED: *HR* Promethazine 25 MG/ML VIAL IVP PRN ×2 (16:58→21:38)
[2018-08-01] MEDS ORDERED: Ondansetron 4 MG/2 ML VIAL IVP ONE ×2 (16:58→21:38)
[2018-08-01] MEDS ORDERED: EPHEDrine 50 MG/ML VIAL ONE (17:33)
[2018-08-01] MEDS ORDERED: *HR* EPINEPHrine 1 MG/ML AMPUL ONE (17:33)
[2018-08-01] MEDS ORDERED: *HR* PHENYLEPHRINE 1,000 MCG/10 ML SYRINGE IVP ONE ×2 (17:35→18:43)
[2018-08-01] MEDS ORDERED: *HR* Morphine 10 MG/ML VIAL ONE (19:29)
[2018-08-01] MEDS ORDERED: Ipratropium/Albuterol Neb 3 ML ONE (20:29)
--- NOTE | 2018-08-01 20:41 | Operative Note ---
Date of procedure: 08/01/18 Pre-op diagnosis: 1. Displaced, comminuted left distal femur fracture with intercondylar ext Post-op diagnosis: same Procedure: 1. Open reduction internal fixation/intramedullary nailing left femur fracture 2. Fluoroscopic guidance for left fracture fixation Implants: Synthes 12 mm x 380 mm retrograde femoral nail with a 5 mm end cap, 2 distal and 1 proximal locking screws and 1 distal interfragmentary screw all 5 mm Complications: None Anesthesia: GETA Surgeon: Jaret Marrero Was there an it administrative assistant present: No Estimated blood loss (cc): 250 Specimen: None Condition: stable Disposition: PACU Procedure in Detail: Gross findings: Patient is a massively, morbidly obese white female with a massive indurated pannus with severe panniculitis. In addition there are chronic wounds on the left distal tibia region and a healing ulceration on the posterior heel. There is pitting edema. X-rays reveals a displaced, comminuted distal femur fracture of the metadiaphyseal junction. There is extension to the knee. This is in the intercondylar region. The knee itself reveals severe arthritis. The fracture was treated with a combined intramedullary nailing and open reduction internal fixation. This was performed with fluoroscopic guidance. The fracture was extremely difficult due to the patient's massive size requiring a long positioning prepping and draping time. The surgery was consulted in a nearly anatomic position of the fracture and excellent position of the nail. Bone quality was excellent. Procedure: Patient was taken to the operating room and while the hospital bed was administered general anesthesia. Patient was now transferred to the operating room table. An extended period of time was required to appropriately position the patient for the surgical procedure including retracting the pannus making sure that all pressure points were well-padded approximately 60 minutes was required to prepare the patient to actually proceed with the surgical procedure. The left lower extremity was now prepped in a normal standard fashion for surgery. Fluoroscopy was used to verify the location of the fracture. The terminal end of the femur was identified and a incision was made lateral to the distal femur. Dissection was carried down to the anterior aspect of the distal femur and a single 5.0 mm screw was placed extremely anterior preventing separation of the intercondylar fracture fragment. Incision was now made from the inferior pole of patella to the tibia. Dissection was carried through the subcutaneous tissues down the level of the medial edge of the patella tendon which was split and the infrapatellar fat pad was excised. The intercondylar notch was noted entrance was made just anterior to the intercondylar notch. The opening was created with the 14 mm bit. Fluoroscopy was used to verify excellent position of the entrance point. At this time a ball-tipped guide maryam was passed up the femur and across the fracture site. The femur was now reamed up to a 13.5 mm with good endosteal chatter proximal length was measured to 380. At this time fluoroscopic views revealed some persistent posterior displacement of the fragments. Incision was then made lateral to the fracture site and dissection was carried to the subtendinous tissues of the iliotibial band which was split and dissection was carried through the fibers of the vastus lateralis down to the femur. Fracture hematoma was encountered and evacuated. Fracture was now reduced. This held reduced position with bone-holding clamps. The selected nail was then passed across the fracture site up into the proximal femur and seated. Position was verified with multiplane are fluoroscopy. At this time utilizing the guide on the insertion jig to distal locking screws were placed. This is followed by removal of the insertion jig and verification of continued excellent position of the nail and the fracture. At this time a static locking screw was placed proximally utilizing perfect circles and freehand technique. At this time multiple pole fluoroscopic views were performed verifying continued excellent reduction of the fracture and of the fracture implants. Continued position was maintained once all bone-holding clamps were removed. With implants in place attention was now paid to closure. Wounds were closed with loose pain first irrigated with saline and then the deep tissues closed with #1 Vicryl with the medius obtained his tissues closed with 2-0 undyed Vicryl and all skin approximation was stainless steel clips. The proximal locking screw wound was dressed with honeycomb OpSite. The distal incisions were dressed with bacitracin, Adaptic, 4 x 4's, sterile cast padding & Jose wrap. Patient was now awakened from anesthesia, extubated and then transferred to the postanesthesia care unit in stable and satisfactory condition. All sponge needle and instrument counts are correct. No specimens were sent for pathology.
[2018-08-01] MEDS ORDERED: Albumin 25% 12.5gm/50mL 12.5 GM/50 ML IV.SOLN IVPB ONE (20:44)
[2018-08-01] MEDS ORDERED: Calcium Gluconate 2,000 MG in 0.9 % Sodium Chloride 100 ML IVPB ONE (20:53)
--- NOTE | 2018-08-01 21:23 | Anesthesia Evaluation Post Op ---
Date of Encounter: 08/01/18 Time of Encounter: 21:22 - Discharge PostOp Status: Transfer Patient to floor (Patient's vital signs have been reviewed. Patient is stable postoperatively and has adequately recovered from anesthesia. Patient is determined to have stable airway patency and respiratory function including respiratory rate and oxygen saturation. Patient has a stable heart rate, blood pressure and adequate hydration. Patients mental status is acceptable. Patients temperature is appropriate. Pain and nausea are adequately controlled.)
[2018-08-01] MEDS ORDERED: D5% in Water 1,000 ML IVC PRN (21:38)
[2018-08-01] MEDS ORDERED: *HR* Dextrose 50 % in Water (Syg) 50 ML SYRINGE IVP PRN (21:38)
[2018-08-01] MEDS ORDERED: Dextrose Gel 15 GM/37.5 ML TUBE PO PRN ×2 (21:38)
[2018-08-01] MEDS ORDERED: Naloxone 0.4 MG/ML INJ IVP PRN (21:38)
[2018-08-01] MEDS: Clindamycin 900 MG/50 ML 900 MG/50 ML IV.SOLN IVPB SCH (23:19)
[2018-08-02] MEDS: OXYCODONE Oral CONC 10 MG/0.5 ML ORAL.SYG SL PRN ×2 (03:27→18:47)
[2018-08-02 07:11] LABS: Hematocrit 31.5 % (35.3-44.9); Hemoglobin 9.7 g/dL (11.5-15.4); Mean Corpuscular HGB Conc 30.8 g/dL (31.6-35.5); Mean Corpuscular Volume 84.5 fL (83.0-100.0); Platelet Count 229 K/mcL (140-400); Red Blood Count 3.73 M/mcL (3.82-4.97); Red Cell Distribution Width 18.4 % (11.5-14.5)
--- NOTE | 2018-08-02 07:17 | Internal Med Progress Note ---
<DexBen Trupti - Last Filed: 08/02/18 11:49> Hospitalist Progress Note - Encounter Date of Encounter: 08/02/18 Time of Encounter: 07:13 - Subjective Interval History: Patient states her pain is tolerable, orthopedic procedure went well yesterday. I informed her that the plan is likely for PT/OT today or whatever else Dr. Mahogany concepcion recommends. She states she anticipates returning to inpatient rehab at discharge. No events reported by nursing. - Exam Vitals: Temp Pulse Resp BP Pulse Ox 97.8 F 77 18 108/60 99 08/02/18 06:52 08/02/18 06:52 08/02/18 06:52 08/02/18 06:52 08/02/18 06:52 Exam: General: Alert and oriented x 3 Skin:Normal color, no rash. Chronic venous stasis to bilateral lower extremities. HEENT:Pupils equal, round and reactive. Cardiovascular:Heart sounds distant, no rubs, murmurs or gallops. No JVD. Pulse regular. Lungs:Breath sounds distant, no wheezes or crackles noted. Abdomen:Obese, Soft, non-tender, no rigidity, normal bowel sounds present. Extremities:No deformity, no joint swelling or clubbing. 2+ pitting edema noted to bilateral lower extremities. Pulses and motor intact in bilateral lower extremities, sensation diminished secondary to neuropathy. Left lower extremity errol bandage clean/dry/intact. Neurological:No focal deficits noted Rest of the physical exam is non contributory. - Assessment and Plan (1) Closed left femoral fracture Current Visit: Yes Status: Acute Assessment and Plan: Patient transferred for left distal femoral fracture Orthopedics consulted, recommended surgical fixation Orthopedics requested medical maximization and cardiology consultation Cardiology evaluated patient as high risk Echocardiogram demonstrated EF70-75%, no diastolic dysfunction Physical exam and clinical observation suggested sleep apnea Medical evaluation also staged this patient as high risk ORIF of left distal femur fracture successfully completed yesterday Patient tolerated procedure well, recovering Plan MIVF 100ml/hr x 1L Pain control PRN. PT/OT, Wound Care Await further Orthopedic recommendations (2) Wounds, multiple Current Visit: Yes Status: Chronic Assessment and Plan: Wound team consulted. (3) UTI (urinary tract infection) Current Visit: Yes Status: Acute Assessment and Plan: Presented with white count 12, no urinary symptoms reported UA suspicious for UTI, urine culture demonstrated gram negative rods Patient started on ciprofloxacin, day 3 Repeat white count 14 this AM, likely reactive from procedure yesterday No indication for systemic infection/sepsis on labs/vitals Plan Continue antibiotics Continue to monitor clinical response (4) Chronic kidney disease Current Visit: Yes Status: Chronic Assessment and Plan: Creatinine elevated 1.6 on admission Based on previous admissions that appears to be baseline Continued home meds lisinopril, furosemide, metolazone, potsassium Creatinine elevated today 2.2 Plan Continue MIVF NS 100ml/hr x1L Continue to monitor renal function and avoid nephrotoxins Renally dose ciprofloxacin 200mg daily (5) Diabetes mellitus Current Visit: Yes Status: Chronic Assessment and Plan: Chronic diabetic on 30 units BID basal insulin and sliding scale at home Started on low dose sliding scale here, q6 glucose checks while NPO Diabetic diet started yesterday, blood glucose today over 500 Plan Diabetic diet Start Levemir 30 units BID Switch to medium dose sliding scale ACHS accuchecks (6) CAD (coronary artery disease) Current Visit: No Status: Chronic Assessment and Plan: Patient reports history of CAD, denies history of [facility] Patient also reports history of CHF Cardiology consulted No EKG changes identified Echo demonstrated EF 70-75%, no diastolic dysfunction Continue home metoprolol, furosemide (7) Atrial fibrillation Current Visit: No Status: Suspected Assessment and Plan: Patient reports history of AFib Not on anticoagulation because of bleeding she cant recall No arrhythmia identified here continue to monitor (8) Sleep apnea Current Visit: Yes Status: Suspected Assessment and Plan: Suspect sleep apnea based on O2 Sat and exam here Pending overnight BiPAP qualifications DVT Prophylaxis: subcutaneous heparin - Time Spent with Patient Total time spent is greater than 50% in coordination of care (as documented) at patient's floor/unit and/or counseling patient: Internal Medicine: Result - Labs CBC & Chem 7: 08/02/18 06:26 08/02/18 06:26 Labs: Short CBC 08/01/18 Range/Units 08:33 WBC 12.2 H (4.3-11.1) K/mcL Hgb 10.6 L (11.5-15.4) g/dL Hct 34.7 L (35.3-44.9) % Plt Count 207 (140-400) K/mcL BMP 08/01/18 08:33 Sodium 138 Potassium 3.6 Chloride 111 H Carbon Dioxide 23 BUN 28 H Creatinine 1.49 H Glucose 231 H Calcium 8.6 - Impressions Impressions Echocardiogram 08/01/18 13:27 Impressions: LVEF 70-75%, hyperdynamic LV. Normal LV chamber size and function. Mild concentric left ventricular hypertrophy. Normal right ventricular structure and function. No significant valvular dysfunction. No evidence of pulmonary hypertension. Low estimated RA pressure. Left Ventricular Wall Motion: Rest Echo Findings The apex, apical inferior, mid inferior, basal inferior, apical anterior, mid anterior, basal anterior, apical septal, mid inferior septal, basal inferior septal, apical lateral, mid anterior lateral, basal anterior lateral, mid anterior septal, mid inferior lateral, basal anterior septal and basal inferior lateral angeles were hyperkinetic. Findings: Study Quality * Technically adequate exam. ECG Findings * Normal sinus rhythm. Left Ventricle * LVEF 70-75%, hyperdynamic LV. * Normal LV chamber size and function. * Mild concentric left ventricular hypertrophy. * Normal left ventricular diastolic function. Right Ventricle * Normal right ventricular structure and function. Left Atrium * Normal left atrial size. Right Atrium * Normal right atrial size. Interatrial Septum * Interatrial septum not well evaluated. Aortic Valve * Aortic valve not well visualized. * No aortic stenosis. * No aortic regurgitation. Mitral Valve * Moderate mitral annular calcification. * Normal mitral valve structure and function. * No mitral regurgitation. * No mitral stenosis. Tricuspid Valve * Normal tricuspid valve structure and function. * No tricuspid stenosis. * Trace tricuspid regurgitation. * Unable to estimate RVSP due to lack of TR jet. * No evidence of pulmonary hypertension. * Estimated RA pressure is 3 mmHg. Pulmonic Valve * Pulmonic valve is not well visualized. * No pulmonic stenosis. * Trace pulmonic regurgitation. Aorta * Normally sized aortic root. Pericardium * The pericardium appears normal. IVC * Normal IVC dimensions and inspiratory collapse. Femur X-Ray 08/01/18 17:55 IMPRESSION: Intraprocedural fluoroscopic spot images as above. See separate procedure report for more information. D/ / Derek Ramos MD / Derek Ramos MD Interpreting Provider: Derek Ramos MD Fluoroscopy 08/01/18 17:55 IMPRESSION: Intraprocedural fluoroscopic spot images as above. See separate procedure report for more information. D/ / Derek Ramos MD / Derek Ramos MD Interpreting Provider: Derek Ramos MD Consult Discharge Plan - Plan Referrals: Ted Parada DO [Primary Care Provider] - <Timmy Harris - Last Filed: 08/02/18 17:11> Hospitalist Progress Note - Encounter Date of Encounter: 08/02/18 - Exam Vitals: Temp Pulse Resp BP Pulse Ox 97.4 F L 59 14 96/57 91 08/02/18 15:26 08/02/18 15:26 08/02/18 15:26 08/02/18 15:26 08/02/18 15:26 - Assessment and Plan (1) Atrial fibrillation Current Visit: No Status: Suspected (2) Wounds, multiple Current Visit: Yes Status: Chronic (3) Chronic kidney disease Current Visit: Yes Status: Chronic (4) Diabetes mellitus Current Visit: Yes Status: Chronic (5) Closed left femoral fracture Current Visit: Yes Status: Acute (6) UTI (urinary tract infection) Current Visit: Yes Status: Acute (7) CAD (coronary artery disease) Current Visit: No Status: Chronic (8) Sleep apnea Current Visit: Yes Status: Suspected (9) Morbid obesity Current Visit: No Status: Chronic (10) Hypertension Current Visit: No Status: Chronic (11) Acute renal failure Current Visit: Yes Status: Suspected - Time Spent with Patient Total time spent is greater than 50% in coordination of care (as documented) at patient's floor/unit and/or counseling patient: Internal Medicine: Result - Labs CBC & Chem 7: 08/02/18 06:26 08/02/18 06:26 Labs: Short CBC 08/02/18 Range/Units 06:26 WBC 14.7 H (4.3-11.1) K/mcL Hgb 9.7 L (11.5-15.4) g/dL Hct 31.5 L (35.3-44.9) % Plt Count 229 (140-400) K/mcL BMP 08/02/18 06:26 Sodium 134 L Potassium 4.6 D Chloride 105 Carbon Dioxide 20 L BUN 40 H Creatinine 2.22 H Glucose 515 H* Calcium 8.3 L - Impressions Impressions Femur X-Ray 08/01/18 17:55 IMPRESSION: Intraprocedural fluoroscopic spot images as above. See separate procedure report for more information. D/ / Derek Ramos MD / Derek Ramos MD Interpreting Provider: Derek Ramos MD Fluoroscopy 08/01/18 17:55 IMPRESSION: Intraprocedural fluoroscopic spot images as above. See separate procedure report for more information. D/ / Derek Ramos MD / Derek Ramos MD Interpreting Provider: Derek Ramos MD - Attending Attestation I examined this patient and my medical decision-making was reviewed with the Resident Physician on 08/02/18. I agree with the documented findings, disposition and treatment plan as described except to the extent set forth below. Ms Romero is currently admitted for acute femur fracture s/p ORIF. She remains moderate to high risk due to potential for worsening clinical status. Ms Romero has markedly elevated blood sugars today now that she is taking in a diet. She is on high dose insulin at home. Her creatinine has increased today as well. No fever or chills. Pain appears to be controlled at this time. Exam Alert Comfortable at rest Mucus membranes dry Heart irreg and not tachy No wheeze Abd soft and nontender Edema present I/P 1. DM - very uncontrolled. Restart long acting insulin and increased coverage. Needs diet control. 2. Morbid obesity 3. Chronic a fib - rate controlled 4. UTI - on Cipro 5. OLIVA - most likely prerenal due to hypoperfusion. Fluids given. Recheck tomorrow. Further diagnoses and plan as above. <Rupinder Kowalskishua Trupti - Last Filed: 08/02/18 11:49> (1) Closed left femoral fracture Qualifiers: Encounter type: subsequent encounter Femur location: distal Fracture morphology: other fracture Fracture healing: with routine healing Qualified Code(s): S72.492D - Other fracture of lower end of left femur, subsequent encounter for closed fracture with routine healing (3) UTI (urinary tract infection) Qualifiers: Urinary tract infection type: acute cystitis Hematuria presence: without hematuria Qualified Code(s): N30.00 - Acute cystitis without hematuria (4) Chronic kidney disease Qualifiers: Chronic kidney disease stage: stage 3 (moderate) Qualified Code(s): N18.3 - Chronic kidney disease, stage 3 (moderate) (5) Diabetes mellitus Qualifiers: Diabetes mellitus type: type 2 Diabetes mellitus local company intermodal truck driver insulin use: with local company intermodal truck driver use Diabetes mellitus complication status: with hyperglycemia Qualified Code(s): E11.65 - Type 2 diabetes mellitus with hyperglycemia; Z79.4 - ferry terminal supervisor (current) use of insulin (6) CAD (coronary artery disease) Qualifiers: Coronary Disease-Associated Artery/Lesion type: sy[place] artery Platinum vs. tra nsplanted heart: sycuan heart Associated angina: without angina Qualified Code(s): I25.10 - Atherosclerotic heart disease of sy[place] coronary artery without angina pectoris (7) Atrial fibrillation Qualifiers: Atrial fibrillation type: chronic Qualified Code(s): I48.2 - Chronic atrial fibrillation <Timmy Harris - Last Filed: 08/02/18 17:11> (1) Atrial fibrillation Qualifiers: Atrial fibrillation type: chronic Qualified Code(s): I48.2 - Chronic atrial fibrillation (3) Chronic kidney disease Qualifiers: Chronic kidney disease stage: stage 3 (moderate) Qualified Code(s): N18.3 - Chronic kidney disease, stage 3 (moderate) (4) Diabetes mellitus Qualifiers: Diabetes mellitus type: type 2 Diabetes mellitus 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 Diabetes mellitus complication status: with hyperglycemia Qualified Code(s): E11.65 - Type 2 diabetes mellitus with hyperglycemia; Z79.4 - ferry terminal supervisor (current) use of insulin (5) Closed left femoral fracture Qualifiers: Encounter type: subsequent encounter Femur location: distal Fracture morphology: other fracture Fracture healing: with routine healing Qualified Code(s): S72.492D - Other fracture of lower end of left femur, subsequent encounter for closed fracture with routine healing (6) UTI (urinary tract infection) Qualifiers: Urinary tract infection type: acute cystitis Hematuria presence: without hematuria Qualified Code(s): N30.00 - Acute cystitis without hematuria (7) CAD (coronary artery disease) Qualifiers: Coronary Disease-Associated Artery/Lesion type: syc[place] artery Platinum vs. transplanted heart: sycuan heart Associated angina: without angina Qualified C ode(s): I25.10 - Atherosclerotic heart disease of syc[place] coronary artery without angina pectoris (8) Sleep apnea Qualifiers: Sleep apnea type: obstructive Qualified Code(s): G47.33 - Obstructive sleep apnea (adult) (pediatric) (10) Hypertension Qualifiers: Hypertension type: essential hypertension Qualified Code(s): I10 - Essential (primary) hypertension (11) Acute renal failure Qualifiers: Acute renal failure type: with acute tubular necrosis Qualified Code(s): N17.0 - Acute kidney failure with tubular necrosis
[2018-08-02 07:24] LABS: Calcium 8.3 mg/dL (8.6-10.3); Potassium 4.6 mEq/L (3.5-5.1)
[2018-08-02] MEDS ORDERED: Insulin LISPRO 300 UNITS/3 ML VIAL SQ SCH ×2 (07:30→21:00)
[2018-08-02] MEDS ORDERED: Insulin LISPRO 300 UNITS/3 ML VIAL SQ ONE (08:32)
[2018-08-02] MEDS: Metoprolol XL (24 HR) Succ 25 MG TAB.ER.24H PO SCH (09:05)
[2018-08-02] MEDS: metOLazone 2.5 MG TABLET PO SCH (09:06)
[2018-08-02] MEDS: Clindamycin 900 MG/50 ML 900 MG/50 ML IV.SOLN IVPB SCH (09:06)
[2018-08-02] MEDS: Furosemide 40 MG TABLET PO SCH (09:06)
[2018-08-02] MEDS: Insulin DETEMIR 100 UNIT/ML X5UNITS SQ SCH ×2 (09:08→21:53)
[2018-08-02] MEDS: Insulin LISPRO 300 UNITS/3 ML VIAL SQ SCH ×3 (11:43→21:53)
[2018-08-02] MEDS ORDERED: 0.9 % Sodium Chloride 1,000 ML IVC SCH (11:45)
[2018-08-02] MEDS: *HR* Heparin 5,000 UNIT/ML VIAL SQ SCH ×2 (14:21→21:52)
--- NOTE | 2018-08-02 15:39 | Orthopedics Progress Note ---
Date of Encounter: 08/02/18 Time of Encounter: 15:36 Subjective Principal diagnosis: Left femur fracture Interval history: 08/02/2018. Patient is postop day #1 intramedullary nailing of left femur fracture. Patient is having minimal left leg pain. Vital signs are stable. Patient is afebrile. Dressings are clean and dry. Neurovascular exam appears intact and stable. Hemoglobin is 9.7. Platelet count normal at 229. White blood cell count 14.7. BUN/creatinine are up. Blood sugars have been in the 4-500 range. Urine growing gram-negative rods. Impression: POD #1 ORIF/IM nailing left femur Recommendation: Can start physical therapy PAVEL. Patient will require touchdown weightbearing initially until we start to some fracture healing at which time we can advance her weight-bearing rather quickly. Need to address blood sugars to get them better controlled. Continue Cipro pending results of urine culture. Patient is high risk for infection in light of her poorly controlled blood sugars, morbid obesity, chronic kidney disease as well as open wounds on the lower extremities. Discussed at length with the patient. Objective Vital signs: Vital Signs Temp Pulse Resp BP Pulse Ox 08/02/18 15:26 97.4 F L 59 14 96/57 91 08/02/18 11:07 97.7 F 64 18 112/53 100 08/02/18 09:26 96 08/02/18 06:52 97.8 F 77 18 108/60 99 08/02/18 04:02 97.9 F 76 16 127/62 100 08/02/18 00:30 98.5 F 62 18 106/62 100 08/01/18 23:30 98.4 F 65 18 114/64 97 08/01/18 22:56 98.4 F 90 16 110/65 100 08/01/18 22:30 98.6 F 66 18 116/63 100 08/01/18 22:00 98.5 F 69 18 112/61 100 08/01/18 21:30 98.6 F 67 18 104/61 08/01/18 21:18 70 20 107/46 97 08/01/18 21:08 66 20 100/44 96 08/01/18 20:58 97.8 F 66 20 103/46 99 08/01/18 20:48 68 20 86/34 98 08/01/18 20:38 68 26 81/35 97 08/01/18 20:28 97.1 F L 68 26 80/33 96 Intake and Output 08/01/18 08/02/18 08/02/18 23:59 07:59 15:59 Intake Total 60 / 60 50 / 50 730 / 730 Output Total 250 / 250 450 / 450 Balance -190 / -190 -400 / -400 730 / 730 Intake: IV Fluids 50 / 50 250 / 250 Cipro Premix 400 MG/200 ML 400 200 / 200 mg In 200 ml @ 200 mls/hr IVPB Q12HR [facility] Rx#:[id number] Cleocin Premix 900 MG/50 ML 900 50 / 50 50 / 50 mg In 50 ml @ 50 mls/hr IVPB Q8HR [facility]ICK[facility] Rx#:[id number] Oral 60 / 60 480 / 480 Output: Urine 0 / 0 Estimated Blood Loss 250 / 250 Catheter 450 / 450 Other: Meal Lunch Percent of Meal Consumed 75% Weight 151 kg Blood Glucose* 237 564 490 Patient Weight 08/02/18 23:59 Weight 151 kg - Labs CBC & BMP: 08/02/18 06:26 08/02/18 06:26 Labs: Abnormal lab results WBC 14.7 K/mcL (4.3-11.1) H 08/02/18 06:26 RBC 3.73 M/mcL (3.82-4.97) L 08/02/18 06:26 Hgb 9.7 g/dL (11.5-15.4) L 08/02/18 06:26 Hct 31.5 % (35.3-44.9) L 08/02/18 06:26 MCH 26.0 pg (28.0-33.3) L 08/02/18 06:26 MCHC 30.8 g/dL (31.6-35.5) L 08/02/18 06:26 RDW 18.4 % (11.5-14.5) H 08/02/18 06:26 Neutrophils # 10.3 K/mcL (1.6-8.9) H 07/31/18 07:14 Immature Plt Fraction 9.4 % (1.1-6.1) H 07/31/18 07:14 Sodium 134 mEq/L (136-145) L 08/02/18 06:26 Carbon Dioxide 20 mEq/L (23-29) L 08/02/18 06:26 BUN 40 mg/dL (6-20) H 08/02/18 06:26 Creatinine 2.22 mg/dL (0.60-1.20) H 08/02/18 06:26 Est GFR ( Amer) 28 (> 60) L 08/02/18 06:26 Est GFR (Non-Af Amer) 23 (> 60) L 08/02/18 06:26 Glucose 515 mg/dL (70-105) H* 08/02/18 06:26 POC Glucose 460 mg/dL (70-99) H* 08/02/18 08:22 Hemoglobin A1c 8.0 % (-5.6) H 07/31/18 07:14 Calculated Osmolality 311 (280-300) H 08/02/18 06:26 Calcium 8.3 mg/dL (8.6-10.3) L 08/02/18 06:26 Urine Clarity Cloudy (Clear) A 07/31/18 14:10 Urine Protein 100 mg/dL (Neg-Trace) H 07/31/18 14:10 Urine Glucose (UA) 250 mg/dL (Normal) H 07/31/18 14:10 Urine Ketones Trace mg/dL (Negative) H 07/31/18 14:10 Urine Blood Moderate (Negative) H 07/31/18 14:10 Urine Nitrite Positive (Negative) A 07/31/18 14:10 Ur Leukocyte Esterase Large (Negative) H 07/31/18 14:10 Urine Microscopic RBC 15-30 per hpf (0-3) H 07/31/18 14:10 Urine Microscopic WBC TNTC per hpf (0-3) H 07/31/18 14:10 Ur Squamous Epith Cells Many per lpf (None-Few) H 07/31/18 14:10 Urine Bacteria Many per hpf (None-Few) H 07/31/18 14:10 Ur Culture Indicated? NO. (NO) A 07/31/18 14:10 Consult Discharge Plan - Plan Referrals: Ted Parada, [Primary Care Provider] -
[2018-08-02] MEDS: Gabapentin 300 MG CAPSULE PO SCH (21:52)
[2018-08-03 06:06] LABS: ABG Base Excess -4 mEq/L (-2 to 3); ABG HCO3 23 mEq/L (21-27); ABG Oxygen Saturation 97 % (95-98); ABG PCO2 46 mmHg (35-45); ABG PO2 103 mmHg (85-104); ABG TCO2 24 mEq/L (20-26)
[2018-08-03] MEDS: *HR* Heparin 5,000 UNIT/ML VIAL SQ SCH ×3 (06:24→20:39)
[2018-08-03] MEDS: Acetaminophen 325 MG TABLET PO PRN ×2 (06:24→15:58)
[2018-08-03 08:25] LABS: Hematocrit 28.7 % (35.3-44.9); Mean Corpuscular HGB Conc 31.4 g/dL (31.6-35.5); Mean Corpuscular Hemoglobin 25.8 pg (28.0-33.3); Mean Corpuscular Volume 82.2 fL (83.0-100.0); Mean Platelet Volume 11.1 fL (9.4-12.4); Platelet Count 220 K/mcL (140-400); Red Blood Count 3.49 M/mcL (3.82-4.97)
[2018-08-03 08:44] LABS: Calcium 8.2 mg/dL (8.6-10.3); Potassium 4.3 mEq/L (3.5-5.1)
[2018-08-03] MEDS: Insulin LISPRO 300 UNITS/3 ML VIAL SQ SCH ×5 (08:54→20:40)
[2018-08-03] MEDS: Insulin DETEMIR 100 UNIT/ML X5UNITS SQ SCH ×2 (08:54→20:40)
[2018-08-03] MEDS ORDERED: 0.9 % Sodium Chloride 250 ML IVC ONE (09:17)
[2018-08-03] MEDS: Furosemide 40 MG TABLET PO SCH (09:18)
[2018-08-03] MEDS: Metoprolol XL (24 HR) Succ 25 MG TAB.ER.24H PO SCH (09:19)
[2018-08-03] MEDS: metOLazone 2.5 MG TABLET PO SCH (09:19)
[2018-08-03] MEDS: 0.9 % Sodium Chloride 1,000 ML IVC SCH ×2 (10:20→20:43)
--- NOTE | 2018-08-03 11:39 | Electrocardiograph Report ---
[place] [id number] Test Date: 2018-07-31 Pat Name: Jeannie Romero Department: 114 Room: [facility] Gender: F Camp Advisor: : [id number] Requested By: Connie Vergara Order Number: [id number] Reading MD: Renny Multani Measurements Intervals Seale Rate: 67 P: 74 RI: 145 QRS: -2 QRSD: 103 T: 95 QT: 435 QTc: 450 Interpretive Statements SINUS RHYTHM NONSPECIFIC T-WAVE ABNORMALITY Electronically Signed On 08-03-2018 11:37:54 EST by Renny Multani
--- NOTE | 2018-08-03 18:12 | Internal Med Progress Note ---
<DexBen Trupti - Last Filed: 08/03/18 18:10> Hospitalist Progress Note - Encounter Date of Encounter: 08/03/18 Time of Encounter: 08:00 - Subjective Interval History: Patient has no acute complaints, no events reported by nursing. I informed her that our goal today is to have her work with physical therapy and address her blood glucose and declining kidney function. - Exam Vitals: Temp Pulse Resp BP Pulse Ox 97.5 F L 62 20 106/40 100 08/03/18 10:55 08/03/18 15:25 08/03/18 15:25 08/03/18 15:25 08/03/18 15:25 Exam: General: Alert and oriented x 3 Skin:Normal color, no rash. Chronic venous stasis to bilateral lower extremities. HEENT:Pupils equal, round and reactive. Cardiovascular:Heart sounds distant, no rubs, murmurs or gallops. No JVD. Pulse regular. Lungs:Breath sounds distant, no wheezes or crackles noted. Abdomen:Obese, Soft, non-tender, no rigidity, normal bowel sounds present. Extremities:No deformity, no joint swelling or clubbing. 2+ pitting edema noted to bilateral lower extremities. Pulses and motor intact in bilateral lower extremities, sensation diminished secondary to neuropathy. Left lower extremity errol bandage clean/dry/intact. Neurological:No focal deficits noted Rest of the physical exam is non contributory. - Assessment and Plan (1) Closed left femoral fracture Current Visit: Yes Status: Acute Assessment and Plan: Patient transferred for left distal femoral fracture Orthopedics consulted, recommended surgical fixation Orthopedics requested medical maximization and cardiology consultation Cardiology evaluated patient as high risk Echocardiogram demonstrated EF70-75%, no diastolic dysfunction Physical exam and clinical observation suggested sleep apnea Medical evaluation also staged this patient as high risk ORIF of left distal femur fracture successfully completed Patient tolerated procedure well, recovering Plan MIVF 100ml/hr Pain control PRN. PT/OT, Wound Care Await further Orthopedic recommendations (2) Atrial fibrillation Current Visit: No Status: Suspected Assessment and Plan: Patient reports history of AFib Not on anticoagulation because of bleeding she cant recall No arrhythmia identified here continue to monitor (3) Morbid obesity Current Visit: No Status: Chronic (4) Wounds, multiple Current Visit: Yes Status: Chronic Assessment and Plan: Wound team consulted. (5) Chronic kidney disease Current Visit: Yes Status: Chronic Assessment and Plan: Creatinine elevated 1.6 on admission Based on previous admissions that appears to be baseline Continued home meds lisinopril, furosemide, metolazone, potsassium Creatinine elevated today 3.0 Plan Continue MIVF NS 100ml/hr x1L Hold Lasix, Metolazone, Lisinopril Continue to monitor renal function and avoid nephrotoxins Transitioned to oral ciprofloxacin (6) Diabetes mellitus Current Visit: Yes Status: Chronic Assessment and Plan: Chronic diabetic on 30 units BID basal insulin and sliding scale at home Started on low dose sliding scale here, q6 glucose checks while NPO Switched to Diabetic Diet, medium dose sliding scale, and 30 untis levemir BID Glucose continued to run high, transitioned to levemir 45 BID and 3 units lispro TIDWM Plan Continue current regimen (7) UTI (urinary tract infection) Current Visit: Yes Status: Acute Assessment and Plan: Presented with white count 12, no urinary symptoms reported UA suspicious for UTI, urine culture demonstrated gram negative rods Patient started on ciprofloxacin, day 4 Repeat white count 12 this AM, improving No indication for systemic infection/sepsis on labs/vitals Plan Transition to oral ciprofloxacin Continue to monitor clinical response (8) CAD (coronary artery disease) Current Visit: No Status: Chronic Assessment and Plan: Patient reports history of CAD, denies history of [facility] Patient also reports history of CHF Cardiology consulted No EKG changes identified Echo demonstrated EF 70-75%, no diastolic dysfunction Continue home metoprolol, furosemide held for OLIVA (9) Sleep apnea Current Visit: Yes Status: Suspected Assessment and Plan: Suspect sleep apnea based on O2 Sat and exam here Pending overnight BiPAP qualifications (10) Hypertension Current Visit: No Status: Chronic Assessment and Plan: chronic htn, not currently hypertensive, will monitor (11) Acute renal failure Current Visit: Yes Status: Suspected Assessment and Plan: plan as seen for CKD - Time Spent with Patient Total time spent is greater than 50% in coordination of care (as documented) at patient's floor/unit and/or counseling patient: Internal Medicine: Result - Labs CBC & Chem 7: 08/03/18 14:37 08/03/18 08:12 Labs: Short CBC 08/03/18 08/03/18 Range/Units 08:12 14:37 WBC 12.3 H (4.3-11.1) K/mcL Hgb 9.0 L 8.9 L (11.5-15.4) g/dL Hct 28.7 L (35.3-44.9) % Plt Count 220 (140-400) K/mcL BMP 08/03/18 08:12 Sodium 134 L Potassium 4.3 Chloride 106 Carbon Dioxide 19 L BUN 52 H Creatinine 3.09 H Glucose 246 H Calcium 8.2 L - ABG Interpretation ABG results: ABG ABG pH 7.30 pH Units (7.32-7.45) L 08/03/18 06:03 ABG pCO2 46 mmHg (35-45) H 08/03/18 06:03 ABG pO2 103 mmHg (85-104) 08/03/18 06:03 ABG O2 Saturation 97 % (95-98) 08/03/18 06:03 Consult Discharge Plan - Plan Referrals: Ted Parada DO [Primary Care Provider] - <Timmy Harris - Last Filed: 08/03/18 18:38> Hospitalist Progress Note - Encounter Date of Encounter: 08/03/18 - Exam Vitals: Temp Pulse Resp BP Pulse Ox 97.5 F L 62 20 106/40 100 08/03/18 10:55 08/03/18 15:25 08/03/18 15:25 08/03/18 15:25 08/03/18 15:25 - Assessment and Plan (1) Hypertension Current Visit: No Status: Chronic (2) Atrial fibrillation Current Visit: No Status: Suspected (3) Morbid obesity Current Visit: No Status: Chronic (4) Wounds, multiple Current Visit: Yes Status: Chronic (5) Chronic kidney disease Current Visit: Yes Status: Chronic (6) Diabetes mellitus Current Visit: Yes Status: Chronic (7) Closed left femoral fracture Current Visit: Yes Status: Acute (8) UTI (urinary tract infection) Current Visit: Yes Status: Acute (9) CAD (coronary artery disease) Current Visit: No Status: Chronic (10) Sleep apnea Current Visit: Yes Status: Suspected (11) Acute renal failure Current Visit: Yes Status: Suspected - Time Spent with Patient Total time spent is greater than 50% in coordination of care (as documented) at patient's floor/unit and/or counseling patient: Internal Medicine: Result - Labs CBC & Chem 7: 08/03/18 14:37 08/03/18 08:12 Labs: Short CBC 08/03/18 08/03/18 Range/Units 08:12 14:37 WBC 12.3 H (4.3-11.1) K/mcL Hgb 9.0 L 8.9 L (11.5-15.4) g/dL Hct 28.7 L (35.3-44.9) % Plt Count 220 (140-400) K/mcL BMP 08/03/18 08:12 Sodium 134 L Potassium 4.3 Chloride 106 Carbon Dioxide 19 L BUN 52 H Creatinine 3.09 H Glucose 246 H Calcium 8.2 L - ABG Interpretation ABG results: ABG ABG pH 7.30 pH Units (7.32-7.45) L 08/03/18 06:03 ABG pCO2 46 mmHg (35-45) H 08/03/18 06:03 ABG pO2 103 mmHg (85-104) 08/03/18 06:03 ABG O2 Saturation 97 % (95-98) 08/03/18 06:03 - Attending Attestation I examined this patient and my medical decision-making was reviewed with the Resident Physician on 08/03/18. I agree with the documented findings, disposition and treatment plan as described except to the extent set forth below. Ms Romero is currently admitted for femur fracture s/p ORIF. She has developed acute renal failure. She remains moderate to high risk due to potential for worsening clinical status. Ms Romero is feeling OK. Her BP has been low and her creatinine has increased. Her h/h has been OK so far. No fever or chills. No CP or SOB. No GI issues. Exam alert Comfortable at this time Mucus membranes dry Heart not tachy No wheeze abd soft and nontender Moves extremities I/P 1. OLIVA - most likely ATN. Receiving fluids. 2. Hypotension - meds on hold. Fluids now 3. Follow H/H - may need blood 4. Femur fracture s/p ORIF Further diagnoses and plan as above. __ <Ben Kowalski - Last Filed: 08/03/18 18:10> (1) Closed left femoral fracture Qualifiers: Encounter type: subsequent encounter Femur location: distal Fracture morphology: other fracture Fracture healing: with routine healing Qualified Code(s): S72.492D - Other fracture of lower end of left femur, subsequent encounter for closed fracture with routine healing (2) Atrial fibrillation Qualifiers: Atrial fibrillation type: chronic Qualified Code(s): I48.2 - Chronic atrial f ibrillation (5) Chronic kidney disease Qualifiers: Chronic kidney disease stage: stage 3 (moderate) Qualified Code(s): N18.3 - Chronic kidney disease, stage 3 (moderate) (6) Diabetes mellitus Qualifiers: Diabetes mellitus type: type 2 Diabetes mellitus superintendent terminal insulin use: with superintendent terminal use Diabetes mellitus complication status: with hyperglycemia Qualified Code(s): E11.65 - Type 2 diabetes mellitus with hyperglycemia; Z79.4 - snf (current) use of insulin (7) UTI (urinary tract infection) Qualifiers: Urinary tract infection type: acute cystitis Hematuria presence: without hematuria Qualified Code(s): N30.00 - Acute cystitis without hematuria (8) CAD (coronary artery disease) Qualifiers: Coronary Disease-Associated Artery/Lesion type: [place] artery [place] vs. transplanted heart: [place] heart Associated angina: without angina Qualified Code(s): I25.10 - Atherosclerotic heart disease of [place] coronary artery without angina pectoris (9) Sleep apnea Qualifiers: Sleep apnea type: obstructive Qualified Code(s): G47.33 - Obstructive sleep apnea (adult) (pediatric) (10) Hypertension Qualifiers: Hypertension type: essential hypertension Qualified Code(s): I10 - Essential (primary) hypertension (11) Acute renal failure Qualifiers: Acute renal failure type: with acute tubular necrosis Qualified Code(s): N17.0 - Acute kidney failure with tubular necrosis <Timmy Harris - Last Filed: 08/03/18 18:38> (1) Hypertension Qualifiers: Hypertension type: essential hypertension Qualified Code(s): I10 - Essential (primary) hypertension (2) Atrial fibrillation Qualifiers: Atrial fibrillation type: chronic Qualified Code(s): I48.2 - Chronic atrial fibrillation (5) Chronic kidney disease Qualifiers: Chronic kidney disease stage: stage 3 (moderate) Qualified Code(s): N18.3 - Chronic kidney disease, stage 3 (moderate) (6) Diabetes mellitus Qualifiers: Diabetes mellitus type: type 2 Diabetes mellitus superintendent terminal insulin use: with superintendent terminal use Diabetes mellitus complication status: with hyperglycemia Qualified Code(s): E11.65 - Type 2 diabetes mellitus with hyperglycemia; Z79.4 - snf (current) use of insulin (7) Closed left femoral fracture Qualifiers: Encounter type: subsequent encounter Femur location: distal Fracture morphology: other fracture Fracture healing: with routine healing Qualified Code(s): S72.492D - Other fracture of lower end of left femur, subsequent encounter for closed fracture with routine healing (8) UTI (urinary tract infection) Qualifiers: Urinary tract infection type: acute cystitis Hematuria presence: without hematuria Qualified Code(s): N30.00 - Acute cystitis without hematuria (9) CAD (coronary artery disease) Qualifiers: Coronary Disease-Associated Artery/Lesion type: [place] artery [place] vs. transplanted heart: [place] heart Associated angina: without angina Qualified Code(s): I25.10 - Atherosclerotic heart disease of [place] coronary artery without angina pectoris (10) Sleep apnea Qualifiers: Sleep apnea type: obstructive Qualified Code(s): G47.33 - Obstructive sleep apnea (adult) (pediatric) (11) Acute renal failure Qualifiers: Acute renal failure type: with acute tubular necrosis Qualified Code(s): N17.0 - Acute kidney failure with tubular necrosis
--- NOTE | 2018-08-03 19:15 | Orthopedics Progress Note ---
Date of Encounter: 08/03/18 Time of Encounter: 19:10 Subjective Principal diagnosis: Left femur fracture Interval history: 08/02/2018. Patient is postop day #1 intramedullary nailing of left femur fracture. Patient is having minimal left leg pain. Vital signs are stable. Patient is afebrile. Dressings are clean and dry. Neurovascular exam appears intact and stable. Hemoglobin is 9.7. Platelet count normal at 229. White blood cell count 14.7. BUN/creatinine are up. Blood sugars have been in the 4-500 range. Urine growing gram-negative rods. Impression: POD #1 ORIF/IM nailing left femur Recommendation: Can start physical therapy PAVEL. Patient will require touchdown weightbearing initially until we start to some fracture healing at which time we can advance her weight-bearing rather quickly. Need to address blood sugars to get them better controlled. Continue Cipro pending results of urine culture. Patient is high risk for infection in light of her poorly controlled blood sugars, morbid obesity, chronic kidney disease as well as open wounds on the lower extremities. Discussed at length with the patient. 08/03/2018. Patient is POD #2 IM nailing left femur. Little pain. He has had difficulty with any attempts at ambulation. Vital signs are stable. Patient is afebrile. Dressings remain clean and dry. Neurovascular exam remains stable for patient. Hemoglobin is 8.9. Platelet count remains normal. White blood cell count is slowly dropping. Kidney function is somewhat worse, blood sugars are improved. Escherichia coli is not ed in urine. Impression: POD #2 ORIF/IM nailing left femur Recommendations: Continue to attempt to mobilize and ambulate patient. Anticipate significant difficulty due to the patient's massive size as well as the limited weightbearing on her left lower extremity. Awaiting approval for patient to be discharged to rehabilitation when medical status allows. Objective Vital signs: Vital Signs Temp Pulse Resp BP Pulse Ox 08/03/18 19:00 97.8 F 59 15 121/74 98 08/03/18 15:25 62 20 106/40 100 08/03/18 10:55 97.5 F L 59 18 94/48 93 08/03/18 09:20 59 82/52 08/03/18 09:15 87/44 08/03/18 06:40 98.2 F 59 18 98/61 99 08/03/18 03:57 97.4 F L 57 18 112/67 98 08/03/18 00:27 98.3 F 59 20 99/57 98 08/02/18 23:05 99 08/02/18 21:00 94 08/02/18 20:05 97.3 F L 57 20 93/58 97 Intake and Output 08/03/18 08/03/18 08/03/18 07:59 15:59 23:59 Intake Total 0 / 0 240 / 240 Output Total 50 / 50 200 / 200 Balance -50 / -50 40 / 40 Intake: Oral 0 / 0 240 / 240 Output: Catheter 50 / 50 200 / 200 Other: Meal Lunch Percent of Meal Consumed 50% Weight 153.2 kg Blood Glucose* 273 166 Patient Weight 08/03/18 23:59 Weight 153.2 kg Incision: clean and dry - Labs CBC & BMP: 08/03/18 14:37 08/03/18 08:12 Labs: Abnormal lab results WBC 12.3 K/mcL (4.3-11.1) H 08/03/18 08:12 RBC 3.49 M/mcL (3.82-4.97) L 08/03/18 08:12 Hgb 8.9 g/dL (11.5-15.4) L 08/03/18 14:37 Hct 28.7 % (35.3-44.9) L 08/03/18 08:12 MCV 82.2 fL (83.0-100.0) L 08/03/18 08:12 MCH 25.8 pg (28.0-33.3) L 08/03/18 08:12 MCHC 31.4 g/dL (31.6-35.5) L 08/03/18 08:12 RDW 19.0 % (11.5-14.5) H 08/03/18 08:12 Neutrophils # 10.3 K/mcL (1.6-8.9) H 07/31/18 07:14 Immature Plt Fraction 9.4 % (1.1-6.1) H 07/31/18 07:14 ABG pH 7.30 pH Units (7.32-7.45) L 08/03/18 06:03 ABG pCO2 46 mmHg (35-45) H 08/03/18 06:03 ABG Base Excess -4 mEq/L (-2 to 3) L 08/03/18 06:03 Sodium 134 mEq/L (136-145) L 08/03/18 08:12 Carbon Dioxide 19 mEq/L (23-29) L 08/03/18 08:12 BUN 52 mg/dL (6-20) H 08/03/18 08:12 Creatinine 3.09 mg/dL (0.60-1.20) H 08/03/18 08:12 Est GFR ( Amer) 19 (> 60) L 08/03/18 08:12 Est GFR (Non-Af Amer) 16 (> 60) L 08/03/18 08:12 Glucose 246 mg/dL (70-105) H 08/03/18 08:12 POC Glucose 368 mg/dL (70-99) H 08/02/18 20:14 Hemoglobin A1c 8.0 % (-5.6) H 07/31/18 07:14 Calcium 8.2 mg/dL (8.6-10.3) L 08/03/18 08:12 Urine Clarity Cloudy (Clear) A 07/31/18 14:10 Urine Protein 100 mg/dL (Neg-Trace) H 07/31/18 14:10 Urine Glucose (UA) 250 mg/dL (Normal) H 07/31/18 14:10 Urine Ketones Trace mg/dL (Negative) H 07/31/18 14:10 Urine Blood Moderate (Negative) H 07/31/18 14:10 Urine Nitrite Positive (Negative) A 07/31/18 14:10 Ur Leukocyte Esterase Large (Negative) H 07/31/18 14:10 Urine Microscopic RBC 15-30 per hpf (0-3) H 07/31/18 14:10 Urine Microscopic WBC TNTC per hpf (0-3) H 07/31/18 14:10 Ur Squamous Epith Cells Many per lpf (None-Few) H 07/31/18 14:10 Urine Bacteria Many per hpf (None-Few) H 07/31/18 14:10 Ur Culture Indicated? NO. (NO) A 07/31/18 14:10 Consult Discharge Plan - Plan Referrals: Ted Parada DO [Primary Care Provider] -
[2018-08-03] MEDS: Gabapentin 300 MG CAPSULE PO SCH (20:40)
[2018-08-04] MEDS: Acetaminophen 325 MG TABLET PO PRN (03:25)
[2018-08-04 05:12] LABS: Hematocrit 26.7 % (35.3-44.9); Hemoglobin 8.3 g/dL (11.5-15.4); Mean Corpuscular HGB Conc 31.1 g/dL (31.6-35.5); Mean Corpuscular Hemoglobin 25.9 pg (28.0-33.3); Mean Corpuscular Volume 83.2 fL (83.0-100.0); Mean Platelet Volume 11.8 fL (9.4-12.4); Platelet Count 205 K/mcL (140-400); Red Blood Count 3.21 M/mcL (3.82-4.97); Red Cell Distribution Width 19.1 % (11.5-14.5)
[2018-08-04 05:29] LABS: Calcium 7.9 mg/dL (8.6-10.3); Potassium 4.4 mEq/L (3.5-5.1)
[2018-08-04] MEDS: 0.9 % Sodium Chloride 1,000 ML IVC SCH ×3 (05:55→22:16)
[2018-08-04] MEDS: *HR* Heparin 5,000 UNIT/ML VIAL SQ SCH ×3 (05:56→21:08)
[2018-08-04] MEDS: Insulin LISPRO 300 UNITS/3 ML VIAL SQ SCH ×9 (07:23→21:08)
[2018-08-04] MEDS: Insulin DETEMIR 100 UNIT/ML X5UNITS SQ SCH ×2 (08:21→21:08)
[2018-08-04] MEDS: Metoprolol XL (24 HR) Succ 25 MG TAB.ER.24H PO SCH (08:21)
[2018-08-04] MEDS: OXYCODONE Oral CONC 10 MG/0.5 ML ORAL.SYG SL PRN (08:22)
--- NOTE | 2018-08-04 09:27 | Internal Med Progress Note ---
<Ben Kowalski - Last Filed: 08/04/18 11:40> Hospitalist Progress Note - Encounter Date of Encounter: 08/04/18 Time of Encounter: 09:19 - Subjective Interval History: Patient has no acute complaints, no events reported by nursing. I informed her that her sugars look much better today and seem to be under control. Her renal function also seems to be turning the corner. However she still appears to be intravascularly depleted and I recommended a unit of blood, as her hgb has been steadily decreasing since surgery. She agreed. I told her the plan is to reassess tomorrow and wait for insurance authorization from the senior care. - Exam Vitals: Temp Pulse Resp BP Pulse Ox 97.5 F L 60 16 107/55 99 08/04/18 06:26 08/04/18 06:26 08/04/18 06:26 08/04/18 06:26 08/04/18 06:26 Exam: General: Alert and oriented x 3 Skin:Normal color, no rash. Chronic venous stasis to bilateral lower extremities. HEENT:Pupils equal, round and reactive. Cardiovascular:Heart sounds distant, no rubs, murmurs or gallops. No JVD. Pulse regular. Lungs:Breath sounds distant, no wheezes or crackles noted. Abdomen:Obese, Soft, non-tender, no rigidity, normal bowel sounds present. Extremities:No deformity, no joint swelling or clubbing. 2+ pitting edema noted to bilateral lower extremities. Pulses and motor intact in bilateral lower extremities, sensation diminished secondary to neuropathy. Left lower extremity errol bandage clean/dry/intact. Neurological:No focal deficits noted Rest of the physical exam is non contributory. - Assessment and Plan (1) Closed left femoral fracture Current Visit: Yes Status: Acute Assessment and Plan: Patient transferred for left distal femoral fracture Orthopedics consulted, recommended surgical fixation Orthopedics requested medical maximization and cardiology consultation Cardiology evaluated patient as high risk Echocardiogram demonstrated EF70-75%, no diastolic dysfunction Physical exam and clinical observation suggested sleep apnea Medical evaluation also staged this patient as high risk ORIF of left distal femur fracture successfully completed Patient tolerated procedure well, recovering Hgb has been steadily decreasing since surgery Plan 1 unit PRBC MIVF 100ml/hr Pain control PRN. PT/OT, Wound Care Await further Orthopedic recommendations (2) Atrial fibrillation Current Visit: No Status: Suspected Assessment and Plan: Patient reports history of AFib Not on anticoagulation because of bleeding she cant recall No arrhythmia identified here continue to monitor (3) Morbid obesity Current Visit: No Status: Chronic (4) Wounds, multiple Current Visit: Yes Status: Chronic Assessment and Plan: Wound team consulted. (5) Chronic kidney disease Current Visit: Yes Status: Chronic Assessment and Plan: Creatinine elevated 1.6 on admission Based on previous admissions that appears to be baseline Continued home meds lisinopril, furosemide, metolazone, potsassium Creatinine elevated today 3.1, improved from 3.9 yesterday Most likely pre-renal etiology based on labs/physical Plan 1 unit PRBC Continue MIVF NS 100ml/hr x1L Hold Lasix, Metolazone, Lisinopril Continue to monitor renal function and avoid nephrotoxins Transitioned to oral ciprofloxacin, day 2 (6) Diabetes mellitus Current Visit: Yes Status: Chronic Assessment and Plan: Chronic diabetic on 30 units BID basal insulin and sliding scale at home Started on low dose sliding scale here, q6 glucose checks while NPO Switched to Diabetic Diet, medium dose sliding scale, and 30 untis levemir BID Glucose continued to run high, transitioned to levemir 45 BID and 3 units lispro TIDWM Glucose greatly improved and stable, 114 today Plan Continue current regimen (7) UTI (urinary tract infection) Current Visit: Yes Status: Acute Assessment and Plan: Presented with white count 12, no urinary symptoms reported UA suspicious for UTI, urine culture demonstrated gram negative rods Patient started on ciprofloxacin, day 5 Repeat white count 11 this AM, improving No indication for systemic infection/sepsis on labs/vitals Plan Continue ciprofloxacin Continue to monitor clinical response (8) CAD (coronary artery disease) Current Visit: No Status: Chronic Assessment and Plan: Patient reports history of CAD, denies history of [facility] Patient also reports history of CHF Cardiology consulted No EKG changes identified Echo demonstrated EF 70-75%, no diastolic dysfunction Continue home metoprolol, furosemide held for OLIVA (9) Sleep apnea Current Visit: Yes Status: Suspected Assessment and Plan: Suspect sleep apnea based on O2 Sat and exam here Pending overnight BiPAP qualifications (10) Hypertension Current Visit: No Status: Chronic Assessment and Plan: chronic htn, not currently hypertensive, will monitor (11) Acute renal failure Current Visit: Yes Status: Suspected Assessment and Plan: plan as seen for CKD DVT Prophylaxis: subcutaneous heparin - Time Spent with Patient Total time spent is greater than 50% in coordination of care (as documented) at patient's floor/unit and/or counseling patient: Internal Medicine: Result - Labs CBC & Chem 7: 08/04/18 04:21 08/04/18 04:21 Labs: Short CBC 08/03/18 08/04/18 Range/Units 14:37 04:21 WBC 11.0 (4.3-11.1) K/mcL Hgb 8.9 L 8.3 L (11.5-15.4) g/dL Hct 26.7 L (35.3-44.9) % Plt Count 205 (140-400) K/mcL BMP 08/04/18 04:21 Sodium 137 Potassium 4.4 Chloride 108 H Carbon Dioxide 23 BUN 57 H Creatinine 3.01 H Glucose 114 H Calcium 7.9 L - ABG Interpretation ABG results: ABG ABG pH 7.30 pH Units (7.32-7.45) L 08/03/18 06:03 ABG pCO2 46 mmHg (35-45) H 08/03/18 06:03 ABG pO2 103 mmHg (85-104) 08/03/18 06:03 ABG O2 Saturation 97 % (95-98) 08/03/18 06:03 Consult Discharge Plan - Plan Referrals: Ted Parada DO [Primary Care Provider] - <Timmy Harris - Last Filed: 08/04/18 19:02> Hospitalist Progress Note - Encounter Date of Encounter: 08/04/18 - Exam Vitals: Temp Pulse Resp BP Pulse Ox 97.6 F 57 15 108/63 100 08/04/18 18:46 08/04/18 18:46 08/04/18 18:46 08/04/18 18:46 08/04/18 18:46 - Assessment and Plan (1) Hypertension Current Visit: No Status: Chronic (2) Atrial fibrillation Current Visit: No Status: Suspected (3) Morbid obesity Current Visit: No Status: Chronic (4) Wounds, multiple Current Visit: Yes Status: Chronic (5) Chronic kidney disease Current Visit: Yes Status: Chronic (6) Diabetes mellitus Current Visit: Yes Status: Chronic (7) Closed left femoral fracture Current Visit: Yes Status: Acute (8) UTI (urinary tract infection) Current Visit: Yes Status: Acute (9) CAD (coronary artery disease) Current Visit: No Status: Chronic (10) Sleep apnea Current Visit: Yes Status: Suspected (11) Acute renal failure Current Visit: Yes Status: Suspected (12) Anemia Current Visit: Yes Status: Acute - Time Spent with Patient Total time spent is greater than 50% in coordination of care (as documented) at patient's floor/unit and/or counseling patient: Internal Medicine: Result - Labs CBC & Chem 7: 08/04/18 15:59 08/04/18 04:21 Labs: Short CBC 08/04/18 08/04/18 Range/Units 04:21 15:59 WBC 11.0 (4.3-11.1) K/mcL Hgb 8.3 L 8.6 L (11.5-15.4) g/dL Hct 26.7 L 27.9 L (35.3-44.9) % Plt Count 205 (140-400) K/mcL BMP 08/04/18 04:21 Sodium 137 Potassium 4.4 Chloride 108 H Carbon Dioxide 23 BUN 57 H Creatinine 3.01 H Glucose 114 H Calcium 7.9 L - ABG Interpretation ABG results: ABG ABG pH 7.30 pH Units (7.32-7.45) L 08/03/18 06:03 ABG pCO2 46 mmHg (35-45) H 08/03/18 06:03 ABG pO2 103 mmHg (85-104) 08/03/18 06:03 ABG O2 Saturation 97 % (95-98) 08/03/18 06:03 - Attending Attestation I examined this patient and my medical decision-making was reviewed with the [facility] Physician on 08/04/18. I agree with the documented findings, disposition and treatment plan as described except to the extent set forth below. Ms Romero is currently admitted for acute femur fracture s/p ORIF. She has developed OLIVA. She remains moderate to high risk due to potential for worsening clinical status. Ms Romero feels OK. Creatinine a little better. Hemoglobin has decreased. No fever or chills. No CP or SOB. Exam alert Comfortable lying flat Mucus membranes dry Heart reg No wheeze abd soft I/P 1. OLIVA - improving slowly 2. Anemia due to bleeding from leg - transfuse today 3. DM - better control today Further diagnoses and plan as above. <Ben Kowalski - Last Filed: 08/04/18 11:40> (1) Closed left femoral fracture Qualifiers: Encounter type: subsequent encounter Femur location: distal Fracture morphology: other fracture Fracture healing: with routine healing Qualified Code(s): S72.492D - Other fracture of lower end of left femur, subsequent encounter for closed fracture with routine healing (2) Atrial fibrillation Qualifiers: Atrial fibrillation type: chronic Qualified Code(s): I48.2 - Chronic atrial fibrillation (5) Chronic kidney disease Qualifiers: Chronic kidney disease stage: stage 3 (moderate) Qualified Code(s): N18.3 - Chronic kidney disease, stage 3 (moderate) (6) Diabetes mellitus Qualifiers: Diabetes mellitus type: type 2 Diabetes mellitus supervisor histology insulin use: with supervisor histology use Diabetes mellitus complication status: with hyperglycemia Qualified Code(s): E11.65 - Type 2 diabetes mellitus with hyperglycemia; Z79.4 - correspondence analyst (current) use of insulin (7) UTI (urinary tract infection) Qualifiers: Urinary tract infection type: acute cystitis Hematuria presence: without hematuria Qualified Code(s): N30.00 - Acute cystitis without hematuria (8) CAD (coronary artery disease) Qualifiers: Coronary Disease-Associated Artery/Lesion type: [place] artery [place] vs. transplanted heart: [place] heart Associated angina: without angina Qualified Code(s): I25.10 - Atherosclerotic heart disease of [place] coronary artery without angina pectoris (9) Sleep apnea Qualifiers: Sleep apnea type: obstructive Qualified Code(s): G47.33 - Obstructive sleep apnea (adult) (pediatric) (10) Hypertension Qualifiers: Hypertension type: essential hypertension Qualified Code(s): I10 - Essential (primary) hypertension (11) Acute renal failure Qualifiers: Acute renal failure type: with acute tubular necrosis Qualified Code(s): N17.0 - Acute kidney failure with tubular necrosis <Timmy Harris Meghan - Last Filed: 08/04/18 19:02> (1) Hypertension Qualifiers: Hypertension type: essential hypertension Qualified Code(s): I10 - Essential (primary) hypertension (2) Atrial fibrillation Qualifiers: Atrial fibrillation type: chronic Qualified Code(s): I48.2 - Chronic atrial fibrillation (5) Chronic kidney disease Qualifiers: Chronic kidney disease stage: stage 3 (moderate) Qualified Code(s): N18.3 - Chronic kidney disease, stage 3 (moderate) (6) Diabetes mellitus Qualifiers: Diabetes mellitus type: type 2 Diabetes mellitus shelter insulin use: with shelter use Diabetes mellitus complication status: with hyperglycemia Qualified Code(s): E11.65 - Type 2 diabetes mellitus with hyperglycemia; Z79.4 - correspondence analyst (current) use of insulin (7) Closed left femoral fracture Qualifiers: Encounter type: subsequent encounter Femur location: distal Fracture morphology: other fracture Fracture healing: with routine healing Qualified Code(s): S72.492D - Other fracture of lower end of left femur, subsequent encounter for closed fracture with routine healing (8) UTI (urinary tract infection) Qualifiers: Urinary tract infection type: acute cystitis Hematuria presence: without hematuria Qualified Code(s): N30.00 - Acute cystitis without hematuria (9) CAD (coronary artery disease) Qualifiers: Coronary Disease-Associated Artery/Lesion type: [place] artery [place] vs. transplanted heart: [place] heart Associated angina: without angina Qualified Code(s): I25.10 - Atherosclerotic heart disease of [place] coronary artery without angina pectoris (10) Sleep apnea Qualifiers: Sleep apnea type: obstructive Qualified Code(s): G47.33 - Obstructive sleep apnea (adult) (pediatric) (11) Acute renal failure Qualifiers: Acute renal failure type: with acute tubular necrosis Qualified Code(s): N17.0 - Acute kidney failure with tubular necrosis (12) Anemia Qualifiers: Anemia type: other cause Other causes of anemia: acute posthemorrhagic Qualified Code(s): D62 - Acute posthemorrhagic anemia
[2018-08-04] MEDS ORDERED: 0.9 % Sodium Chloride 250 ML ONE (11:03)
--- NOTE | 2018-08-04 14:58 | Orthopedics Progress Note ---
Date of Encounter: 08/04/18 Time of Encounter: 14:50 Subjective Principal diagnosis: Left femur fracture Interval history: 08/02/2018. Patient is postop day #1 intramedullary nailing of left femur fracture. Patient is having minimal left leg pain. Vital signs are stable. Patient is afebrile. Dressings are clean and dry. Neurovascular exam appears intact and stable. Hemoglobin is 9.7. Platelet count normal at 229. White blood cell count 14.7. BUN/creatinine are up. Blood sugars have been in the 4-500 range. Urine growing gram-negative rods. Impression: POD #1 ORIF/IM nailing left femur Recommendation: Can start physical therapy PAVEL. Patient will require touchdown weightbearing initially until we start to some fracture healing at which time we can advance her weight-bearing rather quickly. Need to address blood sugars to get them better controlled. Continue Cipro pending results of urine culture. Patient is high risk for infection in light of her poorly controlled blood sugars, morbid obesity, chronic kidney disease as well as open wounds on the lower extremities. Discussed at length with the patient. 08/03/2018. Patient is POD #2 IM nailing left femur. Little pain. He has had difficulty with any attempts at ambulation. Vital signs are stable. Patient is afebrile. Dressings remain clean and dry. Neurovascular exam remains stable for patient. Hemoglobin is 8.9. Platelet count remains normal. White blood cell count is slowly dropping. Kidney function is somewhat worse, blood sugars are improved. Escherichia coli is not ed in urine. Impression: POD #2 ORIF/IM nailing left femur Recommendations: Continue to attempt to mobilize and ambulate patient. Anticipate significant difficulty due to the patient's massive size as well as the limited weightbearing on her left lower extremity. Awaiting approval for patient to be discharged to rehabilitation when medical status allows. 08/04/2018. Patient POD #3 IM nailing left femur. Pain management working well. Limited ambulation, patient has only been able to sit at bedside. Vital signs are stable. Afebrile. Dressings remain clean and dry. Hemoglobin 8.3. Platelet count remains normal. White blood cell count normal. Kidney function improved. Blood sugars with much better control. Impression: POD #3 ORIF/IM nailing left femur Recommendation: As noted previously patient is stable from an orthopedics point of view. Continue to attempt to mobilize and ambulate. Anticipated difficult due to multiple factors as noted. We will need to maintain the dressings until seen by me in about 2 weeks unless sugars a problem with drainage. Need to be touchdown weightbearing only on the left lower extremity.VTE prophylaxis. Objective Vital signs: Vital Signs Temp Pulse Resp BP Pulse Ox 08/04/18 13:50 97.5 F L 57 16 103/53 08/04/18 11:38 97.5 F L 69 17 106/67 08/04/18 11:23 97.4 F L 54 16 98/50 100 08/04/18 06:26 97.5 F L 60 16 107/55 99 08/04/18 04:35 97.4 F L 57 18 94/56 100 08/03/18 23:17 97.3 F L 60 18 113/68 98 08/03/18 20:39 98 08/03/18 19:00 97.8 F 59 15 121/74 98 08/03/18 15:25 62 20 106/40 100 Intake and Output 08/03/18 08/04/18 08/04/18 23:59 07:59 15:59 Intake Total 950 / 950 1000 / 1000 660 / 660 Output Total 1000 / 1000 Balance 950 / 950 0 / 0 660 / 660 Intake: IV Fluids 950 / 950 1000 / 1000 0.9 % Sodium Chloride 1,000 ML 950 / 950 1000 / 1000 @ 100 mls/hr IVC .Q10H [facility] Rx#: [id number] Oral 360 / 360 Blood Product 300 / 300 Rbcs Leuko Poor As-1 Unit 300 / 300 [id number] Output: Catheter 1000 / 1000 Other: Meal Lunch Percent of Meal Consumed 80% Blood Glucose* 213 91 89 - Labs CBC & BMP: 08/04/18 04:21 08/04/18 04:21 Labs: Abnormal lab results RBC 3.21 M/mcL (3.82-4.97) L 08/04/18 04:21 Hgb 8.3 g/dL (11.5-15.4) L 08/04/18 04:21 Hct 26.7 % (35.3-44.9) L 08/04/18 04:21 MCH 25.9 pg (28.0-33.3) L 08/04/18 04:21 MCHC 31.1 g/dL (31.6-35.5) L 08/04/18 04:21 RDW 19.1 % (11.5-14.5) H 08/04/18 04:21 Neutrophils # 10.3 K/mcL (1.6-8.9) H 07/31/18 07:14 Immature Plt Fraction 9.4 % (1.1-6.1) H 07/31/18 07:14 ABG pH 7.30 pH Units (7.32-7.45) L 08/03/18 06:03 ABG pCO2 46 mmHg (35-45) H 08/03/18 06:03 ABG Base Excess -4 mEq/L (-2 to 3) L 08/03/18 06:03 Chloride 108 mEq/L (98-107) H 08/04/18 04:21 BUN 57 mg/dL (6-20) H 08/04/18 04:21 Creatinine 3.01 mg/dL (0.60-1.20) H 08/04/18 04:21 Est GFR ( Amer) 19 (> 60) L 08/04/18 04:21 Est GFR (Non-Af Amer) 16 (> 60) L 08/04/18 04:21 Glucose 114 mg/dL (70-105) H 08/04/18 04:21 POC Glucose 213 mg/dL (70-99) H 08/03/18 20:19 Hemoglobin A1c 8.0 % (-5.6) H 07/31/18 07:14 Calculated Osmolality 301 (280-300) H 08/04/18 04:21 Calcium 7.9 mg/dL (8.6-10.3) L 08/04/18 04:21 Urine Clarity Cloudy (Clear) A 07/31/18 14:10 Urine Protein 100 mg/dL (Neg-Trace) H 07/31/18 14:10 Urine Glucose (UA) 250 mg/dL (Normal) H 07/31/18 14:10 Urine Ketones Trace mg/dL (Negative) H 07/31/18 14:10 Urine Blood Moderate (Negative) H 07/31/18 14:10 Urine Nitrite Positive (Negative) A 07/31/18 14:10 Ur Leukocyte Esterase Large (Negative) H 07/31/18 14:10 Urine Microscopic RBC 15-30 per hpf (0-3) H 07/31/18 14:10 Urine Microscopic WBC TNTC per hpf (0-3) H 07/31/18 14:10 Ur Squamous Epith Cells Many per lpf (None-Few) H 07/31/18 14:10 Urine Bacteria Many per hpf (None-Few) H 07/31/18 14:10 Ur Culture Indicated? NO. (NO) A 07/31/18 14:10 Consult Discharge Plan - Plan Referrals: Ted Parada DO [Primary Care Provider] -
[2018-08-04] MEDS: Silvasorb 44.4 ML TUBE TP SCH (15:22)
[2018-08-04] MEDS: MICONAZOLE NITRATE 57 GM TUBE TP SCH ×2 (15:22→21:08)
[2018-08-04 16:28] LABS: Hematocrit 27.9 % (35.3-44.9); Hemoglobin 8.6 g/dL (11.5-15.4)
[2018-08-04] MEDS: Gabapentin 300 MG CAPSULE PO SCH ×2 (20:49→21:09)
[2018-08-05] MEDS: OXYCODONE Oral CONC 10 MG/0.5 ML ORAL.SYG SL PRN (01:00)
[2018-08-05] MEDS: Acetaminophen 325 MG TABLET PO PRN (03:31)
[2018-08-05 05:14] LABS: Basophils # 0.1 K/mcL (0.0-0.2); Basophils % 0.7 %; Eosinophils # 0.5 K/mcL (0.0-0.6); Eosinophils % 4.5 %; Hematocrit 29.9 % (35.3-44.9); Immature Granulocytes % 4.4 % (0-4); Lymphocytes % 19.6 %; Mean Corpuscular HGB Conc 30.1 g/dL (31.6-35.5); Mean Corpuscular Hemoglobin 25.6 pg (28.0-33.3); Mean Corpuscular Volume 84.9 fL (83.0-100.0); Mean Platelet Volume 10.7 fL (9.4-12.4); Monocytes # 0.9 K/mcL (0.0-1.3); Monocytes % 8.8 %; Neutrophils # 6.3 K/mcL (1.6-8.9); Platelet Count 195 K/mcL (140-400); Red Blood Count 3.52 M/mcL (3.82-4.97)
[2018-08-05 05:36] LABS: Calcium 7.9 mg/dL (8.6-10.3)
[2018-08-05] MEDS: *HR* Heparin 5,000 UNIT/ML VIAL SQ SCH (07:44)
[2018-08-05] MEDS: Insulin LISPRO 300 UNITS/3 ML VIAL SQ SCH ×4 (08:39→12:32)
[2018-08-05] MEDS: Metoprolol XL (24 HR) Succ 25 MG TAB.ER.24H PO SCH (08:44)
[2018-08-05] MEDS: Insulin DETEMIR 100 UNIT/ML X5UNITS SQ SCH (08:44)
[2018-08-05] MEDS: Silvasorb 44.4 ML TUBE TP SCH (08:45)
[2018-08-05] MEDS: 0.9 % Sodium Chloride 1,000 ML IVC SCH (08:45)
[2018-08-05] MEDS: MICONAZOLE NITRATE 57 GM TUBE TP SCH (08:45)
--- NOTE | 2018-08-05 10:31 | Discharge Summary ---
<Ben Kowalski - Last Filed: 08/05/18 11:05> - NOTES TO OUTPATIENT PROVIDER Notes to Outpatient Provider: Ms Romero was transferred from [facility] [place] for distal left femur fracture. Orthopedics repaired with retrograde intramedullary nail. Patient stayed longer for glucose management and OLIVA. Stable for discharge with close follow up of blood sugar and renal function. PO water intake should be encouraged. Patient should have repeat CBC/BMP Wednesday. Will hold antihypertensives and Lasix for OLIVA, to be resumed at discretion of outpatient provider. Date of Encounter: 08/05/18 Time of Encounter: 10:25 - Discharge Diagnosis (1) Closed left femoral fracture Priority: Primary Status: Resolved Assessment and Plan: Patient transferred for left distal femoral fracture Orthopedics consulted, recommended surgical fixation Orthopedics requested medical maximization and cardiology consultation Cardiology evaluated patient as high risk Echocardiogram demonstrated EF70-75%, no diastolic dysfunction Physical exam and clinical observation suggested sleep apnea Medical evaluation also staged this patient as high risk ORIF of left distal femur fracture successfully completed Patient tolerated procedure well, recovering Hgb steadily decreased after surgery 1 unit PRBCs given, Hgb stable Plan Discharge with repeat CBC on Wednesday Qualifiers: Encounter type: subsequent encounter Femur location: distal Fracture morphology: other fracture Fracture healing: with routine healing Qualified Code(s): S72.492D - Other fracture of lower end of left femur, subsequent encounter for closed fracture with routine healing (2) Hypertension Priority: Secondary Status: Chronic Assessment and Plan: chronic htn, not currently hypertensive, will discharge on home meds Qualifiers: Hypertension type: essential hypertension Qualified Code(s): I10 - Essential (primary) hypertension (3) Atrial fibrillation Priority: Secondary Status: Suspected Assessment and Plan: Patient reports history of AFib Not on anticoagulation because of bleeding she cant recall No arrhythmia identified here Qualifiers: Atrial fibrillation type: chronic Qualified Code(s): I48.2 - Chronic atrial fibrillation (4) Morbid obesity Priority: Secondary Status: Chronic (5) Wounds, multiple Priority: Secondary Status: Chronic Assessment and Plan: Wound team consulted, nursing facility will resume wound care at discharge (6) Chronic kidney disease Priority: Secondary Status: Chronic Assessment and Plan: Creatinine elevated 1.6 on admission Based on previous admissions that appears to be baseline Continued home meds lisinopril, furosemide, metolazone, potsassium Creatinine elevated to 3.9, home meds held Most likely pre-renal etiology based on labs/physical Blood and fluids given, creatinine improved to 2.8 Plan Hold home meds on discharge, to resume at discretion of nursing facility Continue to monitor renal function and avoid nephrotoxins Qualifiers: Chronic kidney disease stage: stage 3 (moderate) Qualified Code(s): N18.3 - Chronic kidney disease, stage 3 (moderate) (7) Diabetes mellitus Priority: Secondary Status: Chronic Assessment and Plan: Chronic diabetic on 30 units BID basal insulin and sliding scale at home Started on low dose sliding scale here, q6 glucose checks while NPO Switched to Diabetic Diet, medium dose sliding scale, and 30 untis levemir BID Glucose continued to run high, transitioned to levemir 45 BID and 3 units lispro TIDWM Glucose greatly improved and stable, discharge on home meds Qualifiers: Diabetes mellitus type: type 2 Diabetes mellitus alf insulin use: with alf use Diabetes mellitus complication status: with hyperglycemia Qualified Code(s): E11.65 - Type 2 diabetes mellitus with hyperglycemia; Z79.4 - USP (current) use of insulin (8) UTI (urinary tract infection) Priority: Secondary Status: Acute Assessment and Plan: Presented with white count 12, no urinary symptoms reported UA suspicious for UTI, urine culture demonstrated gram negative rods Patient started on ciprofloxacin, day 5 Repeat white count normalized this AM, improving No indication for systemic infection/sepsis on labs/vitals Plan 5 day course Ciprofloxacin complete Qualifiers: Urinary tract infection type: acute cystitis Hematuria presence: without hematuria Qualified Code(s): N30.00 - Acute cystitis without hematuria (9) CAD (coronary artery disease) Priority: Secondary Status: Chronic Assessment and Plan: Patient reports history of CAD, denies history of [facility] Patient also reports history of CHF Cardiology consulted No EKG changes identified Echo demonstrated EF 70-75%, no diastolic dysfunction Continue home metoprolol, furosemide held for OLIVA Qualifiers: Coronary Disease-Associated Artery/Lesion type: [place] artery [place] vs. transplanted heart: [place] heart Associated angina: without angina Qualified Code(s): I25.10 - Atherosclerotic heart disease of [place] coronary artery without angina pectoris (10) Sleep apnea Priority: Secondary Status: Suspected Assessment and Plan: Suspect sleep apnea based on O2 Sat and exam here Qualifiers: Sleep apnea type: obstructive Qualified Code(s): G47.33 - Obstructive sleep apnea (adult) (pediatric) (11) Acute renal failure Priority: Secondary Status: Suspected Assessment and Plan: plan as seen for CKD Qualifiers: Acute renal failure type: with acute tubular necrosis Qualified Code(s): N17.0 - Acute kidney failure with tubular necrosis Hospital course: Ms. Romero is a 58 year old female with past medical history significant for CHF, hypertension, hyperlipidemia, paroxysmal A fib, [place], COPD, thyroid disease, diabetes, venous stasis, chronic wounds, obesity, and depression who presented as transfer from [facility] following mechanical fall with walker on wheelchair ramp. Following fall patient complained of only left leg pain. Sending facility obtained an x-ray of left femur, left hip, and left knee. Reported results only show acute comminuted distal left femoral fracture. Patient denied any other injury other than to her left leg, no striking of head, no loss of consciousness. She was admitted and orthopedics was consulted. Cardiology was consulted for surgical clearance. EKG and Echo were largely benign but patient was declared high risk based on comorbidities. Surgery was completed successfully with retrograde intramedullary nail. She was held several further days for PT/OT, blood glucose management, anemia, and OLIVA. She was given 1 unit PRBCs and fluids, antihypertensives and lasix were held. Insulin regimen was adjusted. At time of discharge glucose stable, OLIVA resolving, hgb stable, PT/OT successful, patient to be transferred to nursing facility. Patient will require repeat CBC/BMP in a few days. We will also hold antihypertensives and Lasix to be resumed at discretion of outpatient provider. Discharge discussed with: patient - Time Spent with Patient Total time spent providing and/or coordinating discharge services: - Discharge Medications Prescriptions: OxyCODONE/APAP 10/325 [Percocet 10/325 MG] 1 each PO Q6HR PRN 2 Days #8 tablet PRN Reason: Pain Miconazole Nitrate [[place] Antifungal] 1 appl TP BID 30 Days #1 tube Silvasorb 1 appl TP DAILY 30 Days #1 tube Home Medications: Citalopram [CeleXA] 20 mg PO DAILY 08/15/17 [History] Cyanocobalamin (Vitamin B-12) [Vitamin B12] 1,000 mcg PO DAILY 08/15/17 [History] Cyclobenzaprine [Flexeril] 10 mg PO TID PRN 08/15/17 [History] Gabapentin [Neurontin] 300 mg PO HS 08/15/17 [History] Insulin LISPRO [Humalog Kwikpen U-100] 0 unit SQ TIDWM 08/15/17 [History] Ascorbic Acid [Vitamin C] 500 mg PO BID 11/22/17 [History] Ferrous Sulfate [Iron] 325 mg PO BID 11/22/17 [History] Levothyroxine [Synthroid] 50 mcg PO 0630 11/22/17 [History] Nystatin POWDER [Nystop] 1 appl TP BID 11/22/17 [History] Potassium Chloride [K-Tab ER] 20 meq PO DAILY 11/22/17 [History] Ipratropium/Albuterol Neb [Duoneb] 3 ml IH Q4HR PRN #30 inhsol 12/02/17 [Rx] Insulin Degludec [Tresiba Flextouch U-200] 30 unit SQ BID 07/31/18 [History] Loratadine [Claritin] 10 mg PO DAILY 08/01/18 [History] Miconazole Nitrate [[place] Antifungal] 1 appl TP BID 30 Days #1 tube 08/05/18 [Rx] OxyCODONE/APAP 10/325 [Percocet 10/325 MG] 1 each PO Q6HR PRN 2 Days #8 tablet 08/05/18 [Rx] Silvasorb 1 appl TP DAILY 30 Days #1 tube 08/05/18 [Rx] Allergies/Adverse Reactions: Allergy/AdvReac Type Severity Reaction Status Date / Time carisoprodol [From Soma] Allergy Hives Verified 08/01/18 12:20 cephalexin [From Keflex] Allergy Hives Verified 08/01/18 12:20 Sulfa (Sulfonamide Allergy Hives Verified 08/01/18 12:20 Antibiotics) Date of admission: 07/31/18 13:00 Primary care physician: Ted Parada Consults: 07/31/18 04:04 Consult to Wound Care [CONS] Routine Reason for Consult: Multiple chronic wounds to panniculus, one open with serous drainage. Dry and intact wound to left heel recently followed by wound team. Bilateral chronic venous stasis. Call Completed: No 07/31/18 04:10 Consult to Orthopedic Surgery [CONS] Routine Consulting Provider: Ianni,Jaret J Reason for Consult: Acute coominuted distal left femoral fracture. Sending facility consulted Dr Marrero and he will see patient in a.m. Call Completed: Yes 07/31/18 10:40 Consult to Cardiology [CONS] Routine Comment: Consulting Provider: Walker Huff Reason for Consult: pre-op cardiac risk stratification Call Completed: Yes 08/01/18 21:38 Consult to Occupational Therapy [CONS] Routine Comment: Evaluate, develop and implement POC Reason for Consult: adl Does patient have active BEDREST order?: No Is patient medically & hemodynamically stable?: Yes Consult to Physical Therapy [CONS] Routine Comment: Evaluate, develop and implement POC Reason for Consult: femu Does patient have active BEDREST order?: No Is patient medically & hemodynamically stable?: Yes Consult to [place] [CONS] Routine Reason for SW Consult: dc Discharging clinician: Ben Kowalski Anticipated date of discharge: 08/05/18 - Constitutional Vitals: Temp Pulse Resp BP Pulse Ox 97.6 F 60 18 124/71 98 08/05/18 07:39 08/05/18 07:39 08/05/18 07:39 08/05/18 07:39 08/05/18 07:39 Exam: General: Alert and oriented x 3 Skin:Normal color, no rash. Chronic venous stasis to bilateral lower extremities. HEENT:Pupils equal, round and reactive. Cardiovascular:Heart sounds distant, no rubs, murmurs or gallops. No JVD. Pulse regular. Lungs:Breath sounds distant, no wheezes or crackles noted. Abdomen:Obese, Soft, non-tender, no rigidity, normal bowel sounds present. Extremities:No deformity, no joint swelling or clubbing. 2+ pitting edema noted to bilateral lower extremities. Pulses and motor intact in bilateral lower extremities, sensation diminished secondary to neuropathy. Left lower extremity errol bandage clean/dry/intact. Neurological:No focal deficits noted Rest of the physical exam is non contributory. - Patient Status Disposition: Transfer SNF Condition: Fair Functional capacity at discharge: bed bound Overall status at discharge: patient is progressing back to baseline - Ambulatory Orders Ambulatory Orders: Basic Metabolic Panel [CHEM] Time Frame: 2 Days, Facility: [facility], Location: Lab Complete Blood Count [HEME] Time Frame: 2 Days, Facility: [facility], Location: Lab - Discharge Instructions Follow Up With: Ted Parada, [Primary Care Provider] - - Diet and Activity Activity: resume usual activities as tolerated Diet: diabetic diet - VTE Documentation of Mechanical Device: Venous foot pump, device <Timmy Harris - Last Filed: 08/05/18 18:56> Date of Encounter: 08/05/18 - Discharge Diagnosis (1) Hypertension Status: Chronic Qualifiers: Hypertension type: essential hypertension Qualified Code(s): I10 - Essential (primary) hypertension (2) Atrial fibrillation Status: Suspected Qualifiers: Atrial fibrillation type: chronic Qualified Code(s): I48.2 - Chronic atrial fibrillation (3) Morbid obesity Status: Chronic (4) Wounds, multiple Status: Chronic (5) Chronic kidney disease Status: Chronic Qualifiers: Chronic kidney disease stage: stage 3 (moderate) Qualified Code(s): N18.3 - Chronic kidney disease, stage 3 (moderate) (6) Diabetes mellitus Status: Chronic Qualifiers: Diabetes mellitus type: type 2 Diabetes mellitus alf insulin use: with alf use Diabetes mellitus complication status: with hyperglycemia Qualified Code(s): E11.65 - Type 2 diabetes mellitus with hyperglycemia; Z79.4 - manager long term care (current) use of insulin (7) Closed left femoral fracture Status: Resolved Qualifiers: Encounter type: subsequent encounter Femur location: distal Fracture morphology: other fracture Fracture healing: with routine healing Qualified Code(s): S72.492D - Other fracture of lower end of left femur, subsequent encounter for closed fracture with routine healing (8) UTI (urinary tract infection) Status: Acute Qualifiers: Urinary tract infection type: acute cystitis Hematuria presence: without hematuria Qualified Code(s): N30.00 - Acute cystitis without hematuria (9) CAD (coronary artery disease) Status: Chronic Qualifiers: Coronary Disease-Associated Artery/Lesion type: [place] artery [place] vs. transplanted heart: [place] heart Associated angina: without angina Qualified Code(s): I25.10 - Atherosclerotic heart disease of [place] coronary artery without angina pectoris (10) Sleep apnea Status: Suspected Qualifiers: Sleep apnea type: obstructive Qualified Code(s): G47.33 - Obstructive sleep apnea (adult) (pediatric) (11) Acute renal failure Status: Suspected Qualifiers: Acute renal failure type: with acute tubular necrosis Qualified Code(s): N17.0 - Acute kidney failure with tubular necrosis Hospital course: Ms. Romero is a 58 year old female - Time Spent with Patient Total time spent providing and/or coordinating discharge services: 38min Date of admission: 07/31/18 13:00 Primary care physician: Ted Parada Consults: 07/31/18 04:04 Consult to Wound Care [CONS] Routine Reason for Consult: Multiple chronic wounds to panniculus, one open with serous drainage. Dry and intact wound to left heel recently followed by wound team. Bilateral chronic venous stasis. Call Completed: No 07/31/18 04:10 Consult to Orthopedic Surgery [CONS] Routine Consulting Provider: Jaret Marrero Reason for Consult: Acute coominuted distal left femoral fracture. Sending facility consulted Dr Marrero and he will see patient in a.m. Call Completed: Yes 07/31/18 10:40 Consult to Cardiology [CONS] Routine Comment: Consulting Provider: Cardiology Daria Reason for Consult: pre-op cardiac risk stratification Call Completed: Yes 08/01/18 21:38 Consult to Occupational Therapy [CONS] Routine Comment: Evaluate, develop and implement POC Reason for Consult: adl Does patient have active BEDREST order?: No Is patient medically & hemodynamically stable?: Yes Consult to Physical Therapy [CONS] Routine Comment: Evaluate, develop and implement POC Reason for Consult: femu Does patient have active BEDREST order?: No Is patient medically & hemodynamically stable?: Yes Consult to [place] [CONS] Routine Reason for SW Consult: dc - Constitutional Vitals: Temp Pulse Resp BP Pulse Ox 97.6 F 56 16 105/63 96 08/05/18 11:30 08/05/18 11:30 08/05/18 11:30 08/05/18 11:30 08/05/18 11:30 - Attending Attestation I examined this patient and my medical decision-making was reviewed with the Resident Physician on 08/05/18. I agree with the documented findings, disposition and treatment plan as described except to the extent set forth below. Ms Romero has been admitted for acute L femur fracture. She was taken to OR for ORIF. Post op she had issues with hypotension, OLIVA and hyperglycemia. Overall these have been improving. Creatinine still elevated but is improving. She is now afebrile and ready for discharge to SNF. She is to be toe touch weight bearing only. Exam alert Comfortable Mucus membranes dry Heart reg and not tachy No wheeze abd soft and nontender Plan D/C to SNF Monitor creatinine Toe touch weight bearing
--- NOTE | 2018-08-05 11:20 | Physician Discharge Referral ---
ExtendedCare Referral Info Transfer To: Marco Bejarano Provider in Charge: Steven Provider in Charge after Transfer: PCP Institutional Level of Care: Skilled - Diagnosis (1) Closed left femoral fracture Priority: Primary Status: Resolved (2) Hypertension Priority: Secondary Status: Chronic (3) Atrial fibrillation Priority: Secondary Status: Suspected (4) Morbid obesity Priority: Secondary Status: Chronic (5) Wounds, multiple Priority: Secondary Status: Chronic (6) Chronic kidney disease Priority: Secondary Status: Chronic (7) Diabetes mellitus Priority: Secondary Status: Chronic (8) UTI (urinary tract infection) Priority: Secondary Status: Acute (9) CAD (coronary artery disease) Priority: Secondary Status: Chronic (10) Sleep apnea Priority: Secondary Status: Suspected (11) Acute renal failure Priority: Secondary Status: Suspected Prognosis: Good Aware of Diagnosis: Patient Aware of Prognosis: Patient - Transfer Medications Prescriptions: OxyCODONE/APAP 10/325 [Percocet 10/325 MG] 1 each PO Q6HR PRN 2 Days #8 tablet PRN Reason: Pain Miconazole Nitrate [[place] Antifungal] 1 appl TP BID 30 Days #1 tube Silvasorb 1 appl TP DAILY 30 Days #1 tube Home Medications: Citalopram [CeleXA] 20 mg PO DAILY 08/15/17 [History] Cyanocobalamin (Vitamin B-12) [Vitamin B12] 1,000 mcg PO DAILY 08/15/17 [History] Cyclobenzaprine [Flexeril] 10 mg PO TID PRN 08/15/17 [History] Gabapentin [Neurontin] 300 mg PO HS 08/15/17 [History] Insulin LISPRO [Humalog Kwikpen U-100] 0 unit SQ TIDWM 08/15/17 [History] Ascorbic Acid [Vitamin C] 500 mg PO BID 11/22/17 [History] Ferrous Sulfate [Iron] 325 mg PO BID 11/22/17 [History] Levothyroxine [Synthroid] 50 mcg PO 0630 11/22/17 [History] Nystatin POWDER [Nystop] 1 appl TP BID 11/22/17 [History] Potassium Chloride [K-Tab ER] 20 meq PO DAILY 11/22/17 [History] Ipratropium/Albuterol Neb [Duoneb] 3 ml IH Q4HR PRN #30 inhsol 12/02/17 [Rx] Insulin Degludec [Tresiba Flextouch U-200] 30 unit SQ BID 07/31/18 [History] Loratadine [Claritin] 10 mg PO DAILY 08/01/18 [History] Miconazole Nitrate [[place] Antifungal] 1 appl TP BID 30 Days #1 tube 08/05/18 [Rx] OxyCODONE/APAP 10/325 [Percocet 10/325 MG] 1 each PO Q6HR PRN 2 Days #8 tablet 08/05/18 [Rx] Silvasorb 1 appl TP DAILY 30 Days #1 tube 08/05/18 [Rx] Allergies/Adverse Reactions: Allergy/AdvReac Type Severity Reaction Status Date / Time carisoprodol [From Soma] Allergy Hives Verified 08/01/18 12:20 cephalexin [From Keflex] Allergy Hives Verified 08/01/18 12:20 Sulfa (Sulfonamide Allergy Hives Verified 08/01/18 12:20 Antibiotics) - Respiratory Orders None Smoking Cessation: Smoking cessation has been advised. For more information, call the [place] Tobacco Quit Line at 9-091-WNOA-NOW. - Lab Orders Lab Orders: CBC, Other (include drug levels w/frequency) (CBC and BMP in 2 days) - Advance Directives Code Status: DNR-Comfort Care - Mobility Orders Other (PT/OT as able, patient has poor physical conditioning) - Rehabiliation Orders Rehab Potential: Fair Rehab Orders: Evaluation for Physical Therapy, Evaluation for Occupational Therapy - Treatments Skin tear care topically daily PRN per policy - Diet Orders No Concentrated Sweets, Cardiac CERTIFICATION: I certify that the transfer of the above named patient to an Extended Care Facility is necessary for the continuing treatment of the diagnosis listed. The above information is true and accurate reflection of patient's current condition. Confidential - Redisclosure prohibited without a patient's written consent.
[2018-08-05 11:32] VITALS: BP 105/63
== END 2018-08-05 14:07 | DRG 308 ==
LOC: 3NENU → SUATTDRO 07-31 13:00
PROVIDERS: ADMIT Family Medicine; ATTEND Internal Medicine